=== PATIENT | female | born 1965 | race Caucasian/White ===

== ENCOUNTER 2018-06-12 13:21 | Emergency (ER) | payer OTHER, SELFPAY ==
[2018-06-12 13:25] VITALS: BP 154/108; PULSE 78; RESP 16; TEMP 36.7; O2SAT 98
--- NOTE | 2018-06-12 13:42 | ED.GENADUL ---
Disposition Clinical Impression: Contact dermatitis Disposition: HOME Condition: Stable Instructions: Dermatitis (ED) Additional Instructions: you can try using topical steroid cream if not better this week see your primary care provider if you develop severe pain or fevers return to the emergency department Medical Decision Making - Medical Decision Making Pt here with what to me appears to be a contact local dermatitis. No hand itching and rash doesn't seem typical for scabies. Has no evidence of abscess or cellulitis. Will have her start topical steroids and f/u with pcp if not improving this week - Differential Diagnosis contact dermatitis, cellulitis History of Present Illness - General Chief complaint: RashLesion Stated complaint: rash Time Seen by Provider: 06/12/18 13:34 Source: patient Mode of arrival: ambulatory Limitations: no limitations - History of Present Illness Initial comments: 53 yo female comes in with rash to right arm pit area. She states she had a pimple area there and this morning had a red itchy area so came here. Hasn't taken anything for these symptoms. No fevers or chills. Has mild erythema that blanches and is about 2x1cm with 2-3 smaller areas surrounding it, no fluctuance or tenderness and no warmth. She states she is worried of scabies as she was exposed to this recently, has no itching or rashes to the hands MD Complaint: right arm pit rash Onset/Timin -: days(s) Improves with: none Worsens with: none - Related Data Biotin 10,000 mcg PO DAILY 05/18/17 Cholecalciferol (Vitamin D3) [Vitamin D3] 1,000 unit PO DAILY 05/18/17 Cinnamon Bark 2 gm MC DAILY 05/18/17 Folic Acid 0.8 mg PO DAILY tab-cap 05/18/17 Ibuprofen 600 mg PO TID tab-cap 05/18/17 Lactobacillus Acidophilus [Acidophilus] 1 each PO DAILY 05/18/17 Levothyroxine Sodium [Synthroid] 125 mcg PO DAILY tab-cap 05/18/17 Meclizine HCl 25 mg PO DAILY PRN tab-cap 05/18/17 Naproxen Sodium 220 mg PO BID PRN tab-cap 05/18/17 Tizanidine HCl 2 mg PO DAILY PRN 05/18/17 Tumeric 1 cap PO DAILY 05/18/17 Mariana Root 1 gm MC DAILY 05/19/17 Allergies Allergy/AdvReac Type Severity Reaction Status Date / Time hydromorphone AdvReac Unverified 06/23/17 08:34 oxycodone AdvReac Unverified 06/23/17 08:34 narcotics AdvReac Uncoded 06/23/17 08:34 Review of Systems Constitutional: denies: fever Respiratory: denies: shortness of breath Cardiovascular: denies: chest pain Genitourinary: denies: dysuria Musculoskeletal: denies: back pain Skin: rash Comment: All other systems reviewed and negative Past Medical History - Past Medical History hypothyroidism - Social History Alcohol use: none Drug use: none General Exam - General Limitations: no limitations General appearance: alert, in no apparent distress - Head Head exam: Present: atraumatic - Eye Eye exam: Present: normal apperance - ENT ENT exam: Present: mucous membranes moist - Neck Neck exam: Present: normal inspection - Respiratory Respiratory exam: Absent: respiratory distress - Cardiovascular Cardiovascular Exam: Present: regular rate - Extremities Exam Extremities exam: Present: full ROM, other (see hpi). Absent: joint swelling - Skin Skin exam: Present: warm, other (see hpi) Course Vital Signs - 24 hr 06/12/18 13:25 Temperature 98.1 F Pulse 78 Respiratory 16 Rate Blood Pressure 154/108 Pulse Oximetry 98
[2018-06-12 13:50] VITALS: BP 154/108; PULSE 78; RESP 16; TEMP 36.7; O2SAT 98
== END 2018-06-12 13:53 | disposition home or self-care (01) ==
PROVIDERS: Emergency Provider Emergency Medicine; PCP Family Medicine
DX: L25.9 Unspecified contact dermatitis, unspecified cause (principal)
CPT/HCPCS: 99283

== ENCOUNTER 2023-03-06 01:10 | Outpatient (CLI) | payer OTHER, SELFPAY ==
[2023-03-06 12:53] LABS: Abs Immature Grans 0.05 10^3/uL (0.0-0.06); Absolute Basophil Count 0.05 10^3/uL (0.0-0.2); Absolute Eosinophil Count 0.22 10^3/uL (0.0-0.7); Absolute Lymphocyte Count 1.79 10^3/uL (1.2-3.4); Absolute Monocyte Count 0.61 10^3/uL (0.1-0.8); Absolute Neutrophil Count 3.62 10^3/uL (1.2-6.7); Basophils % 0.8; Eosinophils % 3.5; HCT 45.9 % (36.0-46.0); HGB 14.9 g/dL (11.2-15.7); Immature Grans % 0.8; Lymphocytes % 28.2; MCH 29.7 pg (27.0-33.0); MCHC 32.5 % (32.0-36.0); MCV 92 fL (80-95); MPV 9.9 fL (8.0-11.0); Monocytes % 9.6; Neutrophils % 57.1; Platelet Count 276 10^3/uL (130-400); RBC 5.01 10^6/uL (3.93-5.22); RDW 12.8 % (11.7-14.6); RDW-SD 42.7 fL; WBC 6.34 10^3/uL (4.4-10.8)
[2023-03-06 13:11] LABS: ALT 30 U/L (14-59); AST 22 U/L (15-37); Alkaline Phosphatase 92 U/L (46-116); Anion Gap 12.1 mmol/L (3-11); BUN 18 mg/dL (7-18); Bilirubin, Total 0.4 mg/dL (0.2-1.0); CO2 25.9 mmol/L (21.0-32.0); Calcium 9.3 mg/dL (8.5-10.1); Calculated LDL 154 mg/dL (<100); Chloride 100 mmol/L (98-107); Cholesterol 238 mg/dL (<200); Estimated GFR 64.49 (mL/min/1.73m2); Glucose 235 mg/dL (74-106); HDL Cholesterol 61 mg/dL (40-60); Potassium 4.3 mmol/L (3.5-5.1); Sodium 138 mmol/L (136-145); TSH (W/Ref FT4) 1.37 uIU/mL (0.36-3.74); Total Protein 7.4 g/dL (6.4-8.2); Triglyceride 118 mg/dL (<150)
== END 2023-03-06 01:11 | disposition home or self-care (01) ==
LOC: LOS 01:10
PROVIDERS: PCP Nurse Practitioner; Visit Provider Nurse Practitioner
DX: E03.9 Hypothyroidism, unspecified (principal); E11.9 Type 2 diabetes mellitus without complications; J45.909 Unspecified asthma, uncomplicated; Z13.220 Encounter for screening for lipoid disorders
CPT/HCPCS: 36415; 80053; 80061; 83036; 84443; 85025

== ENCOUNTER 2023-04-01 11:58 | Outpatient (CLI) | payer OTHER, SELFPAY ==
[2023-04-08 16:42] LABS: Anti GAD65 Abs 0.22 nmol/L (<= 0.02); IA-2 Autoantibodies 0.01 nmol/L (<=0.02); ZnT8 Antibodies <15.0 U/mL (<15.0)
== END 2023-04-01 11:59 | disposition home or self-care (01) ==
LOC: LBO 11:58
PROVIDERS: PCP Nurse Practitioner; Visit Provider Student in an Organized Health Care Education/Training Program
DX: Z83.3 Family history of diabetes mellitus (principal); E11.65 Type 2 diabetes mellitus with hyperglycemia
CPT/HCPCS: 36415; 86337; 86341

== ENCOUNTER 2023-10-07 13:30 | Outpatient (REF) | payer OTHER, SELFPAY ==
[2023-10-08 14:19] LABS: HSV 1 DNA Result Positive (Negative); HSV 2 DNA Result Negative (Negative); Varicella Zoster DNA Result Negative ((See Note))
== END 2023-10-07 13:31 | disposition home or self-care (01) ==
LOC: LBN 13:30
PROVIDERS: PCP Nurse Practitioner; Visit Provider Nurse Practitioner Adult Health
DX: K12.1 Other forms of stomatitis (principal); K13.79 Other lesions of oral mucosa
CPT/HCPCS: 87529; 87798

== ENCOUNTER 2023-12-08 03:15 | Outpatient (CLI) | payer BC, SELFPAY ==
[2023-12-08 10:14] LABS: AST 756 U/L (15-37); Albumin 3.5 g/dL (3.4-5.0); Alkaline Phosphatase 622 U/L (46-116); Anion Gap 10.2 mmol/L (3-11); BUN 9 mg/dL (7-18); Bilirubin, Total 1.1 mg/dL (0.2-1.0); CO2 26.8 mmol/L (21.0-32.0); CREATININE 0.9 mg/dL (0.55-1.02); Calcium 9.9 mg/dL (8.5-10.1); Calculated LDL 95 mg/dL (<100); Chloride 103 mmol/L (98-107); Cholesterol 160 mg/dL (<200); Estimated GFR 73.19 (mL/min/1.73m2); Glucose 146 mg/dL (74-106); HDL Cholesterol 54 mg/dL (40-60); Potassium 4.4 mmol/L (3.5-5.1); Sodium 140 mmol/L (136-145); Triglyceride 55 mg/dL (<150)
[2023-12-08 11:10] LABS: ALT 1408 U/L (14-59)
[2023-12-08 15:44] LABS: Lab Add On Test DONE
[2023-12-08 17:32] LABS: Hemoglobin A1C 6.9 % (<5.7)
== END 2023-12-08 03:16 | disposition home or self-care (01) ==
PROVIDERS: PCP Nurse Practitioner; Referring Provider Nurse Practitioner; Visit Provider Nurse Practitioner
DX: E11.9 Type 2 diabetes mellitus without complications (principal); I10 Essential (primary) hypertension
CPT/HCPCS: 36415; 80053; 80061; 83036

== ENCOUNTER 2023-12-08 13:51 | Observation (INO) | payer BC, SELFPAY ==
[2023-12-08] VITALS (7 sets, daily range): BP systolic 130–160; BP diastolic 73–99; PULSE 65–84; RESP 15–18; TEMP 36.2–37.1; O2SAT 95–99
--- NOTE | 2023-12-08 14:09 | ED.GENADUL_ITS ---
HPI General Mode of arrival: ambulatory . Date/Time Provider Initiated Documentation: 12/08/23 14:00 . Limitations to Documentation: no limitations . Information obtained by: patient and old records reviewed . HPI Narrative: 58yo F with DM, hypothyroid, presenting after being instructed to by her PCP for abnormal liver labs that were drawn outpatient. For about a week she has had nausea and vomiting, doing okay with fluids but not able to keep down much solids. Increased dose of ozempic about a week and a half ago. Mild burning epigastric and RUQ abdominal pain, not helped with TUMS. No unusual foods (wildcrafted mushrooms,etc.) or new medications. She is otherwise in her usual state of health with no fevers, chills, rash, lower abdominal pain, flank pain, or other concerns. Related Data Home Medications Medication Instructions Recorded Confirmed Tumeric 1 cap PO DAILY 05/18/17 12/08/23 cinnamon bark (bulk) 2 g miscellaneous DAILY 05/18/17 12/08/23 meclizine 25 mg chewable tablet 25 mg PO DAILY PRN 05/18/17 12/08/23 naproxen sodium 220 mg tablet 220 mg PO BID PRN 05/18/17 12/08/23 tizanidine 2 mg capsule 2 mg PO DAILY PRN 05/18/17 12/08/23 juventino root (bulk) 1 g miscellaneous DAILY 05/19/17 12/08/23 Quercitin 500 mg PO DAILY 02/18/23 12/08/23 cholecalciferol (vitamin D3) 125 125 mcg PO DAILY 02/18/23 12/08/23 mcg (5,000 unit) capsule collagen 7.85 mg PO DAILY 02/18/23 12/08/23 cyclobenzaprine 5 mg tablet 2.5 mg PO DAILY PRN SI joint issues 02/18/23 12/08/23 ibuprofen 600 mg tablet 600 mg PO TID PRN 02/18/23 12/08/23 meclizine 25 mg tablet 25 mg PO DAILY PRN 02/18/23 12/08/23 selenium 200 mcg tablet 200 mcg PO DAILY 02/18/23 12/08/23 zinc 22 mg PO 1XD 02/18/23 12/08/23 blood sugar diagnostic (Blood #200 ea 03/16/23 12/08/23 Glucose Test strips) blood-glucose meter (OneTouch #1 ea 03/16/23 12/08/23 Verio Flex Meter) lancets (Lancets,Ultra Thin) #100 ea 03/16/23 12/08/23 CGM (Continuous Glucose Monitor) #1 ea 04/25/23 12/08/23 insulin glargine-aglr 100 unit/mL 10 unit (0.1 mL) subcut DAILY 05/08/23 12/08/23 (3 mL) subcutaneous pen (Rezvoglar Diabetes #15 mL KwikPen) pen needle, diabetic 31 gauge x #100 ea 05/08/23 12/08/23 3/16 (Easy Comfort Pen [place]) levothyroxine 137 mcg capsule 137 mcg PO DAILY #90 caps 05/15/23 12/08/23 insulin aspart U-100 100 unit/mL 5 unit (0.05 mL) subcut TID #15 mL 10/13/23 12/08/23 (3 mL) subcutaneous pen (Novolog FlexPen U-100 Insulin aspart) semaglutide 2 mg/dose (8 mg/3 mL) 2 mg subcut QWEEK 12/01/23 12/08/23 subcutaneous pen injector (Ozempic) Previous Rx's Medication Instructions Recorded blood sugar diagnostic (Blood #200 ea 03/16/23 Glucose Test strips) blood-glucose meter (OneTouch #1 ea 03/16/23 Verio Flex Meter) lancets (Lancets,Ultra Thin) #100 ea 03/16/23 CGM (Continuous Glucose Monitor) #1 ea 04/25/23 insulin glargine-aglr 100 unit/mL 10 unit (0.1 mL) subcut DAILY 05/08/23 (3 mL) subcutaneous pen (Rezvoglar Diabetes #15 mL KwikPen) pen needle, diabetic 31 gauge x #100 ea 05/08/23 3/16 (Easy Comfort Pen [place]) levothyroxine 137 mcg capsule 137 mcg PO DAILY #90 caps 05/15/23 insulin aspart U-100 100 unit/mL 5 unit (0.05 mL) subcut TID #15 mL 10/13/23 (3 mL) subcutaneous pen (Novolog FlexPen U-100 Insulin aspart) Allergies Allergy/AdvReac Type Severity Reaction Status Date / Time hydromorphone AdvReac Dizziness/L Verified 02/13/24 13:59 ighthead oxycodone AdvReac Nausea Verified 12/08/23 13:59 narcotics AdvReac Nausea Uncoded 12/08/23 13:59 General Stated Complaint: Abd Prob EARL: 3 Review of Systems Narrative: see HPI Exam Narrative Exam Narrative: General: Alert, well appearing, well nourished, in no acute distress. Head: Normocephalic, atraumatic Neck: Trachea midline, ?Neck supple. ENT: ?MMM.? No oropharygeal lesions or exudate. Cardiac: ?RRR, no murmurs appreciated Resp: No respiratory distress. CTAB. Abd: ?Soft, non-distended, slightly tender RUQ, Extremities: ?No deformities.? No peripheral edema. Neurologic: GCS 15. ? Moves all extremities freely against gravity Course Vital Signs Vital signs: Vital Signs Temperature 36.4 C L 12/08/23 13:54 Pulse 84 12/08/23 13:54 Respiratory Rate 18 12/08/23 13:54 Blood Pressure 153/99 H 12/08/23 13:54 Pulse Oximetry 99 12/08/23 13:54 Temperature 36.4 C L 12/08/23 13:54 Temperature Source Skin 12/08/23 13:54 Pulse 84 12/08/23 13:54 Respiratory Rate 18 12/08/23 13:54 Respiratory Effort Normal 12/08/23 13:58 Blood Pressure 153/99 H 12/08/23 13:54 Pulse Oximetry 99 12/08/23 13:54 Oxygen Delivery Method Room Air 12/08/23 13:54 Oxygen Flow Rate 0 12/08/23 13:54 Medical Decision Making 58yo F with DM, hypothyroid, presenting after being instructed to by her PCP for abnormal liver labs that were drawn outpatient. Has had a week and a half of N/V, symptoms started after increasing dose of ozempic. Outpatient labs with Tbili 1.1, AST 756, ALT 1408, ALP 622. Vital signs and physical exam reassuring, minimal RUQ tenderness on exam. No jaundice. Labs here reviewed as below, CBC reassuring, CMP again with transaminitiis (TBili 0.7, AST 569, ALT >10,000, ALP 580). PT & PTT normal. Ammonia normal. BNP normal. Amylase normal. Lipase mildly elevated at 166, not overly suggestive of pancreatitis. Serum acetaminophen negative. US independently reviewed, agree with radiology read below with CBD dilation without wall thickening. Viral hepatitis panel send out. Repeat vital signs and physical exam remain reassuring. Not concerning for cholangitis. Differenital remains broad, ozempic reaction, acute viral hepatitis, choledocolithiasis. Discussed with Dr. Meyer [facility]; agree the patient would benefit from EUS. They anticipate being able to perform the procedure tomorrow, would be able to do a [id number] transfer. Requested that the admitting service here call the transfer center at 0830 tomorrow to confirm timing. Discussed with hospitalist and accepted to medicine service; awaiting transfer to the floor. Imaging Data Radiologic Study: Imaging: Ultrasound Radiologist's impression: IMPRESSION: Dilated common bile duct and pancreatic duct. No visible obstructing stone or mass. The gallbladder is somewhat distended but there is no evidence of acute cholecystitis. Lab Data Lab results reviewed: Yes I reviewed the patient's lab results. Labs: Laboratory Tests Range/Units 12/08/23 12/08/23 12/08/23 14:40 14:42 16:24 WBC (4.4-10.8) 10^3/uL 7.01 RBC (3.93-5.22) 10^6/uL 4.28 Hgb (11.2-15.7) g/dL 13.1 Hct (36.0-46.0) % 39.1 MCV (80-95) fL 91 MCH (27.0-33.0) pg 30.6 MCHC (32.0-36.0) % 33.5 RDW (11.7-14.6) % 13.0 Plt Count (130-400) 10^3/uL 289 MPV (8.0-11.0) fL 9.8 Immature Gran % 0.4 Neutrophils % 60.6 Lymphocytes % 27.5 Monocytes % 7.8 Eosinophils % 3.1 Basophils % 0.6 Nucleated RBC % (0.0-0.3) % 0.0 Absolute Neutrophils (1.2-6.7) 10^3/uL 4.25 Absolute Lymphocytes (1.2-3.4) 10^3/uL 1.93 Absolute Monocytes (0.1-0.8) 10^3/uL 0.55 Absolute Eosinophils (0.0-0.7) 10^3/uL 0.22 Absolute Basophils (0.0-0.2) 10^3/uL 0.04 PT (9.1-11.1) sec 10.7 INR (0.9-1.1) 1.1 APTT (23.6-32.8) sec 30.5 Sodium (136-145) mmol/L 140 Potassium (3.5-5.1) mmol/L 3.9 Chloride (98-107) mmol/L 103 Carbon Dioxide (21.0-32.0) mmol/L 28.5 Anion Gap (3-11) mmol/L 8.5 BUN (7-18) mg/dL 14 Creatinine (0.55-1.02) mg/dL 0.8 Est GFR (CKD-EPI 2020) (mL/min/1.73m2) 84.30 Glucose (74-106) mg/dL 186 H Calcium (8.5-10.1) mg/dL 9.8 Total Bilirubin (0.2-1.0) mg/dL 0.7 AST (15-37) U/L 569 H ALT (14-59) U/L > 83620 H Alkaline Phosphatase (46-116) U/L 580 H Ammonia (11-32) umol/L < 10 L NT-Pro-B Natriuret Pep (<300) pg/mL 38 Total Protein (6.4-8.2) g/dL 7.1 Albumin (3.4-5.0) g/dL 3.5 Amylase (25-115) U/L 38 Lipase (16-77) U/L 166 H Acetaminophen (10-30) ug/mL < 2 HIV 1&2 Ag/Ab, 4th Gen Cancelled HIV 1&2 Antibody Rapid (Negative) Negative Cancelled Quality:SDOH Health Related Social Needs: No Data to Display PFSH All Active Problems (Updated 12/08/23 @ 21:01 by Belkis Obrien MD) Common bile duct dilatation (Acute) Hepatitis (Acute) HSV-1 infection (Acute ~2022) DM type 1, goal A1C below 7.5% (Acute) DM 1.5, but adding TYpe 1 2' MGMT per DM 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 see [facility] notes.. 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, 03/2023 Ganglion cyst Muscle spasm Benign paroxysmal positional vertigo Trochanteric bursitis, left hip Other intervertebral disc degeneration, lumbar region Adjustment disorder with anxious mood Synovial cyst of lumbar facet joint Family History Brother Alcohol use disorder Brother Alcohol use disorder Depression Father Colon cancer Diabetes Mother Asthma Lung cancer ALK positive ( gene mutation) Hypertension Sister Franklin disease Paternal Grandmother Heart disease Paternal Grandfather Colon cancer Social History Smoking/Tobacco Use Status: Current-Occasional Quit status: considering quitting Smoking risk assessment performed?: Yes Alcohol Intake: current Alcohol Intake frequency: holidays/special occasions only Counseling given: No Drug use: Never Substance use type: does not use Household members: spouse Housing: house Number of Children: 3 number of grandchildren: 2 Communication Needs: Corrective Lenses Education Level: college 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 What is your relationship status?: How often do you talk on the phone with friends or family?: three or more times per week How often do you get together with friends or relatives?: three or more times per week Panel score (0-1 are the most socially isolated patients): 2 NHANES result reviewed/action taken: Yes What type of physical activity do you participate in: walking and swimming Duration: 45-60 minutes/day Frequency: 5-6 times per week Debbi/Nondenominational: Protestant Special debbi needs: Yes Seatbelt use: always 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 Working smoke detector in home: Yes Carbon monox detector in home: Yes Do you feel safe in your relationship?: Yes Discharge Plan Disposition Patient Disposition: Admit to [facility] Condition: Serious Discharge Details Chief Complaint: Abd Prob Clinical Impression: Common bile duct dilatation, Hepatitis Primary Care Provider: Thao Rivas ED Provider: Belkis Obrien Home Meds and New Rx's Prescriptions: No Action cyclobenzaprine 5 mg tablet 2.5 mg PO DAILY PRN (Reason: SI joint issues) zinc 22 mg PO 1XD cholecalciferol (vitamin D3) 125 mcg (5,000 unit) capsule 125 mcg PO DAILY selenium 200 mcg tablet 200 mcg PO DAILY Quercitin 500 mg PO DAILY collagen 7.85 mg PO DAILY meclizine 25 mg tablet 25 mg PO DAILY PRN (DME) blood-glucose meter [OneTouch Verio Flex meter] Misc See Rx Instructions .Route Qty: 1 1RF Rx Instructions: For BID testing of diabetes, E11.9, with A1C goal < 8 (DME) lancets [Lancets,Ultra Thin] Misc See Rx Instructions .Route Qty: 100 1RF Rx Instructions: for BID testing with Verio for DM W11.9 with A1C goal < 8 (DME) Blood Glucose Test Strip See Rx Instructions .ROUTE .MEDSUPPLY Qty: 200 3RF Rx Instructions: For Verio OR covered brand, for bID testing for DM E11.9 Ozempic 2 mg/dose (8 mg/3 mL) pen injector 2 mg subcut QWEEK insulin aspart U-100 [Novolog FlexPen U-100 Insulin] 100 unit/mL (3 mL) insulin pen 5 unit subcut TID Qty: 15 12RF Rx Instructions: Inject 1-5 units subcutaneously, 1-3 times daily as directed. (DME) CGM (Continuous Glucose Monitor) and SENSOR See Rx Instructions .Route .MEDSUPPLY Qty: 1 1RF Rx Instructions: Medical necessity for serious health risk due to TYPE 1 MGMT REQUIREMENT cinnamon bark (bulk) 1 GM powder 2 g Miscellaneous DAILY naproxen sodium 220 MG tablet 220 mg PO BID PRN meclizine 25 MG tablet,chewable 25 mg PO DAILY PRN tizanidine 2 MG capsule 2 mg PO DAILY PRN TUMERIC EACH CAP 1 cap PO DAILY juventino root (bulk) 1 GM powder 1 g Miscellaneous DAILY ibuprofen 600 mg tablet 600 mg PO TID PRN (DME) pen needle, diabetic [Easy Comfort Pen [place]] 31 gauge x 3/16 needle See Rx Instructions .Route Qty: 100 3RF Rx Instructions: As directed Zoë Duke 100 unit/mL (3 mL) insulin pen 10 unit subcut DAILY MDD 30 units Qty: 15 3RF Rx Instructions: Take 10 units SubQ daily. May titrate to 30 units as directed by ambulatory pharmacist levothyroxine 137 mcg capsule 137 mcg PO DAILY Qty: 90 3RF
--- NOTE | 2023-12-08 14:15 | DI.US_ITS ---
Exam(s) US ABDOMEN EXAM: US ABDOMEN CLINICAL HISTORY: elevated LFTS, diffuse abd pain, vomiting TECHNIQUE: Ultrasound abdomen performed using standard protocol. COMPARISON: No exams were available for comparison FINDINGS: LIVER: Normal size and echogenicity. No focal liver lesions are seen. GALLBLADDER: Gallbladder appears somewhat distended. No evidence of cholelithiasis. No evidence of w all thickening. No pericholecystic fluid identified. RAY'S SIGN: Negative. BILIARY SYSTEM: Common bile duct dilated to 11 millimeters. No stone visible. KIDNEYS: Kidneys are symmetric in size. No evidence of renal calculi. No evidence of hydronephrosis. No renal mass or cyst identified. PANCREAS: Pancreatic duct is dilated to 4 millimeters. No mass or cyst identified. SPLEEN: Not enlarged. ABDOMINAL AORTA AND IVC: Visualized portions normal caliber. ASCITES: None seen. IMPRESSION: Dilated common bile duct and pancreatic duct. No visible obstructing stone or mass. The gallbladder is somewhat distended but there is no evidence of acute cholecystitis. DATA REPOSITORY:
[2023-12-08 14:57] LABS: Absolute Basophil Count 0.04 10^3/uL (0.0-0.2); Basophils % 0.6
[2023-12-08 15:18] LABS: Abs Immature Grans 0.03 10^3/uL (0.0-0.06); Absolute Eosinophil Count 0.22 10^3/uL (0.0-0.7); Absolute Lymphocyte Count 1.93 10^3/uL (1.2-3.4); Absolute Monocyte Count 0.55 10^3/uL (0.1-0.8); Eosinophils % 3.1; HCT 39.1 % (36.0-46.0); HGB 13.1 g/dL (11.2-15.7); Immature Grans % 0.4; Lymphocytes % 27.5; MCH 30.6 pg (27.0-33.0); MCHC 33.5 % (32.0-36.0); MCV 91 fL (80-95); MPV 9.8 fL (8.0-11.0); Monocytes % 7.8; Neutrophils % 60.6; Platelet Count 289 10^3/uL (130-400); RBC 4.28 10^6/uL (3.93-5.22); RDW-SD 43.4 fL; WBC 7.01 10^3/uL (4.4-10.8)
[2023-12-08 15:20] LABS: Absolute Neutrophil Count 4.25 10^3/uL (1.2-6.7)
[2023-12-08 15:27] LABS: AST 569 U/L (15-37); Albumin 3.5 g/dL (3.4-5.0); Alkaline Phosphatase 580 U/L (46-116); Amylase 38 U/L (25-115); Anion Gap 8.5 mmol/L (3-11); BUN 14 mg/dL (7-18); Bilirubin, Total 0.7 mg/dL (0.2-1.0); CO2 28.5 mmol/L (21.0-32.0); CREATININE 0.8 mg/dL (0.55-1.02); Chloride 103 mmol/L (98-107); Glucose 186 mg/dL (74-106); HIV 1/2 Ab Rapid Negative (Negative); Lipase 166 U/L (16-77); NT-proBNP 38 pg/mL (<300); Potassium 3.9 mmol/L (3.5-5.1); Sodium 140 mmol/L (136-145); Total Protein 7.1 g/dL (6.4-8.2)
[2023-12-08 15:34] LABS: Ammonia < 10 umol/L (11-32)
[2023-12-08 15:51] LABS: Acetaminophen < 2 ug/mL (10-30)
[2023-12-08 16:11] LABS: Calcium 9.8 mg/dL (8.5-10.1)
[2023-12-08 16:47] LABS: INR 1.1 (0.9-1.1); PTT Activated 30.5 sec (23.6-32.8); Prothrombin Time 10.7 sec (9.1-11.1)
[2023-12-08 17:03] LABS: ALT > 10000 U/L (14-59)
--- NOTE | 2023-12-08 20:24 | HPE_ITS ---
Date of service: 12/08/23 Time of Service: 20:25 Assessment and Plan Assessment and plan (1) Hepatitis: Status: Acute Assessment and plan: Acute hepatitis, hepatocellular pattern. With numbers at this level toxic etiology suspected (eg, Ozempic by timing), though episodes of acute pain (along with increased CBD) raise question of passed stone. Will hold all meds (except for insulin coverage), trend LFTs, await viral and autoimmune studies and consult further with GI for ERCP. 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 States she always has had some transient nausea with does increases, but this has been persistent and severe, along with several episodes of bilious vomiting. Notably she also had two episodes of epigastric pain during this period, one 5 days OPEN CLAIMS REPRESENTATIVE, one 2 days OPEN CLAIMS REPRESENTATIVE -- both occurring some 4-5 hours after eating. In ER w/u of note for initial ALT 1408, repeat >10,000, with AST in 500- 700 range; initial bili 1.2, repeat 0.7. U/S shows CBD 11mm, no stones, slightly distended GB w/o wall thickening or fluid. APAP negative, HIV negative, viral studies and RADHA pending. GI consulted, hoping to see her for ERCP in AM (Dr. Meyer asks us to call). I was asked to evaluate for admission. Patient denies other new drugs or supplements, though did have a course of Acyclovir 1 month OPEN CLAIMS REPRESENTATIVE for episode oral HSV. No exposure to HBV, denies blood transfusion or new sexual partner. Review of Systems Narrative: per HPI PFSH All Active Problems (Updated 12/08/23 @ 20:37 by Anthony Ruano MD) Hepatitis (Acute) HSV-1 infection (Acute ~2022) DM type 1, goal A1C below 7.5% (Acute) DM 1.5, but adding TYpe 1 2' MGMT per DM 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 see KG notes.. 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, 03/2023 Ganglion cyst Muscle spasm Benign paroxysmal positional vertigo Trochanteric bursitis, left hip Other intervertebral disc degeneration, lumbar region Adjustment disorder with anxious mood Synovial cyst of lumbar facet joint Family History Brother Alcohol use disorder Brother Alcohol use disorder Depression Father Colon cancer Diabetes Mother Asthma Lung cancer ALK positive ( gene mutation) Hypertension Sister [place] disease Paternal Grandmother Heart disease Paternal Grandfather Colon cancer Social History Smoking/Tobacco Use Status: Current-Occasional Quit status: considering quitting Smoking risk assessment performed?: Yes Alcohol Intake: current Alcohol Intake frequency: holidays/special occasions only Counseling given: No Drug use: Never Substance use type: does not use Household members: spouse Housing: house Number of Children: 3 number of grandchildren: 2 Communication Needs: Corrective Lenses Education Level: college 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 What is your relationship status?: How often do you talk on the phone with friends or family?: three or more times per week How often do you get together with friends or relatives?: three or more times per week Panel score (0-1 are the most socially isolated patients): 2 NHANES result reviewed/action taken: Yes What type of physical activity do you participate in: walking and swimming Duration: 45-60 minutes/day Frequency: 5-6 times per week Debbi/Samaritan: Taoism Special debbi needs: Yes Seatbelt use: always Drive intox or ride w/intox 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 Working smoke detector in home: Yes Carbon monox detector in home: Yes Do you feel safe in your relationship?: Yes Meds Allergies and Home Medications Allergies Allergy/AdvReac Type Severity Reaction Status Date / Time hydromorphone AdvReac Dizziness/L Verified 12/08/23 13:59 ighthead oxycodone AdvReac Nausea Verified 12/08/23 13:59 narcotics AdvReac Nausea Uncoded 12/08/23 13:59 Home Medications Medication Instructions Recorded Confirmed Type Tumeric 1 cap PO DAILY 05/18/17 12/08/23 History cinnamon bark (bulk) 2 g miscellaneous DAILY 05/18/17 12/08/23 History meclizine 25 mg chewable tablet 25 mg PO DAILY PRN 05/18/17 12/08/23 History naproxen sodium 220 mg tablet 220 mg PO BID PRN 05/18/17 12/08/23 History tizanidine 2 mg capsule 2 mg PO DAILY PRN 05/18/17 12/08/23 History juventino root (bulk) 1 g miscellaneous DAILY 05/19/17 12/08/23 History Quercitin 500 mg PO DAILY 02/18/23 12/08/23 History cholecalciferol (vitamin D3) 125 125 mcg PO DAILY 02/18/23 12/08/23 History mcg (5,000 unit) capsule collagen 7.85 mg PO DAILY 02/18/23 12/08/23 History cyclobenzaprine 5 mg tablet 2.5 mg PO DAILY PRN SI joint issues 02/18/23 12/08/23 History ibuprofen 600 mg tablet 600 mg PO TID PRN 02/18/23 12/08/23 History meclizine 25 mg tablet 25 mg PO DAILY PRN 02/18/23 12/08/23 History selenium 200 mcg tablet 200 mcg PO DAILY 02/18/23 12/08/23 History zinc 22 mg PO 1XD 02/18/23 12/08/23 History blood sugar diagnostic (Blood #200 ea 03/16/23 12/08/23 Rx Glucose Test strips) blood-glucose meter (OneTouch #1 ea 03/16/23 12/08/23 Rx Verio Flex Meter) lancets (Lancets,Ultra Thin) #100 ea 03/16/23 12/08/23 Rx CGM (Continuous Glucose Monitor) #1 ea 04/25/23 12/08/23 Rx insulin glargine-aglr 100 unit/mL 10 unit (0.1 mL) subcut DAILY 05/08/23 12/08/23 Rx (3 mL) subcutaneous pen (Zoë Diabetes #15 mL KwikPen) pen needle, diabetic 31 gauge x #100 ea 05/08/23 12/08/23 Rx 3/16 (Easy Comfort Pen [place]) levothyroxine 137 mcg capsule 137 mcg PO DAILY #90 caps 05/15/23 12/08/23 Rx insulin aspart U-100 100 unit/mL 5 unit (0.05 mL) subcut TID #15 mL 10/13/23 12/08/23 Rx (3 mL) subcutaneous pen (Novolog FlexPen U-100 Insulin aspart) semaglutide 2 mg/dose (8 mg/3 mL) 2 mg subcut QWEEK 12/01/23 12/08/23 History subcutaneous pen injector (Ozempic) Exam Narrative Exam Narrative: 139/95, 74, 36.2, 18, 97% RA. HEENT anicteric; neck supple; lungs clear; heart RRR; abdomen soft and NT w/o HSM and negative Chen's; extremities w/o edema; neuro Ox3, lucid, moves all 4s Results Labs 12/08/23 14:40 12/08/23 14:40 Labs: Laboratory Results - last 24 hr 12/08/23 12/08/23 12/08/23 14:40 14:42 16:24 WBC 7.01 RBC 4.28 Hgb 13.1 Hct 39.1 MCV 91 MCH 30.6 MCHC 33.5 RDW 13.0 Plt Count 289 MPV 9.8 Immature Gran % 0.4 Neutrophils % 60.6 Lymphocytes % 27.5 Monocytes % 7.8 Eosinophils % 3.1 Basophils % 0.6 Nucleated RBC % 0.0 Absolute Neutrophils 4.25 Absolute Lymphocytes 1.93 Absolute Monocytes 0.55 Absolute Eosinophils 0.22 Absolute Basophils 0.04 PT 10.7 INR 1.1 APTT 30.5 Sodium 140 Potassium 3.9 Chloride 103 Carbon Dioxide 28.5 Anion Gap 8.5 BUN 14 Creatinine 0.8 Est GFR (CKD-EPI 2020) 84.30 Glucose 186 H Calcium 9.8 Total Bilirubin 0.7 AST 569 H ALT > 98013 H Alkaline Phosphatase 580 H Ammonia < 10 L NT-Pro-B Natriuret Pep 38 Total Protein 7.1 Albumin 3.5 Amylase 38 Lipase 166 H Acetaminophen < 2 HIV 1&2 Ag/Ab, 4th Gen Cancelled HIV 1&2 Antibody Rapid Negative Cancelled Last Vital Signs Temp 36.2 C L 12/08/23 20:06 Pulse 74 12/08/23 20:06 Resp 18 12/08/23 18:00 BP 139/95 H 12/08/23 20:06 Pulse Ox 97 12/08/23 20:06 Time Spent Time spent with Patient: 55-74 minutes Time was spent: preparing to see the patient(eg.review tests), obtaining and/or reviewing separately otained hiistory, ordering medications,tests, procedures, referring, communicating with other health career placement services counselor and indepentently interpreting results
[2023-12-08 23:21] LABS: HIV-1/2 Ag & Ab Screen Negative (Negative)
--- NOTE | 2023-12-09 | DI.MRI_ITS ---
Exam(s) MR ABDOMEN WO EXAM: MR ABDOMEN WO CLINICAL HISTORY: ACUTE HEPATITIS, CBC dilatation TECHNIQUE: Multiplanar multisequence MRI of the Abdomen was performed. MRCP sequences also performed. COMPARISON: US US ABDOMEN from 12/08/2023 FINDINGS: Liver: Unremarkable. Gallbladder: Unremarkable. No stones or wall thickening Bile Ducts: Dilatation of common bile duct to 13 millimeters. Mild dilatation of intrahepatic ducts. No common duct stone visible. Pancreas: Dilatation of the pancreatic duct to 5 millimeters proximally. Tapers distally in the tail . No mass or cyst identified. Adrenals: Unremarkable. Kidneys: Unremarkable. Spleen: Unremarkable. Aorta: Unremarkable. Soft Tissues: Unremarkable. Bone: Unremarkable. Lymph Nodes: Unremarkable. Mesentery: No ascites. No focal fluid collection. Bowel: No abnormal dilatation or wall thickening. Appendix normal. Lung bases: No evidence of fusion gross infiltrates. IMPRESSION: Dilatation of the common bile duct, intrahepatic ducts and pancreatic duct. The ducts taper in the h ead of the pancreas. No obstructing stone or mass identified. DATA REPOSITORY:
[2023-12-09] MEDS: Ondansetron 4 MG/2 ML VIAL IVP ×2 (04:27→09:23)
[2023-12-09] MEDS: Normal Saline Flush 10 ML SYR ×2 (04:28→09:24)
[2023-12-09 07:14] LABS: ALT 931 U/L (14-59); AST 298 U/L (15-37); Alkaline Phosphatase 551 U/L (46-116); Bilirubin, Total 0.5 mg/dL (0.2-1.0)
[2023-12-09 07:17] LABS: Lipase 317 U/L (16-77)
[2023-12-09 07:27] VITALS: BP 113/76; PULSE 64; RESP 20; TEMP 36.7; O2SAT 96
[2023-12-09] MEDS: Insulin Aspart 300 UNITS/3 ML PEN SC ×2 (08:24→12:45)
[2023-12-09 09:46] LABS: Hepatitis A Antibody IgM Negative (Negative); Hepatitis B Core Antibody Negative (Negative); Hepatitis B surface Ag Negative (Negative); Hepatitis C Ab w Rflx HCV PCR Negative (Negative)
--- NOTE | 2023-12-09 10:39 | PDOC.CMIN ---
Date of service: 12/09/23 Time of Service: 10:39 Care Management Initial Assmt Initial Assessment REASON FOR HOSPITALIZATION:: Hepatitis PREVIOUS FUNCTIONAL STATUS/SOCIAL/FAMILY SUPPORTS:: Meena lives in [place], [place] with her Michael Montoya. They have 3 sons; two live in [place] and one lives in [place]. 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 She is independent at baseline and does not receive any community services. CURRENT FUNCTIONAL STATUS:: Meena was sitting on her bed, fully dressed, waiting to be discharged when CM met with her. She stated that she is feeling well and just wants to go home. She and her were provided with blank copies of the [place] AD forms and CM's contact information, at their request. They will complete the forms and contact CM to set up a time to meet and complete the process . ADVANCE DIRECTIVES:: none on file Has patient been provided with info about the portal/API?: Yes Did the patient sign up for the portal?: Yes CODE STATUS:: Full Code INSURANCE COVERAGE / FINANCIAL ISSUES:: BC/BS of Ct CURRENT HOME/COMMUNITY SERVICES/EQUIPMENT:: none PRIMARY CARE PHYSICIAN:: Thao Rivas POTENTIAL DISCHARGE NEEDS:: follow up with PCP and plan of acre PATIENT/FAMILY EDUCATION NEEDS:: Review of discharge instructions, limitations, follow up plan, discuss Ask Me Three TRANSPORTATION:: via private vehicle with family PLAN:: Meena will be discharged home with no new services. She will follow up with her PCP and plan of care and transport with family. PFSH All Active Problems (Updated 12/09/23 @ 16:00 by Alfredo Sarah MD) Pancreatitis (Chronic) Common bile duct dilatation (Acute) Hepatitis (Acute) HSV-1 infection (Acute ~2022) DM type 1, goal A1C below 7.5% (Acute) DM 1.5, but adding TYpe 1 2' MGMT per DM 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 see KG notes.. 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, 03/2023 Ganglion cyst Muscle spasm Benign paroxysmal positional vertigo Trochanteric bursitis, left hip Other intervertebral disc degeneration, lumbar region Adjustment disorder with anxious mood Synovial cyst of lumbar facet joint Family History Brother Alcohol use disorder Brother Alcohol use disorder Depression Father Colon cancer Diabetes Mother Asthma Lung cancer ALK positive ( gene mutation) Hypertension Sister [place] disease Paternal Grandmother Heart disease Paternal Grandfather Colon cancer Social History Smoking/Tobacco Use Status: Current-Occasional Quit status: considering quitting Smoking risk assessment performed?: Yes Alcohol Intake: current Alcohol Intake frequency: holidays/special occasions only Counseling given: No Drug use: Never Substance use type: does not use Household members: spouse Housing: house Number of Children: 3 number of grandchildren: 2 Communication Needs: Corrective Lenses Education Level: college 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 [employer] What is your relationship status?: How often do you talk on the phone with friends or family?: three or more times per week How often do you get together with friends or relatives?: three or more times per week Panel score (0-1 are the most socially isolated patients): 2 NHANES result reviewed/action taken: Yes What type of physical activity do you participate in: walking and swimming Duration: 45-60 minutes/day Frequency: 5-6 times per week Debbi/Christianity: Islam Special debbi needs: Yes Seatbelt use: always Drive intox or ride w/intox cpr ambulance driver: No Working smoke detector in home: Yes Carbon monox detector in home: Yes Do you feel safe in your relationship?: Yes SDOH(Care Management) Screening Will the Patient Participate in the Screening?: Yes Do you worry about having a steady place to live?: no Problems where you live: no known problems In the past 12 months, have you had to go without electric, gas, oil or water in your home?: no Have you or anyone in your house had to go without enough food to eat?: no Has lack of transportation kept you from medical appointments or from doing things needed for daily living?: no Has anyone in your support network made you feel unsafe for any reason?: no
--- NOTE | 2023-12-09 10:55 | W.PM.PROGNOT ---
Date of Service Date of service: 12/09/23 Time of Service: 10:55 Assessment and Plan Assessment and plan (1) Common bile duct dilatation: Status: Acute Assessment and plan: check MRCP to rule out obstructive process (2) Hepatitis: Status: Acute Assessment and plan: check MRCP if negative then could potentially go home today w/ repeat LFT in two days, PCP will need to follow up on her autoimmune studies. (3) Diabetes 1.5, managed as type 1: Status: Acute Assessment and plan: dc Ozempic (known to severe LFT and pancreatitis in rare cases along w/ acute cholecystitis); continue insulin (basal/bolus) Subjective Subjective Interval history since last seen: Meena is 58 yr old female w/ type II DM on Ozempic who had her dose increased 8 days ago to 1.5 mg and the next day she began w/ abdominal pains and nausea which has become progressively worse leading to her current workup and hospitalization in which she was found to have a transaminatis. Labs ordered by her PCP done on 12/08 in the morning demonstrated AST 756, ALT 1408, alkaline phos 622 and total bili of 1.1, she was sent into the ED and her repeat transaminases had gone up to AST 569, ALT >10,000, alkaline phosphatase 580. ammonia was <10. Imaging was performed including US of her liver. This showed slightly distended gall bladder but no evidence of cholecystitis. She has dilated CBD but no stones or mass. Viral hepatitis and autoimmune studies were sent. [facility] was callled last night to discuss ERCP, and they recommended repeat labs today and recommended medical workup but to call back today if her symptoms got worse or her LFT were worsening. Today she says that her abdominal pain is very mild, along w/ mild nausea. She would like to go home today if possible. I told her that her transaminases are improved enough that she could go home this afternoon after she gets MRCP to rule out any obstructive process as her CBD is dilated. I went over her US of her liver w/ Dr. Navarro and there is no hepatic vein or portal vein thrombosis. I told her that she needs to avoid liver toxic medication such as NSAID or Tylenol and use of any alcohol. Exam Narrative Exam Narrative: Middle age white female who is alert, oriented x 3, no acute distress Lungs: clear Heart: RRR w/o m,r,g Abdomen: nondistended, normal bowel sounds x 4 quads, no bruits, no palpable organomegaly, no guarding or rebound tendernss, just mild tenderness in epigastrium and RUQ Extremities: no edema or stigmata of liver disease Objective Last Vital Signs Temp 36.7 C 12/09/23 07:27 Pulse 64 12/09/23 07:27 Resp 20 12/09/23 07:27 BP 113/76 12/09/23 07:27 Pulse Ox 96 12/09/23 07:27 Laboratory Results - last 24 hr 12/08/23 12/08/23 12/08/23 14:40 14:42 16:24 WBC 7.01 RBC 4.28 Hgb 13.1 Hct 39.1 MCV 91 MCH 30.6 MCHC 33.5 RDW 13.0 Plt Count 289 MPV 9.8 Immature Gran % 0.4 Neutrophils % 60.6 Lymphocytes % 27.5 Monocytes % 7.8 Eosinophils % 3.1 Basophils % 0.6 Nucleated RBC % 0.0 Absolute Neutrophils 4.25 Absolute Lymphocytes 1.93 Absolute Monocytes 0.55 Absolute Eosinophils 0.22 Absolute Basophils 0.04 PT 10.7 INR 1.1 APTT 30.5 Sodium 140 Potassium 3.9 Chloride 103 Carbon Dioxide 28.5 Anion Gap 8.5 BUN 14 Creatinine 0.8 Est GFR (CKD-EPI 2020) 84.30 Glucose 186 H Calcium 9.8 Total Bilirubin 0.7 AST 569 H ALT > 56313 H Alkaline Phosphatase 580 H Ammonia < 10 L NT-Pro-B Natriuret Pep 38 Total Protein 7.1 Albumin 3.5 Amylase 38 Lipase 166 H Acetaminophen < 2 HIV 1&2 Ag/Ab, 4th Gen Negative Cancelled HIV 1&2 Antibody Rapid Negative Cancelled 12/09/23 05:45 WBC RBC Hgb Hct MCV MCH MCHC RDW Plt Count MPV Immature Gran % Neutrophils % Lymphocytes % Monocytes % Eosinophils % Basophils % Nucleated RBC % Absolute Neutrophils Absolute Lymphocytes Absolute Monocytes Absolute Eosinophils Absolute Basophils PT INR APTT Sodium Potassium Chloride Carbon Dioxide Anion Gap BUN Creatinine Est GFR (CKD-EPI 2020) Glucose Calcium Total Bilirubin 0.5 AST 298 H ALT 931 H Alkaline Phosphatase 551 H Ammonia NT-Pro-B Natriuret Pep Total Protein Albumin Amylase Lipase 317 H Acetaminophen HIV 1&2 Ag/Ab, 4th Gen HIV 1&2 Antibody Rapid Time Spent with Patient Time Spent with Patient: 35-49 minutes Time was spent: preparing to see the patient(eg.review tests), obtaining and/or reviewing separately otained hiistory, ordering medications,tests, procedures, referring, communicating with other health neonatal intensive care unit nurse (including GI fellow Dr. Meyer), indepentently interpreting results, counseling the patient and care coordination
--- NOTE | 2023-12-09 15:32 | W.PM.DS.N ---
Date of service: 12/09/23 Time of Service: 15:32 DS: Diagnosis Discharge Diagnosis (1) Common bile duct dilatation: Status: Acute Asessment and Plan: No evidence of obstruction either on US nor on MRCP, and no biliary sludge or stones (2) Hepatitis: Status: Acute Asessment and Plan: negative for acute viral hepatitis and HIV, RADHA studies are pending. Patient has been told to stop her Ozempic. She presented w/ abdominal pains and elevated transaminases (3) Diabetes 1.5, managed as type 1: Status: Acute Discharge Plan Disposition Patient Disposition: Home Condition: Improving Discharge Details Reason For Visit: Hepatitis Admit Date/Time: 12/08/23 20:42 Admit Provider: Anthony Ruano Attending Provider: Anthony Ruano Primary Care Provider: Thao Rivas Hospital Course Hospital Course: 58-year-old type II diabetic COVID been on Ozempic along with glargine and aspart insulin who had a recent increase in Ozempic about 8 days ago and within 1 to 2 days after the increase in her Ozempic she started with nausea and abdominal pain. Subsequent workup showed the patient to have significant elevation of her transaminases. AST was elevated at 756, ALT 1480 alkaline phosphatase 622 and total bilirubin 1.1. This was obtained yesterday morning. Patient was sent to the emergency department where repeat LFTs showed worsening of her transaminases with an AST of 569, ALT greater than 10,000, alkaline phosphatase 580 with a normal ammonia level less than 10 and a normal total bilirubin 0.7 and normal ammonia level of less than 10 and a lipase of 166 with an amylase of 38. Patient underwent diagnostic imaging included an ultrasound of the abdomen that showed a slightly distended gallbladder but no gallbladder wall thickening no pericholecystic fluid and no cholelithiasis. Liver had normal size and echogenicity with no focal liver lesions. Pancreatic duct was dilated 4 mm but no mass or cyst was identified. I subsequently spoke with the radiologist who read the study and asked her specifically whether there was any evidence for hepatic vein or portal vein thrombosis and she saw none. Patient underwent subsequent MRCP that showed dilatation of the common bile duct intrahepatic ducts and pancreatic duct but no obstructing stone or mass. Patient did well overnight had no vomiting her abdominal pain improved and patient was requesting to return home. Her follow-up LFTs showed improvement in her transaminases. Repeat AST 298, ALT 931, alkaline phosphatase 551, total bilirubin 0.5. Calcium levels normal at 9 point 8 repeat lipase was still elevated at 317 although her amylase was normal at 38. Pro time was normal at 10.7 INR 1.1. Note [facility] gastroenterology fellow was called to discuss whether the patient needed ERCP or not. This is why improving her abdominal pain was improving was recommended to hold off on a ERCP although an MRCP was performed and showed no evidence of obstruction or stones. Patient is instructed to follow-up with repeat liver profile and lipase in 2 days and to see her primary care provider within a week. She is also instructed if she has any fevers chills, nausea or vomiting, or worsening abdominal pain or edema she should return to emergency department. Home Meds and New Rx's Prescriptions: New ondansetron 4 mg tablet,disintegrating 4 mg PO TID PRNQty: 10 0RF Continued cyclobenzaprine 5 mg tablet 2.5 mg PO DAILY PRN (Reason: SI joint issues) zinc 22 mg PO 1XD cholecalciferol (vitamin D3) 125 mcg (5,000 unit) capsule 125 mcg PO DAILY selenium 200 mcg tablet 200 mcg PO DAILY Quercitin 500 mg PO DAILY collagen 7.85 mg PO DAILY meclizine 25 mg tablet 25 mg PO DAILY PRN (DME) blood-glucose meter [OneTouch Verio Flex meter] Misc See Rx Instructions .Route Qty: 1 1RF Rx Instructions: For BID testing of diabetes, E11.9, with A1C goal < 8 (DME) lancets [Lancets,Ultra Thin] Misc See Rx Instructions .Route Qty: 100 1RF Rx Instructions: for BID testing with Verio for DM W11.9 with A1C goal < 8 (DME) Blood Glucose Test Strip See Rx Instructions .ROUTE .MEDSUPPLY Qty: 200 3RF Rx Instructions: For Verio OR covered brand, for bID testing for DM E11.9 insulin aspart U-100 [Novolog FlexPen U-100 Insulin] 100 unit/mL (3 mL) insulin pen 5 unit subcut TID Qty: 15 12RF Rx Instructions: Inject 1-5 units subcutaneously, 1-3 times daily as directed. (DME) CGM (Continuous Glucose Monitor) and SENSOR See Rx Instructions .Route .MEDSUPPLY Qty: 1 1RF Rx Instructions: Medical necessity for serious health risk due to TYPE 1 MGMT REQUIREMENT cinnamon bark (bulk) 1 GM powder 2 g Miscellaneous DAILY meclizine 25 MG tablet,chewable 25 mg PO DAILY PRN tizanidine 2 MG capsule 2 mg PO DAILY PRN TUMERIC EACH CAP 1 cap PO DAILY juventino root (bulk) 1 GM powder 1 g Miscellaneous DAILY (DME) pen needle, diabetic [Easy Comfort Pen Harlan] 31 gauge x 3/16 needle See Rx Instructions .Route Qty: 100 3RF Rx Instructions: As directed Zoë Duke 100 unit/mL (3 mL) insulin pen 10 unit subcut DAILY MDD 30 units Qty: 15 3RF Rx Instructions: Take 10 units SubQ daily. May titrate to 30 units as directed by ambulatory pharmacist levothyroxine 137 mcg capsule 137 mcg PO DAILY Qty: 90 3RF Discontinued Ozempic 2 mg/dose (8 mg/3 mL) pen injector 2 mg subcut QWEEK naproxen sodium 220 MG tablet 220 mg PO BID PRN ibuprofen 600 mg tablet 600 mg PO TID PRN Discharge Instructions Additional Instructions: avoid use of NSAID'S or tylenol. NSAID's include medications such as ibuprofen, naproxen. Also avoid consumption of alcohol. Avoid any natural supplements that may carry risks of liver toxicity these include but are not limited to aloe vera, black cohosh, cascara, chaparral, comfrey and ephedra or kava. May body building supplements also may contain supplements that can lead to liver toxicity Your liver transaminases are improving but have not normalized yet. You should have follow up liver transaminases done in two days and probably again next week if they are still mild to moderately elevated. Your MRI of your liver showed no obstruction and no stones. US also showed no stones and no signs of acute gall bladder disease and there is no hepatic vein or portal vein thrombosis. Your viral hepatitis studies and HIV studies are negative. Some autoimmune studies are still pending including RADHA Please get follow up labs this Thursday including lipase and hepatic provile (liver profile); If you have increasing abdominal pain, vomiting, swelling of the abdomen or fever, please return to the hospital. Stand Alone Forms: Nursing Discharge Form Referrals: Thao Rivas NP [Primary Care Provider] - 12/21/23 9:30 am Activity:: Activity as Tolerated Equipment/Supplies:: No Equipment Needed Diet:: Carb Counting Discharge Orders Discharge Orders: Discharge Order (Routine); Ordered 12/09/23 Ordered By: Alfredo Sarah Other Ambulatory Orders: Lipase (Routine) Timeframe: 2 Days Facility: [facility] - Location: Laboratory Outpatient - [facility] Ordered By: Alfredo Sarah Liver Panel (Routine) Timeframe: 2 Days Facility: [facility] - Location: Laboratory Outpatient - [facility] Ordered By: Alfredo Sarah DS: Summary Time Spent with Patient providing and/or coordinating discharge services: Greater than 30 minutes Specific discharge activities: Interview/exam of patient; review of discharge instructions, completion of prescriptions/discharge instructions; discussion w/ nursing and CM; documentation of hospital visit Status at Discharge Functional status at discharge: independent ambulation Overall status at discharge: patient is back to baseline Mental Status: mental status grossly normal Speech and Movement: speech and movement normal Mood: congruent mood Affect: normal affect Quality:SDOH Health Related Social Needs: No Data to Display Exam Narrative Exam Narrative: General: Alert, well appearing, well nourished, in no acute distress. Head: Normocephalic, atraumatic Neck: Trachea midline, ?Neck supple. ENT: ?MMM.? No oropharygeal lesions or exudate. Cardiac: ?RRR, no murmurs appreciated Resp: No respiratory distress. CTAB. Abd: ?Soft, non-distended, slightly tender RUQ, Extremities: ?No deformities.? No peripheral edema. Neurologic: GCS 15. ? Moves all extremities freely against gravity Psych Mental Status: mental status grossly normal Speech and Movement: speech and movement normal Mood: congruent mood Affect: normal affect DS: Data Vitals/I&O Vitals and I&O: Vital Signs Temperature 36.7 C 12/09/23 07:27 Temperature Source Tympanic 12/09/23 07:27 Pulse 64 12/09/23 07:27 Pulse Rhythm Regular 12/09/23 10:19 Respiratory Rate 20 12/09/23 07:27 Respiratory Effort Normal, Non-Labored 12/09/23 10:19 Respiratory Depth Normal 12/09/23 10:19 Respiratory Pattern Normal 12/09/23 10:19 Blood Pressure 113/76 12/09/23 07:27 Pulse Oximetry 96 12/09/23 07:27 Oxygen Delivery Method Room Air 12/09/23 07:27 Oxygen Flow Rate 0 12/09/23 07:27 Pain Level 0 12/09/23 07:27 Intake & Output 12/08/23 12/09/23 12/09/23 23:59 11:59 23:59 Intake Total 240 / 240 Balance 240 / 240 Weight 70.6 kg Intake: Oral 240 / 240 Other: Urine Appearance Clear Clear Data Completed and Pending Labs on day of discharge: Labs from last 24 hours 12/09/23 12/08/23 12/08/23 05:45 16:24 14:48 PT 10.7 INR 1.1 APTT 30.5 Sodium Potassium Chloride Carbon Dioxide Anion Gap BUN Creatinine Est GFR (CKD-EPI 2020) Glucose Calcium Total Bilirubin 0.5 AST 298 H ALT 931 H Alkaline Phosphatase 551 H Ammonia NT-Pro-B Natriuret Pep Total Protein Albumin Amylase Lipase 317 H Acetaminophen RADHA Titer Pending RADHA Titer 2 Pending RADHA Titer 3 Pending RADHA Interpretation Pending Hepatitis A IgM Ab Hep Bs Antigen Hep B Core Total Ab Hepatitis C Antibody HIV 1&2 Ag/Ab, 4th Gen HIV 1&2 Antibody Rapid 12/08/23 12/08/23 14:42 14:40 PT INR APTT Sodium 140 Potassium 3.9 Chloride 103 Carbon Dioxide 28.5 Anion Gap 8.5 BUN 14 Creatinine 0.8 Est GFR (CKD-EPI 2020) 84.30 Glucose 186 H Calcium 9.8 Total Bilirubin 0.7 AST 569 H ALT > 48761 H Alkaline Phosphatase 580 H Ammonia < 10 L NT-Pro-B Natriuret Pep 38 Total Protein 7.1 Albumin 3.5 Amylase 38 Lipase 166 H Acetaminophen < 2 RADHA Titer RADHA Titer 2 RADHA Titer 3 RADHA Interpretation Hepatitis A IgM Ab Negative Hep Bs Antigen Negative Hep B Core Total Ab Negative Hepatitis C Antibody Negative HIV 1&2 Ag/Ab, 4th Gen Cancelled Negative HIV 1&2 Antibody Rapid Cancelled PFSH All Active Problems (Updated 12/09/23 @ 16:00 by Alfredo Sarah MD) Pancreatitis (Chronic) Common bile duct dilatation (Acute) Hepatitis (Acute) HSV-1 infection (Acute ~2022) DM type 1, goal A1C below 7.5% (Acute) DM 1.5, but adding TYpe 1 2' MGMT per DM 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 see [facility] notes.. 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, 03/2023 Ganglion cyst Muscle spasm Benign paroxysmal positional vertigo Trochanteric bursitis, left hip Other intervertebral disc degeneration, lumbar region Adjustment disorder with anxious mood Synovial cyst of lumbar facet joint Family History Brother Alcohol use disorder Brother Alcohol use disorder Depression Father Colon cancer Diabetes Mother Asthma Lung cancer ALK positive ( gene mutation) Hypertension Sister [place] disease Paternal Grandmother Heart disease Paternal Grandfather Colon cancer Social History Smoking/Tobacco Use Status: Current-Occasional Quit status: considering quitting Smoking risk assessment performed?: Yes Alcohol Intake: current Alcohol Intake frequency: holidays/special occasions only Counseling given: No Drug use: Never Substance use type: does not use Household members: spouse Housing: house Number of Children: 3 number of grandchildren: 2 Communication Needs: Corrective Lenses Education Level: college current occupation: retired [employer] What is your relationship status?: How often do you talk on the phone with friends or family?: three or more times per week How often do you get together with friends or relatives?: three or more times per week Panel score (0-1 are the most socially isolated patients): 2 NHANES result reviewed/action taken: Yes What type of physical activity do you participate in: walking and swimming Duration: 45-60 minutes/day Frequency: 5-6 times per week Debbi/Yazdanism: Orthodox Special debbi needs: Yes Seatbelt use: always Drive intox or ride w/intox dedicated regional driver: No Working smoke detector in home: Yes Carbon monox detector in home: Yes Do you feel safe in your relationship?: Yes Time Spent with Patient Time Spent with Patient: <45 minutes Time was spent: preparing to see the patient(eg.review tests), ordering medications,tests, procedures, referring, communicating with other health adult care provider, indepentently interpreting results, counseling the patient and care coordination
[2023-12-10 15:28] LABS: ANA Interpretation Negative (Negative)
== END 2023-12-09 16:55 | disposition home or self-care (01) ==
LOC: ER 21:04 → MS 22:04
PROVIDERS: Admitting Provider General Practice; Emergency Provider Student in an Organized Health Care Education/Training Program; PCP Nurse Practitioner; Visit Provider General Practice
DX: K72.00 Acute and subacute hepatic failure without coma (principal); Z79.85 Long-term (current) use of injectable non-insulin antidiabetic drugs; R74.01 Elevation of levels of liver transaminase levels; R11.2 Nausea with vomiting, unspecified; E13.9 Other specified diabetes mellitus without complications; I10 Essential (primary) hypertension; M51.36 Other intervertebral disc degeneration, lumbar region; D64.9 Anemia, unspecified; F17.210 Nicotine dependence, cigarettes, uncomplicated; Z79.4 Long term (current) use of insulin; K82.8 Other specified diseases of gallbladder; E03.9 Hypothyroidism, unspecified
CPT/HCPCS: 00123; 36415; 80053; 83690; 86704; 86709; 86803; 87340; 87389; 74181; 76700; 80329; 82140; 82150; 82247; 83880; 84075; 84450; 84460; 85025; 85610; 85730; 86038; 99223; 99238; G0378; J1815; J2405

== ENCOUNTER 2023-12-11 11:36 | Outpatient (CLI) | payer BC, SELFPAY ==
[2023-12-11 11:15] LABS: Albumin 3.4 g/dL (3.4-5.0); Alkaline Phosphatase 858 U/L (46-116); Bilirubin, Direct 0.3 mg/dL (0.0-0.2); Bilirubin, Total 0.7 mg/dL (0.2-1.0); Total Protein 6.9 g/dL (6.4-8.2)
[2023-12-11 11:51] LABS: ALT 1465 U/L (14-59); AST 1046 U/L (15-37); Lipase > 375 U/L (16-77)
== END 2023-12-11 11:37 | disposition home or self-care (01) ==
LOC: LBO 11:38
PROVIDERS: PCP Nurse Practitioner; Visit Provider Internal Medicine
DX: K75.9 Inflammatory liver disease, unspecified (principal); K85.90 Acute pancreatitis without necrosis or infection, unspecified
CPT/HCPCS: 36415; 80076; 83690

== ENCOUNTER 2023-12-11 15:47 | Inpatient (IN) | payer BC, SELFPAY ==
[2023-12-11] VITALS (34 sets, daily range): BP systolic 128–180; BP diastolic 77–102; PULSE 56–78; RESP 16; TEMP 36.7–37.1; O2SAT 83–100
--- NOTE | 2023-12-11 16:00 | DI.CT_ITS ---
Exam(s) CT ABDOMEN PELVIS W EXAM: CT ABDOMEN PELVIS W CLINICAL HISTORY: Abdominal pain,. TECHNIQUE: Imaging Protocol: Axial computed tomography images with coronal and sagittal reformatted images were created and reviewed CONTRAST MATERIAL: Intravenous: Omnipaque 350 Contrast volume:100 ml Oral: no COMPARISON: US US ABDOMEN from 12/08/2023 MR MR ABDOMEN WO from 12/09/2023 FINDINGS: ABDOMEN and PELVIS: Lung Bases: No acute findings. Liver: Normal density. No measurable mass. Portal veins and hepatic veins appear patent. Gallbladder and biliary tract: Gallbladder is distended. There is mild wall thickening. There is di latation of the common bile duct to 12 millimeters, similar to prior. It tapers into the head of the pancreas. Pancreas: Enlargement and edema in the head of the pancreas. This area measures 3.5 x 2.5 x 2.3 cm. No edema was seen on the recent MRI.. No abnormal calcifications. stable dilatation of the pancre atic duct. Spleen: Normal. Kidneys: Normal size, contour and axis. No radiodense stones. No obstructive uropathy. No suspicious masses seen. Adrenal glands: No masses seen. Vasculature: Abdominal aorta non-dilated. Soft tissues: Unremarkable. Bladder: No gross wall thickening. No calculi.No focal mass. Bowel: No obstruction. Wall thickening of the descending duodenum, adjacent to the head of the panc reas. Appendix normal. Large quantity of stool. Peritoneal cavity: No ascites. No focal collection or mesenteric inflammatory response. Bones: Degenerative changes at L5-S1. Reproductive organs: Within normal limits. Lymph nodes: Unremarkable. IMPRESSION:: Stable appearance of dilatation of the bile ducts and pancreatic duct. Edema versus enlargement of the pancreatic head. Findings are concerning for a mass. Thickening of the adjacent duodenal wall. Findings called to Janessa Kaminski of the emergency RADIATION DOSE DELIVERED: 835.95mGy.cm Total DLP DATA REPOSITORY: All CT scans at this facility are submitted to the National Radiology Data Registry (NRDR) Dose Index Registry (DIR) with the [employer] (ACR). RADIATION OPTIMIZATION: All CT scans at this facility use at least one of these dose optimization te chniques: automated exposure control; mA and/or kV adjustment per patient size (includes targeted exa ms where dose is matched to clinical indication); or iterative reconstruction.
--- NOTE | 2023-12-11 16:35 | ED.GENADUL_ITS ---
HPI General Mode of arrival: ambulatory . Date/Time Provider Initiated Documentation: 12/11/23 15:49 . Limitations to Documentation: no limitations . Information obtained by: patient, RN notes reviewed and old records reviewed . HPI Narrative: 58-year-old female presents to the ER with a chief complaint of elevated liver enzymes which were drawn this morning. Patient was recently admitted and discharged on Thursday for similar. Had an MRCP which showed no retained stone in the common bile duct. Did show some dilated CBD and pancreatic duct. She has not had any recent vomiting. She reports some constipation. No dysuria. She reports intermittent pain which is tolerable at times. No fever or chills. She is a type II diabetic and recently on Ozempic. She has not taken her Ozempic since being discharged from the hospital. She was called by PCP and instructed to return to the ER for further evaluation. Other past medical history includes hypertension, degenerative disc disease, hypothyroidism, arthritis, anemia vertigo. Related Data Home Medications Medication Instructions Recorded Confirmed Tumeric 1 cap PO DAILY 05/18/17 12/11/23 cinnamon bark (bulk) 2 g miscellaneous DAILY 05/18/17 12/11/23 meclizine 25 mg chewable tablet 25 mg PO DAILY PRN 05/18/17 12/11/23 tizanidine 2 mg capsule 2 mg PO DAILY PRN 05/18/17 12/11/23 juventino root (bulk) 1 g miscellaneous DAILY 05/19/17 12/11/23 Quercitin 500 mg PO DAILY 02/18/23 12/11/23 cholecalciferol (vitamin D3) 125 125 mcg PO DAILY 02/18/23 12/11/23 mcg (5,000 unit) capsule collagen 7.85 mg PO DAILY 02/18/23 12/11/23 cyclobenzaprine 5 mg tablet 2.5 mg PO DAILY PRN SI joint issues 02/18/23 12/11/23 meclizine 25 mg tablet 25 mg PO DAILY PRN 02/18/23 12/11/23 selenium 200 mcg tablet 200 mcg PO DAILY 02/18/23 12/11/23 zinc 22 mg PO 1XD 02/18/23 12/11/23 blood sugar diagnostic (Blood #200 ea 03/16/23 12/08/23 Glucose Test strips) blood-glucose meter (OneTouch #1 ea 03/16/23 12/08/23 Verio Flex Meter) lancets (Lancets,Ultra Thin) #100 ea 03/16/23 12/08/23 CGM (Continuous Glucose Monitor) #1 ea 04/25/23 12/08/23 insulin glargine-aglr 100 unit/mL 10 unit (0.1 mL) subcut DAILY 05/08/23 12/11/23 (3 mL) subcutaneous pen (Rezvoglar Diabetes #15 mL KwikPen) pen needle, diabetic 31 gauge x #100 ea 05/08/23 12/08/2301/08 (Easy Comfort Pen [place]) levothyroxine 137 mcg capsule 137 mcg PO DAILY #90 caps 05/15/23 12/11/23 insulin aspart U-100 100 unit/mL 5 unit (0.05 mL) subcut TID #15 mL 10/13/23 12/11/23 (3 mL) subcutaneous pen (Novolog FlexPen U-100 Insulin aspart) ondansetron 4 mg disintegrating 4 mg PO TID PRN #10 tabs 12/09/23 12/11/23 tablet Previous Rx's Medication Instructions Recorded blood sugar diagnostic (Blood #200 ea 03/16/23 Glucose Test strips) blood-glucose meter (OneTouch #1 ea 03/16/23 Verio Flex Meter) lancets (Lancets,Ultra Thin) #100 ea 03/16/23 CGM (Continuous Glucose Monitor) #1 ea 04/25/23 insulin glargine-aglr 100 unit/mL 10 unit (0.1 mL) subcut DAILY 05/08/23 (3 mL) subcutaneous pen (Rezvoglar Diabetes #15 mL KwikPen) pen needle, diabetic 31 gauge x #100 ea 05/08/23 3 (Easy Comfort Pen [place]) levothyroxine 137 mcg capsule 137 mcg PO DAILY #90 caps 05/15/23 insulin aspart U-100 100 unit/mL 5 unit (0.05 mL) subcut TID #15 mL 10/13/23 (3 mL) subcutaneous pen (Novolog FlexPen U-100 Insulin aspart) ondansetron 4 mg disintegrating 4 mg PO TID PRN #10 tabs 12/09/23 tablet Allergies Allergy/AdvReac Type Severity Reaction Status Date / Time hydromorphone AdvReac Dizziness/L Verified 12/11/23 15:58 ighthead oxycodone AdvReac Nausea Verified 12/11/23 15:58 narcotics AdvReac Nausea Uncoded 12/11/23 15:58 General Stated Complaint: Abd Prob EARL: 3 Review of Systems All systems reviewed & are unremarkable except as noted in HPI and below Cardiovascular Cardiovascular: Denies dyspnea Respiratory Respiratory: Denies dyspnea Gastrointestinal Gastrointestinal: Reports abdominal pain, Reports early satiety, Reports dyspepsia and Reports nausea Exam Narrative Exam Narrative: Constitutional: Alert and oriented x3. Appears stated age. Normal body habitus. Head: Normocephalic, no trauma. Eyes: Pupils PERRL, Red reflex noted, EOM's intact. Eyelids symmetrical without lesions, discharge, or swelling. ENT: Bilateral TM's WNL, External ear normal to inspection, no mastoid TTP, swelling, or erythema, Nasal turbinates WNL, no nasal discharge. Normal den tition, Posterior pharynx WNL, no exudate. Chest: RRR, Normal S1, S2, distal pulses intact. Resp: Lungs clear to auscultation bilaterally, no wheezes, rales, or rhonchi. Abdomen: Soft, non-distended, Normoactive bowel sounds all 4 quads. Musculoskeletal: Normal gait, 5/5 strength to all four extremities. Skin: No suspicious rashes or lesions. Capillary refill less than 2 sec. Neurologic: Cranial nerves II-XII intact. Alert and oriented x 3. Motor: No deficits noted. Sensory: Intact bilaterally all 4 extremities. Reflexes: DTR's intact bilaterally.. Hematologic/Lymphatic: No ecchymosis, no lymphadenopathy. Course Vital Signs Vital signs: Vital Signs Temperature 37.1 C 12/11/23 15:54 Pulse 78 12/11/23 15:54 Respiratory Rate 16 12/11/23 15:54 Blood Pressure 156/96 H 12/11/23 15:54 Pulse Oximetry 98 12/11/23 15:54 Temperature 37.1 C 12/11/23 16:08 Temperature Source Temporal Artery Scan 12/11/23 16:08 Pulse 78 12/11/23 16:08 Respiratory Rate 16 12/11/23 16:08 Respiratory Effort Normal, Non-Labored 12/11/23 16:08 Blood Pressure 156/96 H 12/11/23 16:08 Blood Pressure Mean 102 12/11/23 16:07 Blood Pressure Position Sitting 12/11/23 16:08 Pulse Oximetry 98 12/11/23 16:08 Oxygen Delivery Method Room Air 12/11/23 16:08 Oxygen Flow Rate 0 12/11/23 16:08 Pain Level 5 12/11/23 15:54 Medical Decision Making 58-year-old female presents to the ER with a chief complaint of elevated liver enzymes which were drawn this morning. Patient was recently admitted and discharged on Thursday for similar. Had an MRCP which showed no retained stone in the common bile duct. Did show some dilated CBD and pancreatic duct. She has not had any recent vomiting. She reports some constipation. No dysuria. She reports intermittent pain which is tolerable at times. No fever or chills. She is a type II diabetic and recently on Ozempic. She has not taken her Ozempic since being discharged from the hospital. She was called by PCP and instructed to return to the ER for further evaluation. Other past medical history includes hypertension, degenerative disc disease, hypothyroidism, arthritis, anemia vertigo. On exam patient's abdomen is soft, noticed tension no masses no guarding. She is pink warm dry, alert and oriented x 4. Conversive. CBC is within normal limits, CMP shows a creatinine of 1.1 glucose 318, total bilirubin is slightly elevated at 1.6, AST is 1304 ALT 1709 and alk phos 1081, LDL cholesterol is 114 lipase is greater than 375. She does have 15 ketones noted in her urine 500 glucose in her urine. Small bilirubin in her urine. AST is elevated from 1046, ALT is elevated from 1465 and ALT now 1709, Alk Phos is 1081. 1823: Spoke with Dr. Navarro radiologist regarding CT result. She is concerned for slightly larger dilatation of the gallbladder and distention, she also states that it is concerning for possible mass on the head of the pancreas. There is also thickening of the adjacent duodenal wall. 1828: Will consult with [facility], images pushed. 1830: [facility] called to speak with GI. Discussed results and labs with patient and family. 2014: [facility] Dr. Pinon with GI per transfer center they do not do there and backs over the weekend they will leave her chart open for possible down and back on Thursday. Will discuss case with Hospitalist. 2054: Spoke with Dr. Keane 2055: Consulted with Dr. Garcia regarding patient, she will eval her chart and images and call me back, she does not currently recommend admission at this time. 2129: Dr. Garcia agrees to consult on patient but does not accept for admission to manage Diabetes and await ERCP. 2144: Spoke again with Lakhwinder who agrees to accept patient for observation until Early next week, he does recommend consulting once again with GI. [facility] transfer Center contacted. 2200: [facility] GI MD Dr. Pinon consulted regarding case and labs discussed with him concerns for escalating transaminases he recommends endoscopic US and that she would most likely need to wait until Thursday unless septicemia occurs or significant change. Medical Records Medical records reviewed: Yes I reviewed the patient's medical records. Imaging Data Radiologic Study: Imaging: CT Scan Radiologist's impression: CT ABDOMEN PELVIS W EXAM: CT ABDOMEN PELVIS W CLINICAL HISTORY: Abdominal pain,. TECHNIQUE: Imaging Protocol: Axial computed tomography images with coronal and sagittal reformatted images were created and reviewed CONTRAST MATERIAL: Intravenous: Omnipaque 350 Contrast volume:100 ml Oral: no COMPARISON: US US ABDOMEN from 12/08/2023 MR MR ABDOMEN WO from 12/09/2023 FINDINGS: ABDOMEN and PELVIS: Lung Bases: No acute findings. Liver: Normal density. No measurable mass. Portal veins and hepatic veins ap pear patent. Gallbladder and biliary tract: Gallbladder is distended. There is mild wall thickening. There is dilatation of the common bile duct to 12 millimeters, similar to prior. It tapers into the head of the pancreas. Pancreas: Enlargement and edema in the head of the pancreas. This area measures 3.5 x 2.5 x 2.3 cm. No edema was seen on the recent MRI.. No abnormal calcifications. stable dilatation of the pancreatic duct. Spleen: Normal. Kidneys: Normal size, contour and axis. No radiodense stones. No obstructive uropathy. No suspicious masses seen. Adrenal glands: No masses seen. Vasculature: Abdominal aorta non-dilated. Soft tissues: Unremarkable. Bladder: No gross wall thickening. No calculi.No focal mass. Bowel: No obstruction. Wall thickening of the descending duodenum, adjacent to the head of the pancreas. Appendix normal. Large quantity of stool. Peritoneal cavity: No ascites. No focal collection or mesenteric inflammatory response. Bones: Degenerative changes at L5-S1. Reproductive organs: Within normal limits. Lymph nodes: Unremarkable. IMPRESSION:: Stable appearance of dilatation of the bile ducts and pancreatic duct. Edema versus enlargement of the pancreatic head. Findings are concerning for a mass. Thickening of the adjacent duodenal wall. Findings called to Janessa Kaminski of the emergency Lab Data Lab results reviewed: Yes I reviewed the patient's lab results. Labs: Laboratory Tests Range/Units 12/11/23 12/11/23 16:14 17:18 WBC (4.4-10.8) 10^3/uL 7.35 RBC (3.93-5.22) 10^6/uL 4.67 Hgb (11.2-15.7) g/dL 14.2 Hct (36.0-46.0) % 42.9 MCV (80-95) fL 92 MCH (27.0-33.0) pg 30.4 MCHC (32.0-36.0) % 33.1 RDW (11.7-14.6) % 13.0 Plt Count (130-400) 10^3/uL 341 MPV (8.0-11.0) fL 10.0 Immature Gran % 0.5 Neutrophils % 65.5 Lymphocytes % 23.5 Monocytes % 7.1 Eosinophils % 2.7 Basophils % 0.7 Nucleated RBC % (0.0-0.3) % 0.0 Absolute Neutrophils (1.2-6.7) 10^3/uL 4.81 Absolute Lymphocytes (1.2-3.4) 10^3/uL 1.73 Absolute Monocytes (0.1-0.8) 10^3/uL 0.52 Absolute Eosinophils (0.0-0.7) 10^3/uL 0.20 Absolute Basophils (0.0-0.2) 10^3/uL 0.05 Sodium (136-145) mmol/L 139 Potassium (3.5-5.1) mmol/L 4.3 Chloride (98-107) mmol/L 101 Carbon Dioxide (21.0-32.0) mmol/L 29.3 Anion Gap (3-11) mmol/L 8.7 BUN (7-18) mg/dL 13 Creatinine (0.55-1.02) mg/dL 1.1 H Est GFR (CKD-EPI 2020) (mL/min/1.73m2) 57.52 Glucose (74-106) mg/dL 318 H Calcium (8.5-10.1) mg/dL 9.8 Magnesium (1.8-2.4) mg/dL 2.2 Total Bilirubin (0.2-1.0) mg/dL 1.6 H AST (15-37) U/L 1304 H ALT (14-59) U/L 1709 H Alkaline Phosphatase (46-116) U/L 1081 H Total Protein (6.4-8.2) g/dL 7.7 Albumin (3.4-5.0) g/dL 3.9 Triglycerides (<150) mg/dL 49 Total Cholesterol (<200) mg/dL 173 LDL Cholesterol, Calc (<100) mg/dL 114 H HDL Cholesterol (40-60) mg/dL 50 Lipase (16-77) U/L > 375 H Urine Color (Yellow) Yellow Urine Clarity (Clear) Clear Urine pH (5-8) 6.5 Ur Specific [place] (1.005-1.025) 1.020 Urine Protein (Neg-Trace) mg/dL Negative Urine Ketones (Negative) mg/dL 15 H Urine Blood (Negative) Negative Urine Nitrite (Negative) Negative Urine Bilirubin (Negative) Small H Urine Urobilinogen (Up to 0.2) mg/dL 2.0 H Ur Leukocyte Esterase (Negative) Negative Urine Glucose (Negative) mg/dL 500 H Quality:SDOH Health Related Social Needs: No Data to Display PFSH All Active Problems (Updated 12/11/23 @ 22:59 by Anthony Walden) Common bile duct (CBD) obstruction (Acute) Elevated transaminase level (Acute) Pancreatitis (Chronic) Common bile duct dilatation (Acute) Hepatitis (Acute) HSV-1 infection (Acute ~2022) DM type 1, goal A1C below 7.5% (Acute) DM 1.5, but adding TYpe 1 2' MGMT per DM 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 see [facility] notes.. 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, 03/2023 Ganglion cyst Muscle spasm Benign paroxysmal positional vertigo Trochanteric bursitis, left hip Other intervertebral disc degeneration, lumbar region Adjustment disorder with anxious mood Synovial cyst of lumbar facet joint Family History Brother Alcohol use disorder Brother Alcohol use disorder Depression Father Colon cancer Diabetes Mother Asthma Lung cancer ALK positive ( gene mutation) Hypertension Sister Al[place] disease Paternal Grandmother Heart disease Paternal Grandfather Colon cancer Social History Smoking/Tobacco Use Status: Current-Occasional Quit status: considering quitting Smoking risk assessment performed?: Yes Alcohol Intake: current Alcohol Intake frequency: holidays/special occasions only Counseling given: No Drug use: Never Substance use type: does not use Household members: spouse Housing: house Number of Children: 3 number of grandchildren: 2 Communication Needs: Corrective Lenses Education Level: college 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 What is your relationship status?: How often do you talk on the phone with friends or family?: three or more times per week How often do you get together with friends or relatives?: three or more times per week Panel score (0-1 are the most socially isolated patients): 2 NHANES result reviewed/action taken: Yes What type of physical activity do you participate in: walking and swimming Duration: 45-60 minutes/day Frequency: 5-6 times per week Debbi/Yarsanism: Sabianist Special debbi needs: Yes Seatbelt use: always 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 Working smoke detector in home: Yes Carbon monox detector in home: Yes Do you feel safe in your relationship?: Yes Discharge Plan Disposition Patient Disposition: Admit to [facility] Condition: Stable Discharge Details Clinical Impression: Elevated transaminase level, Pancreatitis Primary Care Provider: Thao Rivas ED Provider: Janessa Kaminski Home Meds and New Rx's Prescriptions: No Action cyclobenzaprine 5 mg tablet 2.5 mg PO DAILY PRN (Reason: SI joint issues) zinc 22 mg PO 1XD cholecalciferol (vitamin D3) 125 mcg (5,000 unit) capsule 125 mcg PO DAILY selenium 200 mcg tablet 200 mcg PO DAILY Quercitin 500 mg PO DAILY collagen 7.85 mg PO DAILY meclizine 25 mg tablet 25 mg PO DAILY PRN (DME) blood-glucose meter [OneTouch Verio Flex meter] Misc See Rx Instructions .Route Qty: 1 1RF Rx Instructions: For BID testing of diabetes, E11.9, with A1C goal < 8 (DME) lancets [Lancets,Ultra Thin] Misc See Rx Instructions .Route Qty: 100 1RF Rx Instructions: for BID testing with Verio for DM W11.9 with A1C goal < 8 (DME) Blood Glucose Test Strip See Rx Instructions .ROUTE .MEDSUPPLY Qty: 200 3RF Rx Instructions: For Verio OR covered brand, for bID testing for DM E11.9 insulin aspart U-100 [Novolog FlexPen U-100 Insulin] 100 unit/mL (3 mL) insulin pen 5 unit subcut TID Qty: 15 12RF Rx Instructions: Inject 1-5 units subcutaneously, 1-3 times daily as directed. (DME) CGM (Continuous Glucose Monitor) and SENSOR See Rx Instructions .Route .MEDSUPPLY Qty: 1 1RF Rx Instructions: Medical necessity for serious health risk due to TYPE 1 MGMT REQUIREMENT cinnamon bark (bulk) 1 GM powder 2 g Miscellaneous DAILY meclizine 25 MG tablet,chewable 25 mg PO DAILY PRN tizanidine 2 MG capsule 2 mg PO DAILY PRN TUMERIC EACH CAP 1 cap PO DAILY juventino root (bulk) 1 GM powder 1 g Miscellaneous DAILY (DME) pen needle, diabetic [Easy Comfort Pen [place]] 31 gauge x 3/16 needle See Rx Instructions .Route Qty: 100 3RF Rx Instructions: As directed Rezvoglar KwikPen 100 unit/mL (3 mL) insulin pen 10 unit subcut DAILY MDD 30 units Qty: 15 3RF Rx Instructions: Take 10 units SubQ daily. May titrate to 30 units as directed by ambulatory pharmacist levothyroxine 137 mcg capsule 137 mcg PO DAILY Qty: 90 3RF ondansetron 4 mg tablet,disintegrating 4 mg PO TID PRNQty: 10 0RF
[2023-12-11 16:38] LABS: Abs Immature Grans 0.04 10^3/uL (0.0-0.06); Absolute Basophil Count 0.05 10^3/uL (0.0-0.2); Absolute Lymphocyte Count 1.73 10^3/uL (1.2-3.4); Absolute Monocyte Count 0.52 10^3/uL (0.1-0.8); Absolute Neutrophil Count 4.81 10^3/uL (1.2-6.7); Basophils % 0.7; Eosinophils % 2.7; HCT 42.9 % (36.0-46.0); HGB 14.2 g/dL (11.2-15.7); Immature Grans % 0.5; Lymphocytes % 23.5; MCH 30.4 pg (27.0-33.0); MCHC 33.1 % (32.0-36.0); MCV 92 fL (80-95); Monocytes % 7.1; Neutrophils % 65.5; Platelet Count 341 10^3/uL (130-400); RBC 4.67 10^6/uL (3.93-5.22); RDW-SD 43.8 fL; WBC 7.35 10^3/uL (4.4-10.8)
[2023-12-11 16:54] LABS: Calculated LDL 114 mg/dL (<100); Cholesterol 173 mg/dL (<200); HDL Cholesterol 50 mg/dL (40-60); Triglyceride 49 mg/dL (<150)
[2023-12-11] MEDS: Normal Saline 500 ML IV (16:57)
[2023-12-11 17:03] LABS: Albumin 3.9 g/dL (3.4-5.0); Anion Gap 8.7 mmol/L (3-11); BUN 13 mg/dL (7-18); Bilirubin, Total 1.6 mg/dL (0.2-1.0); CO2 29.3 mmol/L (21.0-32.0); CREATININE 1.1 mg/dL (0.55-1.02); Calcium 9.8 mg/dL (8.5-10.1); Chloride 101 mmol/L (98-107); Estimated GFR 57.52 (mL/min/1.73m2); Glucose 318 mg/dL (74-106); Magnesium 2.2 mg/dL (1.8-2.4); Potassium 4.3 mmol/L (3.5-5.1); Sodium 139 mmol/L (136-145); Total Protein 7.7 g/dL (6.4-8.2)
[2023-12-11 17:04] LABS: AST 1304 U/L (15-37)
[2023-12-11 17:05] LABS: Alkaline Phosphatase 1081 U/L (46-116); Lipase > 375 U/L (16-77)
[2023-12-11] MEDS: Normal Saline - Diluent 50 ML VIAL IJ (17:18)
[2023-12-11 17:23] LABS: ALT 1709 U/L (14-59)
[2023-12-11 17:24] LABS: Bilirubin Small (Negative); Blood Negative (Negative); Clarity Clear (Clear); Glucose 500 mg/dL (Negative); Ketones 15 mg/dL (Negative); Leukocyte Esterase Negative (Negative); Nitrite Negative (Negative); pH 6.5 (5-8)
[2023-12-11] MEDS: Omnipaque 350 MG/ML 100 ML BTL IJ (17:29)
[2023-12-11] MEDS: Ondansetron 4 MG/2 ML VIAL IVP ×2 (18:32→22:24)
[2023-12-11] MEDS: Normal Saline 1,000 ML 250 ML IV (21:34)
[2023-12-11 22:36] LABS: INR 1.1 (0.9-1.1); PTT Activated 29.3 sec (23.6-32.8)
--- NOTE | 2023-12-11 22:55 | W.PM.HP.N ---
Date of service: 12/11/23 Time of Service: 22:56 Assessment and Plan Assessment and plan (1) Pancreatitis: Start date: 12/08/23 Status: Acute Assessment and plan: This is a 58-year-old type II diabetic who recently was advancing therapy with Ozempic dosing increased from 0.25 mg to 1.5 mg with nausea beginning after the first shot but not persisting. She has sudden onset of postprandial symptoms with gallbladder colic type symptoms and nausea and vomiting but her symptoms will wax and wane with complete relief of pain after she vomited. This was recurrent and evaluation does reveal tapering of the ducts at the head of the pancreas with dilated common bile duct and pancreatic duct as well as dilated gallbladder with no evidence of stones. Her liver enzymes are progressively increasing or staying increased except for the ALT which was markedly increased upon presentation with her first hospitalization and now decreased. Differential diagnosis includes gallbladder colic with recent passage of gallstone versus ball valving gallstone not seen on imaging versus edema with recent past stone causing obstruction and lastly possible mass at the head of the pancreas causing inflammation and pancreatitis with obstruction of the pancreatic and common bile ducts. She needs an ERCP and endoscopic ultrasound of the head of the pancreas. Surgery will be consulted for evaluation while at this institution for [facility] has been consulted and does agree with procedure at the first of the week after observation of the weekend. She is a full code. Qualifiers: Acute pancreatitis complication: no infection or necrosis Chronicity: acute Pancreatitis type: biliary Qualified Code(s): K85.10 - Biliary acute pancreatitis without necrosis or infection (2) Common bile duct (CBD) obstruction: Start date: 12/08/23 Status: Acute Assessment and plan: As above with possibilities of tumor at the head of the pancreas versus inflammation with recent passage of gallstone. Observe for infection or worsening of the obstruction which may prompt earlier transfer for ERCP at [facility]. The patient should have the procedure performed prior to going home. (3) Elevated transaminase level: Start date: 12/08/23 Status: Acute Assessment and plan: Secondary to obstruction with etiology uncertain but to be determined by ERCP and endoscopic ultrasound of the head of the pancreas. (4) Type 2 diabetes mellitus: Assessment and plan: Patient recently having increased treatment with increasing Ozempic dosing and being offered low-dose dose of basal insulin and short acting insulin though she has not been addressed with insulin therapy. She has been on Ozempic for years though the dose was very low. This may or may not be associated with her acute problem. 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 She began to have postprandial symptoms of bloating with abdominal discomfort and pain after she ate a meal 8 days prior to this admission. It came on suddenly and had a crescendo of pain and then relief with the patient eventually vomiting which made her feel much better. The next day she did not eat but symptoms fluids and continued decreased intake of food the third day. She was hungry and did have a small normal meal with her on the next day which brought on the same symptoms of crescendoing colicky type pain which resulted in more copious amount of vomiting with congealed bilious material but no blood or coffee-ground's. She did feel somewhat better after vomiting but because of persisting symptoms she spoke to her PCP who had her obtained labs. She did have elevated liver function tests and was admitted with ERCP and ultrasound performed revealing dilated common bile duct and gallbladder but no evidence of cholecystitis as well as dilated pancreatic duct with no evidence of stones in the gallbladder or in the common bile duct but the duct tapering at the head of the pancreas. Liver function test were decreasing and she was sent home after this evaluation but returned on the eighth day with returning symptoms of crescendo discomfort and continued elevation of liver function test. Her ALT was severely elevated over 1999 and this has decreased but the other liver function tests appear to be rising. She is having less of the questionable abdominal pain but does feel bloated and slightly nauseated. She was brought in for IV hydration and trending of labs with planned ERCP and endoscopy with ultrasound because of question of mass in the pancreatic head with swelling of the nearby duodenum suggesting progressive pancreatitis versus mass. Her symptoms were sudden onset and neoplasm appears less likely to possible gallbladder colic and gallstone either ball valving and not being seen on imaging or having been passed causing acute pancreatitis with swelling. She is very well read in the medical field and understands the need for definitive procedure which may not be done for 48 hours. She agreeable to staying with pain control as needed and IV hydration with bowel rest. If she tolerates clear fluids she will continue this. The patient has been started on Ozempic 2 years ago but at low-dose of 0.25 and just recently had is increasing because of an increase in hemoglobin A1c. This may be coincidental apartment. The patient is a full code. Review of Systems Narrative: 13 point review of systems otherwise unrevealing or stable. Patient is very active and remains thin. 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 see [facility] notes.. 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, 03/2023 Ganglion cyst Muscle spasm Benign paroxysmal positional vertigo Trochanteric bursitis, left hip Other intervertebral disc degeneration, lumbar region Adjustment disorder with anxious mood Synovial cyst of lumbar facet joint Family History Brother Alcohol use disorder Brother Alcohol use disorder Depression Father Colon cancer Diabetes Mother Asthma Lung cancer ALK positive ( gene mutation) Hypertension Sister Al[place] disease Paternal Grandmother Heart disease Paternal Grandfather Colon cancer Social History Smoking/Tobacco Use Status: Current-Occasional Quit status: considering quitting Smoking risk assessment performed?: Yes Alcohol Intake: current Alcohol Intake frequency: holidays/special occasions only Counseling given: No Drug use: Never Substance use type: does not use Household members: spouse Housing: house Number of Children: 3 number of grandchildren: 2 Communication Needs: Corrective Lenses Education Level: college 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 What is your relationship status?: How often do you talk on the phone with friends or family?: three or more times per week How often do you get together with friends or relatives?: three or more times per week Panel score (0-1 are the most socially isolated patients): 2 NHANES result reviewed/action taken: Yes What type of physical activity do you participate in: walking and swimming Duration: 45-60 minutes/day Frequency: 5-6 times per week Debbi/Advent: [employer] Special debbi needs: Yes Seatbelt use: always Drive intox or ride w/intox drivers' cash clerk: No Working smoke detector in home: Yes Carbon monox detector in home: Yes Do you feel safe in your relationship?: Yes Meds Allergies and Home Medications Allergies Allergy/AdvReac Type Severity Reaction Status Date / Time hydromorphone AdvReac Dizziness/L Verified 12/11/23 15:58 ighthead oxycodone AdvReac Nausea Verified 12/11/23 15:58 narcotics AdvReac Nausea Uncoded 12/11/23 15:58 Home Medications Medication Instructions Recorded Confirmed Type Tumeric 1 cap PO DAILY 05/18/17 12/11/23 History cinnamon bark (bulk) 2 g miscellaneous DAILY 05/18/17 12/11/23 History meclizine 25 mg chewable tablet 25 mg PO DAILY PRN 05/18/17 12/11/23 History tizanidine 2 mg capsule 2 mg PO DAILY PRN 05/18/17 12/11/23 History juventino root (bulk) 1 g miscellaneous DAILY 05/19/17 12/11/23 History Quercitin 500 mg PO DAILY 02/18/23 12/11/23 History cholecalciferol (vitamin D3) 125 125 mcg PO DAILY 02/18/23 12/11/23 History mcg (5,000 unit) capsule collagen 7.85 mg PO DAILY 02/18/23 12/11/23 History cyclobenzaprine 5 mg tablet 2.5 mg PO DAILY PRN SI joint issues 02/18/23 12/11/23 History meclizine 25 mg tablet 25 mg PO DAILY PRN 02/18/23 12/11/23 History selenium 200 mcg tablet 200 mcg PO DAILY 02/18/23 12/11/23 History zinc 22 mg PO 1XD 02/18/23 12/11/23 History blood sugar diagnostic (Blood #200 ea 03/16/23 12/08/23 Rx Glucose Test strips) blood-glucose meter (OneTouch #1 ea 03/16/23 12/08/23 Rx Verio Flex Meter) lancets (Lancets,Ultra Thin) #100 ea 03/16/23 12/08/23 Rx CGM (Continuous Glucose Monitor) #1 ea 04/25/23 12/08/23 Rx insulin glargine-aglr 100 unit/mL 10 unit (0.1 mL) subcut DAILY 05/08/23 12/11/23 Rx (3 mL) subcutaneous pen (Rezvoglar Diabetes #15 mL KwikPen) pen needle, diabetic 31 gauge x #100 ea 05/08/23 12/08/23 Rx 3/16 (Easy Comfort Pen [place]) levothyroxine 137 mcg capsule 137 mcg PO DAILY #90 caps 05/15/23 12/11/23 Rx insulin aspart U-100 100 unit/mL 5 unit (0.05 mL) subcut TID #15 mL 10/13/23 12/11/23 Rx (3 mL) subcutaneous pen (Novolog FlexPen U-100 Insulin aspart) ondansetron 4 mg disintegrating 4 mg PO TID PRN #10 tabs 12/09/23 12/11/23 Rx tablet Exam Narrative Exam Narrative: General: Patient appears slightly older than stated age, thinly built as stated, alert and oriented x 3 and in no acute distress. She is very conversant and well read as stated with a good handle on her medical conditions. HEENT: Normocephalic, coarsened facial features, eyes with pupils equal and react light symmetrically, extraocular movement intact and sclera anicteric. Oropharynx with moist Koza and fair dentition. Neck: Supple without JVD. Back: Normal posture without CVA tenderness. Lungs: Clear to auscultation percussion with no focalizing rales or rhonchi. Breast: Exam deferred. Heart: Regular rate and rhythm with no murmurs gallops appreciated. Abdomen: Scaphoid contour, soft and nontender to palpation with no palpable hepatosplenomegaly. No epigastric tenderness. No guarding or rebound. Bowel sounds positive in all quadrants. Genitalia/rectal: Exam deferred. Extremities: Without clubbing, cyanosis or pitting edema. Good cap refill with normal peripheral pulses. Skin: Normal color, warm and dry. Neuro: Cranial nerves II through XII gross intact, no focal motor deficits and no tremor. Psych: Normal affect and mood. No abnormal thought processes. Remote and recent memory intact. Results Imaging Imaging Studies: EXAM: CT ABDOMEN PELVIS W CLINICAL HISTORY: Abdominal pain,. TECHNIQUE: Imaging Protocol: Axial computed tomography images with coronal and sagittal reformatted images were created and reviewed CONTRAST MATERIAL: Intravenous: Omnipaque 350 Contrast volume:100 ml Oral: no COMPARISON: US US ABDOMEN from 12/08/2023 MR MR ABDOMEN WO from 12/09/2023 FINDINGS: ABDOMEN and PELVIS: Lung Bases: No acute findings. Liver: Normal density. No measurable mass. Portal veins and hepatic veins appear patent. Gallbladder and biliary tract: Gallbladder is distended. There is mild wall thickening. There is dilatation of the common bile duct to 12 millimeters, similar to prior. It tapers into the head of the pancreas. Pancreas: Enlargement and edema in the head of the pancreas. This area measures 3.5 x 2.5 x 2.3 cm. No edema was seen on the recent MRI.. No abnormal calcifications. stable dilatation of the pancreatic duct. Spleen: Normal. Kidneys: Normal size, contour and axis. No radiodense stones. No obstructive uropathy. No suspicious masses seen. Adrenal glands: No masses seen. Vasculature: Abdominal aorta non-dilated. Soft tissues: Unremarkable. Bladder: No gross wall thickening. No calculi.No focal mass. Bowel: No obstruction. Wall thickening of the descending duodenum, adjacent to the head of the pancreas. Appendix normal. Large quantity of stool. Peritoneal cavity: No ascites. No focal collection or mesenteric inflammatory response. Bones: Degenerative changes at L5-S1. Reproductive organs: Within normal limits. Lymph nodes: Unremarkable. IMPRESSION:: Stable appearance of dilatation of the bile ducts and pancreatic duct. Edema versus enlargement of the pancreatic head. Findings are concerning for a mass. Thickening of the adjacent duodenal wall. Exam(s) 12/09/2023 US ABDOMEN EXAM: US ABDOMEN CLINICAL HISTORY: elevated LFTS, diffuse abd pain, vomiting TECHNIQUE: Ultrasound abdomen performed using standard protocol. COMPARISON: No exams were available for comparison FINDINGS: LIVER: Normal size and echogenicity. No focal liver lesions are seen. GALLBLADDER: Gallbladder appears somewhat distended. No evidence of cholelithiasis. No evidence of wall thickening. No pericholecystic fluid identified. RAY'S SIGN: Negative. BILIARY SYSTEM: Common bile duct dilated to 11 millimeters. No stone visible. KIDNEYS: Kidneys are symmetric in size. No evidence of renal calculi. No evidence of hydronephrosis. No renal mass or cyst identified. PANCREAS: Pancreatic duct is dilated to 4 millimeters. No mass or cyst identified. SPLEEN: Not enlarged. ABDOMINAL AORTA AND IVC: Visualized portions normal caliber. ASCITES: None seen. IMPRESSION: Dilated common bile duct and pancreatic duct. No visible obstructing stone or mass. The gallbladder is somewhat distended but there is no evidence of acute cholecystitis. Lymph nodes: Unremarkable. Addendum: The portal vein and attic veins appear patent. No thrombus is visible. The diameters are normal. The visualized portions of the splenic vein also appear patent and show normal diameter. EXAM: MR ABDOMEN WO 12/09/2023 CLINICAL HISTORY: ACUTE HEPATITIS, CBC dilatation TECHNIQUE: Multiplanar multisequence MRI of the Abdomen was performed. MRCP sequences also performed. COMPARISON: US US ABDOMEN from 12/08/2023 FINDINGS: Liver: Unremarkable. Gallbladder: Unremarkable. No stones or wall thickening Bile Ducts: Dilatation of common bile duct to 13 millimeters. Mild dilatation of intrahepatic ducts. No common duct stone visible. Pancreas: Dilatation of the pancreatic duct to 5 millimeters proximally. Tapers distally in the tail. No mass or cyst identified. Adrenals: Unremarkable. Kidneys: Unremarkable. Spleen: Unremarkable. Aorta: Unremarkable. Soft Tissues: Unremarkable. Bone: Unremarkable. Lymph Nodes: Unremarkable. Mesentery: No ascites. No focal fluid collection. Bowel: No abnormal dilatation or wall thickening. Appendix normal. Lung bases: No evidence of fusion gross infiltrates. IMPRESSION: Dilatation of the common bile duct, intrahepatic ducts and pancreatic duct. The ducts taper in the head of the pancreas. No obstructing stone or mass identified. Labs 12/11/23 16:14 12/11/23 16:14 Labs: Laboratory Results - last 24 hr 12/11/23 12/11/23 12/11/23 16:14 17:18 22:15 WBC 7.35 RBC 4.67 Hgb 14.2 Hct 42.9 MCV 92 MCH 30.4 MCHC 33.1 RDW 13.0 Plt Count 341 MPV 10.0 Immature Gran % 0.5 Neutrophils % 65.5 Lymphocytes % 23.5 Monocytes % 7.1 Eosinophils % 2.7 Basophils % 0.7 Nucleated RBC % 0.0 Absolute Neutrophils 4.81 Absolute Lymphocytes 1.73 Absolute Monocytes 0.52 Absolute Eosinophils 0.20 Absolute Basophils 0.05 PT 11.0 INR 1.1 APTT 29.3 Sodium 139 Potassium 4.3 Chloride 101 Carbon Dioxide 29.3 Anion Gap 8.7 BUN 13 Creatinine 1.1 H Est GFR (CKD-EPI 2020) 57.52 Glucose 318 H Calcium 9.8 Magnesium 2.2 Total Bilirubin 1.6 H AST 1304 H ALT 1709 H Alkaline Phosphatase 1081 H Total Protein 7.7 Albumin 3.9 Triglycerides 49 Total Cholesterol 173 LDL Cholesterol, Calc 114 H HDL Cholesterol 50 Lipase > 375 H Urine Color Yellow Urine Clarity Clear Urine pH 6.5 Ur Specific [place] 1.020 Urine Protein Negative Urine Ketones 15 H Urine Blood Negative Urine Nitrite Negative Urine Bilirubin Small H Urine Urobilinogen 2.0 H Ur Leukocyte Esterase Negative Urine Glucose 500 H Last Vital Signs Temp 37.1 C 12/11/23 16:08 Pulse 66 12/11/23 22:12 Resp 16 12/11/23 16:08 BP 148/77 H 12/11/23 22:12 Pulse Ox 95 12/11/23 22:12 Time Spent Time spent with Patient: >75 minutes Time was spent: preparing to see the patient(eg.review tests), obtaining and/or reviewing separately otained hiistory, ordering medications,tests, procedures, referring, communicating with other health lawn care professional, indepentently interpreting results, counseling the patient and care coordination
[2023-12-12 00:27] LABS: TSH (W/Ref FT4) 2.19 uIU/mL (0.36-3.74)
[2023-12-12] MEDS: Normal Saline Flush 10 ML SYR IVP ×8 (00:36→21:00)
[2023-12-12] MEDS: Famotidine 20 MG/2 ML VIAL IVP (00:36)
[2023-12-12] MEDS: Normal Saline 1,000 ML 125 ML IV ×2 (01:00→09:53)
[2023-12-12] MEDS: fentaNYL 100 MCG/2 ML VIAL 50 MCG IVP ×3 (02:21→14:42)
[2023-12-12] MEDS: Ondansetron 4 MG/2 ML VIAL IVP ×4 (02:21→14:42)
[2023-12-12] MEDS: Heparin 5,000 UNITS/ML VIAL 5000 UNITS SC ×3 (05:43→22:25)
[2023-12-12 06:54] LABS: HCT 34.3 % (36.0-46.0); HGB 11.5 g/dL (11.2-15.7); MCHC 33.5 % (32.0-36.0); MCV 93 fL (80-95); MPV 9.9 fL (8.0-11.0); Platelet Count 264 10^3/uL (130-400); RBC 3.71 10^6/uL (3.93-5.22); RDW-SD 44.7 fL; WBC 6.64 10^3/uL (4.4-10.8)
[2023-12-12 07:18] VITALS: BP 118/66; PULSE 55; RESP 15; TEMP 36.1; O2SAT 96
[2023-12-12 07:20] LABS: Albumin 2.7 g/dL (3.4-5.0); Alkaline Phosphatase 807 U/L (46-116); Anion Gap 9.4 mmol/L (3-11); BUN 9 mg/dL (7-18); Bilirubin, Total 0.9 mg/dL (0.2-1.0); CO2 21.6 mmol/L (21.0-32.0); CREATININE 0.7 mg/dL (0.55-1.02); Calcium 8.4 mg/dL (8.5-10.1); Chloride 108 mmol/L (98-107); Estimated GFR 98.95 (mL/min/1.73m2); Glucose 160 mg/dL (74-106); Magnesium 1.9 mg/dL (1.8-2.4); Potassium 4.1 mmol/L (3.5-5.1); Sodium 139 mmol/L (136-145); Total Protein 5.8 g/dL (6.4-8.2)
[2023-12-12 07:39] LABS: AST 984 U/L (15-37)
[2023-12-12 08:07] LABS: INR 1.1 (0.9-1.1)
[2023-12-12 08:17] LABS: ALT 1347 U/L (14-59); Lipase > 375 U/L (16-77)
--- NOTE | 2023-12-12 09:25 | SCONE_ITS ---
Date of service: 12/12/23 Time of Service: 09:25 Assessment and Plan Assessment and plan (1) Drug-induced pancreatitis: Status: Acute Assessment and plan: After reviewing all the notes on the patient and her history, reviewing labs and reviewing her ultrasound/MRI/CT, I do think this is Ozempic induced pancreatitis. I think the pancreatitis has caused edema of the duodenum which is in turn caused compression on the papillae which is caused the dilated bile ducts to dilate and the gallbladder to develop a pseudoobstruction. Since she is discharged from the hospital on the I think her pancreatitis has been exacerbated. And the pancreatitis is ultimately caused swelling in the duodenum and gallbladder. This would also account for the relatively normal MRI the . We will continue to support her medically. Trend labs Possibly repeat MRCP on Thursday. However this may be too soon for any clinical decrease in edema. There is so much swelling and fluid-filled stomach and duodenum that was very difficult to visualize the pancreas on the CT from Thursday. It is also difficult to say if there is truly a mass in the pancreas or if this is all just edema. At this point I am not convinced that this is a pancreatic mass/cancer. I think this is all Ozempic induced pancreatitis. However she may require ERCP and endoscopic ultrasound to define truly define the level of disease. I will talk to GI on Thursday. Depending on her clinical state and where her labs are, they may wait want to wait even longer to do the procedure, because with that degree of edema will be difficult to still visualize the pancreas. Clinically the patient looks significantly better than her lab values and she has been tolerating about 20% of the clear liquid tray. She has minimal pain and no nausea today. Continue supportive care and medical management This document was created with voice activated software and may contain errors. 75 mins spent with the patient today. Qualifiers: Chronicity: acute Acute pancreatitis complication: no infection or necrosis Qualified Code(s): K85.30 - Drug induced acute pancreatitis without necrosis or infection (2) Hepatitis: Status: Acute (3) Common bile duct dilatation: Status: Acute (4) Pancreatitis: Status: Acute Qualifiers: Chronicity: acute Pancreatitis type: biliary Acute pancreatitis complication: no infection or necrosis Qualified Code(s): K85.10 - Biliary acute pancreatitis without necrosis or infection (5) Common bile duct (CBD) obstruction: Status: Acute (6) Elevated transaminase level: Status: Acute (7) Diabetes 1.5, managed as type 1: Status: Acute (8) DM type 1, goal A1C below 7.5%: Status: Acute (9) Hypothyroidism: (10) HTN (hypertension): (11) Gallbladder dilatation: Status: Acute History of Present Illness Narrative: Pt has a long standing hx of DM and has been on Ozempic for 2 yrs. She was on twp courses of valcyclovir for Shingles and than HSV I. [place] after that, pt started developing unstable blood sugars. Her Ozempic dose has een increased. This past week, her ozempic dose was increased. A few days later she developed cramping abdominal pain that was radiating in a band like fashion across her upper abdomen that radiated into her back, abdominal bloating, loss of appetite adn n/v. She has had DM II for many yrs. She denies a hx of abdominal pain/GB dx. Her s/s ahve only been going on since thursday. prior to that, no abdominal pain or n/v. She has lost 50#'s since July, but this is when the dose of Ozempic was increased. Pt was admitted 12/08- w/ similar s/s. She was kept in the hospital for 36 hours and felt better and labs improved. She was discharged home. She went home and ate and drink. Her signs and symptoms appear to have worsened over the past 2 days. MRI and labs reviewed. Pt has been tolerating minimal clears currently. Currently she has no pain or nausea and appears nontoxic. Review of Systems All systems reviewed & are unremarkable except as noted in HPI and below PFSH All Active Problems (Updated 12/12/23 @ 20:07 by Tiffany Garcia DO) Gallbladder dilatation (Acute) Drug-induced pancreatitis (Acute) ozempic On deep vein thrombosis (DVT) prophylaxis (Acute) Discharge planning issues (Acute) Hypocalcemia (Acute) Common bile duct (CBD) obstruction (Acute) Elevated transaminase level (Acute) Pancreatitis (Acute) Common bile duct dilatation (Acute) Hepatitis (Acute) HSV-1 infection (Acute ~2022) DM type 1, goal A1C below 7.5% (Acute) DM 1.5, but adding TYpe 1 2' MGMT per DM 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 see [facility] notes.. 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, 03/2023 Ganglion cyst Muscle spasm Benign paroxysmal positional vertigo Trochanteric bursitis, left hip Other intervertebral disc degeneration, lumbar region Adjustment disorder with anxious mood Synovial cyst of lumbar facet joint Family History Brother Alcohol use disorder Brother Alcohol use disorder Depression Father Colon cancer Diabetes Mother Asthma Lung cancer ALK positive ( gene mutation) Hypertension Sister [place] disease Paternal Grandmother Heart disease Paternal Grandfather Colon cancer Social History Smoking/Tobacco Use Status: Current-Occasional Quit status: considering quitting Smoking risk assessment performed?: Yes Alcohol Intake: current Alcohol Intake frequency: holidays/special occasions only Counseling given: No Drug use: Never Substance use type: does not use Household members: spouse Housing: house Number of Children: 3 number of grandchildren: 2 Communication Needs: Corrective Lenses Education Level: college 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 What is your relationship status?: How often do you talk on the phone with friends or family?: three or more times per week How often do you get together with friends or relatives?: three or more times per week Panel score (0-1 are the most socially isolated patients): 2 NHANES result reviewed/action taken: Yes What type of physical activity do you participate in: walking and swimming Duration: 45-60 minutes/day Frequency: 5-6 times per week Debbi/Muslim: Taoism Special debbi needs: Yes Seatbelt use: always Drive intox or ride w/intox 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 in no acute distress HYDRATION: Well hydrated HEAD, EYES, EARS, NECK, THROAT: Head is normocephalic, pupils equal, round, reactive to light and accommodation, ocular movement intact, sclera clear and no jaundice. ?Dentition intact. LUNGS: normal respiration/normal chest excursion. ?Clear to auscultation bilaterally. ?No wheeze. ?HEART: Regular rate and rhythm. no murmurs EXTREMITY: No edema or cyanosis.? no leg pain, redness, swelling.? ABDOMEN: soft? minimal pain. +BS Results Last Vital Signs Temp 36.1 C L 12/12/23 07:18 Pulse 55 L 12/12/23 07:18 Resp 15 12/12/23 07:18 BP 118/66 12/12/23 07:18 Pulse Ox 96 12/12/23 07:18 Labs 12/12/23 06:29 12/12/23 06:29 Labs: Laboratory Results - last 24 hr 12/11/23 12/11/23 12/11/23 16:14 17:18 22:15 WBC 7.35 RBC 4.67 Hgb 14.2 Hct 42.9 MCV 92 MCH 30.4 MCHC 33.1 RDW 13.0 Plt Count 341 MPV 10.0 Immature Gran % 0.5 Neutrophils % 65.5 Lymphocytes % 23.5 Monocytes % 7.1 Eosinophils % 2.7 Basophils % 0.7 Nucleated RBC % 0.0 Absolute Neutrophils 4.81 Absolute Lymphocytes 1.73 Absolute Monocytes 0.52 Absolute Eosinophils 0.20 Absolute Basophils 0.05 PT 11.0 INR 1.1 APTT 29.3 Sodium 139 Potassium 4.3 Chloride 101 Carbon Dioxide 29.3 Anion Gap 8.7 BUN 13 Creatinine 1.1 H Est GFR (CKD-EPI 2020) 57.52 Glucose 318 H Calcium 9.8 Magnesium 2.2 Total Bilirubin 1.6 H AST 1304 H ALT 1709 H Alkaline Phosphatase 1081 H Total Protein 7.7 Albumin 3.9 Triglycerides 49 Total Cholesterol 173 LDL Cholesterol, Calc 114 H HDL Cholesterol 50 Lipase > 375 H TSH 2.19 Urine Color Yellow Urine Clarity Clear Urine pH 6.5 Ur Specific [place] 1.020 Urine Protein Negative Urine Ketones 15 H Urine Blood Negative Urine Nitrite Negative Urine Bilirubin Small H Urine Urobilinogen 2.0 H Ur Leukocyte Esterase Negative Urine Glucose 500 H 12/12/23 06:29 WBC 6.64 RBC 3.71 L Hgb 11.5 D Hct 34.3 L MCV 93 MCH 31.0 MCHC 33.5 RDW 13.0 Plt Count 264 MPV 9.9 Immature Gran % Neutrophils % Lymphocytes % Monocytes % Eosinophils % Basophils % Nucleated RBC % Absolute Neutrophils Absolute Lymphocytes Absolute Monocytes Absolute Eosinophils Absolute Basophils PT 11.0 INR 1.1 APTT Sodium 139 Potassium 4.1 Chloride 108 H Carbon Dioxide 21.6 Anion Gap 9.4 BUN 9 Creatinine 0.7 Est GFR (CKD-EPI 2020) 98.95 Glucose 160 H Calcium 8.4 L Magnesium 1.9 Total Bilirubin 0.9 AST 984 H ALT 1347 H Alkaline Phosphatase 807 H Total Protein 5.8 L Albumin 2.7 L Triglycerides Total Cholesterol LDL Cholesterol, Calc HDL Cholesterol Lipase > 375 H TSH Urine Color Urine Clarity Urine pH Ur Specific [place] Urine Protein Urine Ketones Urine Blood Urine Nitrite Urine Bilirubin Urine Urobilinogen Ur Leukocyte Esterase Urine Glucose
--- NOTE | 2023-12-12 09:28 | INITIAL_ITS ---
Date of service: 12/12/23 Time of Service: 09:28 Care Management Initial Assmt Initial Assessment REASON FOR HOSPITALIZATION:: Acute pancreatitis, obstructive elevated LFT's PREVIOUS FUNCTIONAL STATUS/SOCIAL/FAMILY SUPPORTS:: Meena lives in [facility]. with her Michael Montoya. They have 3 sons; two live in [place] and one lives in [place]. CURRENT FUNCTIONAL STATUS:: Meena was lying down in bed when meeting with CM. Pt reports having been in pain earlier and, being drowsy now and wanting to rest. Pt said her and her son that lives in . [place] visited her earlier. The son that lives in [place] is no longer in contact with the family. Pt says [place] and snow stays until March. Meena reported that she is waiting [place] [facility] [place] and hopes will be sooner than later. CM kept interaction brief as Meena was drowsy. ADVANCE DIRECTIVES:: Have been provided the blank documents and said to be working on them. Has patient been provided with info about the portal/API?: Yes Did the patient sign up for the portal?: Yes CODE STATUS:: Full Code INSURANCE COVERAGE / FINANCIAL ISSUES:: /[facility] CURRENT HOME/COMMUNITY SERVICES/EQUIPMENT:: None PRIMARY CARE PHYSICIAN:: Thao Rivas POTENTIAL DISCHARGE NEEDS:: None identified PATIENT/FAMILY EDUCATION NEEDS:: Review discharge instructions and limitations, discussion of care needs including Ask Me Three ANTICIPATED BARRIERS TO DISCHARGE:: Follow up with PCP and plan of care TRANSPORTATION:: via private vehicle with family PLAN:: Meena with discharge home. She will follow up with her PCP and plan of care. She will transport via private vehicle with family. PFSH All Active Problems (Updated 12/13/23 @ 13:04 by Tiffany Garcia DO) Common bile duct (CBD) obstruction (Acute) Gallbladder dilatation (Acute) Drug-induced pancreatitis (Acute) ozempic On deep vein thrombosis (DVT) prophylaxis (Acute) Discharge planning issues (Acute) Hypocalcemia (Acute) Elevated transaminase level (Acute) Pancreatitis (Acute) Common bile duct dilatation (Acute) Hepatitis (Acute) HSV-1 infection (Acute ~2022) DM type 1, goal A1C below 7.5% (Acute) DM 1.5, but adding TYpe 1 2' MGMT per DM 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 see [facility] notes.. 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, 03/2023 Ganglion cyst Muscle spasm Benign paroxysmal positional vertigo Trochanteric bursitis, left hip Other intervertebral disc degeneration, lumbar region Adjustment disorder with anxious mood Synovial cyst of lumbar facet joint Family History Brother Alcohol use disorder Brother Alcohol use disorder Depression Father Colon cancer Diabetes Mother Asthma Lung cancer ALK positive ( gene mutation) Hypertension Sister [place] disease Paternal Grandmother Heart disease Paternal Grandfather Colon cancer Social History Smoking/Tobacco Use Status: Current-Occasional Quit status: considering quitting Smoking risk assessment performed?: Yes Alcohol Intake: current Alcohol Intake frequency: holidays/special occasions only Counseling given: No Drug use: Never Substance use type: does not use Household members: spouse Housing: house Number of Children: 3 number of grandchildren: 2 Communication Needs: Corrective Lenses Education Level: college 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 What is your relationship status?: How often do you talk on the phone with friends or family?: three or more times per week How often do you get together with friends or relatives?: three or more times per week Panel score (0-1 are the most socially isolated patients): 2 NHANES result reviewed/action taken: Yes What type of physical activity do you participate in: walking and swimming Duration: 45-60 minutes/day Frequency: 5-6 times per week Debbi/Synagogue: Gnosticist Special debbi needs: Yes Seatbelt use: always Drive intox or ride w/intox skip load driver: No Working smoke detector in home: Yes Carbon monox detector in home: Yes Do you feel safe in your relationship?: Yes Readmission Within the Past 30 Days Yes or No: Yes Date of First Admission Date of 1st Admission: 12/08/23 Date of this Admission Date of Admission: 12/11/23 This admission was: Through ED Office Visit Since 1st Admission Have you seen your PCP in the office since discharge?: Yes Date of PCP Appointment: 12/10/23 Had an appointment Been Scheduled?: No I. Interview patient and/or Family Difficulty reaching your doctor or getting an office appt?: No Describe barriers fpr purchasing or taking medication: None Have you had trouble with getting meals at home?: No Did you feel ready for discharge when you left the last time: Yes Were services received that you thought were set up on disch: No What services were received?: Yes - re checking labs Thursday Did you call your physician beore you came to the ED?: Yes Did your physician tell you to come in?: Yes How do you think you became sick enough to come back?: LFTs elevated again ED visits How many ED visits in the past 12 months: 2 SDOH(Care Management) Screening Will the Patient Participate in the Screening?: Yes Do you worry about having a steady place to live?: no Problems where you live: no known problems In the past 12 months, have you had to go without electric, gas, oil or water in your home?: no Have you or anyone in your house had to go without enough food to eat?: no Has lack of transportation kept you from medical appointments or from doing things needed for daily living?: no Has anyone in your support network made you feel unsafe for any reason?: no
--- NOTE | 2023-12-12 09:52 | W.PM.PROGNOT ---
Date of Service Date of service: 12/12/23 Time of Service: 09:52 Assessment and Plan Assessment and plan (1) Pancreatitis: Start date: 12/08/23 Status: Acute Assessment and plan: Lipase >375 on admit, tolerates clear liquids well, minimal pain on fentanyl PRN Continue oral hydration Continue IVF and changing to LR at 125 cc/hr Continue pain management No leukocytosis CBC in AM Surgical consult in progress Tapering of the ducts at the head of the pancreas/ dilated common bile duct and pancreatic duct / dilated gallbladder with no evidence of stones Planing for ERCP and endoscopic US of the head of the pancreas at [facility] GI: Call on Thursday morning to get the time for a round trip LFT's in AM, improving today Qualifiers: Acute pancreatitis complication: no infection or necrosis Chronicity: acute Pancreatitis type: biliary Qualified Code(s): K85.10 - Biliary acute pancreatitis without necrosis or infection (2) Common bile duct (CBD) obstruction: Start date: 12/08/23 Status: Acute Assessment and plan: As above and Monitor for S&S of infection or obstruction d/t inflammation with recent passage of gallstone VS head of the pancreas mass. Observe for infection or worsening of the With worsening S&S consider early transfer for ERCP at [facility]. 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 Patient has to get the procedure before going home Subjective Subjective Patient reports: no new complaints, feels better, still having pain, tolerating liquids well, voiding w/o difficulty, flatus and bowel movement; denies diarrhea, blood in stool, nausea, vomiting, shortness of breath or fever Exam Narrative Exam Narrative: General: Patient alert and oriented x 4; w/o acute distress, Pleasant and well aware of the plan and medical conditions. NEURO: No focal deficit HEENT: Normocephalic w/o appearant trauma . Neck: Supple without JVD, no meningeal sign Back: No CVA tenderness. Lungs: Clear lung russell bilaterally Heart: Regular S1, S2 no murmurs, positive pulses to all 4 ext. Abdomen: Flat, soft to palpation, no palpable hepatosplenomegaly. left upper quadrant/ epigastric discomfort on palpation w/o guarding or rebound. Bowel sounds are present, no discoloration noted to flank or periumbilical region Extremities:No pitting edema. 5/5 strength to upper and lower ext Skin: Normal color, warm and dry, on lesion or rask on exposed skin Psych: Normal affect and mood, normal thought process. Objective Last Vital Signs Temp 36.1 C L 12/12/23 07:18 Pulse 55 L 12/12/23 07:18 Resp 15 12/12/23 07:18 BP 118/66 12/12/23 07:18 Pulse Ox 96 12/12/23 07:18 Laboratory Results - last 24 hr 12/11/23 12/11/23 12/11/23 16:14 17:18 22:15 WBC 7.35 RBC 4.67 Hgb 14.2 Hct 42.9 MCV 92 MCH 30.4 MCHC 33.1 RDW 13.0 Plt Count 341 MPV 10.0 Immature Gran % 0.5 Neutrophils % 65.5 Lymphocytes % 23.5 Monocytes % 7.1 Eosinophils % 2.7 Basophils % 0.7 Nucleated RBC % 0.0 Absolute Neutrophils 4.81 Absolute Lymphocytes 1.73 Absolute Monocytes 0.52 Absolute Eosinophils 0.20 Absolute Basophils 0.05 PT 11.0 INR 1.1 APTT 29.3 Sodium 139 Potassium 4.3 Chloride 101 Carbon Dioxide 29.3 Anion Gap 8.7 BUN 13 Creatinine 1.1 H Est GFR (CKD-EPI 2020) 57.52 Glucose 318 H Calcium 9.8 Magnesium 2.2 Total Bilirubin 1.6 H AST 1304 H ALT 1709 H Alkaline Phosphatase 1081 H Total Protein 7.7 Albumin 3.9 Triglycerides 49 Total Cholesterol 173 LDL Cholesterol, Calc 114 H HDL Cholesterol 50 Lipase > 375 H TSH 2.19 Urine Color Yellow Urine Clarity Clear Urine pH 6.5 Ur Specific [place] 1.020 Urine Protein Negative Urine Ketones 15 H Urine Blood Negative Urine Nitrite Negative Urine Bilirubin Small H Urine Urobilinogen 2.0 H Ur Leukocyte Esterase Negative Urine Glucose 500 H 12/12/23 06:29 WBC 6.64 RBC 3.71 L Hgb 11.5 D Hct 34.3 L MCV 93 MCH 31.0 MCHC 33.5 RDW 13.0 Plt Count 264 MPV 9.9 Immature Gran % Neutrophils % Lymphocytes % Monocytes % Eosinophils % Basophils % Nucleated RBC % Absolute Neutrophils Absolute Lymphocytes Absolute Monocytes Absolute Eosinophils Absolute Basophils PT 11.0 INR 1.1 APTT Sodium 139 Potassium 4.1 Chloride 108 H Carbon Dioxide 21.6 Anion Gap 9.4 BUN 9 Creatinine 0.7 Est GFR (CKD-EPI 2020) 98.95 Glucose 160 H Calcium 8.4 L Magnesium 1.9 Total Bilirubin 0.9 AST 984 H ALT 1347 H Alkaline Phosphatase 807 H Total Protein 5.8 L Albumin 2.7 L Triglycerides Total Cholesterol LDL Cholesterol, Calc HDL Cholesterol Lipase > 375 H TSH Urine Color Urine Clarity Urine pH Ur Specific [place] Urine Protein Urine Ketones Urine Blood Urine Nitrite Urine Bilirubin Urine Urobilinogen Ur Leukocyte Esterase Urine Glucose PAWSS Have you Been Recently Intoxicated or Drunk Within the Last 30 days?: No Have you Ever Experienced Previous Episodes of Alcohol Withdrawal?: No Have you ever Experienced Withdrawal Seizures?: No Have you ever Experienced Delirium Tremens(DT)s?: No Have you ever undergone Alcohol Rehabilitation Treatment (i.e, inpt ot outpatient treatment programs)?: No Have you ever Experienced Blackouts?: No Have you ever Combined Alcohol with other Downers within the last 90 days?: No Have you ever Combined Alcohol with any other Substance of Abuse during the last 90 days?: No Positive Blood Alcohol level on Presentation? [PCS.BAL]: No Evidence of Increased Autonomic Activity (i.e. HR>120, tremor, sweating, agitation, nausea)?: No Result: 0 Time Spent with Patient Time Spent with Patient: >50 minutes Time was spent: preparing to see the patient(eg.review tests), obtaining and/or reviewing separately [facility], ordering medications,tests, procedures, referring, communicating with other health post acute care registered nurse, indepentently interpreting results, counseling the patient and care coordination
[2023-12-12] MEDS: Normal Saline 10 ML VIAL IJ (09:54)
[2023-12-12] MEDS: Pantoprazole 40 MG VIAL IVP (09:55)
[2023-12-12] MEDS: Lactated Ringers 1,000 ML 125 ML IV ×2 (10:36→18:59)
[2023-12-12 11:13] VITALS: BP 138/76; PULSE 57; RESP 16; TEMP 36.5; O2SAT 98
[2023-12-12] MEDS: Insulin Aspart 300 UNITS/3 ML PEN SC (11:55)
--- NOTE | 2023-12-12 12:15 | DI.RAD_ITS ---
Exam(s) XR ABDOMEN FLAT UPRIGHT EXAM: 2D digital imaging was performed. CLINICAL HISTORY: Duodenal obstruction. COMPARISON: CT CT ABDOMEN PELVIS W from 12/11/2023 TECHNIQUE: Supine and upright views of the abdomen was performed. Three images were obtained. FINDINGS: LUNG BASES: Clear. BOWEL GAS PATTERN: Nondistended. The stomach is of normal caliber. There is a small amount of stool in the colon. FREE AIR: None. CALCIFICATIONS: No radiopaque calcifications. OSSEOUS STRUCTURES: Within normal limits for the patient's age. OTHER FINDINGS: None. IMPRESSION: No evidence of bowel obstruction secondary to the pancreatic head mass seen on the CT scan of the abd omen and pelvis from 12/11/2023.. DATA REPOSITORY: RADIATION DOSE DELIVERED:
--- NOTE | 2023-12-12 12:36 | DI.VRAD_ITS ---
PROCEDURE INFORMATION: Exam: XR Abdomen Exam date and time: 12/12/2023 12:11 PM Age: 58 years old Clinical indication: Other: Duodenal obstruction TECHNIQUE: Imaging protocol: Radiologic exam of the abdomen. Views: 2 Views. Upright and supine views. COMPARISON: CT ABDOMEN PELVIS W 12/11/2023 5:28 PM FINDINGS: Gastrointestinal tract: Normal. No bowel dilation. Intraperitoneal space: Normal. No free air. Vasculature: Pelvic phleboliths. Bones/joints: Unremarkable for age. IMPRESSION: No significant bowel dilatation. Dictated and Authenticated by: Heladio Chapman MD. Ordering:JENNIFER Allen MD
[2023-12-12 15:31] VITALS: BP 161/86; PULSE 57; RESP 14; TEMP 36.5; O2SAT 98
[2023-12-12 19:43] VITALS: BP 155/89; PULSE 55; RESP 14; TEMP 37.7; O2SAT 97
[2023-12-12 20:40] VITALS: TEMP 37.7
[2023-12-12] MEDS: Ibuprofen 400 MG TAB PO (20:40)
[2023-12-12 22:35] VITALS: BP 132/79; PULSE 59; RESP 18; TEMP 36.7; O2SAT 96
[2023-12-13] MEDS: Lactated Ringers 1,000 ML 125 ML IV (02:49)
[2023-12-13 03:49] VITALS: BP 129/84; PULSE 58; RESP 18; TEMP 36.1; O2SAT 96
[2023-12-13] MEDS: Heparin 5,000 UNITS/ML VIAL 5000 UNITS SC ×3 (05:19→22:55)
[2023-12-13 06:46] LABS: Abs Immature Grans 0.02 10^3/uL (0.0-0.06); Absolute Basophil Count 0.04 10^3/uL (0.0-0.2); Absolute Eosinophil Count 0.25 10^3/uL (0.0-0.7); Absolute Lymphocyte Count 1.56 10^3/uL (1.2-3.4); Absolute Neutrophil Count 3.95 10^3/uL (1.2-6.7); Basophils % 0.6; Eosinophils % 3.9; HGB 11.8 g/dL (11.2-15.7); Immature Grans % 0.3; Lymphocytes % 24.3; MCH 31.3 pg (27.0-33.0); MCHC 33.7 % (32.0-36.0); MCV 93 fL (80-95); MPV 10.2 fL (8.0-11.0); Monocytes % 9.3; Neutrophils % 61.6; Platelet Count 274 10^3/uL (130-400); RBC 3.77 10^6/uL (3.93-5.22); RDW 13.1 % (11.7-14.6); RDW-SD 44.6 fL; WBC 6.42 10^3/uL (4.4-10.8)
[2023-12-13 06:57] LABS: Anion Gap 11.4 mmol/L (3-11); BUN 4 mg/dL (7-18); CO2 24.6 mmol/L (21.0-32.0); CREATININE 0.7 mg/dL (0.55-1.02); Calcium 9.1 mg/dL (8.5-10.1); Chloride 105 mmol/L (98-107); Estimated GFR 98.95 (mL/min/1.73m2); Glucose 113 mg/dL (74-106); Magnesium 1.6 mg/dL (1.8-2.4); Sodium 141 mmol/L (136-145)
[2023-12-13 07:01] LABS: AST 568 U/L (15-37); Albumin 2.9 g/dL (3.4-5.0); Alkaline Phosphatase 870 U/L (46-116); Bilirubin, Direct 0.5 mg/dL (0.0-0.2); Bilirubin, Total 1.2 mg/dL (0.2-1.0); Total Protein 5.8 g/dL (6.4-8.2)
[2023-12-13 07:20] LABS: ALT 1112 U/L (14-59)
[2023-12-13] MEDS: Normal Saline 10 ML VIAL IJ (08:47)
[2023-12-13] MEDS: Pantoprazole 40 MG VIAL IVP (08:47)
[2023-12-13] MEDS: Normal Saline Flush 10 ML SYR IVP ×3 (08:48→22:07)
[2023-12-13 08:49] VITALS: BP 157/89; PULSE 62; RESP 14; TEMP 36.4; O2SAT 98
[2023-12-13 10:38] LABS: Lab Add On Test DONE
[2023-12-13 11:02] LABS: Lipase 308 U/L (16-77)
[2023-12-13 11:25] VITALS: BP 144/84; PULSE 62; RESP 16; TEMP 37.2; O2SAT 96
[2023-12-13] MEDS: Insulin Aspart 300 UNITS/3 ML PEN SC ×2 (11:26→17:27)
--- NOTE | 2023-12-13 13:01 | W.PM.PROGNOT ---
Date of Service Date of service: 12/13/23 Time of Service: 13:01 Assessment and Plan Assessment and plan (1) Drug-induced pancreatitis: Status: Acute Assessment and plan: I still feel all her symptoms are from the Ozempic. Her last dose was December 01. She skipped this last Thursday's dose. Her labs are mostly equivocal today. Her symptoms are equivocal. She does not feel any better but she is definitely not any worse. There is some slight improvement in her transaminases and lipase. We will see how she feels tomorrow. Given her symptomatology and lab work, I do not think there is any point in doing any repeat imaging tomorrow I think things are still going to be too edematous for any good visualization. I will talk to GI tomorrow and see what their feelings are about ERCP and EUS. I feel that she may still be too edematous to give us a clear picture on the EUS and it may be worthwhile to hold the procedure for a few more days. Will continue with supportive care. Encourage walking and pulmonary toilet I discussed the care plan with the patient and she understands the rationale This document was created with voice activated software and may contain errors. 20 mins spent with the patient today. Qualifiers: Chronicity: acute Acute pancreatitis complication: no infection or necrosis Qualified Code(s): K85.30 - Drug induced acute pancreatitis without necrosis or infection (2) Diabetes 1.5, managed as type 1: Status: Acute (3) DM type 1, goal A1C below 7.5%: Status: Acute (4) Hepatitis: Status: Acute (5) Common bile duct dilatation: Status: Acute (6) Pancreatitis: Status: Acute Qualifiers: Chronicity: acute Pancreatitis type: biliary Acute pancreatitis complication: no infection or necrosis Qualified Code(s): K85.10 - Biliary acute pancreatitis without necrosis or infection (7) Common bile duct (CBD) obstruction: Status: Acute (8) Gallbladder dilatation: Status: Acute (9) Elevated transaminase level: Status: Acute (10) HTN (hypertension): (11) Hypothyroidism: Subjective Subjective Interval history since last seen: Patient still is not feeling good today she did not sleep well last night because of pain. Pain is improved with ibuprofen. She feels still feels distended/bloated/nauseous with poor appetite. No worsening of her pain but no improvement either. no headaches. No CP or SOB. no productive cough. no dysuria. no leg pain or swelling. Exam Narrative Exam Narrative: Lungs are clear Abdomen is mildly distention and mild tenderness. Bowel sounds are present but hypoactive. No diffuse peritonitis. Objective Last Vital Signs Temp 37.2 C 12/13/23 11:25 Pulse 62 12/13/23 11:25 Resp 16 12/13/23 11:25 BP 144/84 H 12/13/23 11:25 Pulse Ox 96 12/13/23 11:25 Laboratory Results - last 24 hr 12/13/23 12/13/23 12/13/23 06:24 10:29 10:39 WBC 6.42 RBC 3.77 L Hgb 11.8 Hct 35.0 L MCV 93 MCH 31.3 MCHC 33.7 RDW 13.1 Plt Count 274 MPV 10.2 Immature Gran % 0.3 Neutrophils % 61.6 Lymphocytes % 24.3 Monocytes % 9.3 Eosinophils % 3.9 Basophils % 0.6 Nucleated RBC % 0.0 Absolute Neutrophils 3.95 Absolute Lymphocytes 1.56 Absolute Monocytes 0.60 Absolute Eosinophils 0.25 Absolute Basophils 0.04 Sodium 141 Potassium 4.0 Chloride 105 Carbon Dioxide 24.6 Anion Gap 11.4 H BUN 4 L Creatinine 0.7 Est GFR (CKD-EPI 2020) 98.95 Glucose 113 H Calcium 9.1 Magnesium 1.6 L Total Bilirubin 1.2 H Conjugated Bilirubin 0.5 H AST 568 H ALT 1112 H Alkaline Phosphatase 870 H Total Protein 5.8 L Albumin 2.9 L Lipase 308 H [facility] Have you Been Recently Intoxicated or Drunk Within the Last 30 days?: No Have you Ever Experienced Previous Episodes of Alcohol Withdrawal?: No Have you ever Experienced Withdrawal Seizures?: No Have you ever Experienced Delirium Tremens(DT)s?: No Have you ever undergone Alcohol Rehabilitation Treatment (i.e, inpt ot outpatient treatment programs)?: No Have you ever Experienced Blackouts?: No Have you ever Combined Alcohol with other Downers within the last 90 days?: No Have you ever Combined Alcohol with any other Substance of Abuse during the last 90 days?: No Positive Blood Alcohol level on Presentation? [PCS.BAL]: No Evidence of Increased Autonomic Activity (i.e. HR>120, tremor, sweating, agitation, nausea)?: No Result: 0 Time Spent with Patient Time Spent with Patient: <25 minutes Time was spent: preparing to see the patient(eg.review tests), obtaining and/or reviewing separately otained hiistory, ordering medications,tests, procedures, referring, communicating with other health acute care nursing assistant, indepentently interpreting results, counseling the patient and care coordination
--- NOTE | 2023-12-13 13:04 | CMPROGNOTE_ITS ---
Date of service: 12/13/23 Time of Service: 12:20 Care Management Progress Note Progress Note Text Progress Note Text: S/O: When CM me with her,Meena was propped up in bed with her own pillows and maldivian from home. Dr Garcia came in to see Meena while CM was present and informed her that she may need to wait a few days before going to [facility] for an ERAP and EUS. She explained that her bloodwork indicates that she likely still has swelling in the area that might make visualization of structures difficult. Pt discussed with CM she prefers to go home as she is normally active. She working at [employer] for over 30 years until 2020. 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 She now enjoys walking with her dogs,projects,and reading. A: Meena is a 58 year woamn re admitted to [facility] 12/11/23 for pancreatitis P: Meena will discharge when medically cleared and transport home via private vehicle. She will F/U with her PCP and plan of care. SDOH(Care Management) Screening Will the Patient Participate in the Screening?: Yes Do you worry about having a steady place to live?: no Problems where you live: no known problems In the past 12 months, have you had to go without electric, gas, oil or water in your home?: no Have you or anyone in your house had to go without enough food to eat?: no Has lack of transportation kept you from medical appointments or from doing things needed for daily living?: no Has anyone in your support network made you feel unsafe for any reason?: no
--- NOTE | 2023-12-13 13:28 | W.PM.PROGNOT ---
Date of Service Date of service: 12/13/23 Time of Service: 13:28 Assessment and Plan Assessment and plan (1) Pancreatitis: Status: Acute Assessment and plan: Lipase >375 on admit, tolerates clear liquids well, minimal pain on fentanyl PRN Continue oral hydration Continue IVF and changing to LR at 75 cc/hr Continue pain management No leukocytosis See Surgical consult Tapering of the ducts at the head of the pancreas/ dilated common bile duct and pancreatic duct / dilated gallbladder with no evidence of stones Planing for ERCP and endoscopic US of the head of the pancreas at [facility]: Call on Thursday morning to get the time for a down and back closely follow LFT's Qualifiers: Acute pancreatitis complication: no infection or necrosis Chronicity: acute Pancreatitis type: biliary Qualified Code(s): K85.10 - Biliary acute pancreatitis without necrosis or infection (2) Common bile duct (CBD) obstruction: Status: Acute Assessment and plan: As above and Monitor for S&S of infection or obstruction d/t inflammation with recent passage of gallstone VS head of the pancreas mass. Observe for infection or worsening of the With worsening S&S consider early transfer for ERCP at [facility]. (3) Elevated transaminase level: Status: Acute Assessment and plan: As above (4) Type 2 diabetes mellitus: Assessment and plan: Continue Gluc AC and HS with SS coverage of insulin may not resume Ozempic upon discharge Qualifiers: Diabetes mellitus complication status: without complication Diabetes mellitus director long term care insulin use: with fci use Qualified Code(s): E11.9 - Type 2 diabetes mellitus without complications; Z79.4 - snf (current) use of insulin (5) Hypocalcemia: Status: Acute Assessment and plan: Ca 8.7 , corrected value withing normal range (6) On deep vein thrombosis (DVT) prophylaxis: Status: Acute Assessment and plan: Continue heparin SC hold morning dose on Thursday (7) Discharge planning issues: Status: Acute Assessment and plan: [facility] on Thursday for ERCP and endoscopic US of the pancreas; Nursing to call in AM for procedure time; most likely round trip. Patient has to get the procedure before going home discussed with DR Rae Subjective Subjective Patient reports: no new complaints, tolerating liquids well and tolerating a regular diet Objective Last Vital Signs Temp 37.2 C 12/13/23 11:25 Pulse 62 02/18/24 11:25 Resp 16 12/13/23 11:25 BP 144/84 H 12/13/23 11:25 Pulse Ox 96 12/13/23 11:25 Laboratory Results - last 24 hr 12/13/23 12/13/23 12/13/23 06:24 10:29 10:39 WBC 6.42 RBC 3.77 L Hgb 11.8 Hct 35.0 L MCV 93 MCH 31.3 MCHC 33.7 RDW 13.1 Plt Count 274 MPV 10.2 Immature Gran % 0.3 Neutrophils % 61.6 Lymphocytes % 24.3 Monocytes % 9.3 Eosinophils % 3.9 Basophils % 0.6 Nucleated RBC % 0.0 Absolute Neutrophils 3.95 Absolute Lymphocytes 1.56 Absolute Monocytes 0.60 Absolute Eosinophils 0.25 Absolute Basophils 0.04 Sodium 141 Potassium 4.0 Chloride 105 Carbon Dioxide 24.6 Anion Gap 11.4 H BUN 4 L Creatinine 0.7 Est GFR (CKD-EPI 2020) 98.95 Glucose 113 H Calcium 9.1 Magnesium 1.6 L Total Bilirubin 1.2 H Conjugated Bilirubin 0.5 H AST 568 H ALT 1112 H Alkaline Phosphatase 870 H Total Protein 5.8 L Albumin 2.9 L Lipase 308 H Add-On Test Request DONE [place] PAWSS Have you Been Recently Intoxicated or Drunk Within the Last 30 days?: No Have you Ever Experienced Previous Episodes of Alcohol Withdrawal?: No Have you ever Experienced Withdrawal Seizures?: No Have you ever Experienced Delirium Tremens(DT)s?: No Have you ever undergone Alcohol Rehabilitation Treatment (i.e, inpt ot outpatient treatment programs)?: No Have you ever Experienced Blackouts?: No Have you ever Combined Alcohol with other Downers within the last 90 days?: No Have you ever Combined Alcohol with any other Substance of Abuse during the last 90 days?: No Positive Blood Alcohol level on Presentation? [PCS.BAL]: No Evidence of Increased Autonomic Activity (i.e. HR>120, tremor, sweating, agitation, nausea)?: No Result: 0 Time Spent with Patient Time Spent with Patient: 35-49 minutes Time was spent: preparing to see the patient(eg.review tests), obtaining and/or reviewing separately otained hiistory, ordering medications,tests, procedures, indepentently interpreting results and counseling the patient
[2023-12-13 15:25] VITALS: BP 145/82; PULSE 51; RESP 17; TEMP 36.6; O2SAT 97
[2023-12-13 20:49] VITALS: BP 159/78; PULSE 64; RESP 18; TEMP 36.6; O2SAT 96
[2023-12-13] MEDS: Ondansetron 4 MG/2 ML VIAL IVP (22:55)
[2023-12-13 23:30] VITALS: BP 125/69; PULSE 68; RESP 18; TEMP 36.7; O2SAT 94
[2023-12-14] MEDS: Ibuprofen 400 MG TAB PO ×2 (02:15→08:52)
[2023-12-14] MEDS: Lactated Ringers 1,000 ML 75 ML IV ×2 (02:15→13:14)
[2023-12-14 03:26] VITALS: BP 142/71; PULSE 67; RESP 18; TEMP 36; O2SAT 97
[2023-12-14] MEDS: Ondansetron 4 MG/2 ML VIAL IVP (06:02)
[2023-12-14 08:18] VITALS: BP 138/75; PULSE 83; RESP 18; TEMP 36.6; O2SAT 93
[2023-12-14] MEDS: Pantoprazole 40 MG VIAL IVP (08:46)
[2023-12-14] MEDS: Normal Saline Flush 10 ML SYR IVP ×2 (08:46→19:48)
[2023-12-14] MEDS: Insulin Aspart 300 UNITS/3 ML PEN SC ×3 (08:47→16:53)
--- NOTE | 2023-12-14 08:57 | PGE_ITS ---
Date of Service Date of service: 12/14/23 Time of Service: 08:57 Assessment and Plan Assessment and plan (1) Diabetes 1.5, managed as type 1: Status: Acute (2) Common bile duct dilatation: Status: Acute (3) Pancreatitis: Status: Acute Assessment and plan: Ozempic induced pancreatitis Possible mass in the head of the pancreas. However the pancreas was obscured by fluid-filled dilated stomach and duodenum. Will review and discuss with GI at [facility] and see fertility and timing of ERCP Continue supportive care This document was created with voice activated software and may contain errors. 20 mins spent with the patient today. Qualifiers: Chronicity: acute Pancreatitis type: biliary Acute pancreatitis complication: no infection or necrosis Qualified Code(s): K85.10 - Biliary acute pancreatitis without necrosis or infection (4) Common bile duct (CBD) obstruction: Status: Acute (5) Drug-induced pancreatitis: Status: Acute Qualifiers: Chronicity: acute Acute pancreatitis complication: no infection or necrosis Qualified Code(s): K85.30 - Drug induced acute pancreatitis without necrosis or infection (6) Gallbladder dilatation: Status: Acute (7) Elevated transaminase level: Status: Acute Subjective Subjective Interval history since last seen: Pt is doing well. no headaches. No CP or SOB. no productive cough. no dysuria. no leg pain or swelling. Patient states she feels may be 10% better today. She is tolerating small amount of clears. But for the most part she feels the same. +headaches. No CP or SOB. no productive cough. no dysuria. no leg pain or swelling. Exam Narrative Exam Narrative: L:Clear to auscultation bilaterally Abdomen soft with bowel sounds. No nausea and vomiting for the past 24 hours Extremities show no clubbing cyanosis or edema Objective Last Vital Signs Temp 36.6 C 12/14/23 08:18 Pulse 83 12/14/23 08:18 Resp 18 12/14/23 08:18 BP 138/75 12/14/23 08:18 Pulse Ox 93 12/14/23 08:18 Laboratory Results - last 24 hr 12/13/23 12/13/23 12/13/23 06:24 10:29 10:39 Lipase 308 H Add-On Test Request DONE [place] [facility] Have you Been Recently Intoxicated or Drunk Within the Last 30 days?: No Have you Ever Experienced Previous Episodes of Alcohol Withdrawal?: No Have you ever Experienced Withdrawal Seizures?: No Have you ever Experienced Delirium Tremens(DT)s?: No Have you ever undergone Alcohol Rehabilitation Treatment (i.e, inpt ot outpatient treatment programs)?: No Have you ever Experienced Blackouts?: No Have you ever Combined Alcohol with other Downers within the last 90 days?: No Have you ever Combined Alcohol with any other Substance of Abuse during the last 90 days?: No Positive Blood Alcohol level on Presentation? [PCS.BAL]: No Evidence of Increased Autonomic Activity (i.e. HR>120, tremor, sweating, agitation, nausea)?: No Result: 0 Time Spent with Patient Time Spent with Patient: <25 minutes Time was spent: preparing to see the patient(eg.review tests), obtaining and/or reviewing separately otained hiistory, ordering medications,tests, procedures, referring, communicating with other health intensive care medicine specialist, indepentently interpreting results, counseling the patient and care coordination
[2023-12-14 09:16] LABS: AST 474 U/L (15-37); Albumin 2.9 g/dL (3.4-5.0); Alkaline Phosphatase 964 U/L (46-116); Anion Gap 7.6 mmol/L (3-11); BUN 5 mg/dL (7-18); Bilirubin, Total 1.4 mg/dL (0.2-1.0); CO2 27.4 mmol/L (21.0-32.0); CREATININE 0.8 mg/dL (0.55-1.02); Calcium 9.1 mg/dL (8.5-10.1); Chloride 104 mmol/L (98-107); Glucose 233 mg/dL (74-106); Lipase 226 U/L (16-77); Magnesium 1.7 mg/dL (1.8-2.4); Potassium 4.1 mmol/L (3.5-5.1); Sodium 139 mmol/L (136-145)
[2023-12-14 09:28] LABS: ALT 1069 U/L (14-59)
[2023-12-14 13:29] VITALS: BP 153/83; PULSE 52; RESP 18; TEMP 36.2; O2SAT 98
--- NOTE | 2023-12-14 14:24 | PDOC.CMPRO ---
Date of service: 12/14/23 Care Management Progress Note Progress Note Text Progress Note Text: S/O: Meena was sitting up in bed and engaged in conversation. Michael in room as well. CM Pt and discussed various worldly topics in the encounter. Meena stated she is hoping to have the [facility] down and back procedure tomorrow. A: Meena is a 58 year woman re admitted to [facility] 12/11/23 for pancreatitis P: Meena will discharge when medically cleared and transport home via private vehicle. She will F/U with her PCP and plan of care. SDOH(Care Management) Screening Will the Patient Participate in the Screening?: Yes Do you worry about having a steady place to live?: no Problems where you live: no known problems In the past 12 months, have you had to go without electric, gas, oil or water in your home?: no Have you or anyone in your house had to go without enough food to eat?: no Has lack of transportation kept you from medical appointments or from doing things needed for daily living?: no Has anyone in your support network made you feel unsafe for any reason?: no
--- NOTE | 2023-12-14 15:29 | W.PM.PROGNOT ---
Date of Service Date of service: 12/14/23 Time of Service: 15:29 Assessment and Plan Assessment and plan (1) Pancreatitis: Status: Acute Assessment and plan: Lipase continues to trend downward tolerates clear liquids well, minimal pain on fentanyl PRN Continue oral hydration Continue IVF and changing to LR at 75 cc/hr Continue pain management No leukocytosis See Surgical consult Tapering of the ducts at the head of the pancreas/ dilated common bile duct and pancreatic duct / dilated gallbladder with no evidence of stones Planing for ERCP and endoscopic US of the head of the pancreas [place] [facility]: Call on Thursday morning to get the time for a down and back closely follow LFT's Qualifiers: Acute pancreatitis complication: no infection or necrosis Chronicity: acute Pancreatitis type: biliary Qualified Code(s): K85.10 - Biliary acute pancreatitis without necrosis or infection (2) Common bile duct (CBD) obstruction: Status: Acute Assessment and plan: As above and Monitor for S&S of infection or obstruction d/t inflammation with recent passage of gallstone VS head of the pancreas mass. Observe for infection or worsening of the With worsening S&S consider early transfer for ERCP at [facility] (3) Elevated transaminase level: Status: Acute Assessment and plan: improving, viral hepatitis and other labs added by surgery and pending. (4) Type 2 diabetes mellitus: Assessment and plan: Continue Gluc AC and HS with SS coverage of insulin may not resume Ozempic upon discharge will resume basal insulin at HS Qualifiers: Diabetes mellitus complication status: without complication Diabetes mellitus roasterman insulin use: with halfway use Qualified Code(s): E11.9 - Type 2 diabetes mellitus without complications; Z79.4 - ad terminal makeup operator (current) use of insulin (5) Hypocalcemia: Status: Ruled-out Assessment and plan: Ca 8.7 , corrected value withing normal range (6) On deep vein thrombosis (DVT) prophylaxis: Status: Acute Assessment and plan: Continue heparin SC hold when procedure scheduled (7) Discharge planning issues: Status: Acute Assessment and plan: [facility] pending for ERCP and endoscopic US of the pancreas; surgery arranging. discussed with DR Rae Subjective Subjective Patient reports: no new complaints, feels better, tolerating liquids well and afebrile Objective Last Vital Signs Temp 36.2 C L 12/14/23 13:29 Pulse 52 L 12/14/23 13:29 Resp 18 12/14/23 13:29 BP 153/83 H 12/14/23 13:29 Pulse Ox 98 12/14/23 13:29 Laboratory Results - last 24 hr 12/14/23 08:50 Sodium 139 Potassium 4.1 Chloride 104 Carbon Dioxide 27.4 Anion Gap 7.6 BUN 5 L Creatinine 0.8 Est GFR (CKD-EPI 2020) 84.30 Glucose 233 H Calcium 9.1 Magnesium 1.7 L Total Bilirubin 1.4 H AST 474 H ALT 1069 H Alkaline Phosphatase 964 H Total Protein 6.0 L Albumin 2.9 L Lipase 226 H PAWSS Have you Been Recently Intoxicated or Drunk Within the Last 30 days?: No Have you Ever Experienced Previous Episodes of Alcohol Withdrawal?: No Have you ever Experienced Withdrawal Seizures?: No Have you ever Experienced Delirium Tremens(DT)s?: No Have you ever undergone Alcohol Rehabilitation Treatment (i.e, inpt ot outpatient treatment programs)?: No Have you ever Experienced Blackouts?: No Have you ever Combined Alcohol with other Downers within the last 90 days?: No Have you ever Combined Alcohol with any other Substance of Abuse during the last 90 days?: No Positive Blood Alcohol level on Presentation? [PCS.BAL]: No Evidence of Increased Autonomic Activity (i.e. HR>120, tremor, sweating, agitation, nausea)?: No Result: 0 Time Spent with Patient Time Spent with Patient: 25-34 minutes Time was spent: preparing to see the patient(eg.review tests), ordering medications,tests, procedures, indepentently interpreting results and counseling the patient
[2023-12-14 15:33] LABS: ESR 25 mm/hr (0-30)
[2023-12-14] MEDS: MAGNESIUM SULFATE 1 GM/100 ML BAG IVPB (15:33)
[2023-12-14 16:57] LABS: GGT 509 U/L (5-55); LDH 251 U/L (81-234)
[2023-12-14 17:02] LABS: C-Reactive Protein < 0.50 mg/dL (<or=0.5); Ferritin 1467 ng/mL (8-252)
[2023-12-14 19:56] VITALS: BP 151/83; PULSE 61; RESP 18; TEMP 35.9; O2SAT 96
[2023-12-14] MEDS: Insulin Glargine 300 UNITS/3 ML PEN 10 UNITS SC (22:29)
[2023-12-14 23:54] VITALS: BP 147/77; PULSE 67; RESP 19; TEMP 36; O2SAT 92
[2023-12-15 03:34] VITALS: BP 119/73; PULSE 65; RESP 18; TEMP 36.7; O2SAT 97
[2023-12-15 06:54] LABS: Abs Immature Grans 0.02 10^3/uL (0.0-0.06); Absolute Basophil Count 0.03 10^3/uL (0.0-0.2); Absolute Eosinophil Count 0.18 10^3/uL (0.0-0.7); Absolute Lymphocyte Count 1.11 10^3/uL (1.2-3.4); Absolute Monocyte Count 0.49 10^3/uL (0.1-0.8); Absolute Neutrophil Count 2.99 10^3/uL (1.2-6.7); Basophils % 0.6; Eosinophils % 3.7; HCT 36.7 % (36.0-46.0); HGB 12.5 g/dL (11.2-15.7); Immature Grans % 0.4; MCHC 34.1 % (32.0-36.0); MCV 91 fL (80-95); MPV 10.3 fL (8.0-11.0); Monocytes % 10.2; Neutrophils % 62.1; Platelet Count 290 10^3/uL (130-400); RBC 4.03 10^6/uL (3.93-5.22); RDW 13.2 % (11.7-14.6); RDW-SD 43.9 fL; WBC 4.82 10^3/uL (4.4-10.8)
[2023-12-15 07:24] LABS: ALT 970 U/L (14-59); AST 434 U/L (15-37); BUN 7 mg/dL (7-18); CREATININE 0.9 mg/dL (0.55-1.02); Calcium 9.2 mg/dL (8.5-10.1); Chloride 104 mmol/L (98-107); Estimated GFR 73.19 (mL/min/1.73m2); Glucose 241 mg/dL (74-106); Potassium 4.2 mmol/L (3.5-5.1); Sodium 141 mmol/L (136-145); Total Protein 6.2 g/dL (6.4-8.2)
[2023-12-15 07:26] LABS: Alkaline Phosphatase 1043 U/L (46-116)
[2023-12-15 08:06] VITALS: BP 150/84; PULSE 58; RESP 18; TEMP 36; O2SAT 98
--- NOTE | 2023-12-15 08:24 | PGE_ITS ---
Date of Service Date of service: 12/15/23 Time of Service: Assessment and Plan Assessment and plan (1) Hepatitis: Status: Acute (2) Common bile duct dilatation: Status: Acute (3) Pancreatitis: Status: Acute Assessment and plan: Patient seen and examined. She has no pain or nausea today. She is tolerating a bland low-fat diet. Labs are pretty much equivocal. However she is feeling better and is able to eat which is something she was not able to do before. At this point we are waiting for the edema to resolve prior to doing the procedure. I did discuss the procedure and put in a consult for GI at [facility] so they are aware of her. They did want to wait 2 to 4 weeks for the edema to resolve. She should continue her regular insulin regimen and continue with sensor. She should stay on a low-fat diet. Patient was given information on this. She will follow-up in our clinic for repeat labs. She has an appointment scheduled at [facility] on Thursday and she should keep this appointment and follow-up with labs. As long as she is doing well we will continue watchful waiting and await for ERCP and EUS at [facility]. She has additional lab work that is still pending. She needs to be follow-up very closely by [facility]. If she develops severe abdominal pain, bloating, vomiting and cannot cannot tolerate fluids, return to the ER. This document was created with voice activated software and may contain errors. 40 mins spent with the patient today. Qualifiers: Acute pancreatitis complication: no infection or necrosis Chronicity: acute Pancreatitis type: biliary Qualified Code(s): K85.10 - Biliary acute pancreatitis without necrosis or infection (4) Drug-induced pancreatitis: Status: Acute Qualifiers: Acute pancreatitis complication: no infection or necrosis Chronicity: acute Qualified Code(s): K85.30 - Drug induced acute pancreatitis without necrosis or infection (5) Gallbladder dilatation: Status: Acute (6) Elevated transaminase level: Status: Acute Subjective Subjective Interval history since last seen: Arrived with the patient resting comfortably in bed. She expresses confusion regarding the plan moving forward. Objective Last Vital Signs Temp 36.0 C L 12/15/23 08:06 Pulse 58 L 12/15/23 08:06 Resp 18 12/15/23 08:06 BP 150/84 H 12/15/23 08:06 Pulse Ox 98 02/20/24 08:06 Laboratory Results - last 24 hr 12/14/23 12/14/23 12/15/23 08:50 15:30 06:35 WBC 4.82 RBC 4.03 Hgb 12.5 Hct 36.7 MCV 91 MCH 31.0 MCHC 34.1 RDW 13.2 Plt Count 290 MPV 10.3 Immature Gran % 0.4 Neutrophils % 62.1 Lymphocytes % 23.0 Monocytes % 10.2 Eosinophils % 3.7 Basophils % 0.6 Nucleated RBC % 0.0 Absolute Neutrophils 2.99 Absolute Lymphocytes 1.11 L Absolute Monocytes 0.49 Absolute Eosinophils 0.18 Absolute Basophils 0.03 ESR 25 Sodium 139 141 Potassium 4.1 4.2 Chloride 104 104 Carbon Dioxide 27.4 28.0 Anion Gap 7.6 9.0 BUN 5 L 7 Creatinine 0.8 0.9 Est GFR (CKD-EPI 2020) 84.30 73.19 Glucose 233 H 241 H Calcium 9.1 9.2 Magnesium 1.7 L Ferritin 1467 H Total Bilirubin 1.4 H 1.0 GGT 509 H AST 474 H 434 H ALT 1069 H 970 H Alkaline Phosphatase 964 H 1043 H Lactate Dehydrogenase 251 H C-Reactive Protein < 0.50 Total Protein 6.0 L 6.2 L Albumin 2.9 L 3.0 L Lipase 226 H PAWSS Have you Been Recently Intoxicated or Drunk Within the Last 30 days?: No Have you Ever Experienced Previous Episodes of Alcohol Withdrawal?: No Have you ever Experienced Withdrawal Seizures?: No Have you ever Experienced Delirium Tremens(DT)s?: No Have you ever undergone Alcohol Rehabilitation Treatment (i.e, inpt ot outpatient treatment programs)?: No Have you ever Experienced Blackouts?: No Have you ever Combined Alcohol with other Downers within the last 90 days?: No Have you ever Combined Alcohol with any other Substance of Abuse during the last 90 days?: No Positive Blood Alcohol level on Presentation? [PCS.BAL]: No Evidence of Increased Autonomic Activity (i.e. HR>120, tremor, sweating, ag itation, nausea)?: No Result: 0
[2023-12-15] MEDS: Pantoprazole 40 MG VIAL IVP (08:46)
[2023-12-15] MEDS: Insulin Aspart 300 UNITS/3 ML PEN SC ×2 (08:47→12:45)
[2023-12-15] MEDS: Normal Saline Flush 10 ML SYR IVP (08:47)
[2023-12-15 09:12] LABS: IgG 495 mg/dL (610-1616)
[2023-12-15 09:15] LABS: Alpha 1 Antitrypsin,Serum 195 mg/dL (90-200)
[2023-12-15 09:21] LABS: HIV-1/2 Ag & Ab Screen Negative (Negative)
[2023-12-15 09:22] LABS: Hep A Total Ab w Rflx IgM Negative (Negative)
[2023-12-15 09:27] LABS: Hepatitis A Antibody IgM Negative (Negative); Hepatitis B Core Antibody Negative (Negative); Hepatitis B surface Ag Negative (Negative); Hepatitis C Ab w Rflx HCV PCR Negative (Negative)
[2023-12-15 11:22] VITALS: BP 135/75; PULSE 65; RESP 18; TEMP 36.6; O2SAT 97
--- NOTE | 2023-12-15 14:15 | W.PM.DS.N ---
Date of service: 12/15/23 Time of Service: 14:15 DS: Diagnosis Discharge Diagnosis (1) Pancreatitis: Status: Acute (2) Elevated transaminase level: Status: Acute (3) Type 2 diabetes mellitus: (4) Hypocalcemia: Status: Ruled-out (5) Diabetes 1.5, managed as type 1: Status: Acute (6) Hepatitis: Status: Acute (7) Gallbladder dilatation: Status: Acute (8) Drug-induced pancreatitis: Status: Acute (9) Hypothyroidism: Discharge Plan Disposition Patient Disposition: Home Condition: Improving Discharge Details Reason For Visit: Acute pancreatitis, Obstructive elevated LFT's, NI Admit Date/Time: 12/11/23 23:09 Admit Provider: Anthony Walden Attending Provider: Anthony Walden Primary Care Provider: Thao Rivas [facility] Course Hospital Course: SEE ADDENDUM Home Meds and New Rx's Prescriptions: Continued cyclobenzaprine 5 mg tablet 2.5 mg PO DAILY PRN (Reason: SI joint issues) meclizine 25 mg tablet 25 mg PO DAILY PRN (DME) blood-glucose meter [OneTouch Verio Flex meter] Misc See Rx Instructions .Route Qty: 1 1RF Rx Instructions: For BID testing of diabetes, E11.9, with A1C goal < 8 (DME) lancets [Lancets,Ultra Thin] Misc See Rx Instructions .Route Qty: 100 1RF Rx Instructions: for BID testing with Verio for DM W11.9 with A1C goal < 8 (DME) Blood Glucose Test Strip See Rx Instructions .ROUTE .MEDSUPPLY Qty: 200 3RF Rx Instructions: For Verio OR covered brand, for bID testing for DM E11.9 insulin aspart U-100 [Novolog FlexPen U-100 Insulin] 100 unit/mL (3 mL) insulin pen 5 unit subcut TID Qty: 15 12RF Rx Instructions: Inject 1-5 units subcutaneously, 1-3 times daily as directed. (DME) CGM (Continuous Glucose Monitor) and SENSOR See Rx Instructions .Route .MEDSUPPLY Qty: 1 1RF Rx Instructions: Medical necessity for serious health risk due to TYPE 1 MGMT REQUIREMENT meclizine 25 MG tablet,chewable 25 mg PO DAILY PRN tizanidine 2 MG capsule 2 mg PO DAILY PRN (DME) pen needle, diabetic [Easy Comfort Pen [place]] 31 gauge x 3/16 needle See Rx Instructions .Route Qty: 100 3RF Rx Instructions: As directed Zoë Duke 100 unit/mL (3 mL) insulin pen 10 unit subcut DAILY MDD 30 units Qty: 15 3RF Rx Instructions: Take 10 units SubQ daily. May titrate to 30 units as directed by ambulatory pharmacist levothyroxine 137 mcg capsule 137 mcg PO DAILY Qty: 90 3RF ondansetron 4 mg tablet,disintegrating 4 mg PO TID PRNQty: 10 0RF Discontinued zinc 22 mg PO 1XD cholecalciferol (vitamin D3) 125 mcg (5,000 unit) capsule 125 mcg PO DAILY selenium 200 mcg tablet 200 mcg PO DAILY Quercitin 500 mg PO DAILY collagen 7.85 mg PO DAILY cinnamon bark (bulk) 1 GM powder 2 g Miscellaneous DAILY TUMERIC EACH CAP 1 cap PO DAILY juventino root (bulk) 1 GM powder 1 g Miscellaneous DAILY Discharge Instructions Additional Instructions: [facility] Surgery Clinic: [phone] -Follow-up with Dr. Garcia 1pm 12/17. F/u [facility] Internal Thursday- as previously scheduled Have labs drawn 90 mins prior to the appt -Diet low fat. No pork/dairy/nuts or nut butters or avacaodes. if you do not move your bowels daily take a dose of OTC Miralax -It is ok to shower. -Protein supplements daily. You may find that your appetite is smaller. Eat 3-6 small meals throughout the day. It is important to drink lots of water after surgery, 6-10 glasses a day. -If you were given an incentive spirometry (breathing certified orthotic fitter?), continue to do this 10x/hour while awake. -We do want you up walking, at least 5-6 times per day. This is very important to prevent pneumonia and blood clots. You can climb stairs, take them slowly. -You may find that you are very tired after hospitalization- this is normal. -Avoid all supplements/vitamins. -No alcohol or tylenol Diet: Foods to avoid: High-fat foods include: ? Foods that are fried, like [employer] fries and potato chips ? High-fat meats, such as miller, bologna, sausage, ground beef, and ribs, ALL ```````````pork products ? All dairy products, such as cheese, ice cream, cream, whole milk, and sour cream ? Pizza ? Foods made with lard or butter ? Creamy soups or sauces ? Meat gravies ? Chocolate ? Oils, such as palm and coconut oil ? Skin of chicken or turkey Activity:: Activity as Tolerated Equipment/Supplies:: Blood Glucose Monitor Diet:: Carb Counting DS: Summary Time Spent with Patient providing and/or coordinating discharge services: Greater than 30 minutes Status at Discharge Functional status at discharge: independent ambulation Overall status at discharge: patient is progressing back to baseline Mental Status: mental status grossly normal Speech and Movement: speech and movement normal Mood: congruent mood Affect: normal affect Quality:SDOH Health Related Social Needs: No Data to Display Exam Psych Mental Status: mental status grossly normal Speech and Movement: speech and movement normal Mood: congruent mood Affect: normal affect DS: Data Vitals/I&O Vitals and I&O: Vital Signs Temperature 36.6 C 12/15/23 11:22 Temperature Source Tympanic 12/15/23 11:22 Pulse 65 12/15/23 11:22 Pulse Rhythm Regular 12/15/23 08:48 Respiratory Rate 18 12/15/23 11:22 Respiratory Effort Normal 12/15/23 08:48 Respiratory Depth Normal 12/15/23 08:48 Respiratory Pattern Normal 12/15/23 08:48 Blood Pressure 135/75 12/15/23 11:22 Blood Pressure Mean 101 12/11/23 22:12 Blood Pressure Position Sitting 12/11/23 16:08 Pulse Oximetry 97 12/15/23 11:22 Oxygen Delivery Method Room Air 12/15/23 11:22 Oxygen Flow Rate 0 12/15/23 11:22 Pain Level 0 12/15/23 11:22 Comment RN Notified 12/12/23 19:43 Intake & Output 12/14/23 12/15/23 12/15/23 23:59 11:59 23:59 Intake Total 1606.25 / 2846.25 240 / 240 Output Total 1700 / 3100 700 / 700 Balance -93.75 / -253.75 -460 / -460 Weight 69.4 kg Intake: IV 1206.25 / 2206.25 Oral 400 / 640 240 / 240 Output: Urine 1700 / 3100 700 / 700 Other: Urine Color Pale Yellow Yellow Urine Appearance Clear Clear Urine Odor None Normal Comment multiple voids Voiding Methods Toilet Toilet Data Completed and Pending Labs on day of discharge: Labs from last 24 hours 12/15/23 12/14/23 06:35 15:30 WBC 4.82 RBC 4.03 Hgb 12.5 Hct 36.7 MCV 91 MCH 31.0 MCHC 34.1 RDW 13.2 Plt Count 290 MPV 10.3 Immature Gran % 0.4 Neutrophils % 62.1 Lymphocytes % 23.0 Monocytes % 10.2 Eosinophils % 3.7 Basophils % 0.6 Nucleated RBC % 0.0 Absolute Neutrophils 2.99 Absolute Lymphocytes 1.11 L Absolute Monocytes 0.49 Absolute Eosinophils 0.18 Absolute Basophils 0.03 ESR 25 Sodium 141 Potassium 4.2 Chloride 104 Carbon Dioxide 28.0 Anion Gap 9.0 BUN 7 Creatinine 0.9 Est GFR (CKD-EPI 2020) 73.19 Glucose 241 H Calcium 9.2 Ferritin 1467 H Total Bilirubin 1.0 GGT 509 H AST 434 H ALT 970 H Alkaline Phosphatase 1043 H Lactate Dehydrogenase 251 H C-Reactive Protein < 0.50 Total Protein 6.2 L Albumin 3.0 L [id number] 195 5'-Nucleotidase Pending IgG 495 L RADHA Titer Pending RADHA Titer 2 Pending RADHA Cytoplasm Pattern Pending RADHA Pattern Pending RADHA Pattern 2 Pending RADHA (Hep-2) Pending RADHA Comment Pending Mitochondria M2 Ab Pending Anti-Smooth Muscle Ab Pending Hepatitis A IgM Ab Negative Hepatitis A Ab Total Negative Hep Bs Antigen Negative Hep B Core Total Ab Negative Hepatitis C Antibody Negative HIV 1&2 Ag/Ab, 4th Gen Negative PFSH All Active Problems Common bile duct (CBD) obstruction (Acute) Gallbladder dilatation (Acute) Drug-induced pancreatitis (Acute) ozempic On deep vein thrombosis (DVT) prophylaxis (Acute) Discharge planning issues (Acute) Elevated transaminase level (Acute) Pancreatitis (Acute) Common bile duct dilatation (Acute) Hepatitis (Acute) HSV-1 infection (Acute ~2022) DM type 1, goal A1C below 7.5% (Acute) DM 1.5, but adding TYpe 1 2' MGMT per DM 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 see KG notes.. 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, 03/2023 Ganglion cyst Muscle spasm Benign paroxysmal positional vertigo Trochanteric bursitis, left hip Other intervertebral disc degeneration, lumbar region Adjustment disorder with anxious mood Synovial cyst of lumbar facet joint Family History Brother Alcohol use disorder Brother Alcohol use disorder Depression Father Colon cancer Diabetes Mother Asthma Lung cancer ALK positive ( gene mutation) Hypertension Sister Alton disease Paternal Grandmother Heart disease Paternal Grandfather Colon cancer Social History Smoking/Tobacco Use Status: Current-Occasional Quit status: considering quitting Smoking risk assessment performed?: Yes Alcohol Intake: current Alcohol Intake frequency: holidays/special occasions only Counseling given: No Drug use: Never Substance use type: does not use Household members: spouse Housing: house Number of Children: 3 number of grandchildren: 2 Communication Needs: Corrective Lenses Education Level: college current occupation: retired [employer] What is your relationship status?: How often do you talk on the phone with friends or family?: three or more times per week How often do you get together with friends or relatives?: three or more times per week Panel score (0-1 are the most socially isolated patients): 2 NHANES result reviewed/action taken: Yes What type of physical activity do you participate in: walking and swimming Duration: 45-60 minutes/day Frequency: 5-6 times per week Debbi/Yazidi: Alevism Special debbi needs: Yes Seatbelt use: always Drive intox or ride w/intox after school driver: No Working smoke detector in home: Yes Carbon monox detector in home: Yes Do you feel safe in your relationship?: Yes Time Spent with Patient Time Spent with Patient: 45-69 minutes Time was spent: preparing to see the patient(eg.review tests), obtaining and/or reviewing separately otained hiistory, ordering medications,tests, procedures, referring, communicating with other health personal carer, indepentently interpreting results, counseling the patient and care coordination
--- NOTE | 2023-12-15 14:30 | W.PM.DS.N ---
Date of service: 12/15/23 Time of Service: 14:31 DS: Diagnosis Discharge Diagnosis (1) Pancreatitis: Status: Acute (2) Elevated transaminase level: Status: Acute (3) Type 2 diabetes mellitus: (4) Hypocalcemia: Status: Ruled-out (5) Diabetes 1.5, managed as type 1: Status: Acute (6) Hepatitis: Status: Acute (7) Gallbladder dilatation: Status: Acute (8) Drug-induced pancreatitis: Status: Acute (9) Hypothyroidism: Discharge Plan Disposition Patient Disposition: Home Condition: Improving Discharge Details Reason For Visit: Acute pancreatitis, Obstructive elevated LFT's, NI Admit Date/Time: 12/11/23 23:09 Admit Provider: Anthony Walden Attending Provider: Anthony Walden Primary Care Provider: Thao Rivas [facility] Course Hospital Course: SEE ADDENDUM Home Meds and New Rx's Prescriptions: Continued cyclobenzaprine 5 mg tablet 2.5 mg PO DAILY PRN (Reason: SI joint issues) meclizine 25 mg tablet 25 mg PO DAILY PRN (DME) blood-glucose meter [OneTouch Verio Flex meter] Misc See Rx Instructions .Route Qty: 1 1RF Rx Instructions: For BID testing of diabetes, E11.9, with A1C goal < 8 (DME) lancets [Lancets,Ultra Thin] Misc See Rx Instructions .Route Qty: 100 1RF Rx Instructions: for BID testing with Verio for DM W11.9 with A1C goal < 8 (DME) Blood Glucose Test Strip See Rx Instructions .ROUTE .MEDSUPPLY Qty: 200 3RF Rx Instructions: For Verio OR covered brand, for bID testing for DM E11.9 insulin aspart U-100 [Novolog FlexPen U-100 Insulin] 100 unit/mL (3 mL) insulin pen 5 unit subcut TID Qty: 15 12RF Rx Instructions: Inject 1-5 units subcutaneously, 1-3 times daily as directed. (DME) CGM (Continuous Glucose Monitor) and SENSOR See Rx Instructions .Route .MEDSUPPLY Qty: 1 1RF Rx Instructions: Medical necessity for serious health risk due to TYPE 1 MGMT REQUIREMENT meclizine 25 MG tablet,chewable 25 mg PO DAILY PRN tizanidine 2 MG capsule 2 mg PO DAILY PRN (DME) pen needle, diabetic [Easy Comfort Pen [place]] 31 gauge x 3/16 needle See Rx Instructions .Route Qty: 100 3RF Rx Instructions: As directed Zoë Duke 100 unit/mL (3 mL) insulin pen 10 unit subcut DAILY MDD 30 units Qty: 15 3RF Rx Instructions: Take 10 units SubQ daily. May titrate to 30 units as directed by ambulatory pharmacist levothyroxine 137 mcg capsule 137 mcg PO DAILY Qty: 90 3RF ondansetron 4 mg tablet,disintegrating 4 mg PO TID PRNQty: 10 0RF Discontinued zinc 22 mg PO 1XD cholecalciferol (vitamin D3) 125 mcg (5,000 unit) capsule 125 mcg PO DAILY selenium 200 mcg tablet 200 mcg PO DAILY Quercitin 500 mg PO DAILY collagen 7.85 mg PO DAILY cinnamon bark (bulk) 1 GM powder 2 g Miscellaneous DAILY TUMERIC EACH CAP 1 cap PO DAILY juventino root (bulk) 1 GM powder 1 g Miscellaneous DAILY Discharge Instructions Additional Instructions: [facility] Surgery Clinic: [phone] -Follow-up with Dr. Garcia 1pm 12/17. F/u [facility] Internal Thursday- as previously scheduled Have labs drawn 90 mins prior to the appt -Diet low fat. No pork/dairy/nuts or nut butters or avacaodes. if you do not move your bowels daily take a dose of OTC Miralax -It is ok to shower. -Protein supplements daily. You may find that your appetite is smaller. Eat 3-6 small meals throughout the day. It is important to drink lots of water after surgery, 6-10 glasses a day. -If you were given an incentive spirometry (breathing supervisor plate forming?), continue to do this 10x/hour while awake. -We do want you up walking, at least 5-6 times per day. This is very important to prevent pneumonia and blood clots. You can climb stairs, take them slowly. -You may find that you are very tired after hospitalization- this is normal. -Avoid all supplements/vitamins. -No alcohol or tylenol -continue to monitor blood glucose and insuling control as previously prescribed. Diet: Foods to avoid: High-fat foods include: ? Foods that are fried, like Turkish fries and potato chips ? High-fat meats, such as miller, bologna, sausage, ground beef, and ribs, ALL ```````````pork products ? All dairy products, such as cheese, ice cream, cream, whole milk, and sour cream ? Pizza ? Foods made with lard or butter ? Creamy soups or sauces ? Meat gravies ? Chocolate ? Oils, such as palm and coconut oil ? Skin of chicken or turkey Activity:: Activity as Tolerated Equipment/Supplies:: Blood Glucose Monitor Diet:: Carb Counting Discharge Orders Discharge Orders: Discharge Order (Routine); Ordered 12/15/23 Ordered By: Tiffany Garcia DS: Summary Time Spent with Patient providing and/or coordinating discharge services: Greater than 30 minutes Status at Discharge Functional status at discharge: independent ambulation Overall status at discharge: patient is progressing back to baseline Mental Status: mental status grossly normal Speech and Movement: speech and movement normal Mood: congruent mood Affect: normal affect Quality:SDOH Health Related Social Needs: No Data to Display Exam Psych Mental Status: mental status grossly normal Speech and Movement: speech and movement normal Mood: congruent mood Affect: normal affect DS: Data Vitals/I&O Vitals and I&O: Vital Signs Temperature 36.6 C 12/15/23 11:22 Temperature Source Tympanic 12/15/23 11:22 Pulse 65 12/15/23 11:22 Pulse Rhythm Regular 12/15/23 08:48 Respiratory Rate 18 12/15/23 11:22 Respiratory Effort Normal 12/15/23 08:48 Respiratory Depth Normal 12/15/23 08:48 Respiratory Pattern Normal 12/15/23 08:48 Blood Pressure 135/75 12/15/23 11:22 Blood Pressure Mean 101 12/11/23 22:12 Blood Pressure Position Sitting 12/11/23 16:08 Pulse Oximetry 97 12/15/23 11:22 Oxygen Delivery Method Room Air 12/15/23 11:22 Oxygen Flow Rate 0 12/15/23 11:22 Pain Level 0 12/15/23 11:22 Comment RN Notified 12/12/23 19:43 Intake & Output 12/14/23 12/15/23 12/15/23 23:59 11:59 23:59 Intake Total 1606.25 / 2846.25 240 / 240 Output Total 1700 / 3100 700 / 700 Balance -93.75 / -253.75 -460 / -460 Weight 69.4 kg Intake: IV 1206.25 / 2206.25 Oral 400 / 640 240 / 240 Output: Urine 1700 / 3100 700 / 700 Other: Urine Color Pale Yellow Yellow Urine Appearance Clear Clear Urine Odor None Normal Comment multiple voids Voiding Methods Toilet Toilet Data Completed and Pending Labs on day of discharge: Labs from last 24 hours 12/15/23 12/14/23 06:35 15:30 WBC 4.82 RBC 4.03 Hgb 12.5 Hct 36.7 MCV 91 MCH 31.0 MCHC 34.1 RDW 13.2 Plt Count 290 MPV 10.3 Immature Gran % 0.4 Neutrophils % 62.1 Lymphocytes % 23.0 Monocytes % 10.2 Eosinophils % 3.7 Basophils % 0.6 Nucleated RBC % 0.0 Absolute Neutrophils 2.99 Absolute Lymphocytes 1.11 L Absolute Monocytes 0.49 Absolute Eosinophils 0.18 Absolute Basophils 0.03 ESR 25 Sodium 141 Potassium 4.2 Chloride 104 Carbon Dioxide 28.0 Anion Gap 9.0 BUN 7 Creatinine 0.9 Est GFR (CKD-EPI 2020) 73.19 Glucose 241 H Calcium 9.2 Ferritin 1467 H Total Bilirubin 1.0 GGT 509 H AST 434 H ALT 970 H Alkaline Phosphatase 1043 H Lactate Dehydrogenase 251 H C-Reactive Protein < 0.50 Total Protein 6.2 L Albumin 3.0 L [id number] 195 5'-Nucleotidase Pending IgG 495 L RADHA Titer Pending RADHA Titer 2 Pending RADHA Cytoplasm Pattern Pending RADHA Pattern Pending RADHA Pattern 2 Pending RADHA (Hep-2) Pending RADHA Comment Pending Mitochondria M2 Ab Pending Anti-Smooth Muscle Ab Pending Hepatitis A IgM Ab Negative Hepatitis A Ab Total Negative Hep Bs Antigen Negative Hep B Core Total Ab Negative Hepatitis C Antibody Negative HIV 1&2 Ag/Ab, 4th Gen Negative PFSH All Active Problems Common bile duct (CBD) obstruction (Acute) Gallbladder dilatation (Acute) Drug-induced pancreatitis (Acute) ozempic On deep vein thrombosis (DVT) prophylaxis (Acute) Discharge planning issues (Acute) Elevated transaminase level (Acute) Pancreatitis (Acute) Common bile duct dilatation (Acute) Hepatitis (Acute) HSV-1 infection (Acute ~2022) DM type 1, goal A1C below 7.5% (Acute) DM 1.5, but adding TYpe 1 2' MGMT per DM 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 see KG notes.. 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, 03/2023 Ganglion cyst Muscle spasm Benign paroxysmal positional vertigo Trochanteric bursitis, left hip Other intervertebral disc degeneration, lumbar region Adjustment disorder with anxious mood Synovial cyst of lumbar facet joint Family History Brother Alcohol use disorder Brother Alcohol use disorder Depression Father Colon cancer Diabetes Mother Asthma Lung cancer ALK positive ( gene mutation) Hypertension Sister Alton disease Paternal Grandmother Heart disease Paternal Grandfather Colon cancer Social History Smoking/Tobacco Use Status: Current-Occasional Quit status: considering quitting Smoking risk assessment performed?: Yes Alcohol Intake: current Alcohol Intake frequency: holidays/special occasions only Counseling given: No Drug use: Never Substance use type: does not use Household members: spouse Housing: house Number of Children: 3 number of grandchildren: 2 Communication Needs: Corrective Lenses Education Level: college 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 [employer] What is your relationship status?: How often do you talk on the phone with friends or family?: three or more times per week How often do you get together with friends or relatives?: three or more times per week Panel score (0-1 are the most socially isolated patients): 2 NHANES result reviewed/action taken: Yes What type of physical activity do you participate in: walking and swimming Duration: 45-60 minutes/day Frequency: 5-6 times per week Debbi/Evangelical: Jainism Special debbi needs: Yes Seatbelt use: always Drive intox or ride w/intox coach driver: No Working smoke detector in home: Yes Carbon monox detector in home: Yes Do you feel safe in your relationship?: Yes Time Spent with Patient Time Spent with Patient: 45-69 minutes Time was spent: preparing to see the patient(eg.review tests), obtaining and/or reviewing separately otained hiistory, ordering medications,tests, procedures, referring, communicating with other health animal daycare provider, indepentently interpreting results, counseling the patient and care coordination
--- NOTE | 2023-12-15 15:48 | PDOC.CMDIS ---
Date of service: 12/15/23 Time of Service: 15:49 LACE Index Scoring Tool Questions: Length of Stay (in days): 4 - 6 Was the patient admitted via the E.D.?: Yes Comorbidities: Diabetes w/o Complication and Mild Liver/Renal Disease E.D. Visits: 1 Answers: Total Score: 11 Risk of Readmission: High Risk Care Management Discharge Plan Reason for Hospitalization: Acute pancreatitis, obstructive elevated LFT's Discharge Plan: Meena will return home with close outpatient follow up: Surgery 12/17/23, PCP at [facility] 12/21/23, and plan of care as prescribed. She will transport via private vehicle with her . Patient/Family Education Needs: Review discharge instructions, discuss Ask Me Three. SDOH Health Related Social Needs: No Data to Display
[2023-12-16 11:15] LABS: CA 19-9 1254 U/mL (<35)
[2023-12-16 12:30] LABS: Smooth Muscle Ab Screen Negative (Negative)
[2023-12-16 12:33] LABS: Mitochondrial Ab, M2 <0.1 U
== END 2023-12-15 15:48 | disposition home or self-care (01) | DRG 438 ==
LOC: ER 23:46 → MS 23:49
PROVIDERS: Nurse Practitioner Acute Care; Surgery; Admitting Provider Family Medicine; Emergency Provider Registered Nurse Emergency; PCP Nurse Practitioner; Visit Provider Family Medicine
DX: K83.1 Obstruction of bile duct; B17.9 Acute viral hepatitis, unspecified; R74.01 Elevation of levels of liver transaminase levels; E83.51 Hypocalcemia; E03.9 Hypothyroidism, unspecified; K85.30 Drug induced acute pancreatitis without necrosis or infection; T50.995A Adverse effect of other drugs, medicaments and biological substances, initial encounter; E13.9 Other specified diabetes mellitus without complications; Z79.85 Long-term (current) use of injectable non-insulin antidiabetic drugs; Z79.4 Long term (current) use of insulin; I10 Essential (primary) hypertension; M51.36 Other intervertebral disc degeneration, lumbar region; M54.9 Dorsalgia, unspecified; D64.9 Anemia, unspecified; H81.10 Benign paroxysmal vertigo, unspecified ear; M70.62 Trochanteric bursitis, left hip; K83.8 Other specified diseases of biliary tract; K82.8 Other specified diseases of gallbladder; G47.09 Other insomnia
CPT/HCPCS: 00123; 36415; 80048; 80053; 80061; 80076; 82784; 83516; 83690; 85027; 85652; 86039; 86704; 86709; 86803; 87340; 87389; 96361; 96374; 96376; 99285; 74019; 74177; 81003; 82103; 82728; 82977; 83615; 83735; 83915; 84443; 85025; 85610; 85730; 86140; 86255; 86301; 99223; 99232; 99233; J1644; J1815; J2405; J2470; J3010; J3475; J3490

== ENCOUNTER 2023-12-17 13:53 | Outpatient (CLI) | payer BC, SELFPAY ==
[2023-12-17 14:15] LABS: Abs Immature Grans 0.06 10^3/uL (0.0-0.06); Absolute Basophil Count 0.05 10^3/uL (0.0-0.2); Absolute Eosinophil Count 0.19 10^3/uL (0.0-0.7); Absolute Lymphocyte Count 1.87 10^3/uL (1.2-3.4); Absolute Monocyte Count 0.59 10^3/uL (0.1-0.8); Absolute Neutrophil Count 5.82 10^3/uL (1.2-6.7); Basophils % 0.6; Eosinophils % 2.2; HCT 41.3 % (36.0-46.0); HGB 13.7 g/dL (11.2-15.7); Immature Grans % 0.7; Lymphocytes % 21.8; MCH 30.2 pg (27.0-33.0); MCHC 33.2 % (32.0-36.0); MCV 91 fL (80-95); Monocytes % 6.9; Neutrophils % 67.8; Platelet Count 349 10^3/uL (130-400); RBC 4.53 10^6/uL (3.93-5.22); RDW 13.8 % (11.7-14.6); RDW-SD 46.5 fL; WBC 8.58 10^3/uL (4.4-10.8)
[2023-12-17 14:24] LABS: INR 1.1 (0.9-1.1); Prothrombin Time 10.6 sec (9.1-11.1)
[2023-12-17 14:26] LABS: Ammonia < 10 umol/L (11-32)
[2023-12-17 14:38] LABS: ALT 995 U/L (14-59); AST 468 U/L (15-37); Albumin 3.7 g/dL (3.4-5.0); Anion Gap 8.2 mmol/L (3-11); BUN 14 mg/dL (7-18); Bilirubin, Total 2.6 mg/dL (0.2-1.0); CO2 26.8 mmol/L (21.0-32.0); CREATININE 1.2 mg/dL (0.55-1.02); Calcium 9.8 mg/dL (8.5-10.1); Chloride 98 mmol/L (98-107); Estimated GFR 51.82 (mL/min/1.73m2); Glucose 368 mg/dL (74-106); Lipase 249 U/L (16-77); Magnesium 1.9 mg/dL (1.8-2.4); Potassium 3.8 mmol/L (3.5-5.1); Sodium 133 mmol/L (136-145); Total Protein 7.5 g/dL (6.4-8.2)
[2023-12-17 14:39] LABS: Alkaline Phosphatase 1189 U/L (46-116); C-Reactive Protein < 0.50 mg/dL (<or=0.5); GGT 658 U/L (5-55)
[2023-12-18 11:34] LABS: IgA 231 mg/dL (85-499); Interpretation (See Note); Tissue Transglutaminase IgA <4.0 CU (<20.0)
[2023-12-18 15:24] LABS: Myeloperoxidase Ab IgG <0.2 U; Proteinase 3 Ab (PR3) <0.2 U
== END 2023-12-17 13:54 | disposition home or self-care (01) ==
LOC: LBO 13:54
PROVIDERS: PCP Nurse Practitioner; Visit Provider Surgery
DX: E13.9 Other specified diabetes mellitus without complications (principal); K85.10 Biliary acute pancreatitis without necrosis or infection; E83.51 Hypocalcemia
CPT/HCPCS: 36415; 80053; 82784; 83516; 83690; 82140; 82977; 83735; 85025; 85610; 86140

== ENCOUNTER 2023-12-21 12:20 | Outpatient (CLI) | payer BC, SELFPAY ==
[2023-12-21 09:24] LABS: AST 629 U/L (15-37); Albumin 3.4 g/dL (3.4-5.0); Amylase 52 U/L (25-115); Bilirubin, Direct 6.8 mg/dL (0.0-0.2); Bilirubin, Total 8.2 mg/dL (0.2-1.0); Total Protein 7.1 g/dL (6.4-8.2)
[2023-12-21 09:28] LABS: Alkaline Phosphatase 1256 U/L (46-116)
[2023-12-21 09:35] LABS: ALT 1015 U/L (14-59)
== END 2023-12-21 12:21 | disposition home or self-care (01) ==
LOC: LBO 12:20
PROVIDERS: PCP Nurse Practitioner; Visit Provider Nurse Practitioner
DX: K85.10 Biliary acute pancreatitis without necrosis or infection (principal); R79.89 Other specified abnormal findings of blood chemistry
CPT/HCPCS: 36415; 80076; 82150

== ENCOUNTER 2024-01-22 02:05 | Outpatient (CLI) | payer BC, SELFPAY ==
[2024-01-22 07:59] LABS: Abs Immature Grans 0.05 10^3/uL (0.0-0.06); Absolute Basophil Count 0.07 10^3/uL (0.0-0.2); Absolute Eosinophil Count 0.35 10^3/uL (0.0-0.7); Absolute Lymphocyte Count 1.71 10^3/uL (1.2-3.4); Absolute Monocyte Count 0.88 10^3/uL (0.1-0.8); Absolute Neutrophil Count 8.02 10^3/uL (1.2-6.7); Basophils % 0.6; Eosinophils % 3.2; HCT 39.7 % (36.0-46.0); Immature Grans % 0.5; Lymphocytes % 15.4; MCH 30.8 pg (27.0-33.0); MCHC 32.7 % (32.0-36.0); MCV 94 fL (80-95); MPV 9.1 fL (8.0-11.0); Monocytes % 7.9; Neutrophils % 72.4; Platelet Count 291 10^3/uL (130-400); RBC 4.22 10^6/uL (3.93-5.22); RDW 12.9 % (11.7-14.6); RDW-SD 44.7 fL; WBC 11.08 10^3/uL (4.4-10.8)
[2024-01-22 08:24] LABS: ALT 78 U/L (14-59); AST 45 U/L (15-37); Albumin 3.3 g/dL (3.4-5.0); Alkaline Phosphatase 143 U/L (46-116); Anion Gap 6.3 mmol/L (3-11); BUN 13 mg/dL (7-18); Bilirubin, Total 0.7 mg/dL (0.2-1.0); CO2 28.7 mmol/L (21.0-32.0); CREATININE 0.7 mg/dL (0.55-1.02); Calcium 9.2 mg/dL (8.5-10.1); Chloride 104 mmol/L (98-107); Estimated GFR 98.95 (mL/min/1.73m2); Glucose 224 mg/dL (74-106); Potassium 4.8 mmol/L (3.5-5.1); Sodium 139 mmol/L (136-145); Total Protein 6.4 g/dL (6.4-8.2)
[2024-01-22 21:32] LABS: CA 19-9 5024 U/mL (<35)
== END 2024-01-22 02:06 | disposition home or self-care (01) ==
LOC: LBO 02:06
PROVIDERS: PCP Nurse Practitioner; Visit Provider Internal Medicine Hematology & Oncology
DX: C25.0 Malignant neoplasm of head of pancreas (principal)
CPT/HCPCS: 36415; 80053; 85025; 86301

== ENCOUNTER 2024-02-21 00:10 | Outpatient (RCR) | payer BC, SELFPAY ==
[2024-02-03] MEDS: Normal Saline Flush 10 ML SYR IVP (12:55)
[2024-02-03 13:16] LABS: Abs Immature Grans 0.07 10^3/uL (0.0-0.06); Absolute Basophil Count 0.05 10^3/uL (0.0-0.2); Absolute Lymphocyte Count 1.86 10^3/uL (1.2-3.4); Absolute Monocyte Count 0.72 10^3/uL (0.1-0.8); Absolute Neutrophil Count 6.29 10^3/uL (1.2-6.7); Basophils % 0.5; Eosinophils % 3.2; HCT 37.7 % (36.0-46.0); HGB 12.3 g/dL (11.2-15.7); Immature Grans % 0.8; MCH 30.2 pg (27.0-33.0); MCHC 32.6 % (32.0-36.0); MCV 93 fL (80-95); MPV 9.6 fL (8.0-11.0); Monocytes % 7.8; Neutrophils % 67.7; Platelet Count 336 10^3/uL (130-400); RBC 4.07 10^6/uL (3.93-5.22); RDW 12.9 % (11.7-14.6); RDW-SD 43.9 fL; WBC 9.29 10^3/uL (4.4-10.8)
[2024-02-03 13:48] LABS: ALT 40 U/L (14-59); AST 27 U/L (15-37); Albumin 3.2 g/dL (3.4-5.0); Alkaline Phosphatase 120 U/L (46-116); Anion Gap 10.6 mmol/L (3-11); BUN 11 mg/dL (7-18); Bilirubin, Total 0.5 mg/dL (0.2-1.0); CO2 24.4 mmol/L (21.0-32.0); CREATININE 0.7 mg/dL (0.55-1.02); Calcium 8.9 mg/dL (8.5-10.1); Chloride 107 mmol/L (98-107); Estimated GFR 98.34 (mL/min/1.73m2); Glucose 214 mg/dL (74-106); Potassium 4.2 mmol/L (3.5-5.1); Sodium 142 mmol/L (136-145); Total Protein 6.4 g/dL (6.4-8.2)
[2024-02-05 10:18] LABS: CA 19-9 6172 U/mL (<35)
[2024-02-07] MEDS: Normal Saline Flush 10 ML SYR IVP (11:59)
[2024-02-19] MEDS: Normal Saline Flush 10 ML SYR IVP (08:16)
[2024-02-19 08:29] LABS: Abs Immature Grans 0.02 10^3/uL (0.0-0.06); Absolute Basophil Count 0.02 10^3/uL (0.0-0.2); Absolute Eosinophil Count 0.21 10^3/uL (0.0-0.7); Absolute Lymphocyte Count 1.27 10^3/uL (1.2-3.4); Absolute Monocyte Count 0.58 10^3/uL (0.1-0.8); Absolute Neutrophil Count 2.98 10^3/uL (1.2-6.7); Basophils % 0.4; Eosinophils % 4.1; HCT 35.4 % (36.0-46.0); HGB 11.6 g/dL (11.2-15.7); Immature Grans % 0.4; MCH 30.5 pg (27.0-33.0); MCHC 32.8 % (32.0-36.0); MCV 93 fL (80-95); MPV 9.2 fL (8.0-11.0); Monocytes % 11.4; Neutrophils % 58.7; Platelet Count 239 10^3/uL (130-400); RDW 13.1 % (11.7-14.6); RDW-SD 44.4 fL; WBC 5.08 10^3/uL (4.4-10.8)
[2024-02-19 08:58] LABS: ALT 32 U/L (14-59); AST 17 U/L (15-37); Alkaline Phosphatase 99 U/L (46-116); Anion Gap 8.1 mmol/L (3-11); BUN 19 mg/dL (7-18); Bilirubin, Total 0.3 mg/dL (0.2-1.0); CO2 25.9 mmol/L (21.0-32.0); CREATININE 0.7 mg/dL (0.55-1.02); Calcium 8.7 mg/dL (8.5-10.1); Chloride 106 mmol/L (98-107); Estimated GFR 98.34 (mL/min/1.73m2); Glucose 218 mg/dL (74-106); Potassium 4.4 mmol/L (3.5-5.1); Sodium 140 mmol/L (136-145); Total Protein 6.1 g/dL (6.4-8.2)
[2024-02-19 22:03] LABS: CA 19-9 3349 U/mL (<35)
[2024-02-21] MEDS: Normal Saline Flush 10 ML SYR IVP (13:43)
== END 2024-02-23 23:59 | disposition home or self-care (01) ==
LOC: INF 00:10
PROVIDERS: PCP Nurse Practitioner; Visit Provider Internal Medicine Hematology & Oncology
DX: C25.0 Malignant neoplasm of head of pancreas (principal); Z45.2 Encounter for adjustment and management of vascular access device
CPT/HCPCS: 36591; 80053; 96523; 85025; 86301

== ENCOUNTER 2024-03-06 00:13 | Outpatient (RCR) | payer BC, SELFPAY | END 2024-03-15 11:22 | disposition home or self-care (01) | LOC: INF 00:13 | PROVIDERS: PCP Nurse Practitioner; Visit Provider Internal Medicine Hematology & Oncology | DX: C25.0 Malignant neoplasm of head of pancreas (principal); C78.00 Secondary malignant neoplasm of unspecified lung; C25.9 Malignant neoplasm of pancreas, unspecified; Z45.2 Encounter for adjustment and management of vascular access device | CPT/HCPCS: 96523 ==

== ENCOUNTER 2024-03-20 00:10 | Outpatient (RCR) | payer BC, SELFPAY ==
[2024-03-04] MEDS: Normal Saline Flush 10 ML SYR IVP (08:41)
[2024-03-04 09:05] LABS: Abs Immature Grans 0.02 10^3/uL (0.0-0.06); Absolute Basophil Count 0.02 10^3/uL (0.0-0.2); Absolute Eosinophil Count 0.52 10^3/uL (0.0-0.7); Absolute Lymphocyte Count 1.26 10^3/uL (1.2-3.4); Absolute Monocyte Count 0.56 10^3/uL (0.1-0.8); Absolute Neutrophil Count 2.02 10^3/uL (1.2-6.7); Basophils % 0.5 %; Eosinophils % 11.8 %; HCT 35.9 % (36.0-46.0); HGB 11.7 g/dL (11.2-15.7); Immature Grans % 0.5 %; Lymphocytes % 28.6 %; MCH 31.1 pg (27.0-33.0); MCHC 32.6 % (32.0-36.0); MCV 96 fL (80-95); Monocytes % 12.7 %; Neutrophils % 45.9 %; Platelet Count 208 10^3/uL (130-400); RBC 3.76 10^6/uL (3.93-5.22); RDW 14.1 % (11.7-14.6); RDW-SD 48.7 fL
[2024-03-04 09:21] LABS: ALT 34 U/L (14-59); AST 23 U/L (15-37); Alkaline Phosphatase 102 U/L (46-116); Anion Gap 9.1 mmol/L (3-11); BUN 16 mg/dL (7-18); Bilirubin, Total 0.3 mg/dL (0.2-1.0); CO2 26.9 mmol/L (21.0-32.0); CREATININE 0.9 mg/dL (0.55-1.02); Calcium 8.4 mg/dL (8.5-10.1); Chloride 107 mmol/L (98-107); Estimated GFR 72.73 (mL/min/1.73m2); Glucose 187 mg/dL (74-106); Potassium 4.3 mmol/L (3.5-5.1); Sodium 143 mmol/L (136-145); Total Protein 5.9 g/dL (6.4-8.2)
[2024-03-05 00:13] LABS: CA 19-9 3910 U/mL (<35)
[2024-03-06] MEDS: Normal Saline Flush 10 ML SYR IVP (13:45)
[2024-03-18] MEDS: Normal Saline Flush 10 ML SYR IVP (08:26)
[2024-03-18 09:09] LABS: Abs Immature Grans 0.02 10^3/uL (0.0-0.06); Absolute Basophil Count 0.02 10^3/uL (0.0-0.2); Absolute Eosinophil Count 0.16 10^3/uL (0.0-0.7); Absolute Lymphocyte Count 1.35 10^3/uL (1.2-3.4); Absolute Monocyte Count 0.62 10^3/uL (0.1-0.8); Absolute Neutrophil Count 2.39 10^3/uL (1.2-6.7); Basophils % 0.4 %; Eosinophils % 3.5 %; HCT 36.6 % (36.0-46.0); Immature Grans % 0.4 %; Lymphocytes % 29.6 %; MCH 30.9 pg (27.0-33.0); MCHC 32.8 % (32.0-36.0); MCV 94 fL (80-95); MPV 9.1 fL (8.0-11.0); Monocytes % 13.6 %; Neutrophils % 52.5 %; Platelet Count 202 10^3/uL (130-400); RBC 3.88 10^6/uL (3.93-5.22); RDW 15.5 % (11.7-14.6); RDW-SD 53.5 fL; WBC 4.56 10^3/uL (4.4-10.8)
[2024-03-18 09:29] LABS: ALT 33 U/L (14-59); AST 22 U/L (15-37); Albumin 3.1 g/dL (3.4-5.0); Alkaline Phosphatase 104 U/L (46-116); Anion Gap 9.7 mmol/L (3-11); BUN 16 mg/dL (7-18); Bilirubin, Total 0.3 mg/dL (0.2-1.0); CO2 26.3 mmol/L (21.0-32.0); CREATININE 0.8 mg/dL (0.55-1.02); Calcium 8.4 mg/dL (8.5-10.1); Chloride 105 mmol/L (98-107); Estimated GFR 83.78 (mL/min/1.73m2); Glucose 155 mg/dL (74-106); Potassium 4.1 mmol/L (3.5-5.1); Sodium 141 mmol/L (136-145); Total Protein 5.9 g/dL (6.4-8.2)
[2024-03-18 21:50] LABS: CA 19-9 2546 U/mL (<35)
[2024-03-19 13:21] VITALS: BP 125/74; PULSE 63; RESP 16; TEMP 36.4; O2SAT 97
[2024-03-19] MEDS: Normal Saline Flush 10 ML SYR IVP (13:36)
== END 2024-03-25 23:59 | disposition home or self-care (01) ==
LOC: INF 00:10
PROVIDERS: PCP Nurse Practitioner; Visit Provider Internal Medicine Hematology & Oncology
DX: Z45.2 Encounter for adjustment and management of vascular access device (principal); C25.0 Malignant neoplasm of head of pancreas
CPT/HCPCS: 36591; 80053; 96523; 85025; 86301

== ENCOUNTER 2024-04-01 09:40 | Outpatient (CLI) | payer BC, SELFPAY ==
[2024-04-01 09:53] LABS: Abs Immature Grans 0.02 10^3/uL (0.0-0.06); Absolute Basophil Count 0.04 10^3/uL (0.0-0.2); Absolute Eosinophil Count 0.05 10^3/uL (0.0-0.7); Absolute Lymphocyte Count 1.04 10^3/uL (1.2-3.4); Absolute Neutrophil Count 3.64 10^3/uL (1.2-6.7); Basophils % 0.8 %; Eosinophils % 0.9 %; HCT 42.5 % (36.0-46.0); HGB 13.9 g/dL (11.2-15.7); Immature Grans % 0.4 %; Lymphocytes % 19.7 %; MCH 30.9 pg (27.0-33.0); MCHC 32.7 % (32.0-36.0); MCV 94 fL (80-95); MPV 9.1 fL (8.0-11.0); Monocytes % 9.5 %; Neutrophils % 68.7 %; Platelet Count 233 10^3/uL (130-400); RDW 15.7 % (11.7-14.6); RDW-SD 54.4 fL; WBC 5.29 10^3/uL (4.4-10.8)
[2024-04-01 10:06] LABS: ALT 46 U/L (14-59); AST 30 U/L (15-37); Albumin 3.5 g/dL (3.4-5.0); Alkaline Phosphatase 115 U/L (46-116); Anion Gap 9.4 mmol/L (3-11); BUN 12 mg/dL (7-18); Bilirubin, Total 0.4 mg/dL (0.2-1.0); CO2 28.6 mmol/L (21.0-32.0); CREATININE 0.9 mg/dL (0.55-1.02); Calcium 9.3 mg/dL (8.5-10.1); Chloride 105 mmol/L (98-107); Estimated GFR 72.73 (mL/min/1.73m2); Glucose 250 mg/dL (74-106); Potassium 4.3 mmol/L (3.5-5.1); Sodium 143 mmol/L (136-145); Total Protein 6.5 g/dL (6.4-8.2)
[2024-04-01 23:30] LABS: CA 19-9 1925 U/mL (<35)
== END 2024-04-01 09:41 | disposition home or self-care (01) ==
LOC: LBO 09:41
PROVIDERS: PCP Nurse Practitioner; Visit Provider Internal Medicine Hematology & Oncology
DX: C25.0 Malignant neoplasm of head of pancreas (principal)
CPT/HCPCS: 36415; 80053; 85025; 86301

== ENCOUNTER 2024-04-24 01:12 | Outpatient (RCR) | payer BC, SELFPAY ==
[2024-04-22] MEDS: Normal Saline Flush 10 ML SYR IVP (10:20)
[2024-04-22 10:24] LABS: Abs Immature Grans 0.02 10^3/uL (0.0-0.06); Absolute Basophil Count 0.04 10^3/uL (0.0-0.2); Absolute Eosinophil Count 0.13 10^3/uL (0.0-0.7); Absolute Lymphocyte Count 1.63 10^3/uL (1.2-3.4); Absolute Monocyte Count 0.66 10^3/uL (0.1-0.8); Absolute Neutrophil Count 3.56 10^3/uL (1.2-6.7); Basophils % 0.7 %; Eosinophils % 2.2 %; HGB 13.5 g/dL (11.2-15.7); Immature Grans % 0.3 %; MCH 31.2 pg (27.0-33.0); MCHC 32.9 % (32.0-36.0); MCV 95 fL (80-95); MPV 9.6 fL (8.0-11.0); Monocytes % 10.9 %; Neutrophils % 58.9 %; Platelet Count 260 10^3/uL (130-400); RBC 4.33 10^6/uL (3.93-5.22); RDW 14.6 % (11.7-14.6); RDW-SD 51.3 fL; WBC 6.04 10^3/uL (4.4-10.8)
[2024-04-22 10:48] LABS: ALT 44 U/L (14-59); AST 30 U/L (15-37); Albumin 3.6 g/dL (3.4-5.0); Alkaline Phosphatase 100 U/L (46-116); Anion Gap 8.9 mmol/L (3-11); BUN 13 mg/dL (7-18); Bilirubin, Total 0.71 mg/dL (0.2-1.0); CO2 26.1 mmol/L (21.0-32.0); CREATININE 0.8 mg/dL (0.55-1.02); Chloride 104 mmol/L (98-107); Estimated GFR 83.78 (mL/min/1.73m2); Glucose 238 mg/dL (74-106); Potassium 4.2 mmol/L (3.5-5.1); Sodium 139 mmol/L (136-145); Total Protein 6.7 g/dL (6.4-8.2)
[2024-04-23 00:12] LABS: CA 19-9 1389 U/mL (<35)
[2024-04-24] MEDS: Normal Saline 1,000 ML 1000 ML IV (14:22)
[2024-04-24] MEDS: Normal Saline Flush 10 ML SYR IVP (14:22)
== END 2024-04-24 23:59 | disposition home or self-care (01) ==
LOC: INF 01:12
PROVIDERS: PCP Nurse Practitioner; Visit Provider Internal Medicine Hematology & Oncology
DX: C25.0 Malignant neoplasm of head of pancreas (principal); C78.00 Secondary malignant neoplasm of unspecified lung
CPT/HCPCS: 36591; 80053; 96365; 96523; 85025; 86301

== ENCOUNTER 2024-05-19 02:07 | Outpatient (RCR) | payer BC, SELFPAY ==
[2024-04-27] MEDS: Normal Saline 1,000 ML 1000 ML IV (08:45)
[2024-04-27] MEDS: Normal Saline Flush 10 ML SYR IVP (08:49)
[2024-05-06 08:36] LABS: Abs Immature Grans 0.02 10^3/uL (0.0-0.06); Absolute Basophil Count 0.03 10^3/uL (0.0-0.2); Absolute Eosinophil Count 0.11 10^3/uL (0.0-0.7); Absolute Lymphocyte Count 1.02 10^3/uL (1.2-3.4); Absolute Neutrophil Count 3.23 10^3/uL (1.2-6.7); Basophils % 0.6 %; Eosinophils % 2.2 %; HCT 35.6 % (36.0-46.0); HGB 11.8 g/dL (11.2-15.7); Immature Grans % 0.4 %; Lymphocytes % 20.4 %; MCH 31.7 pg (27.0-33.0); MCHC 33.1 % (32.0-36.0); MCV 96 fL (80-95); MPV 9.2 fL (8.0-11.0); Neutrophils % 64.4 %; Platelet Count 226 10^3/uL (130-400); RBC 3.72 10^6/uL (3.93-5.22); RDW 14.6 % (11.7-14.6); RDW-SD 51.8 fL; WBC 5.01 10^3/uL (4.4-10.8)
[2024-05-06] MEDS: Normal Saline Flush 10 ML SYR IVP (08:47)
[2024-05-06 08:52] LABS: ALT 33 U/L (14-59); AST 20 U/L (15-37); Albumin 3.2 g/dL (3.4-5.0); Alkaline Phosphatase 115 U/L (46-116); Anion Gap 6.6 mmol/L (3-11); BUN 7 mg/dL (7-18); Bilirubin, Total 0.29 mg/dL (0.2-1.0); CO2 28.4 mmol/L (21.0-32.0); CREATININE 0.8 mg/dL (0.55-1.02); Chloride 107 mmol/L (98-107); Estimated GFR 83.78 (mL/min/1.73m2); Glucose 211 mg/dL (74-106); Potassium 4.4 mmol/L (3.5-5.1); Sodium 142 mmol/L (136-145); Total Protein 6.3 g/dL (6.4-8.2)
[2024-05-09 12:25] LABS: CA 19-9 2320 U/mL (<35)
[2024-05-19 08:54] LABS: Abs Immature Grans 0.02 10^3/uL (0.0-0.06); Absolute Basophil Count 0.01 10^3/uL (0.0-0.2); Absolute Eosinophil Count 0.13 10^3/uL (0.0-0.7); Absolute Lymphocyte Count 1.18 10^3/uL (1.2-3.4); Absolute Monocyte Count 0.67 10^3/uL (0.1-0.8); Absolute Neutrophil Count 3.03 10^3/uL (1.2-6.7); Basophils % 0.2 %; Eosinophils % 2.6 %; HCT 33.6 % (36.0-46.0); HGB 11.3 g/dL (11.2-15.7); Immature Grans % 0.4 %; Lymphocytes % 23.4 %; MCH 31.9 pg (27.0-33.0); MCHC 33.6 % (32.0-36.0); MCV 95 fL (80-95); MPV 9.5 fL (8.0-11.0); Monocytes % 13.3 %; Neutrophils % 60.1 %; Platelet Count 199 10^3/uL (130-400); RBC 3.54 10^6/uL (3.93-5.22); RDW 14.6 % (11.7-14.6); RDW-SD 50.4 fL; WBC 5.04 10^3/uL (4.4-10.8)
[2024-05-19 09:10] LABS: ALT 32 U/L (14-59); AST 18 U/L (15-37); Albumin 3.1 g/dL (3.4-5.0); Alkaline Phosphatase 109 U/L (46-116); Anion Gap 9.9 mmol/L (3-11); BUN 17 mg/dL (7-18); Bilirubin, Total 0.21 mg/dL (0.2-1.0); CO2 26.1 mmol/L (21.0-32.0); CREATININE 0.8 mg/dL (0.55-1.02); Calcium 8.4 mg/dL (8.5-10.1); Chloride 107 mmol/L (98-107); Estimated GFR 83.78 (mL/min/1.73m2); Glucose 137 mg/dL (74-106); Potassium 3.5 mmol/L (3.5-5.1); Sodium 143 mmol/L (136-145)
[2024-05-19] MEDS: Normal Saline Flush 10 ML SYR IVP (13:38)
[2024-05-20 11:35] LABS: CA 19-9 2047 U/mL (<35)
== END 2024-05-25 23:59 | disposition home or self-care (01) ==
LOC: INF 02:07
PROVIDERS: PCP Nurse Practitioner; Visit Provider Internal Medicine Hematology & Oncology
DX: C25.0 Malignant neoplasm of head of pancreas (principal); C78.00 Secondary malignant neoplasm of unspecified lung; Z45.2 Encounter for adjustment and management of vascular access device
CPT/HCPCS: 36591; 80053; 96523; 85025; 86301

== ENCOUNTER → 2024-06-06 11:57 | Emergency (ER) | payer BC, SELFPAY ==
[2024-06-06] VITALS (37 sets, daily range): BP systolic 130–160; BP diastolic 86–99; PULSE 71–90; RESP 12–20; TEMP 36.4; O2SAT 92–98
[2024-06-06 12:39] LABS: Abs Immature Grans 0.04 10^3/uL (0.0-0.06); Absolute Basophil Count 0.05 10^3/uL (0.0-0.2); Absolute Monocyte Count 0.89 10^3/uL (0.1-0.8); Absolute Neutrophil Count 1.92 10^3/uL (1.2-6.7); Eosinophils % 4.2 %; HCT 40.7 % (36.0-46.0); HGB 13.5 g/dL (11.2-15.7); Immature Grans % 0.8 %; Lymphocytes % 35.4 %; MCH 32.5 pg (27.0-33.0); MCHC 33.2 % (32.0-36.0); MCV 98 fL (80-95); Monocytes % 18.5 %; Neutrophils % 40.1 %; Platelet Count 226 10^3/uL (130-400); RBC 4.15 10^6/uL (3.93-5.22); RDW 14.1 % (11.7-14.6); RDW-SD 50.9 fL
--- NOTE | 2024-06-06 12:45 | DI.CT_ITS ---
Exam(s) CT ABDOMEN PELVIS W EXAM: CT ABDOMEN PELVIS W CLINICAL HISTORY: vomiting, pancreatic cancer. TECHNIQUE: Imaging Protocol: Axial computed tomography images with coronal and sagittal reformatted images were created and reviewed CONTRAST MATERIAL: Intravenous: Omnipaque-350 100cc Oral: Yes. Oral contrast was also administered for bowel opacification. COMPARISON: CT CT ABDOMEN PELVIS W from 12/11/[address] CHEST/ABD/PEL W from 02/03/[address] Chest w/ Contrast from 03/28/2024 FINDINGS: VISUALIZED LUNG BASES: No nodules nor pleural effusions evident. ABDOMEN: There is a small amount of ascites in the dependent aspect of the pelvis. No ascites evident in the upper abdomen.. LIVER: There are no discrete focal hepatic lesions evident on the present study. Pneumobilia noted i n the left hepatic lobe related to the recently placed biliary stent in the CBD which remains patent and in good position GALLBLADDER/BILIARY: Some air is noted in the gallbladder fundus as expected in this patient who has a CBD stent placed. No obvious gallstones. The gallbladder is not distended nor edematous. There i s no pericholecystic fluid. The self expanding-type endo biliary CBD stent remains in good position. PANCREAS: Pancreatic head mass remains stable size. Again appears to involve the duodenal wall. Dil ated pancreatic duct is again noted. There are no peripancreatic fluid collections. SPLEEN: Spleen is not enlarged. No obvious intrasplenic lesions. Splenic and portal veins are paten t. ADRENALS: The previously described 1.9 x 1.0 cm hypodense nodule in the right adrenal gland remains u nchanged. Mild thickening of the genu of the left adrenal gland is also unchanged. KIDNEYS:No cysts evident. No solid renal masses. No calculi nor hydronephrosis.. ABDOMINAL AORTA: Abdominal aorta is not enlarged. LYMPH NODES:No new vokxcexzgxulcmb-awon-cpshbc adenopathy evident. ABDOMINAL WALL: No evidence of significant anterior abdominal wall nor inguinal hernia. GI: There is no evidence of bowel obstruction, free air, nor abscess. PELVIS: GI: No evidence of appendicitis.No evidence of sigmoid diverticulitis. LYMPH NODES: There is no intrapelvic nor inguinal adenopathy. REPRODUCTIVE: Uterus and adnexal regions appear unremarkable though there does appear to be a small a mount of fluid in the right side of the tendon pelvis which is unchanged from 03/28/2024 and 02/03/20 24. URINARY BLADDER: No calculi nor obvious masses evident OSSEOUS: No fractures and no significant osseous lesions. Advanced disc space narrowing at L5-S1 again noted. There is also again noted mild degenerative ante rolisthesis of L4 upon L5 related to facet arthropathy. IMPRESSION: 1. This CBD stent remains in good position and is patent. Pancreatic head findings appear unchanged. There again appears to be invasion of the medial wall of the duodenum. Dilated pancreatic duct is again noted. No obvious increasing retroperitoneal lymphadenopathy nor new additional masses nor abn ormal fluid collections. 2. There are no obvious metastatic lesions evident in the liver on today's study. Pneumobilia again noted but without increasing dilatation of intrahepatic ducts.. The gallbladder is not distended nor edematous. 3. There is a small amount of free fluid in the lower right dependent aspect of the pelvis which is u nchanged from CT scans of 02/03/2024 and 03/28/2024. No obvious abnormal adnexal masses. There is n o ascites in the upper abdomen. 4. Stable hypodense nodule in the right adrenal gland measuring 19 x 10 mm, unchanged. Possibly an i ncidental adenoma, as opposed to metastatic disease. This is also unchanged from CT scan of 12/11/19 RADIATION DOSE DELIVERED: Total DLP DATA REPOSITORY: All CT scans at this facility are submitted to the National Radiology Data Registry (NRDR) Dose Index Registry (DIR) with the [employer] (ACR). RADIATION OPTIMIZATION: All CT scans at this facility use at least one of these dose optimization te chniques: automated exposure control; mA and/or kV adjustment per patient size (includes targeted exa ms where dose is matched to clinical indication); or iterative reconstruction.
[2024-06-06 12:55] LABS: ALT 31 U/L (14-59); AST 32 U/L (15-37); Albumin 3.5 g/dL (3.4-5.0); Alkaline Phosphatase 138 U/L (46-116); Anion Gap 9.5 mmol/L (3-11); BUN 16 mg/dL (7-18); Bilirubin, Total 0.75 mg/dL (0.2-1.0); CO2 25.5 mmol/L (21.0-32.0); CREATININE 0.9 mg/dL (0.55-1.02); Calcium 8.9 mg/dL (8.5-10.1); Chloride 103 mmol/L (98-107); Estimated GFR 72.73 (mL/min/1.73m2); Glucose 133 mg/dL (74-106); Lipase 15 U/L (16-77); Potassium 4.3 mmol/L (3.5-5.1); Sodium 138 mmol/L (136-145); Total Protein 6.2 g/dL (6.4-8.2)
[2024-06-06] MEDS: Breeza Beverage 473 ML BTL PO ×2 (13:04→13:05)
[2024-06-06] MEDS: Omnipaque 350 MG/ML 50 ML BTL PO (13:06)
[2024-06-06] MEDS: Lactated Ringers 500 ML IV (13:07)
[2024-06-06] MEDS: Ondansetron 4 MG/2 ML VIAL IVP (13:08)
--- NOTE | 2024-06-06 14:42 | ED.GENADUL_ITS ---
Discharge Plan Disposition Patient Disposition: Home Condition: Stable Discharge Details Clinical Impression: Nausea & vomiting, Pancreatic mass Primary Care Provider: Thao Rivas ED Provider: Martínez Bae Home Meds and New Rx's Prescriptions: New metoclopramide HCl [Reglan] 10 mg tablet 10 mg PO Q6H PRN (Reason: nausea and vomiting) Qty: 30 0RF Continued (DME) blood-glucose meter [OneTouch Verio Flex meter] Misc See Rx Instructions .Route Qty: 1 1RF Rx Instructions: For BID testing of diabetes, E11.9, with A1C goal < 8 (DME) lancets [Lancets,Ultra Thin] Misc See Rx Instructions .Route Qty: 100 1RF Rx Instructions: for BID testing with Verio for DM W11.9 with A1C goal < 8 (DME) Blood Glucose Test Strip See Rx Instructions .ROUTE .MEDSUPPLY Qty: 200 3RF Rx Instructions: For Verio OR covered brand, for bID testing for DM E11.9 Humulin N NPH Insulin KwikPen 100 unit/mL (3 mL) insulin pen 7 unit subcut QAM Qty: 15 3RF Rx Instructions: Inject 7 units 15 min prior to prednisone administration. Can increase as directed. (DME) Dexcom G6 Sensor Device See Rx Instructions .Route Rx Instructions: As directed (DME) CGM (Continuous Glucose Monitor) and SENSOR See Rx Instructions .Route .MEDSUPPLY Qty: 1 1RF Rx Instructions: Dexcom 6 Medical necessity for serious health risk due to TYPE 1 MGMT REQUIREMENT levothyroxine 137 mcg capsule 137 mcg PO DAILY Qty: 90 3RF tizanidine 2 mg capsule 2 mg PO DAILY PRN (Reason: muscle spasm) Qty: 30 3RF Fiasp FlexTouch U-100 Insulin 100 unit/mL (3 mL) insulin pen 15 unit subcut TID MDD 45 units 30 Days Qty: 15 12RF Rx Instructions: Inject 15 units subcutaneously with meals as directed. omeprazole 20 mg capsule,delayed release(DR/EC) 20 mg PO BID Patient Comments: Reports 40 mg/d with some benefit. meclizine 25 MG tablet,chewable 25 mg PO DAILY PRN cyclobenzaprine 5 mg tablet 2.5 mg PO DAILY PRN (Reason: SI joint issues) Qty: 10 0RF (DME) pen needle, diabetic [Comfort EZ Pen [place]] 31 gauge x 3/16 needle See Rx Instructions .Route Qty: 400 4RF Rx Instructions: For injected insulin 4x daily, use as directed insulin glargine [Lantus Solostar U-100 Insulin] 100 unit/mL (3 mL) insulin pen 14 unit subcut QPM Qty: 15 5RF (DME) Dexcom G6 Transmitter Device See Rx Instructions .Route Rx Instructions: As directed (DME) Dexcom G6 Transmitter Device See Rx Instructions .Route Qty: 1 0RF Rx Instructions: As directed, keep A1c less than 7.5 insulin aspart U-100 [Novolog FlexPen U-100 Insulin] 100 unit/mL (3 mL) insulin pen 5 unit subcut TID Qty: 15 12RF Rx Instructions: Inject 1-5 units subcutaneously, 1-3 times daily as directed. Creon 36,000-114,000- 180,000 unit capsule,delayed release(DR/EC) 3 - 4 cap PO TID Rx Instructions: administer with meals and/or snacks (18 per day) Discontinued ondansetron 4 mg tablet,disintegrating 4 mg PO Q8H PRN (Reason: nausea and vomiting) Qty: 90 1RF Discharge Instructions Instructions: Nausea and Vomiting, Adult ED Additional Instructions: Please maintain a clear liquid diet today and tomorrow. Advance diet slowly thereafter as tolerated to bland foods. Please contact your primary care physician to arrange follow-up. Please follow- up with your oncologist. Return to the ER immediately for any worsening or new concerning symptoms. Referrals: Thao Rivas NP [Primary Care Provider] - [facility] General Mode of arrival: ambulatory . Date/Time Provider Initiated Documentation: 06/06/24 12:07 . Limitations to Documentation: no limitations . Information obtained by: patient . HPI Narrative: 59-year-old female with history of stage IV pancreatic cancer with mets to the lung, on chemotherapy, here with chief complaint of vomiting. Patient notes intermittent vomiting over the past 1 week. Patient states that she has postprandial fullness and gas discomfort and then vomiting. Discomfort is described as spasmodic. Patient notes chemotherapy was held on Thursday due to symptoms. Related Data Home Medications ?Medication ?Instructions ?Recorded ?Confirmed meclizine 25 mg chewable tablet 25 mg PO DAILY PRN 05/18/17 06/06/24 blood sugar diagnostic (Blood #200 ea 03/16/23 06/06/24 Glucose Test strips) blood-glucose meter (OneTouch #1 ea 03/16/23 06/06/24 Verio Flex Meter) lancets (Lancets,Ultra Thin) #100 ea 03/16/23 06/06/24 cyclobenzaprine 5 mg tablet 2.5 mg (1/2 x 5 mg) PO DAILY PRN 01/14/24 06/06/24 SI joint issues #10 tabs pen needle, diabetic 31 gauge x #400 ea 01/26/24 06/06/24 3/16 (Comfort EZ Pen [place]) insulin NPH isoph U-100 human 100 7 unit (0.07 mL) subcut QAM #15 mL 02/08/24 06/06/24 unit/mL (3 mL) subcutaneous pen (Humulin N NPH U-100 Insulin KwikPen) insulin glargine 100 unit/mL (3 14 unit (0.14 mL) subcut QPM #15 mL 02/09/24 06/06/24 mL) subcutaneous pen (Lantus Solostar U-100 Insulin) insulin aspart 15 unit subcut TID 30 days #15 mL 02/26/24 06/06/24 (niacinamide)(U-100) 100 unit/mL(3 mL) subcutaneous pen (Fiasp FlexTouch U-100 Insulin) CGM (Continuous Glucose Monitor) #1 ea 03/08/24 06/06/24 blood-glucose sensor (Dexcom G6 03/08/24 06/06/24 Sensor device) levothyroxine 137 mcg capsule 137 mcg PO DAILY #90 caps 03/08/24 06/06/24 tizanidine 2 mg capsule 2 mg PO DAILY PRN muscle spasm #30 03/08/24 06/06/24 caps blood-glucose transmitter (Dexcom 03/15/24 06/06/24 G6 Transmitter device) blood-glucose transmitter (Dexcom #1 ea 03/15/24 06/06/24 G6 Transmitter device) insulin aspart U-100 100 unit/mL 5 unit (0.05 mL) subcut TID #15 mL 04/12/24 06/06/24 (3 mL) subcutaneous pen (Novolog FlexPen U-100 Insulin aspart) [id number]-qmvsvbpq-zhcvyke 3 - 4 cap PO TID 05/19/24 06/06/24 36,000-114,000-180,000 unit capsule,delay rel (Creon) omeprazole 20 mg capsule,delayed 20 mg PO BID GI issues with 05/23/24 06/06/24 release chemotherapy metoclopramide HCl 10 mg tablet 10 mg PO Q6H PRN nausea and 06/06/24 (Reglan) vomiting #30 tabs Previous Rx's ?Medication ?Instructions ?Recorded blood sugar diagnostic (Blood #200 ea 03/16/23 Glucose Test strips) blood-glucose meter (OneTouch #1 ea 03/16/23 Verio Flex Meter) lancets (Lancets,Ultra Thin) #100 ea 03/16/23 cyclobenzaprine 5 mg tablet 2.5 mg (1/2 x 5 mg) PO DAILY PRN 01/14/24 SI joint issues #10 tabs pen needle, diabetic 31 gauge x #400 ea 01/26/24/ (Comfort EZ Pen [place]) insulin NPH isoph U-100 human 100 7 unit (0.07 mL) subcut QAM #15 mL 02/08/24 unit/mL (3 mL) subcutaneous pen (Humulin N NPH U-100 Insulin KwikPen) insulin glargine 100 unit/mL (3 14 unit (0.14 mL) subcut QPM #15 mL 02/09/24 mL) subcutaneous pen (Lantus Solostar U-100 Insulin) insulin aspart 15 unit subcut TID 30 days #15 mL 02/26/24 (niacinamide)(U-100) 100 unit/mL(3 mL) subcutaneous pen (Fiasp FlexTouch U-100 Insulin) CGM (Continuous Glucose Monitor) #1 ea 03/08/24 levothyroxine 137 mcg capsule 137 mcg PO DAILY #90 caps 03/08/24 tizanidine 2 mg capsule 2 mg PO DAILY PRN muscle spasm #30 03/08/24 caps blood-glucose transmitter (Dexcom #1 ea 03/15/24 G6 Transmitter device) insulin aspart U-100 100 unit/mL 5 unit (0.05 mL) subcut TID #15 mL 04/12/24 (3 mL) subcutaneous pen (Novolog FlexPen U-100 Insulin aspart) metoclopramide HCl 10 mg tablet 10 mg PO Q6H PRN nausea and 06/06/24 (Reglan) vomiting #30 tabs Allergies Allergy/AdvReac Type Severity Reaction Status Date / Time hydromorphone AdvReac Dizziness/L Verified 06/06/24 12:13 ighthead oxycodone AdvReac Nausea Verified 06/06/24 12:13 narcotics AdvReac Nausea Uncoded 06/06/24 12:13 General Stated Complaint: GenMedical EARL: 3 Review of Systems All systems reviewed & are unremarkable except as noted in HPI and below Constitutional Constitutional: Denies fever(s) Gastrointestinal Gastrointestinal: Reports nausea and Reports vomiting Comments: Patient is having bowel movements but has had decreased p.o. intake, no bowel movement today. Exam Const General: cooperative and no acute distress HENMT Head: normocephalic and atraumatic Mouth: moist mucous membranes Eyes Conjunctivae: normal conjunctivae Sclera: normal sclerae Resp Auscultation: clear to auscultation bilaterally, no rales, no rhonchi and no wheezes Cardio Jugular venous pressure: no JVD Rate: regular rate and not tachycardic Rhythm: regular rhythm GI Palpation: soft, not firm, no guarding, no masses, not rigid and tender in the RUQ Skin General skin exam: no rashes or lesions noted Neuro General: patient alert, patient awake and patient oriented x3 Extrem General: no edema Psych Appearance: grossly normal Mental Status: mental status grossly normal Course Vital Signs Vital signs: Vital Signs Temperature 36.4 C 06/06/24 12:00 Pulse 89 06/06/24 12:00 Respiratory Rate 18 06/06/24 12:00 Blood Pressure 148/95 H 06/06/24 12:00 Pulse Oximetry 97 06/06/24 12:00 Temperature 36.4 C 06/06/24 12:00 Temperature Source Oral 06/06/24 12:00 Pulse 90 06/06/24 12:09 Respiratory Rate 16 06/06/24 12:09 Respiratory Effort Normal, Non-Labored 06/06/24 12:09 Respiratory Depth Normal 06/06/24 12:09 Respiratory Pattern Normal 06/06/24 12:09 Blood Pressure 148/95 H 06/06/24 12:09 Blood Pressure Position Supine 06/06/24 12:09 Pulse Oximetry 96 06/06/24 12:09 Oxygen Delivery Method Room Air 06/06/24 12:09 Oxygen Flow Rate 0 06/06/24 12:00 Pain Level 4 06/06/24 12:09 Lab/Test Results Lab/Test Results: Laboratory Tests Range/Units 06/06/24 12:32 WBC (4.4-10.8) 10^3/uL 4.80 RBC (3.93-5.22) 10^6/uL 4.15 Hgb (11.2-15.7) g/dL 13.5 Hct (36.0-46.0) % 40.7 MCV (80-95) fL 98 H MCH (27.0-33.0) pg 32.5 MCHC (32.0-36.0) % 33.2 RDW (11.7-14.6) % 14.1 Plt Count (130-400) 10^3/uL 226 MPV (8.0-11.0) fL 9.0 Immature Gran % % 0.8 Neutrophils % % 40.1 Lymphocytes % % 35.4 Monocytes % % 18.5 Eosinophils % % 4.2 Basophils % % 1.0 Nucleated RBC % (0.0-0.3) % 0.0 Absolute Neutrophils (1.2-6.7) 10^3/uL 1.92 Absolute Lymphocytes (1.2-3.4) 10^3/uL 1.70 Absolute Monocytes (0.1-0.8) 10^3/uL 0.89 H Absolute Eosinophils (0.0-0.7) 10^3/uL 0.20 Absolute Basophils (0.0-0.2) 10^3/uL 0.05 Sodium (136-145) mmol/L 138 Potassium (3.5-5.1) mmol/L 4.3 Chloride (98-107) mmol/L 103 Carbon Dioxide (21.0-32.0) mmol/L 25.5 Anion Gap (3-11) mmol/L 9.5 BUN (7-18) mg/dL 16 Creatinine (0.55-1.02) mg/dL 0.9 Est GFR (CKD-EPI 2020) (mL/min/1.73m2) 72.73 Glucose (74-106) mg/dL 133 H Calcium (8.5-10.1) mg/dL 8.9 Magnesium (1.8-2.4) mg/dL 2.0 Total Bilirubin (0.2-1.0) mg/dL 0.75 AST (15-37) U/L 32 ALT (14-59) U/L 31 Alkaline Phosphatase (46-116) U/L 138 H Total Protein (6.4-8.2) g/dL 6.2 L Albumin (3.4-5.0) g/dL 3.5 Lipase (16-77) U/L 15 L Medical Decision Making 1453 -- 59-year-old female with history of stage IV pancreatic cancer, status post biliary stent, on chemotherapy, here with intermittent nausea and vomiting over the past 1 week as well as postprandial fullness and gas discomfort. Patient is hemodynamically stable. She does have some tenderness right upper abdomen but otherwise abdominal exam is benign. Consider obstructive process. Plan to obtain CT of the abdomen pelvis to assess for acute surgical process. -- Labs reviewed and nondiagnostic. 163 --CT of the abdomen pelvis interpreted by radiology:1. This CBD stent remains in good position and is patent. Pancreatic head findings appear unchanged. There again appears to be invasion of the medial wall of the duodenum. Dilated pancreatic duct is again noted. No obvious increasing retroperitoneal lymphadenopathy nor new additional masses nor abnormal fluid collections. 2. There are no obvious metastatic lesions evident in the liver on today's study. Pneumobilia again noted but without increasing dilatation of intrahepatic ducts.. The gallbladder is not distended nor edematous. 3. There is a small amount of free fluid in the lower right dependent aspect of the pelvis which is unchanged from CT scans of 02/03/2024 and 03/28/2024. No obvious abnormal adnexal masses. There is no ascites in the upper abdomen. 4. Stable hypodense nodule in the right adrenal gland measuring 19 x 10 mm, unchanged. Possibly an incidental adenoma, as opposed to metastatic disease. This is also unchanged from CT scan of 12/11/2023 1653 --all results were discussed with the patient. Discussed treatment options including admission for antiemetics and IV fluid with bowel rest versus clear liquid diet antiemetics at home. Patient prefers to be discharged at this time. Usual customary discharge instructions were reviewed. Lab Data Lab results reviewed: Yes I reviewed the patient's lab results. Labs: Laboratory Tests Range/Units 06/06/24 12:32 WBC (4.4-10.8) 10^3/uL 4.80 RBC (3.93-5.22) 10^6/uL 4.15 Hgb (11.2-15.7) g/dL 13.5 Hct (36.0-46.0) % 40.7 MCV (80-95) fL 98 H MCH (27.0-33.0) pg 32.5 MCHC (32.0-36.0) % 33.2 RDW (11.7-14.6) % 14.1 Plt Count (130-400) 10^3/uL 226 MPV (8.0-11.0) fL 9.0 Immature Gran % % 0.8 Neutrophils % % 40.1 Lymphocytes % % 35.4 Monocytes % % 18.5 Eosinophils % % 4.2 Basophils % % 1.0 Nucleated RBC % (0.0-0.3) % 0.0 Absolute Neutrophils (1.2-6.7) 10^3/uL 1.92 Absolute Lymphocytes (1.2-3.4) 10^3/uL 1.70 Absolute Monocytes (0.1-0.8) 10^3/uL 0.89 H Absolute Eosinophils (0.0-0.7) 10^3/uL 0.20 Absolute Basophils (0.0-0.2) 10^3/uL 0.05 Sodium (136-145) mmol/L 138 Potassium (3.5-5.1) mmol/L 4.3 Chloride (98-107) mmol/L 103 Carbon Dioxide (21.0-32.0) mmol/L 25.5 Anion Gap (3-11) mmol/L 9.5 BUN (7-18) mg/dL 16 Creatinine (0.55-1.02) mg/dL 0.9 Est GFR (CKD-EPI 2020) (mL/min/1.73m2) 72.73 Glucose (74-106) mg/dL 133 H Calcium (8.5-10.1) mg/dL 8.9 Magnesium (1.8-2.4) mg/dL 2.0 Total Bilirubin (0.2-1.0) mg/dL 0.75 AST (15-37) U/L 32 ALT (14-59) U/L 31 Alkaline Phosphatase (46-116) U/L 138 H Total Protein (6.4-8.2) g/dL 6.2 L Albumin (3.4-5.0) g/dL 3.5 Lipase (16-77) U/L 15 L Quality:SDOH Health Related Social Needs: No Data to Display PFSH All Active Problems (Updated 06/06/24 @ 16:54 by Martínez Bae MD) Nausea & vomiting (Acute) Cancer, metastatic to lung (Acute) [facility] [place] nodules on [address] (Acute ~12/2023) 01/12/24 Dr Palacios Thoracic Surg 03/28/24-CT chest w/ contrast-stage IV pancreatic cancer, on chemo, restaging (ordering physician Dr. Stevenson) Left upper lobe pulmonary nodule (Acute) Pancreatic adenocarcinoma (Acute ~11/2023) fine needle aspiration 12/24/23 [facility] [place] Thoracic Sur[place] 03/28/24-CT chest w contrast: interval decrease in size of an ill-defined mass ar the head of the pancreas. Pancreatic mass (Acute ~12/22/23) 12/22/23 found on endoscopy Elevated LFTs (Acute) Common bile duct (CBD) obstruction (Acute) Stent placed 12/22/23 Gallbladder dilatation (Acute) Elevated transaminase level (Acute) Pancreatitis (Acute) Common bile duct dilatation (Acute) HSV-1 infection (Acute ~2022) DM type 1, goal A1C below 7.5% (Acute) DM 1.5, but adding TYpe 1 2' MGMT per DM 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 see [facility] notes.. 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, 03/2023 Ganglion cyst Muscle spasm Benign paroxysmal positional vertigo Trochanteric bursitis, left hip Other intervertebral disc degeneration, lumbar region Adjustment disorder with anxious mood Synovial cyst of lumbar facet joint Surgical History H/O endoscopy (~12/22/23) Pancreatic mass found Family History Brother Alcohol use disorder Brother Alcohol use disorder Depression Father Colon cancer Diabetes Mother Asthma Lung cancer ALK positive ( gene mutation) Hypertension Sister Almo disease Paternal Grandmother Heart disease Paternal Grandfather Colon cancer Social History Smoking/Tobacco Use Status: Former Tobacco Use Quit status: considering quitting Smoking risk assessment performed?: Yes Alcohol Intake: former Counseling given: No Drug use: Daily Substance use type: marijuana Household members: spouse Housing: house Number of Children: 3 number of grandchildren: 2 Communication Needs: Corrective Lenses Education Level: college current occupation: retired [employer] What is your relationship status?: How often do you talk on the phone with friends or family?: three or more times per week How often do you get together with friends or relatives?: three or more times per week Panel score (0-1 are the most socially isolated patients): 2 NHANES result reviewed/action taken: Yes What type of physical activity do you participate in: walking and swimming Duration: 45-60 minutes/day Frequency: 5-6 times per week Debbi/Restorationism: Jehovah'S Witness Special debbi needs: Yes Seatbelt use: always Drive intox or ride w/intox front end driver: No Working smoke detector in home: Yes Carbon monox detector in home: Yes Do you feel safe in your relationship?: Yes
[2024-06-06] MEDS: Omnipaque 350 MG/ML 100 ML BTL IJ (14:56)
[2024-06-06] MEDS: Normal Saline - Diluent 50 ML VIAL IJ (14:57)
[2024-06-06] MEDS: Ondansetron 4 MG/2 ML VIAL (15:30)
== END | disposition home or self-care (01) ==
LOC: ER 16:54 → RED 17:07
PROVIDERS: Emergency Provider Student in an Organized Health Care Education/Training Program; PCP Nurse Practitioner
DX: R11.2 Nausea with vomiting, unspecified (principal); R53.1 Weakness; C78.00 Secondary malignant neoplasm of unspecified lung; C25.9 Malignant neoplasm of pancreas, unspecified; Z92.21 Personal history of antineoplastic chemotherapy
CPT/HCPCS: 80053; 83690; 96361; 96374; 96376; 99285; 74177; 83735; 85025; 99283; J2405; J3490; Q9967

== ENCOUNTER 2024-06-23 03:06 | Outpatient (RCR) | payer BC, SELFPAY ==
[2024-06-03] MEDS: Normal Saline Flush 10 ML SYR IVP (09:24)
[2024-06-03 09:31] LABS: Abs Immature Grans 0.02 10^3/uL (0.0-0.06); Absolute Basophil Count 0.03 10^3/uL (0.0-0.2); Absolute Eosinophil Count 0.15 10^3/uL (0.0-0.7); Absolute Lymphocyte Count 1.36 10^3/uL (1.2-3.4); Absolute Monocyte Count 0.63 10^3/uL (0.1-0.8); Absolute Neutrophil Count 1.99 10^3/uL (1.2-6.7); Basophils % 0.7 %; Eosinophils % 3.6 %; HCT 36.3 % (36.0-46.0); HGB 11.8 g/dL (11.2-15.7); Immature Grans % 0.5 %; Lymphocytes % 32.5 %; MCHC 32.5 % (32.0-36.0); MCV 98 fL (80-95); MPV 9.5 fL (8.0-11.0); Monocytes % 15.1 %; Neutrophils % 47.6 %; Platelet Count 184 10^3/uL (130-400); RBC 3.69 10^6/uL (3.93-5.22); RDW 14.4 % (11.7-14.6); RDW-SD 52.1 fL; WBC 4.18 10^3/uL (4.4-10.8)
[2024-06-03 09:55] LABS: ALT 28 U/L (14-59); AST 22 U/L (15-37); Albumin 3.2 g/dL (3.4-5.0); Alkaline Phosphatase 120 U/L (46-116); Anion Gap 6.7 mmol/L (3-11); BUN 5 mg/dL (7-18); Bilirubin, Total 0.39 mg/dL (0.2-1.0); CO2 29.3 mmol/L (21.0-32.0); CREATININE 0.7 mg/dL (0.55-1.02); Calcium 8.6 mg/dL (8.5-10.1); Chloride 107 mmol/L (98-107); Estimated GFR 98.34 (mL/min/1.73m2); Glucose 128 mg/dL (74-106); Potassium 3.9 mmol/L (3.5-5.1); Sodium 143 mmol/L (136-145); Total Protein 5.9 g/dL (6.4-8.2)
[2024-06-06 12:06] LABS: CA 19-9 1769 U/mL (<35)
[2024-06-17] MEDS: Normal Saline Flush 10 ML SYR IVP (08:26)
[2024-06-17 08:41] LABS: Abs Immature Grans 0.06 10^3/uL (0.0-0.06); Absolute Basophil Count 0.04 10^3/uL (0.0-0.2); Absolute Eosinophil Count 0.48 10^3/uL (0.0-0.7); Absolute Lymphocyte Count 1.56 10^3/uL (1.2-3.4); Absolute Monocyte Count 0.71 10^3/uL (0.1-0.8); Absolute Neutrophil Count 4.32 10^3/uL (1.2-6.7); Basophils % 0.6 %; Eosinophils % 6.7 %; HCT 36.9 % (36.0-46.0); HGB 12.3 g/dL (11.2-15.7); Immature Grans % 0.8 %; Lymphocytes % 21.8 %; MCHC 33.3 % (32.0-36.0); MCV 96 fL (80-95); MPV 9.5 fL (8.0-11.0); Monocytes % 9.9 %; Neutrophils % 60.2 %; Platelet Count 256 10^3/uL (130-400); RBC 3.84 10^6/uL (3.93-5.22); RDW 13.1 % (11.7-14.6); RDW-SD 46.1 fL; WBC 7.17 10^3/uL (4.4-10.8)
[2024-06-17 08:57] LABS: ALT 33 U/L (14-59); AST 16 U/L (15-37); Albumin 2.9 g/dL (3.4-5.0); Alkaline Phosphatase 126 U/L (46-116); Anion Gap 8.2 mmol/L (3-11); BUN 8 mg/dL (7-18); Bilirubin, Total 0.27 mg/dL (0.2-1.0); CO2 25.8 mmol/L (21.0-32.0); CREATININE 0.7 mg/dL (0.55-1.02); Calcium 8.8 mg/dL (8.5-10.1); Chloride 104 mmol/L (98-107); Estimated GFR 98.34 (mL/min/1.73m2); Glucose 325 mg/dL (74-106); Potassium 4.1 mmol/L (3.5-5.1); Sodium 138 mmol/L (136-145); Total Protein 6.2 g/dL (6.4-8.2)
[2024-06-17 23:08] LABS: CA 19-9 1729 U/mL (<35)
[2024-06-23] MEDS: Normal Saline Flush 10 ML SYR IVP (08:58)
== END 2024-06-25 23:59 | disposition home or self-care (01) ==
LOC: INF 03:06
PROVIDERS: PCP Nurse Practitioner; Visit Provider Internal Medicine Hematology & Oncology
DX: C25.0 Malignant neoplasm of head of pancreas (principal); Z45.2 Encounter for adjustment and management of vascular access device
CPT/HCPCS: 36591; 80053; 96523; 85025; 86301

== ENCOUNTER 2024-07-15 00:59 | Outpatient (RCR) | payer BC, SELFPAY ==
[2024-07-01] MEDS: Normal Saline Flush 10 ML SYR IVP (08:09)
[2024-07-01 08:26] LABS: Abs Immature Grans 0.03 10^3/uL (0.0-0.06); Absolute Basophil Count 0.02 10^3/uL (0.0-0.2); Absolute Eosinophil Count 0.16 10^3/uL (0.0-0.7); Absolute Lymphocyte Count 1.48 10^3/uL (1.2-3.4); Absolute Monocyte Count 0.62 10^3/uL (0.1-0.8); Absolute Neutrophil Count 3.09 10^3/uL (1.2-6.7); Basophils % 0.4 %; HCT 37.9 % (36.0-46.0); HGB 12.4 g/dL (11.2-15.7); Immature Grans % 0.6 %; Lymphocytes % 27.4 %; MCH 31.5 pg (27.0-33.0); MCHC 32.7 % (32.0-36.0); MCV 96 fL (80-95); MPV 9.2 fL (8.0-11.0); Monocytes % 11.5 %; Neutrophils % 57.1 %; Platelet Count 287 10^3/uL (130-400); RBC 3.94 10^6/uL (3.93-5.22); RDW 13.2 % (11.7-14.6); RDW-SD 46.9 fL
[2024-07-01 08:48] LABS: ALT 51 U/L (14-59); AST 47 U/L (15-37); Albumin 3.2 g/dL (3.4-5.0); Alkaline Phosphatase 103 U/L (46-116); Anion Gap 6.1 mmol/L (3-11); BUN 8 mg/dL (7-18); Bilirubin, Total 0.32 mg/dL (0.2-1.0); CO2 26.9 mmol/L (21.0-32.0); CREATININE 0.7 mg/dL (0.55-1.02); Calcium 8.9 mg/dL (8.5-10.1); Chloride 103 mmol/L (98-107); Estimated GFR 98.34 (mL/min/1.73m2); Glucose 187 mg/dL (74-106); Potassium 4.1 mmol/L (3.5-5.1); Sodium 136 mmol/L (136-145); Total Protein 6.2 g/dL (6.4-8.2)
[2024-07-02 00:16] LABS: CA 19-9 1640 U/mL (<35)
[2024-07-15 09:57] LABS: Absolute Basophil Count 0.04 10^3/uL (0.0-0.2); Absolute Lymphocyte Count 2.12 10^3/uL (1.2-3.4); Absolute Monocyte Count 1.13 10^3/uL (0.1-0.8); Absolute Neutrophil Count 5.81 10^3/uL (1.2-6.7); Basophils % 0.4 %; Eosinophils % 1.1 %; Immature Grans % 1.1 %; Lymphocytes % 22.8 %; MCH 31.6 pg (27.0-33.0); MCHC 32.5 % (32.0-36.0); MCV 97 fL (80-95); MPV 9.2 fL (8.0-11.0); Monocytes % 12.2 %; Neutrophils % 62.4 %; Platelet Count 267 10^3/uL (130-400); RBC 4.12 10^6/uL (3.93-5.22); RDW 13.4 % (11.7-14.6); RDW-SD 48.3 fL
[2024-07-15 10:32] LABS: ALT 42 U/L (14-59); AST 31 U/L (15-37); Albumin 3.5 g/dL (3.4-5.0); Alkaline Phosphatase 104 U/L (46-116); Anion Gap 11.4 mmol/L (3-11); BUN 20 mg/dL (7-18); Bilirubin, Total 0.52 mg/dL (0.2-1.0); CO2 25.6 mmol/L (21.0-32.0); CREATININE 0.8 mg/dL (0.55-1.02); Calcium 9.3 mg/dL (8.5-10.1); Chloride 103 mmol/L (98-107); Estimated GFR 83.78 (mL/min/1.73m2); Glucose 174 mg/dL (74-106); Potassium 3.9 mmol/L (3.5-5.1); Sodium 140 mmol/L (136-145); Total Protein 6.8 g/dL (6.4-8.2)
[2024-07-15] MEDS: Normal Saline Flush 10 ML SYR IVP (10:43)
[2024-07-15 21:43] LABS: CA 19-9 2003 U/mL (<35)
== END 2024-07-25 23:59 | disposition home or self-care (01) ==
LOC: INF 00:59
PROVIDERS: PCP Nurse Practitioner; Visit Provider Internal Medicine Hematology & Oncology
DX: C25.0 Malignant neoplasm of head of pancreas (principal)
CPT/HCPCS: 36591; 80053; 85025; 86301

== ENCOUNTER 2024-08-12 00:57 | Outpatient (RCR) | payer BC, SELFPAY ==
[2024-07-29] MEDS: Normal Saline Flush 10 ML SYR IVP (09:02)
[2024-07-29 09:07] LABS: Abs Immature Grans 0.04 10^3/uL (0.0-0.06); Absolute Basophil Count 0.03 10^3/uL (0.0-0.2); Absolute Eosinophil Count 0.24 10^3/uL (0.0-0.7); Absolute Lymphocyte Count 1.67 10^3/uL (1.2-3.4); Absolute Monocyte Count 0.72 10^3/uL (0.1-0.8); Absolute Neutrophil Count 4.34 10^3/uL (1.2-6.7); Basophils % 0.4 %; Eosinophils % 3.4 %; HCT 36.7 % (36.0-46.0); HGB 12.2 g/dL (11.2-15.7); Immature Grans % 0.6 %; Lymphocytes % 23.7 %; MCH 31.6 pg (27.0-33.0); MCHC 33.2 % (32.0-36.0); MCV 95 fL (80-95); MPV 9.1 fL (8.0-11.0); Monocytes % 10.2 %; Neutrophils % 61.7 %; Platelet Count 263 10^3/uL (130-400); RBC 3.86 10^6/uL (3.93-5.22); RDW 13.6 % (11.7-14.6); RDW-SD 47.8 fL; WBC 7.04 10^3/uL (4.4-10.8)
[2024-07-29 09:24] LABS: ALT 38 U/L (14-59); AST 36 U/L (15-37); Albumin 3.3 g/dL (3.4-5.0); Alkaline Phosphatase 111 U/L (46-116); Anion Gap 6.1 mmol/L (3-11); BUN 16 mg/dL (7-18); Bilirubin, Total 0.62 mg/dL (0.2-1.0); CO2 28.9 mmol/L (21.0-32.0); CREATININE 0.8 mg/dL (0.55-1.02); Calcium 9.1 mg/dL (8.5-10.1); Chloride 104 mmol/L (98-107); Estimated GFR 83.78 (mL/min/1.73m2); Glucose 121 mg/dL (74-106); Potassium 4.5 mmol/L (3.5-5.1); Sodium 139 mmol/L (136-145); Total Protein 6.4 g/dL (6.4-8.2)
[2024-07-30 11:40] LABS: CA 19-9 4797 U/mL (<35)
[2024-08-12] MEDS: Normal Saline Flush 10 ML SYR IVP (08:45)
[2024-08-12 09:17] LABS: Abs Immature Grans 0.03 10^3/uL (0.0-0.06); Absolute Basophil Count 0.04 10^3/uL (0.0-0.2); Absolute Eosinophil Count 0.17 10^3/uL (0.0-0.7); Absolute Lymphocyte Count 1.19 10^3/uL (1.2-3.4); Absolute Monocyte Count 0.58 10^3/uL (0.1-0.8); Absolute Neutrophil Count 4.65 10^3/uL (1.2-6.7); Basophils % 0.6 %; Eosinophils % 2.6 %; HCT 37.2 % (36.0-46.0); HGB 12.1 g/dL (11.2-15.7); Immature Grans % 0.5 %; Lymphocytes % 17.9 %; MCH 31.1 pg (27.0-33.0); MCHC 32.5 % (32.0-36.0); MCV 96 fL (80-95); MPV 9.2 fL (8.0-11.0); Monocytes % 8.7 %; Neutrophils % 69.7 %; Platelet Count 258 10^3/uL (130-400); RBC 3.89 10^6/uL (3.93-5.22); RDW 13.4 % (11.7-14.6); RDW-SD 47.8 fL; WBC 6.66 10^3/uL (4.4-10.8)
[2024-08-12 09:43] LABS: ALT 28 U/L (14-59); AST 25 U/L (15-37); Albumin 3.2 g/dL (3.4-5.0); Alkaline Phosphatase 124 U/L (46-116); Anion Gap 8.8 mmol/L (3-11); BUN 10 mg/dL (7-18); Bilirubin, Total 0.44 mg/dL (0.2-1.0); CO2 27.2 mmol/L (21.0-32.0); CREATININE 0.8 mg/dL (0.55-1.02); Calcium 9.1 mg/dL (8.5-10.1); Chloride 106 mmol/L (98-107); Estimated GFR 83.78 (mL/min/1.73m2); Glucose 166 mg/dL (74-106); Potassium 4.1 mmol/L (3.5-5.1); Sodium 142 mmol/L (136-145); Total Protein 6.4 g/dL (6.4-8.2)
[2024-08-12 22:57] LABS: CA 19-9 13059 U/mL (<35)
== END 2024-08-25 23:59 | disposition home or self-care (01) ==
LOC: INF 00:57
PROVIDERS: PCP Nurse Practitioner; Visit Provider Internal Medicine Hematology & Oncology
DX: C25.0 Malignant neoplasm of head of pancreas (principal); Z45.2 Encounter for adjustment and management of vascular access device
CPT/HCPCS: 36591; 80053; 85025; 86301

== ENCOUNTER 2024-09-13 13:29 | Day surgery (SDC) | payer BC, SELFPAY ==
[2024-09-13 13:44] VITALS: BP 131/91; PULSE 91; RESP 16; TEMP 36.5; O2SAT 98
[2024-09-13 15:18] VITALS: BP 136/92; PULSE 82; RESP 16; TEMP 36.4; O2SAT 97
--- NOTE | 2024-09-13 15:21 | W.PM.OP ---
Operative Note Operative Note Refer to Anesthesia Record Procedure Description: PROCEDURES PERFORMED: 1. U/S guided paracentesis PREOPERATIVE DIAGNOSIS: Malignant ascites POSTOPERATIVE DIAGNOSIS: Malignant ascites SURGEON: Tito Fernandez MD INDICATION FOR PROCEDURE: palliative symptom relief from malignant ascites FINDINGS: 4.3L of straw-colored ascitic fluid removed. Not sent for diagnostic testing. SURVEILLANCE-INTERVAL/FOLLOW-UP: Follow-up with oncologist Specimens: no EBL: Minimal COMPLICATIONS: None Procedure in detail: The patient gave written consent and was in agreement with the indications, the potential risks as well as the benefits of the procedure. We performed a timeout and when we were in agreement I started the procedure. I used an ultrasound to identify a deep fluid?filled pocket in the abdominal cavity. I then prepped and draped the abdominal wall. I injected local anesthetic. This was tolerated well. In typical/usual fashion, I made a very small skin incision and then I advanced the paracentesis catheter complex while aspirating. Once I had straw-colored fluid, only the catheter was advanced and then we removed the ascitic fluid using vacuum canisters as well as the push/pull technique with 50 cc syringe. The patient tolerated the procedure well. Date of Procedure: 09/13/24
--- NOTE | 2024-09-13 15:21 | W.PM.DSUDISC ---
Date of service: 09/13/24 Time of Service: 15:21 Discharge Plan Disposition Patient Disposition: Home Condition: Good Discharge Details Attending Provider: Tomas Fernandez Primary Care Provider: Thao Rivas Home Meds and New Rx's Prescriptions: No Action (DME) blood-glucose meter [OneTouch Verio Flex meter] Misc See Rx Instructions .Route Qty: 1 1RF Rx Instructions: For BID testing of diabetes, E11.9, with A1C goal < 8 (DME) lancets [Lancets,Ultra Thin] Misc See Rx Instructions .Route Qty: 100 1RF Rx Instructions: for BID testing with Verio for DM W11.9 with A1C goal < 8 (DME) Blood Glucose Test Strip See Rx Instructions .ROUTE .MEDSUPPLY Qty: 200 3RF Rx Instructions: For Verio OR covered brand, for bID testing for DM E11.9 Humulin N NPH Insulin KwikPen 100 unit/mL (3 mL) insulin pen 7 unit subcut QAM Qty: 15 3RF Rx Instructions: Inject 7 units 15 min prior to prednisone administration. Can increase as directed. (DME) Dexcom G6 Sensor Device See Rx Instructions .Route Rx Instructions: As directed (DME) CGM (Continuous Glucose Monitor) and SENSOR See Rx Instructions .Route .MEDSUPPLY Qty: 1 1RF Rx Instructions: Dexcom 6 Medical necessity for serious health risk due to TYPE 1 MGMT REQUIREMENT tizanidine 2 mg capsule 2 mg PO DAILY PRN (Reason: muscle spasm) Qty: 30 3RF Fiasp FlexTouch U-100 Insulin 100 unit/mL (3 mL) insulin pen 15 unit subcut TID MDD 45 units 30 Days Qty: 15 12RF Rx Instructions: Inject 15 units subcutaneously with meals as directed. ondansetron HCl 8 mg tablet 8 mg PO Q8H omeprazole 20 mg capsule,delayed release(DR/EC) 20 mg PO BID Patient Comments: Reports 40 mg/d with some benefit. levothyroxine 150 mcg capsule 150 mcg PO DAILY Patient Comments: Patient reports [place] [facility] [place] 5 mg tablet 5 mg PO .complex PRN Patient Comments: 1-2 tabs q4 hrs for pain with hydromorphone gemcitabine 2 gram/52.6 mL (38 mg/mL) solution 1 mg IV Q2W Patient Comments: Dose amount unknown. [address] marker until we find out. Rx Instructions: New Chemotherapy meclizine 25 MG tablet,chewable 25 mg PO DAILY PRN cyclobenzaprine 5 mg tablet 2.5 mg PO DAILY PRN (Reason: SI joint issues) Qty: 10 0RF (DME) pen needle, diabetic [Comfort EZ Pen [place]] 31 gauge x 3/16 needle See Rx Instructions .Route Qty: 400 4RF Rx Instructions: For injected insulin 4x daily, use as directed insulin glargine [Lantus Solostar U-100 Insulin] 100 unit/mL (3 mL) insulin pen 14 unit subcut QPM Qty: 15 5RF (DME) Dexcom G6 Transmitter Device See Rx Instructions .Route Rx Instructions: As directed (DME) Dexcom G6 Transmitter Device See Rx Instructions .Route Qty: 1 0RF Rx Instructions: As directed, keep A1c less than 7.5 insulin aspart U-100 [Novolog FlexPen U-100 Insulin] 100 unit/mL (3 mL) insulin pen 5 unit subcut TID Qty: 15 12RF Rx Instructions: Inject 1-5 units subcutaneously, 1-3 times daily as directed. Creon 36,000-114,000- 180,000 unit capsule,delayed release(DR/EC) 3 - 4 cap PO TID Rx Instructions: administer with meals and/or snacks (18 per day) (DME) lancets [Unistik Comfort Lancets] 28 gauge misc See Rx Instructions .Route Qty: 100 0RF Rx Instructions: check blood sugars manually q3 days when starting insulin pump hydromorphone 2 mg tablet 2 mg PO BID PRN lorazepam 0.5 mg tablet 0.5 mg PO Q6H PRN scopolamine base 1 mg over 3 days patch 3 day 1 patch transdermal Q3D PRN Baqsimi 3 mg/actuation spray,non-aerosol 3 mg intranasal DIRECTED Rx Instructions: as a single dose dexamethasone 4 mg tablet 4 mg PO DAILY cyclobenzaprine 10 mg tablet 10 mg PO TID Discharge Instructions Activity:: Activity as Tolerated Diet:: As Tolerated
== END 2024-09-13 15:30 | disposition home or self-care (01) ==
PROVIDERS: PCP Nurse Practitioner; Visit Provider Student in an Organized Health Care Education/Training Program
PROC: 0W9G3ZZ Drainage of Peritoneal Cavity, Percutaneous Approach (ICD-10-PCS; CPT 49082; principal; 2024-09-13 15:00)
DX: R18.8 Other ascites (principal)
CPT/HCPCS: 49082; 00123

== ENCOUNTER 2024-09-23 01:06 | Outpatient (RCR) | payer BC, SELFPAY ==
[2024-08-26] MEDS: Normal Saline Flush 10 ML SYR IVP (08:32)
[2024-08-26 08:44] LABS: Abs Immature Grans 0.06 10^3/uL (0.0-0.06); Absolute Basophil Count 0.05 10^3/uL (0.0-0.2); Absolute Eosinophil Count 0.18 10^3/uL (0.0-0.7); Absolute Lymphocyte Count 1.16 10^3/uL (1.2-3.4); Absolute Monocyte Count 0.76 10^3/uL (0.1-0.8); Absolute Neutrophil Count 6.09 10^3/uL (1.2-6.7); Basophils % 0.6 %; Eosinophils % 2.2 %; HCT 36.4 % (36.0-46.0); HGB 12.1 g/dL (11.2-15.7); Immature Grans % 0.7 %; MCH 31.9 pg (27.0-33.0); MCHC 33.2 % (32.0-36.0); MCV 96 fL (80-95); MPV 9.2 fL (8.0-11.0); Monocytes % 9.2 %; Neutrophils % 73.3 %; Platelet Count 249 10^3/uL (130-400); RBC 3.79 10^6/uL (3.93-5.22); RDW 13.5 % (11.7-14.6)
[2024-08-26 09:07] LABS: ALT 22 U/L (14-59); AST 21 U/L (15-37); Albumin 3.1 g/dL (3.4-5.0); Alkaline Phosphatase 106 U/L (46-116); Anion Gap 8.3 mmol/L (3-11); BUN 13 mg/dL (7-18); Bilirubin, Total 0.34 mg/dL (0.2-1.0); CO2 27.7 mmol/L (21.0-32.0); CREATININE 0.8 mg/dL (0.55-1.02); Calcium 8.9 mg/dL (8.5-10.1); Chloride 107 mmol/L (98-107); Estimated GFR 83.78 (mL/min/1.73m2); Glucose 120 mg/dL (74-106); Potassium 4.2 mmol/L (3.5-5.1); Sodium 143 mmol/L (136-145); Total Protein 6.2 g/dL (6.4-8.2)
[2024-08-29 10:37] LABS: CA 19-9 10525 U/mL (<35)
[2024-09-01] MEDS: Normal Saline Flush 10 ML SYR IVP (08:30)
[2024-09-01 08:50] LABS: Absolute Basophil Count 0.02 10^3/uL (0.0-0.2); HCT 34.3 % (36.0-46.0); HGB 11.5 g/dL (11.2-15.7); MCH 31.7 pg (27.0-33.0); MCHC 33.5 % (32.0-36.0); MCV 95 fL (80-95); MPV 9.8 fL (8.0-11.0); Platelet Count 208 10^3/uL (130-400); RBC 3.63 10^6/uL (3.93-5.22); RDW 12.8 % (11.7-14.6); RDW-SD 44.2 fL
[2024-09-01 09:08] LABS: ALT 20 U/L (14-59); AST 22 U/L (15-37); Albumin 2.7 g/dL (3.4-5.0); Alkaline Phosphatase 98 U/L (46-116); Anion Gap 8.5 mmol/L (3-11); BUN 7 mg/dL (7-18); Bilirubin, Total 0.36 mg/dL (0.2-1.0); CO2 26.5 mmol/L (21.0-32.0); CREATININE 0.7 mg/dL (0.55-1.02); Chloride 108 mmol/L (98-107); Estimated GFR 98.34 (mL/min/1.73m2); Glucose 116 mg/dL (74-106); Potassium 3.9 mmol/L (3.5-5.1); Sodium 143 mmol/L (136-145); Total Protein 6.1 g/dL (6.4-8.2)
[2024-09-01 09:15] LABS: Absolute Eosinophil Count 0.04 10^3/uL (0.0-0.7); Absolute Lymphocyte Count 0.67 10^3/uL (1.2-3.4); Absolute Monocyte Count 0.16 10^3/uL (0.1-0.8); Absolute Neutrophil Count 0.89 10^3/uL (1.2-6.7); Atypical Lymphocytes % 1 %
[2024-09-01 09:16] LABS: Diff Comment Manual Differential; RBC Morphology Normal
[2024-09-01 09:33] LABS: WBC 1.77 10^3/uL (4.4-10.8)
[2024-09-08] MEDS: Normal Saline Flush 10 ML SYR IVP (09:05)
[2024-09-08 10:42] LABS: ALT 24 U/L (14-59); AST 24 U/L (15-37); Albumin 2.8 g/dL (3.4-5.0); Alkaline Phosphatase 103 U/L (46-116); Anion Gap 9.5 mmol/L (3-11); BUN 7 mg/dL (7-18); Bilirubin, Total 0.36 mg/dL (0.2-1.0); CO2 26.5 mmol/L (21.0-32.0); CREATININE 0.8 mg/dL (0.55-1.02); Calcium 8.8 mg/dL (8.5-10.1); Chloride 108 mmol/L (98-107); Estimated GFR 83.78 (mL/min/1.73m2); Glucose 113 mg/dL (74-106); Potassium 4.2 mmol/L (3.5-5.1); Sodium 144 mmol/L (136-145); Total Protein 5.9 g/dL (6.4-8.2)
[2024-09-08 11:04] LABS: Abs Immature Grans 0.05 10^3/uL (0.0-0.06); Absolute Basophil Count 0.03 10^3/uL (0.0-0.2); Absolute Eosinophil Count 0.12 10^3/uL (0.0-0.7); Absolute Lymphocyte Count 0.96 10^3/uL (1.2-3.4); Absolute Monocyte Count 0.77 10^3/uL (0.1-0.8); Basophils % 0.5 %; Eosinophils % 1.9 %; HCT 36.2 % (36.0-46.0); HGB 11.9 g/dL (11.2-15.7); Immature Grans % 0.8 %; Lymphocytes % 15.2 %; MCH 31.9 pg (27.0-33.0); MCHC 32.9 % (32.0-36.0); MCV 97 fL (80-95); MPV 9.1 fL (8.0-11.0); Monocytes % 12.2 %; Neutrophils % 69.4 %; Platelet Count 266 10^3/uL (130-400); RBC 3.73 10^6/uL (3.93-5.22); RDW 13.5 % (11.7-14.6); RDW-SD 47.8 fL; WBC 6.33 10^3/uL (4.4-10.8)
[2024-09-23 08:34] LABS: Abs Immature Grans 0.03 10^3/uL (0.0-0.06); Absolute Basophil Count 0.03 10^3/uL (0.0-0.2); Absolute Eosinophil Count 0.16 10^3/uL (0.0-0.7); Absolute Lymphocyte Count 0.71 10^3/uL (1.2-3.4); Absolute Monocyte Count 0.69 10^3/uL (0.1-0.8); Absolute Neutrophil Count 4.07 10^3/uL (1.2-6.7); Basophils % 0.5 %; Eosinophils % 2.8 %; HCT 34.9 % (36.0-46.0); HGB 11.2 g/dL (11.2-15.7); Immature Grans % 0.5 %; Lymphocytes % 12.5 %; MCH 31.1 pg (27.0-33.0); MCHC 32.1 % (32.0-36.0); MCV 97 fL (80-95); MPV 9.4 fL (8.0-11.0); Monocytes % 12.1 %; Neutrophils % 71.6 %; Platelet Count 248 10^3/uL (130-400); RDW 13.7 % (11.7-14.6); RDW-SD 48.6 fL; WBC 5.69 10^3/uL (4.4-10.8)
[2024-09-23] MEDS: Normal Saline Flush 10 ML SYR IVP (08:38)
[2024-09-23 08:56] LABS: ALT 20 U/L (14-59); AST 20 U/L (15-37); Albumin 2.4 g/dL (3.4-5.0); Alkaline Phosphatase 104 U/L (46-116); Anion Gap 8.3 mmol/L (3-11); BUN 10 mg/dL (7-18); Bilirubin, Total 0.22 mg/dL (0.2-1.0); CO2 25.7 mmol/L (21.0-32.0); CREATININE 0.9 mg/dL (0.55-1.02); Calcium 8.6 mg/dL (8.5-10.1); Chloride 108 mmol/L (98-107); Estimated GFR 72.73 (mL/min/1.73m2); Glucose 114 mg/dL (74-106); Potassium 4.1 mmol/L (3.5-5.1); Sodium 142 mmol/L (136-145); Total Protein 5.6 g/dL (6.4-8.2)
[2024-09-26 12:39] LABS: CA 19-9 5922 U/mL (<35)
== END 2024-09-24 23:59 | disposition home or self-care (01) ==
LOC: INF 01:06
PROVIDERS: PCP Nurse Practitioner; Visit Provider Internal Medicine Hematology & Oncology
DX: C25.0 Malignant neoplasm of head of pancreas (principal); Z45.2 Encounter for adjustment and management of vascular access device
CPT/HCPCS: 36591; 80053; 96523; 85025; 86301

== ENCOUNTER 2024-09-25 12:28 | Emergency (ER) | payer BC, SELFPAY ==
[2024-09-25] VITALS (15 sets, daily range): BP systolic 111–128; BP diastolic 70–83; PULSE 79–110; RESP 11–16; TEMP 37.1; O2SAT 87–98
--- NOTE | 2024-09-25 13:00 | DI.CT_ITS ---
Exam(s) CT ABDOMEN PELVIS W EXAM: CT ABDOMEN PELVIS W CLINICAL HISTORY: abdominal pain TECHNIQUE: Imaging Protocol: Axial computed tomography images with coronal and sagittal reformatted images were created and reviewed. CONTRAST MATERIAL: Intravenous: Omnipaque 350 Contrast volume:75 mL Oral: No COMPARISON: CT CT CHEST/ABD/PEL W from 06/23/2024 FINDINGS: ABDOMEN: Lung Bases: There is scarring or atelectasis in the lung bases. Liver: Normal density. No measurable mass. Portal, Superior Mesenteric, and Splenic Veins: Unremarkable. Gallbladder and Biliary Tract: There is pneumobilia. There is a biliary stent in place. Pancreas: No evidence of a pancreatitis. There is dilatation again seen of the pancreatic duct. Choudhury creatic head is unchanged. Spleen: Normal. Adrenals: There is stable nodularity of the adrenal glands. Kidneys: Normal size, contour and axis. No radiodense stones or obstructive uropathy. No masses seen. Abdominal Aorta: Abdominal portion non-dilated. Atherosclerotic calcification is present. Bowel: There is again seen a stent seen in the distal stomach extending into the duodenum. There is thickening of the wall of the transverse colon and ascending colon. There is no evidence of bowel ob struction. There is a normal appendix present. Peritoneal Cavity: There is now large amount of abdominal pelvic ascites. There is prominence of the omentum and metastatic disease should be considered. No free air. Lymph Nodes: Within normal limits. Bones: Within normal limits for the patient's age. No aggressive osseous lesions are present. Soft Tissues: Unremarkable. PELVIS: Bladder: Symmetric distention, no gross wall thickening. Reproductive Organs: Unremarkable as visualized. Lymph Nodes: Within normal limits. Bones: Within normal limits for the patient's age. IMPRESSION: 1. Interval development of a large amount of abdominal pelvic ascites since 06/23/2024. There is also prominence of the omentum suspicious for metastatic disease. 2. Stable appearance of the pancreas and enteric and biliary stents. 3. Mild thickening of the wall of the transverse colon and the ascending colon. This may be due to u nderdistention. Infectious or inflammatory process cannot be excluded. RADIATION DOSE DELIVERED: 554.51mGy.cm Total DLP DATA REPOSITORY: All CT scans at this facility are submitted to the National Radiology Data Registry (NRDR) Dose Index Registry (DIR) with the [employer] (ACR). RADIATION OPTIMIZATION: All CT scans at this facility use at least one of these dose optimization te chniques: automated exposure control; mA and/or kV adjustment per patient size (includes targeted exa ms where dose is matched to clinical indication); or iterative reconstruction.
[2024-09-25 13:22] LABS: Abs Immature Grans 0.02 10^3/uL (0.0-0.06); Absolute Basophil Count 0.02 10^3/uL (0.0-0.2); Absolute Eosinophil Count 0.14 10^3/uL (0.0-0.7); Absolute Lymphocyte Count 0.65 10^3/uL (1.2-3.4); Absolute Monocyte Count 0.14 10^3/uL (0.1-0.8); Absolute Neutrophil Count 4.96 10^3/uL (1.2-6.7); Basophils % 0.3 %; Eosinophils % 2.4 %; HCT 35.6 % (36.0-46.0); HGB 11.7 g/dL (11.2-15.7); Immature Grans % 0.3 %; MCHC 32.9 % (32.0-36.0); MCV 94 fL (80-95); MPV 9.6 fL (8.0-11.0); Monocytes % 2.4 %; Neutrophils % 83.6 %; Platelet Count 292 10^3/uL (130-400); RBC 3.78 10^6/uL (3.93-5.22); RDW 13.4 % (11.7-14.6); RDW-SD 46.1 fL; WBC 5.93 10^3/uL (4.4-10.8)
[2024-09-25] MEDS: Ondansetron 4 MG/2 ML VIAL IVP ×2 (13:31→14:36)
[2024-09-25] MEDS: HYDROmorphone 2 MG/ML SYR 1 MG IVP (13:31)
[2024-09-25] MEDS: Normal Saline - Diluent 50 ML VIAL IJ (13:32)
[2024-09-25] MEDS: Omnipaque 350 MG/ML 100 ML BTL 75 ML IJ (13:33)
--- NOTE | 2024-09-25 13:34 | W.ED.GENAD ---
Discharge Plan Disposition Patient Disposition: Home Discharge Details Clinical Impression: Cancer related pain, Nausea, Abdominal ascites Primary Care Provider: Thao Rivas ED Provider: Jamie Ruiz Home Meds and New Rx's Prescriptions: No Action (DME) blood-glucose meter [OneTouch Verio Flex meter] Misc See Rx Instructions .Route Qty: 1 1RF Rx Instructions: For BID testing of diabetes, E11.9, with A1C goal < 8 (DME) lancets [Lancets,Ultra Thin] Misc See Rx Instructions .Route Qty: 100 1RF Rx Instructions: for BID testing with Verio for DM W11.9 with A1C goal < 8 (DME) Blood Glucose Test Strip See Rx Instructions .ROUTE .MEDSUPPLY Qty: 200 3RF Rx Instructions: For Verio OR covered brand, for bID testing for DM E11.9 Humulin N NPH Insulin KwikPen 100 unit/mL (3 mL) insulin pen 7 unit subcut QAM Qty: 15 3RF Rx Instructions: Inject 7 units 15 min prior to prednisone administration. Can increase as directed. (DME) Dexcom G6 Sensor Device See Rx Instructions .Route Rx Instructions: As directed (DME) CGM (Continuous Glucose Monitor) and SENSOR See Rx Instructions .Route .MEDSUPPLY Qty: 1 1RF Rx Instructions: Dexcom 6 Medical necessity for serious health risk due to TYPE 1 MGMT REQUIREMENT tizanidine 2 mg capsule 2 mg PO DAILY PRN (Reason: muscle spasm) Qty: 30 3RF Fiasp FlexTouch U-100 Insulin 100 unit/mL (3 mL) insulin pen 15 unit subcut TID MDD 45 units 30 Days Qty: 15 12RF Rx Instructions: Inject 15 units subcutaneously with meals as directed. ondansetron HCl 8 mg tablet 8 mg PO Q8H omeprazole 20 mg capsule,delayed release(DR/EC) 20 mg PO BID Patient Comments: Reports 40 mg/d with some benefit. levothyroxine 150 mcg capsule 150 mcg PO DAILY Patient Comments: Patient reports high TSH and [place] [facility] [place] oxy[place]one 5 mg tablet 5 mg PO .complex PRN Patient Comments: 1-2 tabs q4 hrs for pain with hydromorphone gemcitabine 2 gram/52.6 mL (38 mg/mL) solution 1 mg IV Q2W Patient Comments: Dose amount unknown. [address] marker until we find out. Rx Instructions: New Chemotherapy meclizine 25 MG tablet,chewable 25 mg PO DAILY PRN cyclobenzaprine 5 mg tablet 2.5 mg PO DAILY PRN (Reason: SI joint issues) Qty: 10 0RF (DME) pen needle, diabetic [Comfort EZ Pen [place]] 31 gauge x 3/16 needle See Rx Instructions .Route Qty: 400 4RF Rx Instructions: For injected insulin 4x daily, use as directed insulin glargine [Lantus Solostar U-100 Insulin] 100 unit/mL (3 mL) insulin pen 14 unit subcut QPM Qty: 15 5RF (DME) Dexcom G6 Transmitter Device See Rx Instructions .Route Rx Instructions: As directed (DME) Dexcom G6 Transmitter Device See Rx Instructions .Route Qty: 1 0RF Rx Instructions: As directed, keep A1c less than 7.5 insulin aspart U-100 [Novolog FlexPen U-100 Insulin] 100 unit/mL (3 mL) insulin pen 5 unit subcut TID Qty: 15 12RF Rx Instructions: Inject 1-5 units subcutaneously, 1-3 times daily as directed. Creon 36,000-114,000- 180,000 unit capsule,delayed release(DR/EC) 3 - 4 cap PO TID Rx Instructions: administer with meals and/or snacks (18 per day) (DME) lancets [Unistik Comfort Lancets] 28 gauge misc See Rx Instructions .Route Qty: 100 0RF Rx Instructions: check blood sugars manually q3 days when starting insulin pump hydromorphone 2 mg tablet 2 mg PO BID PRN lorazepam 0.5 mg tablet 0.5 mg PO Q6H PRN scopolamine base 1 mg over 3 days patch 3 day 1 patch transdermal Q3D PRN Baqsimi 3 mg/actuation spray,non-aerosol 3 mg intranasal DIRECTED Rx Instructions: as a single dose dexamethasone 4 mg tablet 4 mg PO DAILY cyclobenzaprine 10 mg tablet 10 mg PO TID Discharge Instructions Additional Instructions: Take pain and nausea medication as needed to keep yourself comfortable In the morning call the surgery office and they will be able to arrange your outpatient paracentesis procedure. This will likely need to be scheduled on a recurrent basis to maintain your Comfort Referrals: Tomas Fernandez MD [ [facility] STAFF PHYSICIAN] - [facility] General Date/Time Provider Initiated Documentation: 09/25/24 13:03. Limitations to Documentation: no limitations. Information obtained by: patient. HPI Narrative: 59-year-old female with past medical history of metastatic pancreatic carcinoma, on chemotherapy, last dose on Thursday, presents for evaluation of abdominal pain. Patient reports that she had a paracentesis performed on September 13. She reports that over the last few days she has been having worsening abdominal pain. She reports on Thursday at her chemotherapy session, they placed another referral to surgery to get her belly tapped again. She does not report much swelling of her abdomen. She denies any fever or chills. No nausea or vomiting. She has narcotic pain medication at home but she does not like taking this, so she has not had any in the last few days. Related Data Home Medications ?Medication ?Instructions ?Recorded ?Confirmed meclizine 25 mg chewable tablet 25 mg PO DAILY PRN 05/18/17 09/25/24 blood sugar diagnostic (Blood #200 ea 03/16/23 09/09/24 Glucose Test strips) blood-glucose meter (OneTouch #1 ea 03/16/23 09/09/24 Verio Flex Meter) lancets (Lancets,Ultra Thin) #100 ea 03/16/23 09/09/24 cyclobenzaprine 5 mg tablet 2.5 mg (1/2 x 5 mg) PO DAILY PRN 01/14/24 09/25/24 SI joint issues #10 tabs pen needle, diabetic 31 gauge x #400 ea 01/26/24 09/09/2401/08 (Comfort EZ Pen [place]) insulin NPH isoph U-100 human 100 7 unit (0.07 mL) subcut QAM #15 mL 02/08/24 09/13/24 unit/mL (3 mL) subcutaneous pen (Humulin N NPH U-100 Insulin KwikPen) insulin glargine 100 unit/mL (3 14 unit (0.14 mL) subcut QPM #15 mL 02/09/24 09/13/24 mL) subcutaneous pen (Lantus Solostar U-100 Insulin) insulin aspart 15 unit subcut TID 30 days #15 mL 02/26/24 09/13/24 (niacinamide)(U-100) 100 unit/mL(3 mL) subcutaneous pen (Fiasp FlexTouch U-100 Insulin) CGM (Continuous Glucose Monitor) #1 ea 03/08/24 09/09/24 blood-glucose sensor (Dexcom G6 03/08/24 09/09/24 Sensor device) tizanidine 2 mg capsule 2 mg PO DAILY PRN muscle spasm #30 03/08/24 09/25/24 caps blood-glucose transmitter (Dexcom 03/15/24 09/09/24 G6 Transmitter device) blood-glucose transmitter (Dexcom #1 ea 03/15/24 09/09/24 G6 Transmitter device) insulin aspart U-100 100 unit/mL 5 unit (0.05 mL) subcut TID #15 mL 04/12/24 09/13/24 (3 mL) subcutaneous pen (Novolog FlexPen U-100 Insulin aspart) myfivh-pwayvqiz-cklwrpy 3 - 4 cap PO TID 05/19/24 09/13/24 36,000-114,000-180,000 unit capsule,delay rel (Creon) omeprazole 20 mg capsule,delayed 20 mg PO BID GI issues with 05/23/24 09/25/24 release chemotherapy ondansetron HCl 8 mg tablet 8 mg PO Q8H 06/07/24 09/25/24 lancets 28 gauge (Unistik Comfort #100 ea 07/13/24 09/09/24 Lancets) cyclobenzaprine 10 mg tablet 10 mg PO TID 08/02/24 09/25/24 dexamethasone 4 mg tablet 4 mg PO DAILY 08/02/24 09/25/24 glucagon 3 mg/actuation nasal 3 mg intranasal DIRECTED 08/02/24 09/25/24 spray (Baqsimi) hydromorphone 2 mg tablet 2 mg PO BID PRN 08/02/24 09/25/24 lorazepam 0.5 mg tablet 0.5 mg PO Q6H PRN 08/02/24 09/25/24 scopolamine base 1 mg over 3 days 1 patch transdermal Q3D PRN 08/02/24 09/25/24 transdermal patch levothyroxine 150 mcg capsule 150 mcg PO DAILY 08/22/24 09/25/24 oxycodone 5 mg tablet 5 mg PO .complex PRN 08/22/24 09/25/24 gemcitabine 2 gram/52.6 mL (38 1 mg IV Q2W 09/05/24 09/13/24 mg/mL) intravenous solution Previous Rx's ?Medication ?Instructions ?Recorded blood sugar diagnostic (Blood #200 ea 03/16/23 Glucose Test strips) blood-glucose meter (OneTouch #1 ea 03/16/23 Verio Flex Meter) lancets (Lancets,Ultra Thin) #100 ea 03/16/23 cyclobenzaprine 5 mg tablet 2.5 mg (1/2 x 5 mg) PO DAILY PRN 01/14/24 SI joint issues #10 tabs pen needle, diabetic 31 gauge x #400 ea 01/26/24/ (Comfort EZ Pen [place]) insulin NPH isoph U-100 human 100 7 unit (0.07 mL) subcut QAM #15 mL 02/08/24 unit/mL (3 mL) subcutaneous pen (Humulin N NPH U-100 Insulin KwikPen) insulin glargine 100 unit/mL (3 14 unit (0.14 mL) subcut QPM #15 mL 02/09/24 mL) subcutaneous pen (Lantus Solostar U-100 Insulin) insulin aspart 15 unit subcut TID 30 days #15 mL 02/26/24 (niacinamide)(U-100) 100 unit/mL(3 mL) subcutaneous pen (Fiasp FlexTouch U-100 Insulin) CGM (Continuous Glucose Monitor) #1 ea 03/08/24 tizanidine 2 mg capsule 2 mg PO DAILY PRN muscle spasm #30 03/08/24 caps blood-glucose transmitter (Dexcom #1 ea 03/15/24 G6 Transmitter device) insulin aspart U-100 100 unit/mL 5 unit (0.05 mL) subcut TID #15 mL 04/12/24 (3 mL) subcutaneous pen (Novolog FlexPen U-100 Insulin aspart) lancets 28 gauge (Unistik Comfort #100 ea 07/13/24 Lancets) Allergies Allergy/AdvReac Type Severity Reaction Status Date / Time hydromorphone AdvReac Dizziness/L Verified 09/25/24 12:29 ighthead oxycodone AdvReac Nausea Verified 09/25/24 12:29 narcotics AdvReac Nausea Uncoded 09/25/24 12:29 General Stated Complaint: Abd Prob EARL: 3 Exam Narrative Exam Narrative: Review of Systems: All systems reviewed & are unremarkable except as noted in HPI and below Well-developed, chronically ill-appearing NCAT PERRL, normal conjunctiva no jaundice RRR port in right upper chest Unlabored respiratory effort clear bilaterally Nondistended abdomen soft not significant amount of appreciable ascites, mild tenderness Extremities w/o edema Course Vital Signs Vital signs: Vital Signs Temperature 37.1 C 09/25/24 12:32 Pulse 110 H 09/25/24 12:32 Respiratory Rate 16 09/25/24 12:32 Blood Pressure 128/83 09/25/24 12:32 Pulse Oximetry 98 09/25/24 12:32 Temperature 37.1 C 09/25/24 12:32 Temperature Source Oral 09/25/24 12:32 Pulse 110 H 09/25/24 12:32 Respiratory Rate 16 09/25/24 12:32 Respiratory Effort Normal 09/25/24 12:36 Blood Pressure 128/83 09/25/24 12:32 Blood Pressure Position Sitting 09/25/24 12:32 Pulse Oximetry 98 09/25/24 12:32 Oxygen Delivery Method Room Air 09/25/24 12:32 Oxygen Flow Rate 0 09/25/24 12:32 Pain Level 8 09/25/24 13:31 Lab/Test Results Lab/Test Results: Laboratory Tests Range/Units 09/25/24 13:16 WBC (4.4-10.8) 10^3/uL 5.93 RBC (3.93-5.22) 10^6/uL 3.78 L Hgb (11.2-15.7) g/dL 11.7 Hct (36.0-46.0) % 35.6 L MCV (80-95) fL 94 MCH (27.0-33.0) pg 31.0 MCHC (32.0-36.0) % 32.9 RDW (11.7-14.6) % 13.4 Plt Count (130-400) 10^3/uL 292 MPV (8.0-11.0) fL 9.6 Immature Gran % % 0.3 Neutrophils % % 83.6 Lymphocytes % % 11.0 Monocytes % % 2.4 Eosinophils % % 2.4 Basophils % % 0.3 Nucleated RBC % (0.0-0.3) % 0.0 Absolute Neutrophils (1.2-6.7) 10^3/uL 4.96 Absolute Lymphocytes (1.2-3.4) 10^3/uL 0.65 L Absolute Monocytes (0.1-0.8) 10^3/uL 0.14 Absolute Eosinophils (0.0-0.7) 10^3/uL 0.14 Absolute Basophils (0.0-0.2) 10^3/uL 0.02 Medical Decision Making Emergent evaluation of abdominal pain. Patient has metastatic pancreatic cancer known abdominal and peritoneal metastasis. She states that she was told by her oncologist that her pain is secondary to these lesions, and that the ascites just presses against the lesions and makes things worse. She did have a 4 L tap on September 13 but I do not appreciate a significant amount of ascites on her examination. Low suspicion for SBP. Would also consider stent failure, worsened disease. Will check lab work, give pain control and get CT imaging today. Lab work reviewed. No leukocytosis or anemia. She does not have electrolyte derangement or renal failure. Mild hyperglycemia. LFTs and bilirubin are within normal limits. Her procalcitonin is also negative. I have a low suspicion for SBP. Her CT scan report was reviewed and there does appear to be a fair amount of ascites so I do not feel that a large-volume paracentesis would benefit her in the emergency department today. I did discuss with general surgery and they can likely arrange for it to be done tomorrow or Thursday. The patient has a complex history and will need recurrent taps. Patient feels comfortable going home continuing her pain control and following up tomorrow Quality:SDOH Health Related Social Needs: No Data to Display PFSH All Active Problems (Updated 09/25/24 @ 14:47 by Jamie Ruiz MD) Abdominal ascites (Acute) Cancer related pain (Acute) Nausea (Acute) Hypothyroidism (Chronic) Cancer, metastatic to lung (Acute) [facility] [place]c 02/04/[address] nodules on CT (Acute ~12/2023) 01/12/24 Dr Palacios Thoracic Surg 03/28/24-CT chest w/ contrast-stage IV pancreatic cancer, on chemo, restaging (ordering physician Dr. Stevenson) Left upper lobe pulmonary nodule (Acute) Pancreatic adenocarcinoma (Acute ~11/2023) fine needle aspiration 12/24/23 [facility] [place]/12/24 Thoracic Surgeon 03/28/24-CT chest w contrast: interval decrease in size of an ill-defined mass ar the head of the pancreas. Pancreatic mass (Acute ~12/22/23) 12/22/23 found on endoscopy Elevated LFTs (Acute) Common bile duct (CBD) obstruction (Acute) Stent placed 12/22/23 Gallbladder dilatation (Acute) Elevated transaminase level (Acute) Pancreatitis (Acute) Common bile duct dilatation (Acute) HSV-1 infection (Acute ~2022) DM type 1, goal A1C below 7.5% (Acute) DM 1.5, but adding TYpe 1 2' MGMT per DM 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 see [facility] notes.. 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 PRN, 03/2023 Ganglion cyst Muscle spasm Benign paroxysmal positional vertigo Trochanteric bursitis, left hip Other intervertebral disc degeneration, lumbar region Adjustment disorder with anxious mood Synovial cyst of lumbar facet joint Surgical History H/O endoscopy (~12/22/23) Pancreatic mass found 06/10/2435-OYWO-[id number] of duodenum stented Family History Brother Alcohol use disorder Brother Alcohol use disorder Depression Father Colon cancer Diabetes Mother Asthma Lung cancer ALK positive ( gene mutation) Hypertension Sister Glover disease Paternal Grandmother Heart disease Paternal Grandfather Colon cancer Social History Smoking/Tobacco Use Status: Former Tobacco Use Quit status: considering quitting Smoking risk assessment performed?: Yes Alcohol Intake: former Counseling given: No Drug use: Daily Substance use type: marijuana Household members: spouse Housing: house Number of Children: 3 number of grandchildren: 2 Communication Needs: Corrective Lenses Education Level: college 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 What is your relationship status?: How often do you talk on the phone with friends or family?: three or more times per week How often do you get together with friends or relatives?: three or more times per week Panel score (0-1 are the most socially isolated patients): 2 NHANES result reviewed/action taken: Yes What type of physical activity do you participate in: walking Duration: 45-60 minutes/day Frequency: other Details: exercises as pt feels up to it with current condition Debbi/Episcopal: Nondenominational Special debbi needs: Yes Seatbelt use: always Drive intox or ride w/intox 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
[2024-09-25 13:39] LABS: ALT 22 U/L (14-59); AST 26 U/L (15-37); Albumin 2.3 g/dL (3.4-5.0); Alkaline Phosphatase 99 U/L (46-116); Anion Gap 9.3 mmol/L (3-11); BUN 9 mg/dL (7-18); Bilirubin, Total 0.62 mg/dL (0.2-1.0); CO2 24.7 mmol/L (21.0-32.0); CREATININE 0.7 mg/dL (0.55-1.02); Chloride 106 mmol/L (98-107); Estimated GFR 98.34 (mL/min/1.73m2); Glucose 222 mg/dL (74-106); Lipase 8 U/L (<78); Potassium 4.1 mmol/L (3.5-5.1); Sodium 140 mmol/L (136-145); Total Protein 5.4 g/dL (6.4-8.2)
[2024-09-25 13:45] LABS: Calcium 8.3 mg/dL (8.5-10.1)
[2024-09-25 14:02] LABS: Procalcitonin < 0.10 ng/mL
== END 2024-09-25 14:48 | disposition home or self-care (01) ==
PROVIDERS: Emergency Provider Emergency Medicine; PCP Nurse Practitioner
DX: R18.8 Other ascites (principal); R11.0 Nausea; G89.3 Neoplasm related pain (acute) (chronic); R10.9 Unspecified abdominal pain; C25.9 Malignant neoplasm of pancreas, unspecified; C78.02 Secondary malignant neoplasm of left lung
CPT/HCPCS: 80053; 83690; 84145; 96374; 96375; 99285; 74177; 85025; 99284; J1171; J2405; J3490

== ENCOUNTER 2024-09-28 06:22 | Day surgery (SDC) | payer BC, SELFPAY ==
[2024-09-28 06:20] VITALS: BP 121/81; PULSE 88; RESP 20; TEMP 36.3; O2SAT 95
--- NOTE | 2024-09-28 08:10 | PAPNONF_PTH ---
PATIENT: Meena Costello LOC: [facility] U#:[id number] AGE/SX: 59/F ROOM: RE09/28/[address]: Tomas Fernandez : 1965 BED: DIS: 09/28/2024 SPEC #: [id number] RECD: 09/28/24 12:52 STATUS: LEELA REGreg #: [id number] STACY: 09/28/24 08:[address]: Tomas Fernandez DEPT: [facility] Cytology RECD BY: Aleta Johnson ENTERED: 09/28/24 12:58 SP TYPE: JAVIER RO DR: Thao Rivas APRN Tissues: 1 - BODY FLUID CYTO(NOT S/U/N/EM)[facility] Procedures: BODY FLUID CYTO(NOT SPU/UR/NIP/ENDOM)[facility] CYTOLOGY CELL BLOCK Comments: [id number] (TV = 950 ml, SENT FRESH) (REFRIGERATED)
[2024-09-28 08:33] VITALS: BP 129/86; PULSE 78; RESP 20; TEMP 36.7; O2SAT 96
--- NOTE | 2024-09-28 08:50 | ROE_ITS ---
Operative Note Operative Note Refer to Anesthesia Record Procedure Description: PROCEDURES PERFORMED: 1. U/S guided paracentesis PREOPERATIVE DIAGNOSIS: metastatic panc cancer POSTOPERATIVE DIAGNOSIS: same SURGEON: Tito Fernandez MD INDICATION FOR PROCEDURE: palliative symptom relief from recurrent ascites FINDINGS: 5.5 L of straw-colored ascitic fluid removed. Oncology requested testing, so it was sent this time. SURVEILLANCE-INTERVAL/FOLLOW-UP: Will set up serial paracentesis q2 weeks at this point. Specimens: yes EBL: Minimal COMPLICATIONS: None Procedure in detail: The patient gave written consent and was in agreement with the indications, the potential risks as well as the benefits of the procedure. We performed a timeout and when we were in agreement I started the procedure. I used an ultrasound and verified copious amounts of free fluid in the abdominal cavity. I then prepped and draped the abdominal wall. I injected local anesthetic. This was tolerated well though somewhat painful this time. In typical/usual fashion, I made a very small skin incision and then I advanced the paracentesis catheter complex while aspirating. Her peritoneum lining is thickened(visible on US) and noticeably tough to penetrate. Once I had straw- colored fluid, only the catheter was advanced and then we removed the ascitic fluid using vacuum canisters. 5.5-6 liters was removed. The catheter was then removed and a sterile dressing placed on top. The patient tolerated the procedure well. Date of Procedure: 09/28/24
--- NOTE | 2024-09-28 08:50 | PDOC.DSDIS_ITS ---
Date of service: 09/28/24 Discharge Plan Disposition Patient Disposition: Home Condition: Good Discharge Details Attending Provider: Tomas Fernandez Primary Care Provider: Thao Rivas Home Meds and New Rx's Prescriptions: No Action (DME) blood-glucose meter [OneTouch Verio Flex meter] Misc See Rx Instructions .Route Qty: 1 1RF Rx Instructions: For BID testing of diabetes, E11.9, with A1C goal < 8 (DME) lancets [Lancets,Ultra Thin] Misc See Rx Instructions .Route Qty: 100 1RF Rx Instructions: for BID testing with Verio for DM W11.9 with A1C goal < 8 (DME) Blood Glucose Test Strip See Rx Instructions .ROUTE .MEDSUPPLY Qty: 200 3RF Rx Instructions: For Verio OR covered brand, for bID testing for DM E11.9 Humulin N NPH Insulin KwikPen 100 unit/mL (3 mL) insulin pen 7 unit subcut QAM Qty: 15 3RF Rx Instructions: Inject 7 units 15 min prior to prednisone administration. Can increase as directed. (DME) Dexcom G6 Sensor Device See Rx Instructions .Route Rx Instructions: As directed (DME) CGM (Continuous Glucose Monitor) and SENSOR See Rx Instructions .Route .MEDSUPPLY Qty: 1 1RF Rx Instructions: Dexcom 6 Medical necessity for serious health risk due to TYPE 1 MGMT REQUIREMENT tizanidine 2 mg capsule 2 mg PO DAILY PRN (Reason: muscle spasm) Qty: 30 3RF Fiasp FlexTouch U-100 Insulin 100 unit/mL (3 mL) insulin pen 15 unit subcut TID MDD 45 units 30 Days Qty: 15 12RF Rx Instructions: Inject 15 units subcutaneously with meals as directed. ondansetron HCl 8 mg tablet 8 mg PO Q8H omeprazole 20 mg capsule,delayed release(DR/EC) 20 mg PO BID Patient Comments: Reports 40 mg/d with some benefit. levothyroxine 150 mcg capsule 150 mcg PO DAILY Patient Comments: Patient reports high TSH and dose change from [facility]. oxycodone 5 mg tablet 5 mg PO .complex PRN Patient Comments: 1-2 tabs q4 hrs for pain with hydromorphone gemcitabine 2 gram/52.6 mL (38 mg/mL) solution 1 mg IV Q2W Patient Comments: Dose amount unknown. [address] marker until we find out. Rx Instructions: New Chemotherapy meclizine 25 MG tablet,chewable 25 mg PO DAILY PRN cyclobenzaprine 5 mg tablet 2.5 mg PO DAILY PRN (Reason: SI joint issues) Qty: 10 0RF (DME) pen needle, diabetic [Comfort EZ Pen [place]] 31 gauge x 3/16 needle See Rx Instructions .Route Qty: 400 4RF Rx Instructions: For injected insulin 4x daily, use as directed insulin glargine [Lantus Solostar U-100 Insulin] 100 unit/mL (3 mL) insulin pen 14 unit subcut QPM Qty: 15 5RF (DME) Dexcom G6 Transmitter Device See Rx Instructions .Route Rx Instructions: As directed (DME) Dexcom G6 Transmitter Device See Rx Instructions .Route Qty: 1 0RF Rx Instructions: As directed, keep A1c less than 7.5 insulin aspart U-100 [Novolog FlexPen U-100 Insulin] 100 unit/mL (3 mL) insulin pen 5 unit subcut TID Qty: 15 12RF Rx Instructions: Inject 1-5 units subcutaneously, 1-3 times daily as directed. Creon 36,000-114,000- 180,000 unit capsule,delayed release(DR/EC) 3 - 4 cap PO TID Rx Instructions: administer with meals and/or snacks (18 per day) (DME) lancets [Unistik Comfort Lancets] 28 gauge misc See Rx Instructions .Route Qty: 100 0RF Rx Instructions: check blood sugars manually q3 days when starting insulin pump hydromorphone 2 mg tablet 2 mg PO BID PRN lorazepam 0.5 mg tablet 0.5 mg PO Q6H PRN scopolamine base 1 mg over 3 days patch 3 day 1 patch transdermal Q3D PRN Baqsimi 3 mg/actuation spray,non-aerosol 3 mg intranasal DIRECTED Rx Instructions: as a single dose cyclobenzaprine 10 mg tablet 10 mg PO TID Discharge Instructions Additional Instructions: Return to regular activities, regular diet all your medications as tolerated. Remove the dressing on Thursday. It is okay to shower. Activity:: Activity as Tolerated Diet:: As Tolerated
[2024-09-28 09:17] LABS: Nucleated Cells 2102 uL (0)
[2024-09-28 10:17] LABS: Mononuclear Cells 48 %; Polynuclear Cells 52 %
[2024-09-28 18:09] LABS: Albumin, Body FLuid 1.2 g/dL (See Note)
[2024-09-30 11:04] LABS: Fluid Type PARACENTESIS; Lactate Dehydrogenase (LD), BF 276 U/L
[2024-10-03 09:55] LABS: Immunophenotyping FC (DHMC) See Comments
== END 2024-09-28 09:00 | disposition home or self-care (01) ==
PROVIDERS: Nurse Practitioner Family; PCP Nurse Practitioner; Visit Provider Student in an Organized Health Care Education/Training Program
PROC: 0W9G3ZZ Drainage of Peritoneal Cavity, Percutaneous Approach (ICD-10-PCS; CPT 49082; principal; 2024-09-28 07:30)
DX: R18.8 Other ascites (principal); C25.9 Malignant neoplasm of pancreas, unspecified
CPT/HCPCS: 49082; 00123; 82042; 88184; 88185; 89050; 89051; 83615; 87070; 87205; 88104; 88305

== ENCOUNTER 2024-10-04 10:10 | Day surgery (SDC) | payer BC, SELFPAY ==
--- NOTE | 2024-10-03 16:47 | W.PM.OP ---
Operative Note Operative Note PRE-OP DIAGNOSIS: Metastatic pancreatic cancer POST-OP DIAGNOSIS: same PROCEDURE: Ultrasound-guided paracentesis SURGEON: Tiffany Garcia ANESTHESIA TYPE: Local By Surgeon Refer to Anesthesia Record COMPLICATIONS: None Patient was transported to: same day Procedure Description: Informed consent is obtained, explaining benefits and risks of the procedure including but not limited to: bleeding/infections/damage to bowels or blood vessels/chronic drainage or leakage/need for repeat procedure/reactions to anesthetics.?? The patient is brought to the procedure room and placed in the supine position.?? A time-out is done.? Ultrasound is used to localize the pocket of fluid.? The area is prepped and draped in the usual sterile fashion using a ChloraPrep scrub solution.? 10 cc's of 1% Lidocaine with epinephrine is used for local anesthetization.? The abdomen is punctured and the catheter is inserted.?4500 liters of light yellow fluid is evacuated today.? The catheter is removed.? Pressure dressing is applied.? The patient tolerated the procedure well without complication and transferred to recovery in stable condition.? Date of Procedure: 10/04/24
[2024-10-04 10:22] VITALS: BP 116/86; PULSE 82; RESP 14; TEMP 35.9; O2SAT 97
[2024-10-04] MEDS: Lidocaine 1% Multi-Dose W/EPI 1/100,000 50 ML VIAL (13:53)
[2024-10-04] MEDS: Sodium Bicarbonate 50 MEQ/50 ML VIAL (13:53)
[2024-10-04 14:30] VITALS: BP 107/75; PULSE 77; RESP 18; TEMP 36.2; O2SAT 97
--- NOTE | 2024-10-04 14:32 | DSE_ITS ---
Date of service: 10/04/24 Time of Service: 14:32 Discharge Plan Disposition Patient Disposition: Home Condition: Fair Discharge Details Reason For Visit: Paracentesis Attending Provider: Tiffany Garcia Primary Care Provider: Thao Rivas Home Meds and New Rx's Prescriptions: No Action (DME) blood-glucose meter [OneTouch Verio Flex meter] Misc See Rx Instructions .Route Qty: 1 1RF Rx Instructions: For BID testing of diabetes, E11.9, with A1C goal < 8 (DME) lancets [Lancets,Ultra Thin] Misc See Rx Instructions .Route Qty: 100 1RF Rx Instructions: for BID testing with Verio for DM W11.9 with A1C goal < 8 (DME) Blood Glucose Test Strip See Rx Instructions .ROUTE .MEDSUPPLY Qty: 200 3RF Rx Instructions: For Verio OR covered brand, for bID testing for DM E11.9 Humulin N NPH Insulin KwikPen 100 unit/mL (3 mL) insulin pen 7 unit subcut QAM Qty: 15 3RF Rx Instructions: Inject 7 units 15 min prior to prednisone administration. Can increase as directed. (DME) Dexcom G6 Sensor Device See Rx Instructions .Route Rx Instructions: As directed (DME) CGM (Continuous Glucose Monitor) and SENSOR See Rx Instructions .Route .MEDSUPPLY Qty: 1 1RF Rx Instructions: Dexcom 6 Medical necessity for serious health risk due to TYPE 1 MGMT REQUIREMENT tizanidine 2 mg capsule 2 mg PO DAILY PRN (Reason: muscle spasm) Qty: 30 3RF Fiasp FlexTouch U-100 Insulin 100 unit/mL (3 mL) insulin pen 15 unit subcut TID MDD 45 units 30 Days Qty: 15 12RF Rx Instructions: Inject 15 units subcutaneously with meals as directed. ondansetron HCl 8 mg tablet 8 mg PO Q8H omeprazole 20 mg capsule,delayed release(DR/EC) 20 mg PO BID Patient Comments: Reports 40 mg/d with some benefit. levothyroxine 150 mcg capsule 150 mcg PO DAILY Patient Comments: Patient reports high TSH and dose [place] from [facility]. oxycodone 5 mg tablet 5 mg PO .complex PRN Patient Comments: 1-2 tabs q4 hrs for pain with hydromorphone gemcitabine 2 gram/52.6 mL (38 mg/mL) solution 1 mg IV Q2W Patient Comments: Dose amount unknown. [address] marker until we find out. Rx Instructions: New Chemotherapy meclizine 25 MG tablet,chewable 25 mg PO DAILY PRN cyclobenzaprine 5 mg tablet 2.5 mg PO DAILY PRN (Reason: SI joint issues) Qty: 10 0RF (DME) pen needle, diabetic [Comfort EZ Pen [place]] 31 gauge x 3/16 needle See Rx Instructions .Route Qty: 400 4RF Rx Instructions: For injected insulin 4x daily, use as directed insulin glargine [Lantus Solostar U-100 Insulin] 100 unit/mL (3 mL) insulin pen 14 unit subcut QPM Qty: 15 5RF (DME) Dexcom G6 Transmitter Device See Rx Instructions .Route Rx Instructions: As directed (DME) Dexcom G6 Transmitter Device See Rx Instructions .Route Qty: 1 0RF Rx Instructions: As directed, keep A1c less than 7.5 insulin aspart U-100 [Novolog FlexPen U-100 Insulin] 100 unit/mL (3 mL) insulin pen 5 unit subcut TID Qty: 15 12RF Rx Instructions: Inject 1-5 units subcutaneously, 1-3 times daily as directed. Creon 36,000-114,000- 180,000 unit capsule,delayed release(DR/EC) 3 - 4 cap PO TID Rx Instructions: administer with meals and/or snacks (18 per day) (DME) lancets [Unistik Comfort Lancets] 28 gauge misc See Rx Instructions .Route Qty: 100 0RF Rx Instructions: check blood sugars manually q3 days when starting insulin pump hydromorphone 2 mg tablet 2 mg PO BID PRN lorazepam 0.5 mg tablet 0.5 mg PO Q6H PRN scopolamine base 1 mg over 3 days patch 3 day 1 patch transdermal Q3D PRN Baqsimi 3 mg/actuation spray,non-aerosol 3 mg intranasal DIRECTED Rx Instructions: as a single dose cyclobenzaprine 10 mg tablet 10 mg PO TID Discharge Orders Discharge Orders: Discharge Order (Routine); Ordered 10/04/24 Ordered By: Tiffany Garcia Discharge Data Discharge Date/Time-TO BE ENTERED AT DEPARTURE: 10/04/24 15:15 DS: Summary Time Spent with Patient providing and/or coordinating discharge services: Less than 30 minutes Status at Discharge Functional status at discharge: independent ambulation Overall status at discharge: patient is progressing back to baseline Mental Status: mental status grossly normal Speech and Movement: speech and movement normal Mood: congruent mood Affect: normal affect Quality:SDOH Health Related Social Needs: No Data to Display Exam Psych Mental Status: mental status grossly normal Speech and Movement: speech and movement normal Mood: congruent mood Affect: normal affect DS: Data Vitals/I&O Vitals and I&O: Vital Signs Temperature 35.9 C L 10/04/24 10:22 Pulse 82 10/04/24 10:22 Pulse Rhythm Regular 10/04/24 10:22 Respiratory Rate 14 10/04/24 10:22 Respiratory Depth Normal 10/04/24 10:22 Blood Pressure 116/86 10/04/24 10:22 Pulse Oximetry 97 10/04/24 10:22 Oxygen Delivery Method Room Air 10/04/24 10:22 Oxygen Flow Rate 0 10/04/24 10:22 Pain Level 0 10/04/24 10:22 PFSH All Active Problems Abdominal ascites (Acute) Cancer related pain (Acute) Nausea (Acute) Hypothyroidism (Chronic) Cancer, metastatic to lung (Acute) [facility] [place]Onc 02/04/[address] nodules on CT (Acute ~12/2023) 01/12/24 Dr Palacios Thoracic Surg 03/28/24-CT chest w/ contrast-stage IV pancreatic cancer, on chemo, restaging (ordering physician Dr. Stevenson) Left upper lobe pulmonary nodule (Acute) Pancreatic adenocarcinoma (Acute ~11/2023) fine needle aspiration 12/24/23 [facility] [place]/12/24 Thoracic Surgeon 03/28/24-CT chest w contrast: interval decrease in size of an ill-defined mass ar the head of the pancreas. Pancreatic mass (Acute ~12/22/23) 12/22/23 found on endoscopy Elevated LFTs (Acute) Common bile duct (CBD) obstruction (Acute) Stent placed 12/22/23 Gallbladder dilatation (Acute) Elevated transaminase level (Acute) Pancreatitis (Acute) Common bile duct dilatation (Acute) HSV-1 infection (Acute ~2022) DM type 1, goal A1C below 7.5% (Acute) DM 1.5, but adding TYpe 1 2' MGMT per DM 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 see [facility] notes.. (Hx POS DM 1?!) Medical History Duodenal obstruction (05/2024) complete obstruction of 1st part of duodenum-st[place] 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 PRN, 03/2023 Ganglion cyst Muscle spasm Benign paroxysmal positional vertigo Trochanteric bursitis, left hip Other intervertebral disc degeneration, lumbar region Adjustment disorder with anxious mood Synovial cyst of lumbar facet joint Surgical History History of abdominal paracentesis (~09/2024) H/O endoscopy (~12/22/23) Pancreatic mass found 06/10/[id number] of duodenum stented Family History Brother Alcohol use disorder Brother Alcohol use disorder Depression Father Colon cancer Diabetes Mother Asthma Lung cancer ALK positive ( gene mutation) Hypertension Sister [place] disease Paternal Grandmother Heart disease Paternal Grandfather Colon cancer Social History Smoking/Tobacco Use Status: Former Tobacco Use Quit status: considering quitting Smoking risk assessment performed?: Yes Alcohol Intake: former Counseling given: No Drug use: Daily Substance use type: marijuana Household members: spouse Housing: house Number of Children: 3 number of grandchildren: 2 Communication Needs: Corrective Lenses Education Level: college 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 What is your relationship status?: How often do you talk on the phone with friends or family?: three or more times per week How often do you get together with friends or relatives?: three or more times per week Panel score (0-1 are the most socially isolated patients): 2 NHANES result reviewed/action taken: Yes What type of physical activity do you participate in: walking Duration: 45-60 minutes/day Frequency: other Details: exercises as pt feels up to it with current condition Debbi/Worship: Jain Special debbi needs: Yes Seatbelt use: always Drive intox or ride w/intox sprinkling truck driver: No Working smoke detector in home: Yes Carbon monox detector in home: Yes Do you feel safe at home: Yes Do you feel safe in your relationship?: Yes Time Spent with Patient Time Spent with Patient: <45 minutes Time was spent: preparing to see the patient(eg.review tests), obtaining and/or reviewing separately otained hiistory, ordering medications,tests, procedures, referring, communicating with other health medicare insurance specialist, indepentently interpreting results, counseling the patient, care coordination and other
== END 2024-10-04 15:15 | disposition home or self-care (01) ==
PROVIDERS: PCP Nurse Practitioner; Visit Provider Surgery
PROC: 0W9G3ZZ Drainage of Peritoneal Cavity, Percutaneous Approach (ICD-10-PCS; CPT 49082; principal; 2024-10-04 11:45)
DX: C25.9 Malignant neoplasm of pancreas, unspecified (principal); R18.8 Other ascites
CPT/HCPCS: 49083; J2004

== ENCOUNTER 2024-10-20 00:19 | Outpatient (RCR) | payer BC, SELFPAY ==
[2024-09-29] MEDS: Normal Saline Flush 10 ML SYR IVP (08:06)
[2024-09-29 08:21] LABS: Abs Immature Grans 0.02 10^3/uL (0.0-0.06); Absolute Basophil Count 0.02 10^3/uL (0.0-0.2); Absolute Eosinophil Count 0.02 10^3/uL (0.0-0.7); Absolute Monocyte Count 0.13 10^3/uL (0.1-0.8); Absolute Neutrophil Count 1.07 10^3/uL (1.2-6.7); Basophils % 1.1 %; Eosinophils % 1.1 %; HCT 32.7 % (36.0-46.0); HGB 10.9 g/dL (11.2-15.7); Immature Grans % 1.1 %; Lymphocytes % 28.4 %; MCH 31.4 pg (27.0-33.0); MCHC 33.3 % (32.0-36.0); MCV 94 fL (80-95); MPV 9.6 fL (8.0-11.0); Monocytes % 7.4 %; Neutrophils % 60.9 %; Platelet Count 292 10^3/uL (130-400); RBC 3.47 10^6/uL (3.93-5.22); RDW 13.3 % (11.7-14.6); RDW-SD 45.3 fL
[2024-09-29 08:33] LABS: WBC 1.76 10^3/uL (4.4-10.8)
[2024-09-29 08:39] LABS: Diff Comment Agrees w/ Instrument; RBC Morphology Normal
[2024-09-29 08:41] LABS: ALT 20 U/L (14-59); AST 25 U/L (15-37); Albumin 2.2 g/dL (3.4-5.0); Alkaline Phosphatase 89 U/L (46-116); Anion Gap 8.5 mmol/L (3-11); BUN 6 mg/dL (7-18); Bilirubin, Total 0.22 mg/dL (0.2-1.0); CO2 25.5 mmol/L (21.0-32.0); CREATININE 0.8 mg/dL (0.55-1.02); Calcium 8.2 mg/dL (8.5-10.1); Chloride 108 mmol/L (98-107); Estimated GFR 83.78 (mL/min/1.73m2); Glucose 122 mg/dL (74-106); Sodium 142 mmol/L (136-145); Total Protein 5.2 g/dL (6.4-8.2)
[2024-09-30 10:47] LABS: CA 19-9 5213 U/mL (<35)
[2024-10-06] MEDS: Normal Saline Flush 10 ML SYR IVP (08:14)
[2024-10-06 09:18] LABS: Abs Immature Grans 0.09 10^3/uL (0.0-0.06); Absolute Basophil Count 0.05 10^3/uL (0.0-0.2); Absolute Eosinophil Count 0.25 10^3/uL (0.0-0.7); Absolute Monocyte Count 1.02 10^3/uL (0.1-0.8); Absolute Neutrophil Count 8.01 10^3/uL (1.2-6.7); Basophils % 0.5 %; Eosinophils % 2.4 %; HCT 38.1 % (36.0-46.0); HGB 12.5 g/dL (11.2-15.7); Immature Grans % 0.9 %; Lymphocytes % 8.7 %; MCH 31.2 pg (27.0-33.0); MCHC 32.8 % (32.0-36.0); MCV 95 fL (80-95); Monocytes % 9.9 %; Neutrophils % 77.6 %; Platelet Count 250 10^3/uL (130-400); RBC 4.01 10^6/uL (3.93-5.22); RDW 13.8 % (11.7-14.6); RDW-SD 48.1 fL; WBC 10.32 10^3/uL (4.4-10.8)
[2024-10-06 09:31] LABS: ALT 18 U/L (14-59); AST 23 U/L (15-37); Albumin 2.2 g/dL (3.4-5.0); Alkaline Phosphatase 114 U/L (46-116); Anion Gap 8.3 mmol/L (3-11); BUN 5 mg/dL (7-18); Bilirubin, Total 0.31 mg/dL (0.2-1.0); CO2 25.7 mmol/L (21.0-32.0); CREATININE 0.8 mg/dL (0.55-1.02); Calcium 8.8 mg/dL (8.5-10.1); Chloride 107 mmol/L (98-107); Estimated GFR 83.78 (mL/min/1.73m2); Glucose 128 mg/dL (74-106); Potassium 3.9 mmol/L (3.5-5.1); Sodium 141 mmol/L (136-145); Total Protein 5.5 g/dL (6.4-8.2)
[2024-10-20 10:04] LABS: Abs Immature Grans 0.13 10^3/uL (0.0-0.06); Absolute Basophil Count 0.05 10^3/uL (0.0-0.2); Absolute Eosinophil Count 0.23 10^3/uL (0.0-0.7); Absolute Lymphocyte Count 0.69 10^3/uL (1.2-3.4); Absolute Neutrophil Count 7.29 10^3/uL (1.2-6.7); Basophils % 0.5 %; Eosinophils % 2.4 %; HCT 35.3 % (36.0-46.0); HGB 11.5 g/dL (11.2-15.7); Immature Grans % 1.4 %; Lymphocytes % 7.2 %; MCH 30.8 pg (27.0-33.0); MCHC 32.6 % (32.0-36.0); MCV 95 fL (80-95); MPV 9.5 fL (8.0-11.0); Monocytes % 12.5 %; Platelet Count 344 10^3/uL (130-400); RBC 3.73 10^6/uL (3.93-5.22); RDW 14.4 % (11.7-14.6); RDW-SD 48.6 fL; WBC 9.59 10^3/uL (4.4-10.8)
[2024-10-20 10:19] LABS: ALT 15 U/L (14-59); AST 25 U/L (15-37); Albumin 1.9 g/dL (3.4-5.0); Alkaline Phosphatase 108 U/L (46-116); Anion Gap 8.8 mmol/L (3-11); BUN 9 mg/dL (7-18); Bilirubin, Total 0.41 mg/dL (0.2-1.0); CO2 26.2 mmol/L (21.0-32.0); CREATININE 0.8 mg/dL (0.55-1.02); Calcium 8.4 mg/dL (8.5-10.1); Chloride 104 mmol/L (98-107); Estimated GFR 83.78 (mL/min/1.73m2); Glucose 171 mg/dL (74-106); Potassium 3.7 mmol/L (3.5-5.1); Sodium 139 mmol/L (136-145); Total Protein 5.3 g/dL (6.4-8.2)
[2024-10-21 10:49] LABS: CA 19-9 6140 U/mL (<35)
== END 2024-10-25 23:59 | disposition home or self-care (01) ==
LOC: INF 00:19
PROVIDERS: PCP Nurse Practitioner; Visit Provider Internal Medicine Hematology & Oncology
DX: C25.0 Malignant neoplasm of head of pancreas (principal); Z45.2 Encounter for adjustment and management of vascular access device
CPT/HCPCS: 36591; 80053; 85025; 86301

== ENCOUNTER 2024-10-30 17:55 | Observation (INO) | payer BC, SELFPAY ==
[2024-10-30] VITALS (14 sets, daily range): BP systolic 122–143; BP diastolic 70–95; PULSE 84–97; RESP 0–27; TEMP 36.4–36.7; O2SAT 92–97
--- NOTE | 2024-10-30 18:29 | W.ED.GENAD ---
Discharge Plan Disposition Patient Disposition: Admit to [facility] Discharge Details Clinical Impression: Hypoglycemia Primary Care Provider: Thao Rivas ED Provider: Christian Singh [place] Meds and New Rx's Prescriptions: No Action (DME) blood-glucose meter [OneTouch Verio Flex meter] Misc See Rx Instructions .Route Qty: 1 1RF Rx Instructions: For BID testing of diabetes, E11.9, with A1C goal < 8 (DME) lancets [Lancets,Ultra Thin] Misc See Rx Instructions .Route Qty: 100 1RF Rx Instructions: for BID testing with Verio for DM W11.9 with A1C goal < 8 (DME) Blood Glucose Test Strip See Rx Instructions .ROUTE .MEDSUPPLY Qty: 200 3RF Rx Instructions: For Verio OR covered brand, for bID testing for DM E11.9 Humulin N NPH Insulin KwikPen 100 unit/mL (3 mL) insulin pen 7 unit subcut QAM Qty: 15 3RF Rx Instructions: Inject 7 units 15 min prior to prednisone administration. Can increase as directed. (DME) Dexcom G6 Sensor Device See Rx Instructions .Route Rx Instructions: As directed (DME) CGM (Continuous Glucose Monitor) and SENSOR See Rx Instructions .Route .MEDSUPPLY Qty: 1 1RF Rx Instructions: Dexcom 6 Medical necessity for serious health risk due to TYPE 1 MGMT REQUIREMENT tizanidine 2 mg capsule 2 mg PO DAILY PRN (Reason: muscle spasm) Qty: 30 3RF Fiasp FlexTouch U-100 Insulin 100 unit/mL (3 mL) insulin pen 15 unit subcut TID MDD 45 units 30 Days Qty: 15 12RF Rx Instructions: Inject 15 units subcutaneously with meals as directed. ondansetron HCl 8 mg tablet 8 mg PO Q8H omeprazole 20 mg capsule,delayed release(DR/EC) 20 mg PO BID Patient Comments: Reports 40 mg/d with some benefit. levothyroxine 150 mcg capsule 150 mcg PO DAILY Patient Comments: Patient reports high TSH and dose change from [facility]. oxycodone 5 mg tablet 5 mg PO .complex PRN Patient Comments: 1-2 tabs q4 hrs for pain with hydromorphone gemcitabine 2 gram/52.6 mL (38 mg/mL) solution 1 mg IV Q2W Patient Comments: Dose amount unknown. [address] marker until we find out. Rx Instructions: New Chemotherapy dexamethasone 1 mg tablet 1 - 4 mg PO DAILY Qty: 90 4RF gabapentin 100 mg capsule 100 - 200 mg PO TID Qty: 90 0RF clonazepam 0.5 mg tablet 0.5 mg PO QHS Qty: 30 4RF Rx Instructions: Take in the evening for dysgeusia meclizine 25 MG tablet,chewable 25 mg PO DAILY PRN cyclobenzaprine 5 mg tablet 2.5 mg PO DAILY PRN (Reason: SI joint issues) Qty: 10 0RF (DME) pen needle, diabetic [Comfort EZ Pen [place]] 31 gauge x 3/16 needle See Rx Instructions .Route Qty: 400 4RF Rx Instructions: For injected insulin 4x daily, use as directed insulin glargine [Lantus Solostar U-100 Insulin] 100 unit/mL (3 mL) insulin pen 14 unit subcut QPM Qty: 15 5RF (DME) Dexcom G6 Transmitter Device See Rx Instructions .Route Rx Instructions: As directed (DME) Dexcom G6 Transmitter Device See Rx Instructions .Route Qty: 1 0RF Rx Instructions: As directed, keep A1c less than 7.5 insulin aspart U-100 [Novolog FlexPen U-100 Insulin] 100 unit/mL (3 mL) insulin pen 5 unit subcut TID Qty: 15 12RF Rx Instructions: Inject 1-5 units subcutaneously, 1-3 times daily as directed. Creon 36,000-114,000- 180,000 unit capsule,delayed release(DR/EC) 3 - 4 cap PO TID Rx Instructions: administer with meals and/or snacks (18 per day) (DME) lancets [Unistik Comfort Lancets] 28 gauge misc See Rx Instructions .Route Qty: 100 0RF Rx Instructions: check blood sugars manually q3 days when starting insulin pump hydromorphone 2 mg tablet 2 mg PO BID PRN lorazepam 0.5 mg tablet 0.5 mg PO Q6H PRN scopolamine base 1 mg over 3 days patch 3 day 1 patch transdermal Q3D PRN Baqsimi 3 mg/actuation spray,non-aerosol 3 mg intranasal DIRECTED Rx Instructions: as a single dose cyclobenzaprine 10 mg tablet 10 mg PO TID fentanyl 25 mcg/hr patch 72 hour 1 patch transdermal Q72H MDD 1 patch Qty: 10 0RF naloxone [Narcan] 4 mg/actuation spray,non-aerosol 4 mg intranasal Q2M PRN (Reason: opioid overdose) Qty: 2 0RF Rx Instructions: spray 1 dose into ONE nostril; alternate nostrils w each dose until help arrives HPI General Date/Time Provider Initiated Documentation: 10/30/24 18:20. HPI Narrative: MDM This is an overall well-appearing normothermic and not tachycardic 59-year-old female with generalized abdominal tenderness and history of metastatic pancreatic adenocarcinoma concerning for the possibility of disease progression for which patient will undergo CT scan of her abdomen. Her hypoglycemia is also concerning and so we will initiate a D10 drip. Will also plan on assessing electrolytes. Patient is alert oriented so no indication for glucagon. Given her nausea will obtain ECG and troponin testing to assess for ACS. Patient did have a normal bowel movement earlier today so my suspicion is lower for small bowel obstruction. No specific right lower quadrant tenderness to suggest appendicitis. Not obstipated nor constipated to suggest increased risk for small bowel obstruction. No specific right upper quadrant tenderness to suggest acute cholecystitis. Given no fevers and not suspicious for diverticulitis. No rash to abdomen to suggest zoster. I considered sepsis however the patient has not had fevers and is not tachycardic nor hypotensive so I did not treat empirically with broad-spectrum antibiotics check a lactate and obtain blood cultures. Will reassess following labs and fluids. 11 PM Patient was still nauseous despite scopolamine patch I gave her ondansetron. Given her hypoglycemia on her glucometer at home and spoke with Dr. Walden who agreed to hospitalize patient. She had stable appearance of her CT abdomen pelvis. Given no fevers I was not suspicious for bacterial peritonitis I did not feel the patient required diagnostic paracentesis. Reassuring repeat fingerstick blood glucose. Was in touch with Dr. Walden as patient was persistently nauseous and he agreed graciously to accept the patient for hospitalization. I added on a lipase which was reassuring. CT scan was read showing chronic but no acute changes. Chronic conditions affecting the care of the patient: Metastatic pancreatic adenocarcinoma History obtained from an outside historian: N/A External record review: [facility] Diagnostic interpretations performed by me: Per my independent interpretation EKG shows: Prolonged QT on ECG. ]Medications: Scopolamine ondansetron Social determinants of health affecting disposition: N/A Management discussed with: Dr. Walden Treatment/interventions considered: N/A Response to therapies provided: Persistent symptoms in the ED HPI Patient presents for evaluation of vomiting, hypoglycemia, constipation, pancreatic cancer, and peritoneal fluid accumulation. She is accompanied by her . She experienced an episode of vomiting last night following a dinner outing, which persisted throughout the night. 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 She reports no recent fevers. She had two bowel movements this afternoon, which she describes as significant, and felt some relief afterward. However, she continues to experience vomiting. She also reported hypoglycemia, with a blood sugar level of 70 upon waking up in the middle of the night. Despite attempts to consume carbohydrates, she was only able to sleep for an additional hour before experiencing another hypoglycemic episode, with a blood sugar level of 69. She attempted to manage her hypoglycemia with prune juice, but this resulted in further vomiting. She used a powder to normalize her blood sugar levels, which allowed her to sleep. A home health nurse visited her around 3:00 PM today and found her blood sugar to be in the 60s. The nurse advised her to eat something, but she vomited within 5 minutes of consuming soup.Her A1c is reportedly 7.5%. She says that she has not lost any significant recent weight. She has a history of exploratory surgery and has undergone stent placement in the duodenum and bile duct dilation. She is currently undergoing chemotherapy. She also reports constipation, which she believes is related to her fentanyl patch. She has a PleurX drain due to peritoneal fluid accumulation, with a total of 13.3 liters drained over the past month. She experiences intermittent shortness of breath, which she believes is related to the pressure from the fluid accumulation. She manages the drain herself, removing approximately 1 liter of fluid daily Exam General: Well-appearing in no acute distress speaking in complete sentences. Head: Normocephalic, atraumatic. Eye: Extraocular eye movements intact. No conjunctival injection. No scleral icterus. Ear, nose, mouth, throat: Grossly normal inspection. Normal voice, handling secretions normally. Neck: Trachea midline. Cardiovascular: Well-perfused distal extremities. Regular rate and rhythm. Chest wall: Right chest wall port in place Respiratory: Nonlabored respiration. Clear lungs bilaterally. Gastrointestinal: Mild abdominal distention. Right lower quadrant with Pleurx drain in place. Musculoskeletal: No edema. Moving all 4 extremities spontaneously. Skin: Normal for age and race, grossly normal temperature and turgor. No acute rash. Neurologic: Alert and appropriate, no apparent acute deficits. Psychiatric: Mood and manner are appropriate. Grooming and personal hygiene are appropriate. Related Data Home Medications ?Medication ?Instructions ?Recorded ?Confirmed meclizine 25 mg chewable tablet 25 mg PO DAILY PRN 05/18/17 10/30/24 blood sugar diagnostic (Blood #200 ea 03/16/23 10/30/24 Glucose Test strips) blood-glucose meter (OneTouch #1 ea 03/16/23 10/30/24 Verio Flex Meter) lancets (Lancets,Ultra Thin) #100 ea 03/16/23 10/30/24 cyclobenzaprine 5 mg tablet 2.5 mg (1/2 x 5 mg) PO DAILY PRN 01/14/24 10/30/24 SI joint issues #10 tabs pen needle, diabetic 31 gauge x #400 ea 01/26/24 10/30/24 3/16 (Comfort EZ Pen [place]) insulin NPH isoph U-100 human 100 7 unit (0.07 mL) subcut QAM #15 mL 02/08/24 10/30/24 unit/mL (3 mL) subcutaneous pen (Humulin N NPH U-100 Insulin KwikPen) insulin glargine 100 unit/mL (3 14 unit (0.14 mL) subcut QPM #15 mL 02/09/24 10/30/24 mL) subcutaneous pen (Lantus Solostar U-100 Insulin) insulin aspart 15 unit subcut TID 30 days #15 mL 02/26/24 10/30/24 (niacinamide)(U-100) 100 unit/mL(3 mL) subcutaneous pen (Fiasp FlexTouch U-100 Insulin) CGM (Continuous Glucose Monitor) #1 ea 03/08/24 10/30/24 blood-glucose sensor (DesignCrowdcom G6 03/08/24 10/30/24 Sensor device) tizanidine 2 mg capsule 2 mg PO DAILY PRN muscle spasm #30 03/08/24 10/30/24 caps blood-glucose transmitter (Dexcom 03/15/24 10/30/24 G6 Transmitter device) blood-glucose transmitter (Dexcom #1 ea 03/15/24 10/30/24 G6 Transmitter device) insulin aspart U-100 100 unit/mL 5 unit (0.05 mL) subcut TID #15 mL 04/12/24 10/30/24 (3 mL) subcutaneous pen (Novolog FlexPen U-100 Insulin aspart) [id number] 3 - 4 cap PO TID 05/19/24 10/30/24 36,000-114,000-180,000 unit capsule,delay rel (Creon) omeprazole 20 mg capsule,delayed 20 mg PO BID GI issues with 05/23/24 10/30/24 release chemotherapy ondansetron HCl 8 mg tablet 8 mg PO Q8H 06/07/24 10/30/24 lancets 28 gauge (Unistik Comfort #100 ea 07/13/24 10/30/24 Lancets) cyclobenzaprine 10 mg tablet 10 mg PO TID 08/02/24 10/30/24 glucagon 3 mg/actuation nasal 3 mg intranasal DIRECTED 08/02/24 10/30/24 spray (Baqsimi) hydromorphone 2 mg tablet 2 mg PO BID PRN 08/02/24 10/30/24 lorazepam 0.5 mg tablet 0.5 mg PO Q6H PRN 08/02/24 10/30/24 scopolamine base 1 mg over 3 days 1 patch transdermal Q3D PRN 08/02/24 10/30/24 transdermal patch levothyroxine 150 mcg capsule 150 mcg PO DAILY 08/22/24 10/30/24 oxycodone 5 mg tablet 5 mg PO .complex PRN 08/22/24 10/30/24 gemcitabine 2 gram/52.6 mL (38 1 mg IV Q2W 09/05/24 10/30/24 mg/mL) intravenous solution clonazepam 0.5 mg tablet 0.5 mg PO QHS #30 tabs 10/14/24 10/30/24 dexamethasone 1 mg tablet 1 - 4 mg (1 - 4 x 1 mg) PO DAILY 10/14/24 10/30/24 #90 tabs gabapentin 100 mg capsule 100 - 200 mg (1 - 2 x 100 mg) PO 10/14/24 10/30/24 TID #90 caps fentanyl 25 mcg/hr transdermal 1 patch transdermal Q72H #10 ea 10/18/24 10/30/24 patch naloxone 4 mg/actuation nasal 4 mg intranasal Q2M PRN opioid 10/18/24 10/30/24 spray (Narcan) overdose #2 ea Previous Rx's ?Medication ?Instructions ?Recorded blood sugar diagnostic (Blood #200 ea 03/16/23 Glucose Test strips) blood-glucose meter (OneTouch #1 ea 03/16/23 Verio Flex Meter) lancets (Lancets,Ultra Thin) #100 ea 03/16/23 cyclobenzaprine 5 mg tablet 2.5 mg (1/2 x 5 mg) PO DAILY PRN 01/14/24 SI joint issues #10 tabs pen needle, diabetic 31 gauge x #400 ea 01/26/2401/08 (Comfort EZ Pen [place]) insulin NPH isoph U-100 human 100 7 unit (0.07 mL) subcut QAM #15 mL 02/08/24 unit/mL (3 mL) subcutaneous pen (Humulin N NPH U-100 Insulin KwikPen) insulin glargine 100 unit/mL (3 14 unit (0.14 mL) subcut QPM #15 mL 02/09/24 mL) subcutaneous pen (Lantus Solostar U-100 Insulin) insulin aspart 15 unit subcut TID 30 days #15 mL 02/26/24 (niacinamide)(U-100) 100 unit/mL(3 mL) subcutaneous pen (Fiasp FlexTouch U-100 Insulin) CGM (Continuous Glucose Monitor) #1 ea 03/08/24 tizanidine 2 mg capsule 2 mg PO DAILY PRN muscle spasm #30 03/08/24 caps blood-glucose transmitter (Dexcom #1 ea 03/15/24 G6 Transmitter device) insulin aspart U-100 100 unit/mL 5 unit (0.05 mL) subcut TID #15 mL 04/12/24 (3 mL) subcutaneous pen (Novolog FlexPen U-100 Insulin aspart) lancets 28 gauge (Unistik Comfort #100 ea 07/13/24 Lancets) clonazepam 0.5 mg tablet 0.5 mg PO QHS #30 tabs 10/14/24 dexamethasone 1 mg tablet 1 - 4 mg (1 - 4 x 1 mg) PO DAILY 10/14/24 #90 tabs gabapentin 100 mg capsule 100 - 200 mg (1 - 2 x 100 mg) PO 10/14/24 TID #90 caps fentanyl 25 mcg/hr transdermal 1 patch transdermal Q72H #10 ea 10/18/24 patch naloxone 4 mg/actuation nasal 4 mg intranasal Q2M PRN opioid 10/18/24 spray (Narcan) overdose #2 ea Allergies Allergy/AdvReac Type Severity Reaction Status Date / Time hydromorphone AdvReac Dizziness/L Verified 10/30/24 18:05 ighthead oxycodone AdvReac Nausea Verified 10/30/24 18:05 narcotics AdvReac Nausea Uncoded 10/30/24 18:05 General Stated Complaint: Abd Prob EARL: 3 Course Vital Signs Vital signs: Vital Signs Temperature 36.4 C 10/30/24 17:59 Pulse 97 H 10/30/24 17:59 Respiratory Rate 15 10/30/24 17:59 Blood Pressure 139/95 H 10/30/24 17:59 Pulse Oximetry 94 10/30/24 17:59 Temperature 36.4 C 10/30/24 18:03 Pulse 97 H 10/30/24 18:03 Respiratory Rate 15 10/30/24 18:03 Blood Pressure 139/95 H 10/30/24 18:03 Blood Pressure Position Sitting 10/30/24 18:03 Pulse Oximetry 94 10/30/24 18:03 Oxygen Delivery Method Room Air 10/30/24 18:03 Oxygen Flow Rate 0 10/30/24 18:03 Medical Decision Making Quality:SDOH Health Related Social Needs: No Data to Display PFSH All Active Problems (Updated 10/30/24 @ 22:34 by Christian Singh MD) Hypoglycemia (Acute) Cancer related pain (Acute) Nausea (Acute) Hypothyroidism (Chronic) Cancer, metastatic to lung (Acute) [facility] Hem/Onc 02/04/[address] nodules on CT (Acute ~12/2023) 01/12/24 Dr Palacios Thoracic Surg 03/28/24-CT chest w/ contrast-stage IV pancreatic cancer, on chemo, restaging (ordering physician Dr. Stevenson) Left upper lobe pulmonary nodule (Acute) Pancreatic adenocarcinoma (Acute ~11/2023) fine needle aspiration 12/24/23 [facility] 01/12/24 Thoracic Surgeon 03/28/24-CT chest w contrast: interval decrease in size of an ill-defined mass ar the head of the pancreas. Pancreatic mass (Acute ~12/22/23) 12/22/23 found on endoscopy Elevated LFTs (Acute) Common bile duct (CBD) obstruction (Acute) Stent placed 12/22/23 Gallbladder dilatation (Acute) Elevated transaminase level (Acute) Pancreatitis (Acute) Common bile duct dilatation (Acute) HSV-1 infection (Acute ~2022) DM type 1, goal A1C below 7.5% (Acute) DM 1.5, but adding TYpe 1 2' MGMT per DM 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 see [facility] notes.. 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 PRN, 03/2023 Ganglion cyst Muscle spasm Benign paroxysmal positional vertigo Trochanteric bursitis, left hip Other intervertebral disc degeneration, lumbar region Adjustment disorder with anxious mood Synovial cyst of lumbar facet joint Surgical History History of abdominal paracentesis (~09/2024) H/O endoscopy (~12/22/23) Pancreatic mass found 06/10/2487-[id number]-[id number] of duodenum stented Family History Brother Alcohol use disorder Brother Alcohol use disorder Depression Father Colon cancer Diabetes Mother Asthma Lung cancer ALK positive ( gene mutation) Hypertension Sister [place] disease Paternal Grandmother Heart disease Paternal Grandfather Colon cancer Social History Smoking/Tobacco Use Status: Former Tobacco Use Quit status: considering quitting Smoking risk assessment performed?: Yes Alcohol Intake: former Counseling given: No Drug use: Daily Substance use type: marijuana Household members: spouse Housing: house Number of Children: 3 number of grandchildren: 2 Communication Needs: Corrective Lenses Education Level: college current occupation: retired [employer] What is your relationship status?: How often do you talk on the phone with friends or family?: three or more times per week How often do you get together with friends or relatives?: three or more times per week Panel score (0-1 are the most socially isolated patients): 2 NHANES result reviewed/action taken: Yes What type of physical activity do you participate in: walking Duration: 45-60 minutes/day Frequency: other Details: exercises as pt feels up to it with current condition Debbi/Sabianist: Cheondoism Special debbi needs: Yes Seatbelt use: always Drive intox or ride w/intox front end driver: No Working smoke detector in home: Yes Carbon monox detector in home: Yes Do you feel safe at home: Yes Do you feel safe in your relationship?: Yes
--- NOTE | 2024-10-30 18:30 | RT.EKG_ITS ---
APPROVED REPORT Exam: Resting ECG Reason for Exam: Nausea Patient Location: E HR:84 bpm ECG Measurements Heart Rate 84 AXIS MS 130 P 26 QRSd 304 QRS 210 QT 545 T [id number] QTc 646 Conclusion Sinus rhythm...normal P axis, V-rate 60- 99 Atrial premature complexes...SV complexes w/ short R-R intvls Nonspecific intraventricular conduction delay...QRSd >115mS, not LBBB/RBBB Inferior infarct, old...Q >35mS, II III aVF Anterolateral infarct, age indeterminate...Q >35mS, flat/neg T, V3-V6,I,aVL Prolonged QT interval...QTc >500mS Narrow complex sinus rhythm at a rate of 84 with prolonged QTc. QT appears less than half the RR int erval. Normal axis. No ST segment abnormalities. No prior for comparison.
--- NOTE | 2024-10-30 18:30 | DI.CT_ITS ---
Exam(s) CT ABDOMEN PELVIS W EXAM: CT ABDOMEN PELVIS W CLINICAL HISTORY: Abdominal pain TECHNIQUE: Imaging Protocol: Axial computed tomography images with coronal and sagittal reformatted images were created and reviewed. CONTRAST MATERIAL: Intravenous: Omnipaque 350 Contrast volume:75 mL Oral: No COMPARISON: CT CT ABDOMEN PELVIS W from 09/25/2024 FINDINGS: ABDOMEN: Lung Bases: There is scarring or atelectasis in the left lower lobe. Liver: Normal density. No measurable mass. Portal, Superior Mesenteric, and Splenic Veins: Unremarkable. Gallbladder and Biliary Tract: There is again seen a biliary stent in place. There is pneumobilia. No biliary ductal dilatation is seen. No cholelithiasis. Pancreas: Pancreatic atrophy is present. There is unchanged dilatation of the pancreatic duct. The pancreatic head is unchanged. Spleen: Normal. Adrenals: There is stable bilateral adrenal nodularity likely reflecting adrenal adenomas. Kidneys: Normal size, contour and axis. No radiodense stones or obstructive uropathy. 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 No suspicious renal masses. Abdominal Aorta: Abdominal portion non-dilated. Atherosclerotic calcification is present. Bowel: No evidence of bowel obstruction is present. No new or significant bowel wall thickening is se en to suggest an acute infectious or inflammatory process. The stomach is poorly distended limiting e valuation. There is a stent seen extending from the distal stomach into the proximal duodenum. This i s unchanged. There is no evidence of appendicitis. Peritoneal Cavity: There is a large amount of abdominal pelvic ascites again seen. There has been int erval placement of a peritoneal drain entering the abdominal cavity in the right lower quadrant. The tip of the catheter is seen lateral to the liver. No free air.There is again seen prominence of the o mentum which is unchanged. Lymph Nodes: Within normal limits. Bones: Within normal limits for the patient's age. Stable grade 1 anterolisthesis of L4 on L5. Soft Tissues: Unremarkable. PELVIS: Bladder: Symmetric distention, no gross wall thickening. Reproductive Organs: Unremarkable as visualized. Lymph Nodes: Within normal limits. Bones: Within normal limits for the patient's age. IMPRESSION: 1. No acute abdominal or pelvic process. 2. Persistent large amount of abdominal ascites and prominence of the omentum suggesting metastatic d isease. 3. Interval placement of a peritoneal catheter entering the abdominal cavity in the right lower quadr ant. The tip is seen lateral to the liver. 4. Otherwise stable appearance of the abdominal and pelvis. RADIATION DOSE DELIVERED: 401.61mGy.cm Total DLP DATA REPOSITORY: All CT scans at this facility are submitted to the National Radiology Data Registry (NRDR) Dose Index Registry (DIR) with the [employer] (A[employer]). RADIATION OPTIMIZATION: All CT scans at this facility use at least one of these dose optimization te chniques: automated exposure control; mA and/or kV adjustment per patient size (includes targeted exa ms where dose is matched to clinical indication); or iterative reconstruction.
[2024-10-30 18:42] LABS: Abs Immature Grans 0.35 10^3/uL (0.0-0.06); Absolute Basophil Count 0.06 10^3/uL (0.0-0.2); Absolute Eosinophil Count 0.07 10^3/uL (0.0-0.7); Absolute Lymphocyte Count 0.81 10^3/uL (1.2-3.4); Absolute Monocyte Count 1.35 10^3/uL (0.1-0.8); Absolute Neutrophil Count 7.57 10^3/uL (1.2-6.7); Basophils % 0.6 %; Eosinophils % 0.7 %; HCT 37.2 % (36.0-46.0); HGB 12.6 g/dL (11.2-15.7); Immature Grans % 3.4 %; Lymphocytes % 7.9 %; MCH 31.1 pg (27.0-33.0); MCHC 33.9 % (32.0-36.0); MCV 92 fL (80-95); MPV 9.1 fL (8.0-11.0); Monocytes % 13.2 %; Neutrophils % 74.2 %; Nucleated RBC 0.7 % (0.0-0.3); Platelet Count 304 10^3/uL (130-400); RBC 4.05 10^6/uL (3.93-5.22); RDW-SD 49.3 fL; WBC 10.21 10^3/uL (4.4-10.8)
[2024-10-30] MEDS: Ondansetron 4 MG/2 ML VIAL IVP (18:49)
[2024-10-30] MEDS: DEXTROSE 10%-WATER 500 ML 50 ML IV (18:52)
[2024-10-30 19:02] LABS: ALT 25 U/L (14-59); AST 39 U/L (15-37); Albumin 1.8 g/dL (3.4-5.0); Alkaline Phosphatase 139 U/L (46-116); Anion Gap 6.3 mmol/L (3-11); BUN 9 mg/dL (7-18); Bilirubin, Total 0.38 mg/dL (0.2-1.0); CO2 26.7 mmol/L (21.0-32.0); CREATININE 0.8 mg/dL (0.55-1.02); Calcium 8.6 mg/dL (8.5-10.1); Chloride 105 mmol/L (98-107); Estimated GFR 83.78 (mL/min/1.73m2); Glucose 92 mg/dL (74-106); Sodium 138 mmol/L (136-145); Total Protein 5.5 g/dL (6.4-8.2); Troponin I 4 ng/L (<or=51)
[2024-10-30 19:46] LABS: Troponin I 4 ng/L (<or=51)
[2024-10-30] MEDS: Omnipaque 350 MG/ML 100 ML BTL IJ (20:18)
[2024-10-30] MEDS: Normal Saline - Diluent 50 ML VIAL IJ (20:20)
[2024-10-30] MEDS: Normal Saline Flush 10 ML SYR IVP (20:21)
--- NOTE | 2024-10-30 21:32 | DI.VRAD_ITS ---
PROCEDURE INFORMATION: Exam: CT Abdomen And Pelvis With Contrast Exam date and time: 10/30/2024 7:48 PM Age: 59 years old Clinical indication: Other: Abdominal pain; Prior surgery; Surgery date: <1 month; Surgery type: Biliary stent, drain, abd paracentisis; Patient HX: HX of pancreatic cancer. Abd pain TECHNIQUE: Imaging protocol: Computed tomography of the abdomen and pelvis with contrast. Contrast material: 350; Contrast volume: 75 ml; Contrast route: INTRAVENOUS (IV); COMPARISON: CT ABDOMEN PELVIS W 09/25/2024 1:37 PM FINDINGS: Tubes, catheters and devices: Percutaneous surgical drain extending through the right lower quadrant abdominal wall than tracking along the right paracolic gutter into the perihepatic space. Lungs: Lung bases clear. Liver: Normal appearing liver. Gallbladder and biliary ducts: Moderate gallbladder distension. Indwelling biliary stent extending from the common bile duct into the proximal duodenal. Extensive pneumobilia with gas present in the gallbladder, intrahepatic biliary ducts, and common bile duct. No biliary dilatation. Pancreas: Pancreatic head region partially obscured by close apposition of adjacent structures and indwelling stents. Known history of pancreatic cancer by report. Mild tortuous dilatation of the main pancreatic duct in the pancreatic body and tail measuring 6 mm maximum transverse dimension of the pancreatic body. Spleen: Normal appearing spleen. Adrenal glands: Normal appearing adrenal glands. 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 Otherwise normal-appearing kidneys. No hydronephrosis. Ureters obscured. Stomach and bowel: No oral contrast. Stomach partially decompressed. Proximal duodenal stent in-situ, grossly patent, as seen. No small bowel dilatation to suggest obstruction. Normal-appearing fecal material throughout the colon. No evidence of diverticulitis or colitis. Appendix: Normal appendix. Intraperitoneal space: Large amount of ascites. Prominent soft tissue density infiltration of the omentum. Regions of peritoneal enhancement. 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 Vasculature: No abdominal aortic aneurysm. Lymph nodes: Within the limits of visualization, no bulky adenopathy demonstrated. Urinary bladder: Urinary bladder partially collapsed but grossly unremarkable, as seen. Reproductive: Uterus and ovaries partially obscured but normal in size. Bones/joints: No acute fracture seen among the bones of the abdomen or pelvis. Spinal degenerative change with anterior osteophytes and endplate irregularities throughout the visualized lower thoracic spine. Prominent bilateral facet arthrosis at L4-L5 with grade 1 anterolisthesis of L4 on L5. Severe discogenic degeneration at L5-S1 with bulky bridging anterior osteophytes and prominent bilateral facet arthrosis. Soft tissues: Mild but extensive subcutaneous edema. IMPRESSION: 1. No acute bowel pathology demonstrated. Indwelling duodenal stent in-situ, grossly patent, as seen. 2. Indwelling biliary stent also present. Extensive pneumobilia but no gross biliary dilatation. 3. Pancreatic head region partially obscured. Known history of pancreatic cancer by report. Extensive ascites with an appearance suggesting mesenteric carcinomatosis with omental caking. Dictated and Authenticated by: Trevor Grewal MD. Ordering:KORINA Gonzales MD
[2024-10-30] MEDS: Scopolamine 1 MG/3 DAYS PATCH TD (22:19)
[2024-10-30 22:45] LABS: Lipase 7 U/L (<78)
--- NOTE | 2024-10-30 23:49 | W.PM.HP.N ---
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 Admitted for IV hydration with continued pain management with fentanyl patch, treat nausea with monitoring of heart QT prolongation and watch for hypoglycemia which has been recurrent at home prior to admission. Her usual diabetes treatment will be modified. She will receive D5 as needed. She is a DNR/DNI with recent palliative care note and COLST form to be filled out at next palliative care visit. (2) Hypoglycemia: Start date: 10/30/24 Status: Acute Assessment and plan: Patient has been having problems with hypoglycemia over the last 24 hours with poor intake and nausea and vomiting as been intractable. Admitted for gentle IV hydration and treatment of her nausea with cardiac monitoring that she has a QT prolongation. Continue Zofran and and/or Reglan with scopolamine patch to be continued. (3) DM type 1, goal A1C below 7.5%: Status: Chronic Assessment and plan: Glucometer management with coverage only if needed with hypoglycemia an active problem, will only give sensitive sliding scale glucometer coverage with short acting insulin with no basal insulin. With patient being type 1 - 1.5, she will need some insulin even though she is not eating and drinking well. (4) Pancreatic adenocarcinoma: Status: Chronic Assessment and plan: Patient has seen palliative care and is a DNR/DNI but is still receiving chemotherapy. She does have stenting because of blockage from her pancreatic head cancer and she does have peritoneal metastases now which may be causing some of her present abdominal pain with nausea and vomiting. Long-term she needs to discuss goals with chemotherapy and possible hospice. History of Present Illness History of Present Illness Chief Complaint: Low glucometer measurements with hypoglycemic symptoms, persistent N/V. Narrative: This is a 59-year-old female patient who was diagnosed with adenocarcinoma of the pancreas in November 2023 and is failing chemotherapy with progression of her cancer now metastatic to the peritoneal cavity with carcinomatosis and increased pain. She has 2 types of pain which is a feeling of being shocked from the inside out and a more focal epigastric stabbing pain. She is now on fentanyl patches which is causing some constipation but she did have a normal bowel movement the day of admission. She had onset of increased pain with nausea and vomiting, not being able to keep anything down. She stopped her insulin pump because she began to have low glucometer measurements and symptoms of hypoglycemia. She reported to ED and was given D10 infusion for hypoglycemia and there was resolution of her low glucometer measurements in the 60s and she felt improved. She is still not able to keep anything down. She is responding to antiemetics with Zofran and now Reglan. She does have QT prolongation with an abnormal EKG but normal troponins. Her magnesium level was normal. She will be on cardiac monitoring because of the QT prolongation though she has recently changed her CODE STATUS to DNR/DNI. Patient will be admitted for bowel rest with IV hydration and pain management. She also will have her glucometer measurements every 6 hours with coverage if needed. She is not on basal insulin unless her insulin pump fails with the insulin pump being her main source of managing her type 1 diabetes. She has had minimal weight loss with the progression of disease. She denies any peripheral edema or symptoms. Long-term she will be discharged home with her . She has continued to have chemotherapy with a port over her right chest. She may be approaching conversion to hospice if her disease progresses despite treatment. She seems to be well-informed with fair insight. Review of Systems Narrative: 13 point review of systems otherwise unrevealing or stable. PFSH All Active Problems (Updated 10/30/24 @ 23:53 by Anthony Walden) Intractable nausea and vomiting (Acute) Hypoglycemia (Acute) Cancer related pain (Acute) Nausea (Acute) Hypothyroidism (Chronic) Cancer, metastatic to lung (Acute) [facility] [place] Hem/Onc 02/04/[address] nodules on CT (Acute ~12/2023) 01/12/24 Dr Palacios Thoracic Surg 03/28/24-CT chest w/ contrast-stage IV pancreatic cancer, on chemo, restaging (ordering physician Dr. Stevenson) Left upper lobe pulmonary nodule (Acute) Pancreatic adenocarcinoma (Chronic ~11/2023) fine needle aspiration 12/24/23 [facility] [place] 01/12/24 Thoracic Surgeon 03/28/24-CT chest w contrast: interval decrease in size of an ill-defined mass ar the head of the pancreas. Pancreatic mass (Acute ~12/22/23) 12/22/23 found on endoscopy Elevated LFTs (Acute) Common bile duct (CBD) obstruction (Acute) Stent placed 12/22/23 Gallbladder dilatation (Acute) Elevated transaminase level (Acute) Pancreatitis (Acute) Common bile duct dilatation (Acute) HSV-1 infection (Acute ~2022) DM type 1, goal A1C below 7.5% (Chronic) DM 1.5, but adding TYpe 1 2' MGMT per DM 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 see [facility] notes.. (Hx POS DM 1?!) Medical History Duodenal obstruction (05/2024) complete obstruction of 1st part of duodenum-stented [facility] [place] Family history of diabetes mellitus in father Otitis externa of left ear HTN (hypertension) Abdominal pain Sacroiliac joint pain Vertigo DDD (degenerative disc disease), lumbar Other insomnia Headache Exostoses, multiple Chronic dysfunction of left eustachian tube Back pain Arthritis Estrogen deficiency Anemia Posterior vitreous detachment Type 2 diabetes mellitus Type 1.5, to be managed as Type 1 PRN, 03/2023 Ganglion cyst Muscle spasm Benign paroxysmal positional vertigo Trochanteric bursitis, left hip Other intervertebral disc degeneration, lumbar region Adjustment disorder with anxious mood Synovial cyst of lumbar facet joint Surgical History History of abdominal paracentesis (~09/2024) H/O endoscopy (~12/22/23) Pancreatic mass found 06/10/2411-[id number] of duodenum stented Family History Brother Alcohol use disorder Brother Alcohol use disorder Depression Father Colon cancer Diabetes Mother Asthma Lung cancer ALK positive ( gene mutation) Hypertension Sister [place] disease Paternal Grandmother Heart disease Paternal Grandfather Colon cancer Social History Smoking/Tobacco Use Status: Former Tobacco Use Quit status: considering quitting Smoking risk assessment performed?: Yes Alcohol Intake: former Counseling given: No Drug use: Daily Substance use type: marijuana Household members: spouse Housing: house Number of Children: 3 number of grandchildren: 2 Communication Needs: Corrective Lenses Education Level: college 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 What is your relationship status?: How often do you talk on the phone with friends or family?: three or more times per week How often do you get together with friends or relatives?: three or more times per week Panel score (0-1 are the most socially isolated patients): 2 NHANES result reviewed/action taken: Yes What type of physical activity do you participate in: walking Duration: 45-60 minutes/day Frequency: other Details: exercises as pt feels up to it with current condition Debbi/Presybeterian: Bahai Special debbi needs: Yes Seatbelt use: always Drive intox or ride w/intox 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 Working smoke detector in home: Yes Carbon monox detector in home: Yes Do you feel safe at home: Yes Do you feel safe in your relationship?: Yes Meds Allergies and Home Medications Allergies Allergy/AdvReac Type Severity Reaction Status Date / Time hydromorphone AdvReac Dizziness/L Verified 10/30/24 18:05 ighthead oxycodone AdvReac Nausea Verified 10/30/24 18:05 narcotics AdvReac Nausea Uncoded 10/30/24 18:05 Home Medications ?Medication ?Instructions ?Recorded ?Confirmed ?Type meclizine 25 mg chewable tablet 25 mg PO DAILY PRN 05/18/17 10/30/24 History blood sugar diagnostic (Blood #200 ea 03/16/23 10/30/24 Rx Glucose Test strips) blood-glucose meter (OneTouch #1 ea 03/16/23 10/30/24 Rx Verio Flex Meter) lancets (Lancets,Ultra Thin) #100 ea 03/16/23 10/30/24 Rx cyclobenzaprine 5 mg tablet 2.5 mg (1/2 x 5 mg) PO DAILY PRN 01/14/24 10/30/24 Rx SI joint issues #10 tabs pen needle, diabetic 31 gauge x #400 ea 01/26/24 10/30/24 Rx 3/16 (Comfort EZ Pen Salineno) insulin NPH isoph U-100 human 100 7 unit (0.07 mL) subcut QAM #15 mL 02/08/24 10/30/24 Rx unit/mL (3 mL) subcutaneous pen (Humulin N NPH U-100 Insulin KwikPen) insulin glargine 100 unit/mL (3 14 unit (0.14 mL) subcut QPM #15 mL 02/09/24 10/30/24 Rx mL) subcutaneous pen (Lantus Solostar U-100 Insulin) insulin aspart 15 unit subcut TID 30 days #15 mL 02/26/24 10/30/24 Rx (niacinamide)(U-100) 100 unit/mL(3 mL) subcutaneous pen (Fiasp FlexTouch U-100 Insulin) CGM (Continuous Glucose Monitor) #1 ea 03/08/24 10/30/24 Rx blood-glucose sensor (Dexcom G6 03/08/24 10/30/24 History Sensor device) tizanidine 2 mg capsule 2 mg PO DAILY PRN muscle spasm #30 03/08/24 10/30/24 Rx caps blood-glucose transmitter (Dexcom 03/15/24 10/30/24 History G6 Transmitter device) blood-glucose transmitter (Dexcom #1 ea 03/15/24 10/30/24 Rx G6 Transmitter device) insulin aspart U-100 100 unit/mL 5 unit (0.05 mL) subcut TID #15 mL 04/12/24 10/30/24 Rx (3 mL) subcutaneous pen (Novolog FlexPen U-100 Insulin aspart) [id number] 3 - 4 cap PO TID 05/19/24 10/30/24 History 36,000-114,000-180,000 unit capsule,delay rel (Creon) omeprazole 20 mg capsule,delayed 20 mg PO BID GI issues with 05/23/24 10/30/24 History release chemotherapy ondansetron HCl 8 mg tablet 8 mg PO Q8H 06/07/24 10/30/24 History lancets 28 gauge (Unistik Comfort #100 ea 07/13/24 10/30/24 Rx Lancets) cyclobenzaprine 10 mg tablet 10 mg PO TID 08/02/24 10/30/24 History glucagon 3 mg/actuation nasal 3 mg intranasal DIRECTED 08/02/24 10/30/24 History spray (Baqsimi) hydromorphone 2 mg tablet 2 mg PO BID PRN 08/02/24 10/30/24 History lorazepam 0.5 mg tablet 0.5 mg PO Q6H PRN 08/02/24 10/30/24 History scopolamine base 1 mg over 3 days 1 patch transdermal Q3D PRN 08/02/24 10/30/24 History transdermal patch levothyroxine 150 mcg capsule 150 mcg PO DAILY 08/22/24 10/30/24 History oxycodone 5 mg tablet 5 mg PO .complex PRN 08/22/24 10/30/24 History gemcitabine 2 gram/52.6 mL (38 1 mg IV Q2W 09/05/24 10/30/24 History mg/mL) intravenous solution clonazepam 0.5 mg tablet 0.5 mg PO QHS #30 tabs 10/14/24 10/30/24 Rx dexamethasone 1 mg tablet 1 - 4 mg (1 - 4 x 1 mg) PO DAILY 10/14/24 10/30/24 Rx #90 tabs gabapentin 100 mg capsule 100 - 200 mg (1 - 2 x 100 mg) PO 10/14/24 10/30/24 Rx TID #90 caps fentanyl 25 mcg/hr transdermal 1 patch transdermal Q72H #10 ea 10/18/24 10/30/24 Rx patch naloxone 4 mg/actuation nasal 4 mg intranasal Q2M PRN opioid 10/18/24 10/30/24 Rx spray (Narcan) overdose #2 ea Exam Narrative Exam Narrative: General: Patient appears appropriate for age wearing a scarf over her head, she is alert and oriented x 3 and in moderate distress from abdominal discomfort. HEENT: Normocephalic, eyes with pupils equal and reactive to light symmetrically, extraocular movement intact and sclera anicteric. Oropharynx with dry mucosa and fair dentition. Neck: Supple without JVD. Back: Normal posture without CVA tenderness. Lungs: Clear to auscultation percussion with no focalizing rales or rhonchi. Normal vesicular breath sounds. Breast: Exam deferred. Heart: Regular rate and rhythm with no murmurs or gallops appreciated. Abdomen: Protuberant contour and tenderness with guarding over the epigastrium but diffusely. No rebound. No palpable hepatosplenomegaly but this is limited by patient's guarding. Bowel sounds are hypoactive but present in all quadrants. There is no tympany to percussion. Genitalia/rectal: Exam deferred. Extremities: Without clubbing, cyanosis or grossly pitting edema. Fair capillary refill. Skin: Normal color, warm and dry. Neuro: Cranial nerves II through XII gross intact, no focalized motor deficits. No tremor. Psych: Slightly flattened affect but normal mood. No abnormal thought processes. Remote and recent memory intact. Results Imaging Imaging Studies: Exam: CT Abdomen And Pelvis With Contrast Exam date and time: 10/30/2024 7:48 PM Age: 59 years old Clinical indication: Other: Abdominal pain; Prior surgery; Surgery date: <1 month; Surgery type: Biliary stent, drain, abd paracentisis; Patient HX: HX of pancreatic cancer. Abd pain TECHNIQUE: Imaging protocol: Computed tomography of the abdomen and pelvis with contrast. Contrast material: 350; Contrast volume: 75 ml; Contrast route: INTRAVENOUS (IV); COMPARISON: CT ABDOMEN PELVIS W 09/25/2024 1:37 PM FINDINGS: Tubes, catheters and devices: Percutaneous surgical drain extending through the right lower quadrant abdominal wall than tracking along the right paracolic gutter into the perihepatic space. Lungs: Lung bases clear. Liver: Normal appearing liver. Gallbladder and biliary ducts: Moderate gallbladder distension. Indwelling biliary stent extending from the common bile duct into the proximal duodenal. Extensive pneumobilia with gas present in the gallbladder, intrahepatic biliary ducts, and common bile duct. No biliary dilatation. Pancreas: Pancreatic head region partially obscured by close apposition of adjacent structures and indwelling stents. Known history of pancreatic cancer by report. Mild tortuous dilatation of the main pancreatic duct in the pancreatic body and tail measuring 6 mm maximum transverse dimension of the pancreatic body. Spleen: Normal appearing spleen. Adrenal glands: Normal appearing adrenal glands. 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 Otherwise normal-appearing kidneys. No hydronephrosis. Ureters obscured. Stomach and bowel: No oral contrast. Stomach partially decompressed. Proximal duodenal stent in-situ, grossly patent, as seen. No small bowel dilatation to suggest obstruction. Normal-appearing fecal material throughout the colon. No evidence of diverticulitis or colitis. Appendix: Normal appendix. Intraperitoneal space: Large amount of ascites. Prominent soft tissue density infiltration of the omentum. Regions of peritoneal enhancement. 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 Vasculature: No abdominal aortic aneurysm. Lymph nodes: Within the limits of visualization, no bulky adenopathy demonstrated. Urinary bladder: Urinary bladder partially collapsed but grossly unremarkable, as seen. Reproductive: Uterus and ovaries partially obscured but normal in size. Bones/joints: No acute fracture seen among the bones of the abdomen or pelvis. Spinal degenerative change with anterior osteophytes and endplate irregularities throughout the visualized lower thoracic spine. Prominent bilateral facet arthrosis at L4-L5 with grade 1 anterolisthesis of L4 on L5. Severe discogenic degeneration at L5-S1 with bulky bridging anterior osteophytes and prominent bilateral facet arthrosis. Soft tissues: Mild but extensive subcutaneous edema. IMPRESSION: 1. No acute bowel pathology demonstrated. Indwelling duodenal stent in-situ, grossly patent, as seen. 2. Indwelling biliary stent also present. Extensive pneumobilia but no gross biliary dilatation. 3. Pancreatic head region partially obscured. Known history of pancreatic cancer by report. Extensive ascites with an appearance suggesting mesenteric carcinomatosis with omental caking. Labs 10/30/24 18:25 10/30/24 18:25 Labs: Laboratory Results - last 24 hr 10/30/24 10/30/24 10/30/24 18:25 19:15 19:19 WBC 10.21 RBC 4.05 Hgb 12.6 Hct 37.2 MCV 92 MCH 31.1 MCHC 33.9 RDW 15.0 H Plt Count 304 MPV 9.1 Immature Gran % 3.4 Neutrophils % 74.2 Lymphocytes % 7.9 Monocytes % 13.2 Eosinophils % 0.7 Basophils % 0.6 Nucleated RBC % 0.7 H Absolute Neutrophils 7.57 H Absolute Lymphocytes 0.81 L Absolute Monocytes 1.35 H Absolute Eosinophils 0.07 Absolute Basophils 0.06 Sodium 138 Potassium 4.0 Chloride 105 Carbon Dioxide 26.7 Anion Gap 6.3 BUN 9 Creatinine 0.8 Est GFR (CKD-EPI 2020) 83.78 Glucose 92 Calcium 8.6 Total Bilirubin 0.38 AST 39 H ALT 25 Alkaline Phosphatase 139 H Troponin I 4 4 Total Protein 5.5 L Albumin 1.8 L Lipase 7 10/30/24 21:33 WBC RBC Hgb Hct MCV MCH MCHC RDW Plt Count MPV Immature Gran % Neutrophils % Lymphocytes % Monocytes % Eosinophils % Basophils % Nucleated RBC % Absolute Neutrophils Absolute Lymphocytes Absolute Monocytes Absolute Eosinophils Absolute Basophils Sodium Potassium Chloride Carbon Dioxide Anion Gap BUN Creatinine Est GFR (CKD-EPI 2020) Glucose Calcium Total Bilirubin AST ALT Alkaline Phosphatase Troponin I Cancelled Total Protein Albumin Lipase Last Vital Signs Temp 36.4 C 10/30/24 18:03 Pulse 84 10/30/24 20:35 Resp 18 10/30/24 20:35 BP 122/70 10/30/24 20:35 Pulse Ox 96 10/30/24 20:35 Time Spent Time spent with Patient: >75 minutes Time was spent: preparing to see the patient(eg.review tests), obtaining and/or reviewing separately otained hiistory, ordering medications,tests, procedures, indepentently interpreting results, counseling the patient and care coordination
[2024-10-31] VITALS (10 sets, daily range): BP systolic 109–135; BP diastolic 69–94; PULSE 77–96; RESP 7–26; TEMP 36.4–37.2; O2SAT 93–99
--- NOTE | 2024-10-31 00:20 | NUR.NOTE ---
Pt refused Covid Test, FPJ
[2024-10-31] MEDS: Lactated Ringers 1,000 ML 125 ML IV ×3 (00:45→19:44)
[2024-10-31] MEDS: HYDROmorphone 2 MG TAB PO ×2 (00:51→21:48)
[2024-10-31] MEDS: Ondansetron 4 MG/2 ML VIAL IVP ×2 (00:54→09:03)
[2024-10-31] MEDS: Enoxaparin 40 MG/0.4 ML SYR SC ×2 (02:07→21:47)
--- NOTE | 2024-10-31 03:19 | W.PC.ACHO ---
Registration Status: Primary Language: Preferred Language: ED Information & Data Chief Complaint Abd Prob 10/30/24 18:29 Triage Note Nausea and vomiting since 10/30/24 17:59 last night after eating out. Cramping and pressure in abd over the past 24 hours. Little to no oral intake. Concerned about constipation w/ fent patch. Last BM today described as substantial. Medical / Surgical History (Last Reviewed 10/30/24 @ 23:50 by Anthony Walden) Duodenal obstruction (05/2024) Family history of diabetes mellitus in father Otitis externa of left ear HTN (hypertension) Abdominal pain Sacroiliac joint pain Vertigo DDD (degenerative disc disease), lumbar Other insomnia Headache Exostoses, multiple Chronic dysfunction of left eustachian tube Back pain Arthritis Estrogen deficiency Anemia Posterior vitreous detachment Type 2 diabetes mellitus Ganglion cyst Muscle spasm Benign paroxysmal positional vertigo Trochanteric bursitis, left hip Other intervertebral disc degeneration, lumbar region Adjustment disorder with anxious mood Synovial cyst of lumbar facet joint (Last Reviewed 10/30/24 @ 23:50 by Anthony Walden) History of abdominal paracentesis (~09/2024) H/O endoscopy (~12/22/23) Most Recent Vital Signs Temperature 36.7 C 10/30/24 20:33 Temperature Source Temporal Artery Scan 10/30/24 20:33 Pulse 84 10/30/24 20:35 Pulse Rhythm Regular 10/30/24 20:35 Pulse Strength Normal 10/30/24 20:35 Respiratory Rate 26 H 10/31/24 01:00 Respiratory Effort Normal 10/30/24 20:35 Respiratory Depth Normal 10/30/24 20:35 Respiratory Pattern Normal 10/30/24 20:35 Blood Pressure 122/70 10/30/24 20:35 Blood Pressure Mean 87 10/30/24 20:35 Blood Pressure Position Supine 10/30/24 20:35 Pulse Oximetry 99 10/31/24 01:00 Oxygen Delivery Method Room Air 10/30/24 20:35 Oxygen Flow Rate 0 10/30/24 20:35 Pain Level 10 10/31/24 01:09 Allergies hydromorphone Adverse Reaction (Verified 10/30/24 18:05) Dizziness/Lighthead oxycodone Adverse Reaction (Verified 10/30/24 18:05) Nausea narcotics Adverse Reaction (Uncoded 10/30/24 18:05) Nausea Active Medications Generic Name Dose Route Start Last Admin Trade Name Prosper PRN Reason Stop Dose Admin Insulin Aspart 0 units 10/31/24 01:00 10/31/24 03:01 Insulin Aspart 300 Units/3 Ml Pen SC Not Given Q6H [facility] Protocol IV IV Catheter Type [Right] Port-a-cath (single) IV Catheter Gauge [Right] 19 Diet Orders Category Date Time Status Nothing Per Oral [DIET] Nutrition 10/31/24 Breakfast Active Diagnostics 10/31/24 10/31/24 10/31/24 Range/Units 05:35 00:29 00:11 WBC Pending (4.4-10.8) 10^3/uL RBC Pending (3.93-5.22) 10^6/uL Hgb Pending (11.2-15.7) g/dL Hct Pending (36.0-46.0) % MCV Pending (80-95) fL MCH Pending (27.0-33.0) pg MCHC Pending (32.0-36.0) % RDW Pending (11.7-14.6) % Plt Count Pending (130-400) 10^3/uL MPV Pending (8.0-11.0) fL Immature Gran % % Neutrophils % % Lymphocytes % % Monocytes % % Eosinophils % % Basophils % % Nucleated RBC % (0.0-0.3) % Absolute Neutrophils (1.2-6.7) 10^3/uL Absolute Lymphocytes (1.2-3.4) 10^3/uL Absolute Monocytes (0.1-0.8) 10^3/uL Absolute Eosinophils (0.0-0.7) 10^3/uL Absolute Basophils (0.0-0.2) 10^3/uL PT Pending INR Pending Sodium Pending (136-145) mmol/L Potassium Pending (3.5-5.1) mmol/L Chloride Pending (98-107) mmol/L Carbon Dioxide Pending (21.0-32.0) mmol/L Anion Gap Pending (3-11) mmol/L BUN Pending (7-18) mg/dL Creatinine Pending (0.55-1.02) mg/dL Est GFR (CKD-EPI 2020) Pending (mL/min/1.73m2) Glucose Pending (74-106) mg/dL Calcium Pending (8.5-10.1) mg/dL Magnesium Pending (1.8-2.4) mg/dL Total Bilirubin Pending (0.2-1.0) mg/dL AST Pending (15-37) U/L ALT Pending (14-59) U/L Alkaline Phosphatase Pending (46-116) U/L Troponin I (<or=51) ng/L Total Protein Pending (6.4-8.2) g/dL Albumin Pending (3.4-5.0) g/dL Lipase (<78) U/L COVID-19 Source Cancelled SARS-CoV-2 (PCR) Cancelled 10/30/24 10/30/24 10/30/24 Range/Units 21:33 19:19 19:15 WBC (4.4-10.8) 10^3/uL RBC (3.93-5.22) 10^6/uL Hgb (11.2-15.7) g/dL Hct (36.0-46.0) % MCV (80-95) fL MCH (27.0-33.0) pg MCHC (32.0-36.0) % RDW (11.7-14.6) % Plt Count (130-400) 10^3/uL MPV (8.0-11.0) fL Immature Gran % % Neutrophils % % Lymphocytes % % Monocytes % % Eosinophils % % Basophils % % Nucleated RBC % (0.0-0.3) % Absolute Neutrophils (1.2-6.7) 10^3/uL Absolute Lymphocytes (1.2-3.4) 10^3/uL Absolute Monocytes (0.1-0.8) 10^3/uL Absolute Eosinophils (0.0-0.7) 10^3/uL Absolute Basophils (0.0-0.2) 10^3/uL PT INR Sodium (136-145) mmol/L Potassium (3.5-5.1) mmol/L Chloride (98-107) mmol/L Carbon Dioxide (21.0-32.0) mmol/L Anion Gap (3-11) mmol/L BUN (7-18) mg/dL Creatinine (0.55-1.02) mg/dL Est GFR (CKD-EPI 2020) (mL/min/1.73m2) Glucose (74-106) mg/dL Calcium (8.5-10.1) mg/dL Magnesium (1.8-2.4) mg/dL Total Bilirubin (0.2-1.0) mg/dL AST (15-37) U/L ALT (14-59) U/L Alkaline Phosphatase (46-116) U/L Troponin I Cancelled 4 (<or=51) ng/L Total Protein (6.4-8.2) g/dL Albumin (3.4-5.0) g/dL Lipase 7 (<78) U/L COVID-19 Source SARS-CoV-2 (PCR) 10/30/24 Range/Units 18:25 WBC 10.21 (4.4-10.8) 10^3/uL RBC 4.05 (3.93-5.22) 10^6/uL Hgb 12.6 (11.2-15.7) g/dL Hct 37.2 (36.0-46.0) % MCV 92 (80-95) fL MCH 31.1 (27.0-33.0) pg MCHC 33.9 (32.0-36.0) % RDW 15.0 H (11.7-14.6) % Plt Count 304 (130-400) 10^3/uL MPV 9.1 (8.0-11.0) fL Immature Gran % 3.4 % Neutrophils % 74.2 % Lymphocytes % 7.9 % Monocytes % 13.2 % Eosinophils % 0.7 % Basophils % 0.6 % Nucleated RBC % 0.7 H (0.0-0.3) % Absolute Neutrophils 7.57 H (1.2-6.7) 10^3/uL Absolute Lymphocytes 0.81 L (1.2-3.4) 10^3/uL Absolute Monocytes 1.35 H (0.1-0.8) 10^3/uL Absolute Eosinophils 0.07 (0.0-0.7) 10^3/uL Absolute Basophils 0.06 (0.0-0.2) 10^3/uL PT INR Sodium 138 (136-145) mmol/L Potassium 4.0 (3.5-5.1) mmol/L Chloride 105 (98-107) mmol/L Carbon Dioxide 26.7 (21.0-32.0) mmol/L Anion Gap 6.3 (3-11) mmol/L BUN 9 (7-18) mg/dL Creatinine 0.8 (0.55-1.02) mg/dL Est GFR (CKD-EPI 2020) 83.78 (mL/min/1.73m2) Glucose 92 (74-106) mg/dL Calcium 8.6 (8.5-10.1) mg/dL Magnesium 2.0 (1.8-2.4) mg/dL Total Bilirubin 0.38 (0.2-1.0) mg/dL AST 39 H (15-37) U/L ALT 25 (14-59) U/L Alkaline Phosphatase 139 H (46-116) U/L Troponin I 4 (<or=51) ng/L Total Protein 5.5 L (6.4-8.2) g/dL Albumin 1.8 L (3.4-5.0) g/dL Lipase (<78) U/L COVID-19 Source SARS-CoV-2 (PCR) Fzynw-il-Riio Documentation Fingerstick Glucose Start: 10/30/24 18:37 Freq: Status: Complete Protocol: Activity Type Activity Date Activity User E-sign Co-sign Detail Recorded Client Recorded Date Recorded By Document 10/30/24 18:35 BKG DAEMON(7) NVT-BG05 10/30/24 18:37 BKG DAEMON(8) Fingerstick Glucose Start: 10/30/24 18:40 Freq: .Stat Status: Active Protocol: Activity Type Activity Date Activity User E-sign Co-sign Detail Recorded Client Recorded Date Recorded By Document 10/30/24 21:21 BKG DAEMON(9) NVT-BG05 10/30/24 21:22 BKG DAEMON(10) Fingerstick Glucose Start: 10/31/24 00:29 Freq: .Q6H Status: Active Protocol: Activity Type Activity Date Activity User E-sign Co-sign Detail Recorded Client Recorded Date Recorded By Document 10/31/24 01:36 BKG DAEMON(10) NVT-BG05 10/31/24 01:37 BKG DAEMON(10) Intake and Output - 24 Hour Total 10/30/24 17:55 thru 10/30/24 18:27 Intake Total 30 Balance 30 Weight 63.503 kg Intake: IV 30 Falls Risk Assessment History of Falls No History 10/30/24 18:03 Contributing Factors No Factors 10/30/24 18:03 Ambulatory Aids Independent 10/30/24 18:03 Tubes/Lines None 10/30/24 18:03 Gait Evaluation No gait disturbance 10/30/24 18:03 Cognition No cognitive impairment 10/30/24 18:03 Fall Total Score 0 10/30/24 18:03 Level of Risk Standard/Low Risk 10/30/24 18:03 Problems (Last Reviewed 10/30/24 @ 23:50 by Anthony Walden) Intractable nausea and vomiting (Acute) Hypoglycemia (Acute) Pancreatic adenocarcinoma (Chronic ~11/2023) DM type 1, goal A1C below 7.5% (Chronic) Notes 10/31/24 00:20 Nursing Notes by Dexter Kaminski Pt refused Covid Test, FPJ Initialized on 10/31/24 00:20 - END OF NOTE v v v v v v v v v Sending and/or Receiving Nurses: Please use comment section below to note any information pertinent to the patient hand-off not included above. Information / Comments: PT to be admitted foir intractractable nausea & vomiting, hypoglycemia,pain & ascites. L chest wall mediport accessed with dextrose 10% A 50 ML/HR. Pt medicated for pain with 2 mg hydromorphone prior to transfer to floor. Report received from: YAZMIN Johnson RN
[2024-10-31 06:34] LABS: HCT 32.9 % (36.0-46.0); HGB 10.9 g/dL (11.2-15.7); MCH 30.6 pg (27.0-33.0); MCHC 33.1 % (32.0-36.0); MCV 92 fL (80-95); Platelet Count 224 10^3/uL (130-400); RBC 3.56 10^6/uL (3.93-5.22); RDW 15.2 % (11.7-14.6); RDW-SD 49.7 fL; WBC 7.34 10^3/uL (4.4-10.8)
[2024-10-31 06:51] LABS: ALT 21 U/L (14-59); AST 34 U/L (15-37); Albumin 1.5 g/dL (3.4-5.0); Alkaline Phosphatase 116 U/L (46-116); Anion Gap 3.7 mmol/L (3-11); BUN 7 mg/dL (7-18); Bilirubin, Total 0.26 mg/dL (0.2-1.0); CO2 28.3 mmol/L (21.0-32.0); CREATININE 0.8 mg/dL (0.55-1.02); Calcium 8.2 mg/dL (8.5-10.1); Chloride 104 mmol/L (98-107); Estimated GFR 83.78 (mL/min/1.73m2); Glucose 145 mg/dL (74-106); INR 1.1 (0.9-1.1); Magnesium 1.9 mg/dL (1.8-2.4); Potassium 4.4 mmol/L (3.5-5.1); Prothrombin Time 10.7 sec (9.1-11.1); Sodium 136 mmol/L (136-145); Total Protein 4.5 g/dL (6.4-8.2)
--- NOTE | 2024-10-31 07:57 | W.PALLCONSUL ---
Date of service: 10/31/24 Time of Service: 07:57 History of Present Illness History of Present Illness Chief Complaint: Nausea, sadness, pain Narrative: From H and P History of Present Illness Chief Complaint: Low glucometer measurements with hypoglycemic symptoms, persistent N/V. Narrative: This is a 59-year-old female patient who was diagnosed with adenocarcinoma of the pancreas in November 2023 and is failing chemotherapy with progression of her cancer now metastatic to the peritoneal cavity with carcinomatosis and increased pain. She has 2 types of pain which is a feeling of being shocked from the inside out and a more focal epigastric stabbing pain. She is now on fentanyl patches which is causing some constipation but she did have a normal bowel movement the day of admission. She had onset of increased pain with nausea and vomiting, not being able to keep anything down. She stopped her insulin pump because she began to have low glucometer measurements and symptoms of hypoglycemia. She reported to ED and was given D10 infusion for hypoglycemia and there was resolution of her low glucometer measurements in the 60s and she felt improved. She is still not able to keep anything down. She is responding to antiemetics with Zofran and now Reglan. She does have QT prolongation with an abnormal EKG but normal troponins. Her magnesium level was normal. She will be on cardiac monitoring because of the QT prolongation though she has recently changed her CODE STATUS to DNR/DNI. Patient will be admitted for bowel rest with IV hydration and pain management. She also will have her glucometer measurements every 6 hours with coverage if needed. She is not on basal insulin unless her insulin pump fails with the insulin pump being her main source of managing her type 1 diabetes. She has had minimal weight loss with the progression of disease. She denies any peripheral edema or symptoms. Long-term she will be discharged home with her . She has continued to have chemotherapy with a port over her right chest. She may be approaching conversion to hospice if her disease progresses despite treatment. She seems to be well-informed with fair insight. INTERIM Hx: Kalee states that she is feeling somewhat better but still has the nausea. This is ever present. She gets it constantly although sometimes it is a bit better. It does not matter if she is hungry, just eaten, etc. She has this ever present nausea. She has tried ondansetron, juventino, lorazepam, pancreatic enzymes?it still remains. She has not tried additional doses of B6. She does get acupuncture regularly and although she feels better from this she does not know how much it helps her nausea. Additionally she gets reflexology which again helps her to feel better generally but not specifically with her nausea She also feels sadder than she had in the recent past. She is not interested in antidepressants or antianxiety medication (although she uses lorazepam for her nausea ) as she had been on Zoloft in the past and she felt that not only with a low-dose blunted but so with the highs. She would much rather be off medication and feel all that there is to feel at this time She continues to struggle with ascites. The overall plan is that her drain which has been placed would be better if it was drained on a more regular basis then as infrequently as it had been she has had many many liters taken off. She gets very uncomfortable when it starts to accumulate. While I was in the room nursing came in and asked Kalee to have get some of her supplies from home to help to drain her ascites. Kalee describes herself as a Uatsdin. She has great relief of where she is going to after . She does feel like it is getting closer. She states that she tried to join a research trial but was not excepted because she was told that she was too advanced at this point. That was quite a shock. She is not interested in doing any trials to live 1 or 2 weeks longer but would if they gave her an extra 6 months of life. She has a friend who is involved in these trials and is watching out for possibilities for her. She continues to get chemotherapy. She is not certain if this is adding to her nausea but she certainly has considered it. The most important thing to her is her family and spending time with them. She has considered that the chemotherapy may add to her nausea and therefore stopping it might give her more quality time with her family. She is pondering this decision at this time. She has another CT coming up and she is hoping to see improvement with the chemotherapy. She presently is on a fentanyl patch 25 mcg. She feels like this is helping considerably. Consults Consult date: 10/31/24 Requesting physician: Mahamed Rae Assessment and Plan Assessment and plan (1) Intractable nausea and vomiting: Status: Acute (2) Cancer, metastatic to lung: Status: Acute (3) Pancreatic adenocarcinoma: Status: Chronic Assessment and plan: Kalee is presently on pancreatic enzymes which do help. She has tried multiple of medications and supplements. She has not tried B6 50 mg daily. I recommended that she consider this She wants to continue acupuncture and reflux allergy both of which help her overall to feel better. I encouraged this We did talk about her sadness. That would be totally understandable given her current state. She is not interested in medication due to past experiences. We then did talk about mirtazapine and how that can help with sleep, anxiety and improve anorexia. She may be interested in trying this. If she does I would recommend a very low dose of mirtazapine 7.5 mg at bedtime. Rosalia Corado NP is her regular palliative provider. I saw Kalee today because Rosalia would not be available for 3 or 4 days and I wanted to be certain that she was stable and had the chance to connect with palliative. Rosalia will be seeing her in the future. I am always happy to see Kalee I did see Kalee twice today when I came in the morning she had had a very tiring evening. I came back in the afternoon to connect with her in complete our visit PFSH All Active Problems (Updated 11/01/24 @ 00:08 by ELEAZAR ALARCON) Intractable nausea and vomiting (Acute) Hypoglycemia (Acute) Cancer related pain (Acute) Nausea (Acute) Cancer, metastatic to lung (Acute) [facility] [place] on [address] (Acute ~12/2023) 01/12/24 Dr Palacios Thoracic Surg 03/28/24-CT chest w/ contrast-stage IV pancreatic cancer, on chemo, restaging (ordering physician Dr. Stevenson) Left upper lobe pulmonary nodule (Acute) Pancreatic adenocarcinoma (Chronic ~11/2023) fine needle aspiration 12/24/23 [facility] [place] Thoracic Sur[place] 03/28/24-CT chest w contrast: interval decrease in size of an ill-defined mass ar the head of the pancreas. Pancreatic mass (Acute ~12/22/23) 12/22/23 found on endoscopy Elevated LFTs (Acute) Gallbladder dilatation (Acute) Common bile duct (CBD) obstruction (Acute) Stent placed 12/22/23 Elevated transaminase level (Acute) Pancreatitis (Acute) Common bile duct dilatation (Acute) HSV-1 infection (Acute ~2022) DM type 1, goal A1C below 7.5% (Chronic) DM 1.5, but adding TYpe 1 2' MGMT per DM 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 see KG notes.. 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 PRN, 03/2023 Ganglion cyst Muscle spasm Benign paroxysmal positional vertigo Trochanteric bursitis, left hip Other intervertebral disc degeneration, lumbar region Adjustment disorder with anxious mood Synovial cyst of lumbar facet joint Surgical History History of abdominal paracentesis (~09/2024) H/O endoscopy (~12/22/23) Pancreatic mass found 06/10/[id number] of duodenum stented Family History Brother Alcohol use disorder Brother Alcohol use disorder Depression Father Colon cancer Diabetes Mother Asthma Lung cancer ALK positive ( gene mutation) Hypertension Sister [place] disease Paternal Grandmother Heart disease Paternal Grandfather Colon cancer Social History Smoking/Tobacco Use Status: Former Tobacco Use Quit status: considering quitting Smoking risk assessment performed?: Yes Alcohol Intake: former Counseling given: No Drug use: Daily Substance use type: marijuana Household members: spouse Housing: house Number of Children: 3 number of grandchildren: 2 Communication Needs: Corrective Lenses Education Level: college 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 What is your relationship status?: How often do you talk on the phone with friends or family?: three or more times per week How often do you get together with friends or relatives?: three or more times per week Panel score (0-1 are the most socially isolated patients): 2 NHANES result reviewed/action taken: Yes What type of physical activity do you participate in: walking Duration: 45-60 minutes/day Frequency: other Details: exercises as pt feels up to it with current condition Debbi/Mormon: Uatsdin Special debbi needs: Yes Seatbelt use: always Drive intox or ride w/intox 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 Presently she has ascites which needs to be drained often, she is on chemotherapy and considering clinical trials. Unfortunately the nausea continues to be ever present. She is able to sit up in bed. She is weepy at times, but also able to smile. She often will check in with me to make sure I am comfortable. She moved but it was not easy for her. When I offered to help her she explained how important it was for her to move often she does speak in complete sentences. Results Last Vital Signs Temp 99.0 F 10/31/24 07:48 Pulse 77 10/31/24 07:48 Resp 15 10/31/24 07:48 BP 118/81 10/31/24 07:48 Pulse Ox 97 10/31/24 07:48 I did receive the last 2 of Elva's notes as well as the CT [place] [facility] [place] Labs 11/01/24 06:25 11/01/24 06:25 Labs: Laboratory Results - last 24 hr 10/30/24 10/30/24 10/30/24 18:25 19:15 19:19 WBC 10.21 RBC 4.05 Hgb 12.6 Hct 37.2 MCV 92 MCH 31.1 MCHC 33.9 RDW 15.0 H Plt Count 304 MPV 9.1 Immature Gran % 3.4 Neutrophils % 74.2 Lymphocytes % 7.9 Monocytes % 13.2 Eosinophils % 0.7 Basophils % 0.6 Nucleated RBC % 0.7 H Absolute Neutrophils 7.57 H Absolute Lymphocytes 0.81 L Absolute Monocytes 1.35 H Absolute Eosinophils 0.07 Absolute Basophils 0.06 PT INR Sodium 138 Potassium 4.0 Chloride 105 Carbon Dioxide 26.7 Anion Gap 6.3 BUN 9 Creatinine 0.8 Est GFR (CKD-EPI 2020) 83.78 Glucose 92 Calcium 8.6 Magnesium 2.0 Total Bilirubin 0.38 AST 39 H ALT 25 Alkaline Phosphatase 139 H Troponin I 4 4 Total Protein 5.5 L Albumin 1.8 L Lipase 7 COVID-19 Source SARS-CoV-2 (PCR) 10/30/24 10/31/24 10/31/24 21:33 00:11 06:10 WBC 7.34 RBC 3.56 L Hgb 10.9 L Hct 32.9 L MCV 92 MCH 30.6 MCHC 33.1 RDW 15.2 H Plt Count 224 MPV 10.0 Immature Gran % Neutrophils % Lymphocytes % Monocytes % Eosinophils % Basophils % Nucleated RBC % Absolute Neutrophils Absolute Lymphocytes Absolute Monocytes Absolute Eosinophils Absolute Basophils PT 10.7 INR 1.1 Sodium 136 Potassium 4.4 Chloride 104 Carbon Dioxide 28.3 Anion Gap 3.7 BUN 7 Creatinine 0.8 Est GFR (CKD-EPI 2020) 83.78 Glucose 145 H Calcium 8.2 L Magnesium 1.9 Total Bilirubin 0.26 AST 34 ALT 21 Alkaline Phosphatase 116 Troponin I Cancelled Total Protein 4.5 L Albumin 1.5 L Lipase COVID-19 Source Cancelled SARS-CoV-2 (PCR) Cancelled Imaging Abdomen CT scan report/results: report reviewed Imaging Studies: A/P COMPARISON: CT CT ABDOMEN PELVIS W from 09/25/2024 FINDINGS: ABDOMEN: Lung Bases: There is scarring or atelectasis in the left lower lobe. Liver: Normal density. No measurable mass. Portal, Superior Mesenteric, and Splenic Veins: Unremarkable. Gallbladder and Biliary Tract: There is again seen a biliary stent in place. There is pneumobilia. No biliary ductal dilatation is seen. No cholelithiasis. Pancreas: Pancreatic atrophy is present. There is unchanged dilatation of the pancreatic duct. The pancreatic head is unchanged. Spleen: Normal. Adrenals: There is stable bilateral adrenal nodularity likely reflecting adrenal adenomas. Kidneys: Normal size, contour and axis. No radiodense stones or obstructive uropathy. 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 No suspicious renal masses. Abdominal Aorta: Abdominal portion non-dilated. Atherosclerotic calcification is present. Bowel: No evidence of bowel obstruction is present. No new or significant bowel wall thickening is seen to suggest an acute infectious or inflammatory process. The stomach is poorly distended limiting evaluation. There is a stent seen extending from the distal stomach into the proximal duodenum. This is unchanged. There is no evidence of appendicitis. Peritoneal Cavity: There is a large amount of abdominal pelvic ascites again seen. There has been interval placement of a peritoneal drain entering the abdominal cavity in the right lower quadrant. The tip of the catheter is seen lateral to the liver. No free air.There is again seen prominence of the omentum which is unchanged. Lymph Nodes: Within normal limits. Bones: Within normal limits for the patient's age. Stable grade 1 anterolisthesis of L4 on L5. Soft Tissues: Unremarkable. PELVIS: Bladder: Symmetric distention, no gross wall thickening. Reproductive Organs: Unremarkable as visualized. Lymph Nodes: Within normal limits. Bones: Within normal limits for the patient's age. IMPRESSION: 1. No acute abdominal or pelvic process. 2. Persistent large amount of abdominal ascites and prominence of the omentum suggesting metastatic disease. 3. Interval placement of a peritoneal catheter entering the abdominal cavity in the right lower quadrant. The tip is seen lateral to the liver. 4. Otherwise stable appearance of the abdominal and pelvis. Time Spent Time Spent with Patient Time Spent(min): 76
[2024-10-31] MEDS: Dexamethasone 1 MG TAB 2 MG PO (09:03)
[2024-10-31] MEDS: Gabapentin 100 MG CAP PO ×3 (09:03→21:48)
[2024-10-31] MEDS: Omeprazole 20 MG CAPCR PO ×2 (09:03→21:48)
--- NOTE | 2024-10-31 09:47 | INITIAL_ITS ---
Date of service: 10/31/24 Time of Service: 09:47 Care Management Initial Assmt Initial Assessment Reason for Hospitalization: metastatic cancer Functional Status/Living Situation Patient Presentation: Meena was sitting up in bed visiting with her when CM met with her. She was polite but initially reserved in manner. Meena was admitted with intractable nausea, vomiting and hypoglycemia. She has been undergoing chemotherapy for metastatic pancreatic cancer and has also had an increase in pain. She is and lives with her Felicita in [place].Meena has one biological son who lives in [place], [place] and 2 step sonws. One step son lives in [place], [place] and the other, who is estranged, lives in [place]. Meena was NPO but has advanced to a regular diet. While her appetite is poor, she did manage to tolerate eating a bowl of soup. She informed CM that she anticipates being discharged home tomorrow. 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) Instrumental Activities of Daily Living (ADLs): Independent Medications Medication Management: No Issues/Barriers identified Advance Directives Advance Directives: Do you have an Advance Directive: Y 10/31/24 01:24 AD On File at [facility]: Y 10/31/24 01:24 Date Asked AD Date Reviewed 10/31/24 10/31/24 01:24 COLST On File at [facility] COLST Date Scanned Code Status Resuscitation Status DNR/DNI Insurance Coverage/Financial Issues Insurance: /[facility] Care Team Visit Care Team Role Provider Type Thao Rivas NP Primary Care Provider NURSE PRACTITIONER Jan Livingston MD Emergency Provider [facility] STAFF PHYSICIAN Anthony Walden Admit Provider NON-[facility] STAFF PHYSICIAN Attending Provider Discharge Potential Discharge Needs: PCP F/U Appt and Other (Oncology) Anticipated Barriers to Discharge: Medical Status Patient/Family Education Needs: Review discharge instructions, discuss Ask Me Three Transportation: Private vehicle Plan: Anticipate Meena will be discharged home when medically cleared. She will follow up with her PCP and plan of care and transport with family. CM will follow and continue to assess for discharge needs. Social Determinants of Health Screening Social Determinants of Health last assessed: 10/31/24 Will the Patient Participate in the Screening?: Yes Do you worry about having a steady place to live?: no Problems where you live: no known problems In the past 12 months, have you had to go without electric, gas, oil or water in your home?: no Have you or anyone in your house had to go without enough food to eat?: no Has lack of transportation kept you from medical appointments or from doing things needed for daily living?: no Has anyone in your life made you feel unsafe or unsupported?: no How hard is it for you to pay for the very basics like food, housing, medical care, and heating? Would you say it is:: Not hard at all Do you want help finding or keeping work or a job?: I do not need or want help If for any reason you need help with day-to-day activities such as bathing, preparing meals, shopping, managing finances, etc., do you get the help you need?: I don?t need any help How often do you feel lonely or isolated from those around you?: Rarely Do you speak a language other than Tongan at home?: No Does the patient want assistance with any of the above?: No Health Related Social Needs Health related social needs: feeling lonely/isolated (Z60.8) PFS All Active Problems (Updated 10/30/24 @ 23:53 by Anthony Walden) Intractable nausea and vomiting (Acute) Hypoglycemia (Acute) Cancer related pain (Acute) Nausea (Acute) Hypothyroidism (Chronic) Cancer, metastatic to lung (Acute) [facility] [place]/04/[address] nodules on CT (Acute ~12/2023) 01/12/24 Dr Palacios Thoracic Surg 03/28/24-CT chest w/ contrast-stage IV pancreatic cancer, on chemo, restaging (ordering physician Dr. Stevenson) Left upper lobe pulmonary nodule (Acute) Pancreatic adenocarcinoma (Chronic ~11/2023) fine needle aspiration 12/24/23 [facility] [place]/12/24 Thoracic Surgeon 03/28/24-CT chest w contrast: interval decrease in size of an ill-defined mass ar the head of the pancreas. Pancreatic mass (Acute ~12/22/23) 12/22/23 found on endoscopy Elevated LFTs (Acute) Common bile duct (CBD) obstruction (Acute) Stent placed 12/22/23 Gallbladder dilatation (Acute) Elevated transaminase level (Acute) Pancreatitis (Acute) Common bile duct dilatation (Acute) HSV-1 infection (Acute ~2022) DM type 1, goal A1C below 7.5% (Chronic) DM 1.5, but adding TYpe 1 2' MGMT per DM 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 see KG notes.. 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 PRN, 03/2023 Ganglion cyst Muscle spasm Benign paroxysmal positional vertigo Trochanteric bursitis, left hip Other intervertebral disc degeneration, lumbar region Adjustment disorder with anxious mood Synovial cyst of lumbar facet joint Surgical History History of abdominal paracentesis (~09/2024) H/O endoscopy (~12/22/23) Pancreatic mass found 06/10/[id number] of duodenum stented Family History Brother Alcohol use disorder Brother Alcohol use disorder Depression Father Colon cancer Diabetes Mother Asthma Lung cancer ALK positive ( gene mutation) Hypertension Sister [place] disease Paternal Grandmother Heart disease Paternal Grandfather Colon cancer Social History Smoking/Tobacco Use Status: Former Tobacco Use Quit status: considering quitting Smoking risk assessment performed?: Yes Alcohol Intake: former Counseling given: No Drug use: Daily Substance use type: marijuana Household members: spouse Housing: house Number of Children: 3 number of grandchildren: 2 Communication Needs: Corrective Lenses Education Level: college 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 What is your relationship status?: How often do you talk on the phone with friends or family?: three or more times per week How often do you get together with friends or relatives?: three or more times per week Panel score (0-1 are the most socially isolated patients): 2 NHANES result reviewed/action taken: Yes What type of physical activity do you participate in: walking Duration: 45-60 minutes/day Frequency: other Details: exercises as pt feels up to it with current condition Debbi/Synagogue: [employer] Special debbi needs: Yes Seatbelt use: always Drive intox or ride w/intox motorcycle 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
[2024-10-31] MEDS: Polyethylene Glycol 3350 17 GM PACKET PO (11:01)
[2024-10-31] MEDS: Metoclopramide 10 MG/2 ML VIAL 5 MG IVP (12:04)
--- NOTE | 2024-10-31 13:09 | DSE_ITS ---
Date of service: 10/31/24 Time of Service: 13:09 DS: Diagnosis Discharge Diagnosis (1) Intractable nausea and vomiting: Status: Acute (2) Hypoglycemia: Status: Acute (3) DM type 1, goal A1C below 7.5%: Status: Chronic (4) Pancreatic adenocarcinoma: Status: Chronic Discharge Plan Disposition Patient Disposition: Home Condition: Stable Discharge Details Reason For Visit: Intractable nausea vomiting, Hypoglycemia, Pancrea Admit Date/Time: 10/31/24 00:11 Admit Provider: Anthony Walden Attending Provider: Anthony Walden Primary Care Provider: Thao Rivas Home Meds and New Rx's Prescriptions: New dextrose [Glutose-15] 40 % Gel 10 g PO DIRECTED PRNQty: 112.5 0RF GlucaGen HypoKit 1 mg recon soln 1 mg subcut Q20M PRNQty: 3 1RF Rx Instructions: until target blood sugar attained Continued (DME) blood-glucose meter [OneTouch Verio Flex meter] Misc See Rx Instructions .Route Qty: 1 1RF Rx Instructions: For BID testing of diabetes, E11.9, with A1C goal < 8 (DME) lancets [Lancets,Ultra Thin] Misc See Rx Instructions .Route Qty: 100 1RF Rx Instructions: for BID testing with Verio for DM W11.9 with A1C goal < 8 (DME) Blood Glucose Test Strip See Rx Instructions .ROUTE .MEDSUPPLY Qty: 200 3RF Rx Instructions: For Verio OR covered brand, for bID testing for DM E11.9 Humulin N NPH Insulin KwikPen 100 unit/mL (3 mL) insulin pen 7 unit subcut QAM Qty: 15 3RF Rx Instructions: Inject 7 units 15 min prior to prednisone administration. Can increase as directed. (DME) Dexcom G6 Sensor Device See Rx Instructions .Route Rx Instructions: As directed (DME) CGM (Continuous Glucose Monitor) and SENSOR See Rx Instructions .Route .MEDSUPPLY Qty: 1 1RF Rx Instructions: Dexcom 6 Medical necessity for serious health risk due to TYPE 1 MGMT REQUIREMENT tizanidine 2 mg capsule 2 mg PO DAILY PRN (Reason: muscle spasm) Qty: 30 3RF Fiasp FlexTouch U-100 Insulin 100 unit/mL (3 mL) insulin pen 15 unit subcut TID MDD 45 units 30 Days Qty: 15 12RF Rx Instructions: Inject 15 units subcutaneously with meals as directed. ondansetron HCl 8 mg tablet 8 mg PO Q8H omeprazole 20 mg capsule,delayed release(DR/EC) 20 mg PO BID Patient Comments: Reports 40 mg/d with some benefit. levothyroxine 150 mcg capsule 150 mcg PO DAILY Patient Comments: Patient reports high TSH and dose change from [facility]. oxycodone 5 mg tablet 5 mg PO .complex PRN Patient Comments: 1-2 tabs q4 hrs for pain with hydromorphone gemcitabine 2 gram/52.6 mL (38 mg/mL) solution 1 mg IV Q2W Patient Comments: Dose amount unknown. [address] marker until we find out. Rx Instructions: New Chemotherapy dexamethasone 1 mg tablet 1 - 4 mg PO DAILY Qty: 90 4RF gabapentin 100 mg capsule 100 - 200 mg PO TID Qty: 90 0RF clonazepam 0.5 mg tablet 0.5 mg PO QHS Qty: 30 4RF Rx Instructions: Take in the evening for dysgeusia meclizine 25 MG tablet,chewable 25 mg PO DAILY PRN cyclobenzaprine 5 mg tablet 2.5 mg PO DAILY PRN (Reason: SI joint issues) Qty: 10 0RF (DME) pen needle, diabetic [Comfort EZ Pen [place]] 31 gauge x 3/16 needle See Rx Instructions .Route Qty: 400 4RF Rx Instructions: For injected insulin 4x daily, use as directed insulin glargine [Lantus Solostar U-100 Insulin] 100 unit/mL (3 mL) insulin pen 14 unit subcut QPM Qty: 15 5RF (DME) Dexcom G6 Transmitter Device See Rx Instructions .Route Rx Instructions: As directed (DME) Dexcom G6 Transmitter Device See Rx Instructions .Route Qty: 1 0RF Rx Instructions: As directed, keep A1c less than 7.5 insulin aspart U-100 [Novolog FlexPen U-100 Insulin] 100 unit/mL (3 mL) insulin pen 5 unit subcut TID Qty: 15 12RF Rx Instructions: Inject 1-5 units subcutaneously, 1-3 times daily as directed. Creon 36,000-114,000- 180,000 unit capsule,delayed release(DR/EC) 3 - 4 cap PO TID Rx Instructions: administer with meals (DME) lancets [Unistik Comfort Lancets] 28 gauge misc See Rx Instructions .Route Qty: 100 0RF Rx Instructions: check blood sugars manually q3 days when starting insulin pump hydromorphone 2 mg tablet 2 mg PO BID PRN lorazepam 0.5 mg tablet 0.5 mg PO Q6H PRN scopolamine base 1 mg over 3 days patch 3 day 1 patch transdermal Q3D PRN Baqsimi 3 mg/actuation spray,non-aerosol 3 mg intranasal DIRECTED Rx Instructions: as a single dose cyclobenzaprine 10 mg tablet 10 mg PO TID fentanyl 25 mcg/hr patch 72 hour 1 patch transdermal Q72H MDD 1 patch Qty: 10 0RF naloxone [Narcan] 4 mg/actuation spray,non-aerosol 4 mg intranasal Q2M PRN (Reason: opioid overdose) Qty: 2 0RF Rx Instructions: spray 1 dose into ONE nostril; alternate nostrils w each dose until help arrives Creon 24,000-76,000 -120,000 unit capsule,delayed release(DR/EC) See Rx Instructions PO .COMPLEX Patient Comments: TAKE ONE TO TWO CAPSULES BY MOUTH with snacks Rx Instructions: 1-2 caps orally PRN with snacks; Discharge Instructions Instructions: Low blood sugar in people with diabetes, Nausea and vomiting in adults Additional Instructions: take all medications as directed clear liquids, advance as tolerated. Referrals: Thao Rivas NP [Primary Care Provider] - Activity:: Activity as Tolerated Equipment/Supplies:: No Equipment Needed Diet:: Carb Counting DS: Summary Quality:SDOH Health Related Social Needs: Health related social needs feeling lonely/isolated (Z 60.8) DS: Data Vitals/I&O Vitals and I&O: Vital Signs Temperature 37.0 C 10/31/24 11:44 Temperature Source Temporal Artery Scan 10/31/24 11:44 Pulse 88 10/31/24 11:44 Pulse Rhythm Regular 10/31/24 01:45 Pulse Strength Normal 10/30/24 20:35 Respiratory Rate 15 10/31/24 11:44 Respiratory Effort Normal 10/31/24 01:45 Respiratory Depth Shallow 10/31/24 01:45 Respiratory Pattern Normal 10/31/24 01:45 Blood Pressure 121/91 H 10/31/24 11:44 Blood Pressure Mean 87 10/30/24 20:35 Blood Pressure Position Supine 10/30/24 20:35 Pulse Oximetry 96 10/31/24 11:44 Oxygen Delivery Method Room Air 10/31/24 11:44 Oxygen Flow Rate 0 10/31/24 11:44 Pain Level 0 10/31/24 11:44 Intake & Output 10/30/24 10/31/24 10/31/24 23:59 11:59 23:59 Intake Total 1461.667 / 1461.667 Output Total 100 / 100 Balance 1361.667 / 1361.667 Weight 63.503 kg 64.9 kg Intake: IV 1461.667 / 1461.667 Output: Urine 100 / 100 Other: Urine Color Yellow Urine Appearance Clear Data Completed and Pending Labs on day of discharge: Labs from last 24 hours 10/31/24 10/31/24 10/30/24 06:10 00:11 21:33 WBC 7.34 RBC 3.56 L Hgb 10.9 L Hct 32.9 L MCV 92 MCH 30.6 MCHC 33.1 RDW 15.2 H Plt Count 224 MPV 10.0 Immature Gran % Neutrophils % Lymphocytes % Monocytes % Eosinophils % Basophils % Nucleated RBC % Absolute Neutrophils Absolute Lymphocytes Absolute Monocytes Absolute Eosinophils Absolute Basophils PT 10.7 INR 1.1 Sodium 136 Potassium 4.4 Chloride 104 Carbon Dioxide 28.3 Anion Gap 3.7 BUN 7 Creatinine 0.8 Est GFR (CKD-EPI 2020) 83.78 Glucose 145 H Calcium 8.2 L Magnesium 1.9 Total Bilirubin 0.26 AST 34 ALT 21 Alkaline Phosphatase 116 Troponin I Cancelled Total Protein 4.5 L Albumin 1.5 L Lipase COVID-19 Source Cancelled SARS-CoV-2 (PCR) Cancelled 10/30/24 10/30/24 10/30/24 19:19 19:15 18:25 WBC 10.21 RBC 4.05 Hgb 12.6 Hct 37.2 MCV 92 MCH 31.1 MCHC 33.9 RDW 15.0 H Plt Count 304 MPV 9.1 Immature Gran % 3.4 Neutrophils % 74.2 Lymphocytes % 7.9 Monocytes % 13.2 Eosinophils % 0.7 Basophils % 0.6 Nucleated RBC % 0.7 H Absolute Neutrophils 7.57 H Absolute Lymphocytes 0.81 L Absolute Monocytes 1.35 H Absolute Eosinophils 0.07 Absolute Basophils 0.06 PT INR Sodium 138 Potassium 4.0 Chloride 105 Carbon Dioxide 26.7 Anion Gap 6.3 BUN 9 Creatinine 0.8 Est GFR (CKD-EPI 2020) 83.78 Glucose 92 Calcium 8.6 Magnesium 2.0 Total Bilirubin 0.38 AST 39 H ALT 25 Alkaline Phosphatase 139 H Troponin I 4 4 Total Protein 5.5 L Albumin 1.8 L Lipase 7 COVID-19 Source SARS-CoV-2 (PCR) PFSH All Active Problems (Updated 10/30/24 @ 23:53 by Anthony Walden) Intractable nausea and vomiting (Acute) Hypoglycemia (Acute) Cancer related pain (Acute) Nausea (Acute) Hypothyroidism (Chronic) Cancer, metastatic to lung (Acute) [facility] [place] 02/04/[address] nodules on [address] (Acute ~12/2023) 01/12/24 Dr Palacios Thoracic Surg 03/28/24-CT chest w/ contrast-stage IV pancreatic cancer, on chemo, restaging (ordering physician Dr. Stevenson) Left upper lobe pulmonary nodule (Acute) Pancreatic adenocarcinoma (Chronic ~11/2023) fine needle aspiration 12/24/23 [facility] 01/12/24 Thoracic Surgeon 03/28/24-CT chest w contrast: interval decrease in size of an ill-defined mass ar the head of the pancreas. Pancreatic mass (Acute ~12/22/23) 12/22/23 found on endoscopy Elevated LFTs (Acute) Common bile duct (CBD) obstruction (Acute) Stent placed 12/22/23 Gallbladder dilatation (Acute) Elevated transaminase level (Acute) Pancreatitis (Acute) Common bile duct dilatation (Acute) HSV-1 infection (Acute ~2022) DM type 1, goal A1C below 7.5% (Chronic) DM 1.5, but adding TYpe 1 2' MGMT per DM 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 see KG notes.. (Hx POS DM 1?!) Medical History Duodenal obstruction (05/2024) complete obstruction of 1st part of duodenum-stented [facility] Family history of diabetes mellitus in father Otitis externa of left ear HTN (hypertension) Abdominal pain Sacroiliac joint pain Vertigo DDD (degenerative disc disease), lumbar Other insomnia Headache Exostoses, multiple Chronic dysfunction of left eustachian tube Back pain Arthritis Estrogen deficiency Anemia Posterior vitreous detachment Type 2 diabetes mellitus Type 1.5, to be managed as Type 1 PRN, 03/2023 Ganglion cyst Muscle spasm Benign paroxysmal positional vertigo Trochanteric bursitis, left hip Other intervertebral disc degeneration, lumbar region Adjustment disorder with anxious mood Synovial cyst of lumbar facet joint Surgical History History of abdominal paracentesis (~09/2024) H/O endoscopy (~12/22/23) Pancreatic mass found 06/10/[id number] of duodenum stented Family History Brother Alcohol use disorder Brother Alcohol use disorder Depression Father Colon cancer Diabetes Mother Asthma Lung cancer ALK positive ( gene mutation) Hypertension Sister [place] disease Paternal Grandmother Heart disease Paternal Grandfather Colon cancer Social History Smoking/Tobacco Use Status: Former Tobacco Use Quit status: considering quitting Smoking risk assessment performed?: Yes Alcohol Intake: former Counseling given: No Drug use: Daily Substance use type: marijuana Household members: spouse Housing: house Number of Children: 3 number of grandchildren: 2 Communication Needs: Corrective Lenses Education Level: college 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 What is your relationship status?: How often do you talk on the phone with friends or family?: three or more times per week How often do you get together with friends or relatives?: three or more times per week Panel score (0-1 are the most socially isolated patients): 2 NHANES result reviewed/action taken: Yes What type of physical activity do you participate in: walking Duration: 45-60 minutes/day Frequency: other Details: exercises as pt feels up to it with current condition Debbi/Mormon: Episcopal Special debbi needs: Yes Seatbelt use: always Drive intox or ride w/intox truck driver supervisor: No Working smoke detector in home: Yes Carbon monox detector in home: Yes Do you feel safe at home: Yes Do you feel safe in your relationship?: Yes
[2024-10-31] MEDS: Creon, Lipase 24,000 CAPCR 4 CAP PO ×2 (13:55→17:13)
[2024-10-31] MEDS: Insulin Aspart 300 UNITS/3 ML PEN SC ×2 (14:20→17:14)
[2024-10-31] MEDS: LORazepam 0.5 MG TAB PO (15:49)
--- NOTE | 2024-10-31 17:03 | W.PM.PROGNOT ---
Date of Service Date of service: 10/31/24 Time of Service: 17:03 Assessment and Plan Assessment and plan (1) Intractable nausea and vomiting: Status: Acute Assessment and plan: continue IV hydration with continued pain management with fentanyl patch, treat nausea with monitoring of heart QT prolongation and watch for hypoglycemia which has been recurrent at home prior to admission. She will receive D5 as needed. She is a DNR/DNI with recent palliative care note and COLST form to be filled out at next palliative care visit. (2) Hypoglycemia: Status: Acute Assessment and plan: Patient has been having problems with hypoglycemia over the last 24 hours with poor intake and nausea and vomiting as been intractable. Continue Zofran and and/or Reglan with scopolamine patch to be continued. (3) DM type 1, goal A1C below 7.5%: Status: Chronic Assessment and plan: Glucometer management with coverage only if needed with hypoglycemia an active problem, will only give sensitive sliding scale glucometer coverage with short acting insulin with no basal insulin. With patient being type 1 - 1.5, she will need some insulin even though she is not eating and drinking well. (4) Pancreatic adenocarcinoma: Status: Chronic Assessment and plan: Patient has seen palliative care and is a DNR/DNI but is still receiving chemotherapy. She does have stenting because of blockage from her pancreatic head cancer and she does have peritoneal metastases now which may be causing some of her present abdominal pain with nausea and vomiting. Long-term she needs to discuss goals with chemotherapy and possible hospice. discussed with Dr Rae Subjective Subjective Patient reports: voiding w/o difficulty, nausea and afebrile; denies tolerating liquids well, tolerating a regular diet or shortness of breath Exam Const General: frail appearing and ill appearing acutely Nutritional Appearance: average body habitus Orientation: alert, awake and oriented x3 HENNM Head: normal to inspection, normocephalic and atraumatic Mouth: oral mucosa abnormal (slightly dry) Neck Neck: normal visual inspection Chest Chest: normal inspection of the chest Resp Effort & Inspection: normal respiratory effort Cardio Rate: regular rate Skin General skin exam: other (ashen) Neuro General: patient alert, patient awake and patient oriented x3 Extrem General: normal to inspection and full ROM Psych Appearance: grossly normal Mental Status: mental status grossly normal Speech and Movement: speech and movement normal Mood: congruent mood Affect: normal affect Attitude: cooperative Thought Process: normal Thought Content: normal Insight: insight good Judgment: judgment good Objective Last Vital Signs Temp 36.4 C L 10/31/24 15:17 Pulse 87 10/31/24 15:17 Resp 15 10/31/24 15:17 BP 123/90 10/31/24 15:17 Pulse Ox 94 10/31/24 15:17 Laboratory Results - last 24 hr 10/30/24 10/30/24 10/30/24 18:25 19:15 19:19 WBC 10.21 RBC 4.05 Hgb 12.6 Hct 37.2 MCV 92 MCH 31.1 MCHC 33.9 RDW 15.0 H Plt Count 304 MPV 9.1 Immature Gran % 3.4 Neutrophils % 74.2 Lymphocytes % 7.9 Monocytes % 13.2 Eosinophils % 0.7 Basophils % 0.6 Nucleated RBC % 0.7 H Absolute Neutrophils 7.57 H Absolute Lymphocytes 0.81 L Absolute Monocytes 1.35 H Absolute Eosinophils 0.07 Absolute Basophils 0.06 PT INR Sodium 138 Potassium 4.0 Chloride 105 Carbon Dioxide 26.7 Anion Gap 6.3 BUN 9 Creatinine 0.8 Est GFR (CKD-EPI 2020) 83.78 Glucose 92 Calcium 8.6 Magnesium 2.0 Total Bilirubin 0.38 AST 39 H ALT 25 Alkaline Phosphatase 139 H Troponin I 4 4 Total Protein 5.5 L Albumin 1.8 L Lipase 7 COVID-19 Source SARS-CoV-2 (PCR) 10/30/24 10/31/24 10/31/24 21:33 00:11 06:10 WBC 7.34 RBC 3.56 L Hgb 10.9 L Hct 32.9 L MCV 92 MCH 30.6 MCHC 33.1 RDW 15.2 H Plt Count 224 MPV 10.0 Immature Gran % Neutrophils % Lymphocytes % Monocytes % Eosinophils % Basophils % Nucleated RBC % Absolute Neutrophils Absolute Lymphocytes Absolute Monocytes Absolute Eosinophils Absolute Basophils PT 10.7 INR 1.1 Sodium 136 Potassium 4.4 Chloride 104 Carbon Dioxide 28.3 Anion Gap 3.7 BUN 7 Creatinine 0.8 Est GFR (CKD-EPI 2020) 83.78 Glucose 145 H Calcium 8.2 L Magnesium 1.9 Total Bilirubin 0.26 AST 34 ALT 21 Alkaline Phosphatase 116 Troponin I Cancelled Total Protein 4.5 L Albumin 1.5 L Lipase COVID-19 Source Cancelled SARS-CoV-2 (PCR) Cancelled Time Spent with Patient Time Spent with Patient: 35-49 minutes Time was spent: preparing to see the patient(eg.review tests), obtaining and/or reviewing separately otained hiistory, ordering medications,tests, procedures, indepentently interpreting results and counseling the patient
[2024-10-31] MEDS: Cyclobenzaprine 10 MG TAB PO (21:49)
[2024-10-31] MEDS: clonazePAM 0.5 MG TAB PO (21:49)
[2024-11-01 02:46] VITALS: BP 117/84; PULSE 87; RESP 16; TEMP 36.9; O2SAT 93
[2024-11-01] MEDS: Lactated Ringers 1,000 ML 125 ML IV (03:04)
[2024-11-01] MEDS: Levothyroxine 150 MCG TAB PO (05:40)
[2024-11-01 06:42] LABS: HCT 32.3 % (36.0-46.0); HGB 10.6 g/dL (11.2-15.7); MCH 30.4 pg (27.0-33.0); MCHC 32.8 % (32.0-36.0); MCV 93 fL (80-95); Platelet Count 220 10^3/uL (130-400); RBC 3.49 10^6/uL (3.93-5.22); RDW 15.6 % (11.7-14.6); RDW-SD 50.5 fL; WBC 6.95 10^3/uL (4.4-10.8)
[2024-11-01 07:06] LABS: ALT 18 U/L (14-59); AST 29 U/L (15-37); Albumin 1.5 g/dL (3.4-5.0); Alkaline Phosphatase 114 U/L (46-116); Anion Gap 5.7 mmol/L (3-11); BUN 8 mg/dL (7-18); Bilirubin, Total 0.23 mg/dL (0.2-1.0); CO2 26.3 mmol/L (21.0-32.0); CREATININE 0.8 mg/dL (0.55-1.02); Calcium 8.1 mg/dL (8.5-10.1); Chloride 105 mmol/L (98-107); Estimated GFR 83.78 (mL/min/1.73m2); Glucose 193 mg/dL (74-106); Magnesium 1.8 mg/dL (1.8-2.4); Potassium 4.5 mmol/L (3.5-5.1); Sodium 137 mmol/L (136-145); Total Protein 4.4 g/dL (6.4-8.2)
[2024-11-01 08:15] VITALS: BP 118/62; PULSE 76; RESP 16; TEMP 36.9; O2SAT 94
[2024-11-01] MEDS: Metoclopramide 10 MG/2 ML VIAL 5 MG IVP (08:23)
[2024-11-01] MEDS: Creon, Lipase 24,000 CAPCR 4 CAP PO ×2 (08:51→12:30)
[2024-11-01] MEDS: Omeprazole 20 MG CAPCR PO (08:54)
[2024-11-01] MEDS: Gabapentin 100 MG CAP PO ×2 (08:55→13:57)
[2024-11-01] MEDS: Dexamethasone 1 MG TAB 2 MG PO (08:55)
[2024-11-01] MEDS: Insulin Aspart 300 UNITS/3 ML PEN SC ×2 (09:06→12:31)
--- NOTE | 2024-11-01 09:56 | NUR.NOTE ---
Nursing Note: Meena Costello is prescribed dexamethasone 1mg tablet. Dispenced was two 0.5mg tablets. Meena stated she feels jittery and would only like to take 1 tablet of the dexamethasone 0.5mg at this time. Documenting by hearing care practitioner Belgica Flores per instructor Anila Pressley
[2024-11-01 11:34] VITALS: BP 130/72; PULSE 82; RESP 16; TEMP 36.6; O2SAT 97
--- NOTE | 2024-11-01 13:51 | DSE_ITS ---
Date of service: 11/01/24 Time of Service: 13:51 DS: Diagnosis Discharge Diagnosis (1) Intractable nausea and vomiting: Status: Acute (2) Cancer, metastatic to lung: Status: Acute (3) Pancreatic adenocarcinoma: Status: Chronic Discharge Plan Disposition Patient Disposition: Home W/Home Health Services Condition: Stable Discharge Details Reason For Visit: Intractable nausea vomiting, Hypoglycemia, Pancrea Admit Date/Time: 10/31/24 00:11 Admit Provider: Anthony Walden Attending Provider: Anthony Walden Primary Care Provider: Thao Rivas [facility] Course Hospital Course: This is a 59-year-old female patient with past medical History of hypothyroidism, adenocarcinoma of the pancreas diagnosed in November 2023 and and is failing chemotherapy with progression of her cancer now metastasis to the peritoneal cavity with carcinomatosis and increased pain in her lung metastasis presenting to the ED at [facility] on 10/30/2024 for evaluation of vomiting, hypoglycemia, constipation, peritoneal fluid accumulation and pain. Patient reported persistent vomiting prior to admission as well as hypoglycemia in the 60s which was unable to resolve when consuming oral carbohydrate due to intractable vomiting. The patient add stopped her insulin pump because she began to have low glucometer measurements and symptoms of hypoglycemia. In the ED the patient was treated with D10 infusion for hypoglycemia with improvement of her hypoglycemia. She was treated with antiemetics with Zofran and Reglan. The ED workup showed unremarkable CBC and chemistry except for an AST at 39 and an alk phos of 139; an EKG with QT prolongation with normal troponins and magnesium level. An abdominal pelvis CT showed persistent large amount of ascites and prominence of the omentum suggesting disease. The patient was admitted by the hospitalist with the medical floor with telemetry for evaluation and management of intractable nausea and vomiting, pain, hypoglycemia with plans for bowel rest with IV hydration, pain management blood sugar monitoring and adjustment of her diabetes type I blood sugar management treatment. During the stay the patient did not use her insulin pump and blood sugars stabilized. She was managed with sliding scale insulin and only required about 5 units over 24 hours. Hypoglycemia resolved. As of 10/31/2024, QT prolongation resolved as per telemetry readings. Her home dose of Lantus insulin has been adjusted accordingly to half of the total required dose; further management as per primary care practitioner. The patient was also able to tolerate oral intake and will be discharged home today with resumption of home health services, on oral Reglan before meals. The patient independently manage for abdomen pain to reduce the amount of abdominal ascites. Chronic conditions are managed as per home medicine regimen. The patient will resume the use of her insulin pump as per outpatient therapy. The patient will consult with oncology practitioners with decide on resumption of her pre-chemotherapy drug regimen. Patient will need to follow-up with her primary care practitioner within 7 days of discharge. Discussed with Dr. Rae. Home Meds and New Rx's Prescriptions: New dextrose [Glutose-15] 40 % Gel 10 g PO DIRECTED PRNQty: 112.5 0RF GlucaGen HypoKit 1 mg recon soln 1 mg subcut Q20M PRNQty: 3 1RF Rx Instructions: until target blood sugar attained metoclopramide HCl 10 mg tablet 10 mg PO QAC Qty: 30 0RF Rx Instructions: administer 30 minutes before meals Continued (DME) blood-glucose meter [OneTouch Verio Flex meter] Misc See Rx Instructions .Route Qty: 1 1RF Rx Instructions: For BID testing of diabetes, E11.9, with A1C goal < 8 (DME) lancets [Lancets,Ultra Thin] Misc See Rx Instructions .Route Qty: 100 1RF Rx Instructions: for BID testing with Verio for DM W11.9 with A1C goal < 8 (DME) Blood Glucose Test Strip See Rx Instructions .ROUTE .MEDSUPPLY Qty: 200 3RF Rx Instructions: For Verio OR covered brand, for bID testing for DM E11.9 Humulin N NPH Insulin KwikPen 100 unit/mL (3 mL) insulin pen 7 unit subcut QAM Qty: 15 3RF Rx Instructions: Inject 7 units 15 min prior to prednisone administration. Can increase as directed. (DME) Dexcom G6 Sensor Device See Rx Instructions .Route Rx Instructions: As directed (DME) CGM (Continuous Glucose Monitor) and SENSOR See Rx Instructions .Route .MEDSUPPLY Qty: 1 1RF Rx Instructions: Dexcom 6 Medical necessity for serious health risk due to TYPE 1 MGMT REQUIREMENT tizanidine 2 mg capsule 2 mg PO DAILY PRN (Reason: muscle spasm) Qty: 30 3RF Fiasp FlexTouch U-100 Insulin 100 unit/mL (3 mL) insulin pen 15 unit subcut TID MDD 45 units 30 Days Qty: 15 12RF Rx Instructions: Inject 15 units subcutaneously with meals as directed. ondansetron HCl 8 mg tablet 8 mg PO Q8H omeprazole 20 mg capsule,delayed release(DR/EC) 20 mg PO BID Patient Comments: Reports 40 mg/d with some benefit. levothyroxine 150 mcg capsule 150 mcg PO DAILY Patient Comments: Patient reports high TSH and dose change from [facility]. oxycodone 5 mg tablet 5 mg PO .complex PRN Patient Comments: 1-2 tabs q4 hrs for pain with hydromorphone gemcitabine 2 gram/52.6 mL (38 mg/mL) solution 1 mg IV Q2W Patient Comments: Dose amount unknown. [address] marker until we find out. Rx Instructions: New Chemotherapy dexamethasone 1 mg tablet 1 - 4 mg PO DAILY Qty: 90 4RF gabapentin 100 mg capsule 100 - 200 mg PO TID Qty: 90 0RF clonazepam 0.5 mg tablet 0.5 mg PO QHS Qty: 30 4RF Rx Instructions: Take in the evening for dysgeusia meclizine 25 MG tablet,chewable 25 mg PO DAILY PRN cyclobenzaprine 5 mg tablet 2.5 mg PO DAILY PRN (Reason: SI joint issues) Qty: 10 0RF (DME) pen needle, diabetic [Comfort EZ Pen [place]] 31 gauge x 3/16 needle See Rx Instructions .Route Qty: 400 4RF Rx Instructions: For injected insulin 4x daily, use as directed (DME) Dexcom G6 Transmitter Device See Rx Instructions .Route Rx Instructions: As directed (DME) Dexcom G6 Transmitter Device See Rx Instructions .Route Qty: 1 0RF Rx Instructions: As directed, keep A1c less than 7.5 insulin aspart U-100 [Novolog FlexPen U-100 Insulin] 100 unit/mL (3 mL) insulin pen 5 unit subcut TID Qty: 15 12RF Rx Instructions: Inject 1-5 units subcutaneously, 1-3 times daily as directed. Creon 36,000-114,000- 180,000 unit capsule,delayed release(DR/EC) 3 - 4 cap PO TID Rx Instructions: administer with meals (DME) lancets [Unistik Comfort Lancets] 28 gauge misc See Rx Instructions .Route Qty: 100 0RF Rx Instructions: check blood sugars manually q3 days when starting insulin pump hydromorphone 2 mg tablet 2 mg PO BID PRN lorazepam 0.5 mg tablet 0.5 mg PO Q6H PRN scopolamine base 1 mg over 3 days patch 3 day 1 patch transdermal Q3D PRN Baqsimi 3 mg/actuation spray,non-aerosol 3 mg intranasal DIRECTED Rx Instructions: as a single dose cyclobenzaprine 10 mg tablet 10 mg PO TID fentanyl 25 mcg/hr patch 72 hour 1 patch transdermal Q72H MDD 1 patch Qty: 10 0RF naloxone [Narcan] 4 mg/actuation spray,non-aerosol 4 mg intranasal Q2M PRN (Reason: opioid overdose) Qty: 2 0RF Rx Instructions: spray 1 dose into ONE nostril; alternate nostrils w each dose until help arrives Creon 24,000-76,000 -120,000 unit capsule,delayed release(DR/EC) See Rx Instructions PO .COMPLEX Patient Comments: TAKE ONE TO TWO CAPSULES BY MOUTH with snacks Rx Instructions: 1-2 caps orally PRN with snacks; Changed insulin glargine [Lantus Solostar U-100 Insulin] 100 unit/mL (3 mL) insulin pen 3 unit subcut QPM Qty: 15 5RF Discharge Instructions Instructions: Low blood sugar in people with diabetes, Nausea and vomiting in adults Additional Instructions: take all medications as directed clear liquids, advance as tolerated. Stand Alone Forms: Nursing Discharge Form Referrals: Thao Rivas NP [Primary Care Provider] - (Follow-up within 7 days of discharge please) Activity:: Activity as Tolerated Equipment/Supplies:: No Equipment Needed Diet:: Carb Counting Discharge Orders Discharge Orders: Discharge Order (Routine); Ordered 11/01/24 Ordered By: Brit Fu DS: Summary Time Spent with Patient providing and/or coordinating discharge services: Greater than 30 minutes Status at Discharge Functional status at discharge: independent ambulation Overall status at discharge: patient is progressing back to baseline Mental Status: mental status grossly normal Speech and Movement: speech and movement normal Mood: congruent mood Affect: normal affect Quality:SDOH Health Related Social Needs: Health related social needs feeling lonely/isolated (Z 60.8) Exam Narrative Exam Narrative: Constitutional The patient is sitting on bed without acute distress Neuro:alert and oriented X4 Resp:Unlabored breathing, clear lung bilaterally with decreased bases Cardio: regular rhythm, S1, S2 GI: Abdomen is distended, soft and non tender, bowel sounds are present : Negative Costovertebral angle tenderness Integumentary: No skin lesions or rash on exposed skin Extremities: strength 5/5 to bilateral lower and upper extremities Psych: RASS 0, congruent mood and normal affect. Psych Mental Status: mental status grossly normal Speech and Movement: speech and movement normal Mood: congruent mood Affect: normal affect DS: Data Vitals/I&O Vitals and I&O: Vital Signs Temperature 36.6 C 11/01/24 11:34 Temperature Source Tympanic 11/01/24 11:34 Pulse 82 11/01/24 11:34 Pulse Rhythm Regular 10/31/24 01:45 Pulse Strength Normal 10/30/24 20:35 Respiratory Rate 16 11/01/24 11:34 Respiratory Effort Normal 10/31/24 01:45 Respiratory Depth Shallow 10/31/24 01:45 Respiratory Pattern Normal 10/31/24 01:45 Blood Pressure 130/72 11/01/24 11:34 Blood Pressure Mean 87 10/30/24 20:35 Blood Pressure Position Supine 10/30/24 20:35 Pulse Oximetry 97 11/01/24 11:34 Oxygen Delivery Method Room Air 11/01/24 11:34 Oxygen Flow Rate 0 11/01/24 11:34 Pain Level 0 11/01/24 02:46 Comment pt bp map was 104 10/31/24 19:54 Intake & Output 10/31/24 11/01/24 11/01/24 23:59 11:59 23:59 Intake Total 979.167 / 2440.834 1396.667 / 1516.667 120 / 1516.667 Output Total 200 / 300 450 / 1450 1000 / 1450 Balance 779.167 / 2140.834 946.667 / 66.667 -880 / 66.667 Weight 67.4 kg Intake: IV 979.167 / 2440.834 916.667 / 916.667 Oral 480 / 600 120 / 600 Output: Drainage 1000 / 1000 Right Lower Abdomen 1000 / 1000 Urine 200 / 300 450 / 450 Other: Urine Color Yellow Yellow Urine Appearance Sediment Clear Urine Odor None Data Completed and Pending Labs on day of discharge: Labs from last 24 hours 11/01/24 06:25 WBC 6.95 RBC 3.49 L Hgb 10.6 L Hct 32.3 L MCV 93 MCH 30.4 MCHC 32.8 RDW 15.6 H Plt Count 220 MPV 10.0 Sodium 137 Potassium 4.5 Chloride 105 Carbon Dioxide 26.3 Anion Gap 5.7 BUN 8 Creatinine 0.8 Est GFR (CKD-EPI 2020) 83.78 Glucose 193 H Calcium 8.1 L Magnesium 1.8 Total Bilirubin 0.23 AST 29 ALT 18 Alkaline Phosphatase 114 Total Protein 4.4 L Albumin 1.5 L PFSH All Active Problems (Updated 11/01/24 @ 00:08 by ELEAZAR ALARCON) Intractable nausea and vomiting (Acute) Hypoglycemia (Acute) Cancer related pain (Acute) Nausea (Acute) Hypothyroidism (Chronic) Cancer, metastatic to lung (Acute) [facility] Hem/Onc 02/04/[address] nodules on CT (Acute ~12/2023) 01/12/24 Dr Palacios Thoracic Surg 03/28/24-CT chest w/ contrast-stage IV pancreatic cancer, on chemo, restaging (ordering physician Dr. Stevenson) Left upper lobe pulmonary nodule (Acute) Pancreatic adenocarcinoma (Chronic ~11/2023) fine needle aspiration 12/24/23 [facility] 01/12/24 Thoracic Surgeon 03/28/24-CT chest w contrast: interval decrease in size of an ill-defined mass ar the head of the pancreas. Pancreatic mass (Acute ~12/22/23) 12/22/23 found on endoscopy Elevated LFTs (Acute) Common bile duct (CBD) obstruction (Acute) Stent placed 12/22/23 Gallbladder dilatation (Acute) Elevated transaminase level (Acute) Pancreatitis (Acute) Common bile duct dilatation (Acute) HSV-1 infection (Acute ~2022) DM type 1, goal A1C below 7.5% (Chronic) DM 1.5, but adding TYpe 1 2' MGMT per DM 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 see [facility] notes.. 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, 03/2023 Ganglion cyst Muscle spasm Benign paroxysmal positional vertigo Trochanteric bursitis, left hip Other intervertebral disc degeneration, lumbar region Adjustment disorder with anxious mood Synovial cyst of lumbar facet joint Surgical History History of abdominal paracentesis (~09/2024) H/O endoscopy (~12/22/23) Pancreatic mass found 06/10/2426-[id number] of duodenum stented Family History Brother Alcohol use disorder Brother Alcohol use disorder Depression Father Colon cancer Diabetes Mother Asthma Lung cancer ALK positive ( gene mutation) Hypertension Sister [place] disease Paternal Grandmother Heart disease Paternal Grandfather Colon cancer Social History Smoking/Tobacco Use Status: Former Tobacco Use Quit status: considering quitting Smoking risk assessment performed?: Yes Alcohol Intake: former Counseling given: No Drug use: Daily Substance use type: marijuana Household members: spouse Housing: house Number of Children: 3 number of grandchildren: 2 Communication Needs: Corrective Lenses Education Level: college 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 What is your relationship status?: How often do you talk on the phone with friends or family?: three or more times per week How often do you get together with friends or relatives?: three or more times per week Panel score (0-1 are the most socially isolated patients): 2 NHANES result reviewed/action taken: Yes What type of physical activity do you participate in: walking Duration: 45-60 minutes/day Frequency: other Details: exercises as pt feels up to it with current condition Debbi/Pentecostalism: Moravian Special debbi needs: Yes Seatbelt use: always Drive intox or ride w/intox telephone directory distributor driver: No Working smoke detector in home: Yes Carbon monox detector in home: Yes Do you feel safe at home: Yes Do you feel safe in your relationship?: Yes Time Spent with Patient Time Spent with Patient: 70-84 minutes4 Time was spent: preparing to see the patient(eg.review tests), obtaining and/or reviewing separately otained hiistory, ordering medications,tests, procedures, referring, communicating with other health rn primary care, indepentently interpreting results, counseling the patient and care coordination
--- NOTE | 2024-11-01 16:43 | CMDISCH_ITS ---
Date of service: 11/01/24 Time of Service: 16:43 LACE Index Scoring Tool Questions: Length of Stay (in days): 1 Was the patient admitted via the E.D.?: Yes Comorbidities: Diabetes w/o Complication and Metastatic Solid Tumor E.D. Visits: 3 Answers: Total Score: 12 Risk of Readmission: High Risk Care Management Discharge Plan Reason for Hospitalization: pancreatic cancer Discharge Plan: Kalee will be discharged home with a resumption of home health services for nursing. She will follow up with her Oncologist, PCP and other community providers and will transport with her . Patient/Family Education Needs: Review discharge instructions, limitations, expectations, follow up plan and discuss Ask Me Three Services Needed at Discharge: Home Health Care Services SDOH Health Related Social Needs: Health related social needs feeling lonely/isolated (Z 60.8)
== END 2024-11-01 14:39 | disposition home health service (06) ==
LOC: ER 10-31 01:24 → MS 10-31 01:25
PROVIDERS: Emergency Medicine; Admitting Provider Family Medicine; Emergency Provider Emergency Medicine; PCP Nurse Practitioner; Visit Provider Family Medicine
DX: E10.649 Type 1 diabetes mellitus with hypoglycemia without coma (principal); R11.2 Nausea with vomiting, unspecified; C25.7 Malignant neoplasm of other parts of pancreas; C78.6 Secondary malignant neoplasm of retroperitoneum and peritoneum; Z96.41 Presence of insulin pump (external) (internal); Z79.899 Other long term (current) drug therapy; G89.3 Neoplasm related pain (acute) (chronic); R18.0 Malignant ascites; Z66 Do not resuscitate; E03.9 Hypothyroidism, unspecified; I10 Essential (primary) hypertension; M51.369 Other intervertebral disc degeneration, lumbar region without mention of lumbar back pain or lower extremity pain; D64.9 Anemia, unspecified; C78.02 Secondary malignant neoplasm of left lung; C78.01 Secondary malignant neoplasm of right lung; R94.31 Abnormal electrocardiogram [ECG] [EKG]
CPT/HCPCS: 00123; 36415; 36416; 80053; 82962; 83690; 85027; 87635; 93005; 96361; 96372; 96374; 96375; 96376; 99285; J1650; 74177; 83735; 84484; 85025; 85610; 93010; 99223; 99233; 99239; G0378; J1815; J2405; J2765; J3490; J8540

== ENCOUNTER 2024-11-03 04:09 | Outpatient (RCR) | payer BC, SELFPAY ==
[2024-11-03 08:26] LABS: Abs Immature Grans 0.17 10^3/uL (0.0-0.06); Absolute Basophil Count 0.05 10^3/uL (0.0-0.2); Absolute Lymphocyte Count 0.67 10^3/uL (1.2-3.4); Absolute Monocyte Count 1.34 10^3/uL (0.1-0.8); Basophils % 0.5 %; Eosinophils % 1.9 %; HCT 34.9 % (36.0-46.0); HGB 11.5 g/dL (11.2-15.7); Immature Grans % 1.6 %; Lymphocytes % 6.4 %; MCH 30.6 pg (27.0-33.0); MCV 93 fL (80-95); MPV 9.9 fL (8.0-11.0); Monocytes % 12.8 %; Neutrophils % 76.8 %; Nucleated RBC 0.2 % (0.0-0.3); Platelet Count 293 10^3/uL (130-400); RBC 3.76 10^6/uL (3.93-5.22); RDW-SD 52.1 fL; WBC 10.43 10^3/uL (4.4-10.8)
[2024-11-03] MEDS: Normal Saline Flush 10 ML SYR IVP (08:27)
[2024-11-03 08:51] LABS: Iron 30 ug/dL (50-170); Total Iron Binding Capacity 138 ug/dL (250-450); Transferrin Sat 22 % (15-50)
[2024-11-03 08:58] LABS: ALT 25 U/L (14-59); AST 35 U/L (15-37); Albumin 1.7 g/dL (3.4-5.0); Alkaline Phosphatase 128 U/L (46-116); Anion Gap 5.9 mmol/L (3-11); BUN 5 mg/dL (7-18); CO2 29.1 mmol/L (21.0-32.0); CREATININE 0.7 mg/dL (0.55-1.02); Calcium 8.5 mg/dL (8.5-10.1); Chloride 104 mmol/L (98-107); Estimated GFR 98.34 (mL/min/1.73m2); Glucose 213 mg/dL (74-106); Potassium 4.1 mmol/L (3.5-5.1); Sodium 139 mmol/L (136-145); Total Protein 4.9 g/dL (6.4-8.2)
[2024-11-03 09:43] LABS: Ferritin 330 ng/mL (8-252)
[2024-11-04 11:33] LABS: CA 19-9 12417 U/mL (<35)
== END 2024-11-16 23:59 | disposition home or self-care (01) ==
LOC: INF 04:09
PROVIDERS: PCP Nurse Practitioner; Visit Provider Internal Medicine Hematology & Oncology
DX: D64.9 Anemia, unspecified (principal); C25.0 Malignant neoplasm of head of pancreas
CPT/HCPCS: 36591; 80053; 82728; 83540; 83550; 85025; 86301

== ENCOUNTER 2024-11-14 10:21 | Inpatient (IN) | payer OTHER, SELFPAY ==
--- NOTE | 2024-11-14 09:06 | HPE_ITS ---
Date of service: 11/14/24 Time of Service: 09:20 Assessment and Plan Assessment and plan (1) Hospice care patient: Status: Acute Assessment and plan: Meena is a hospice patient admitted to [facility] for symptom management for uncontrolled nausea and vomiting Meena is adamant she would like to be home for end of life. 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 (2) Cancer related pain: Status: Acute Assessment and plan: hydromorphone 0.1mg/hr basal w/0.1mg q15m PRN bolus - previous 24h w/fentanyl 25mcg patch, to be removed when pump started; did have oral Dilaudid, however not frequently using d/t N/V suspect pain increasing N/V symptoms (3) Cancer, metastatic to lung: Status: Acute Assessment and plan: continue PleurX drain, please drain prior to discharge tomorrow 1L drained yesterday, 3L drained 11/12 (4) Pancreatic adenocarcinoma: Status: Chronic Assessment and plan: w/likely tumor progression to occlusion of duodenal stent or SBO present pt adamant that she does not want an NGT, will honor this today (5) Common bile duct (CBD) obstruction: Status: Acute Assessment and plan: she is not jaundice, stent in place (6) DM type 1, goal A1C below 7.5%: Status: Chronic Assessment and plan: reviewed w/ may remove CGM if Meena would like, she has not have any low-lows, mostly has been w/in range (7) Duodenal obstruction: Assessment and plan: surgical consult w/likely tumor advancement; reviewed option for Dobhoff tube in hospital, pt preference for no tube manage symptoms w/medications may represent or opt for Dobhoff w/LIS at any time (8) Nausea & vomiting: Status: Inactive Assessment and plan: scheduled medications ATC -lorazepam 0.5-1mg IVP q2h scheduled - Haldol 1mg IVP q6h scheduled - ondansetron 8mg IVP q8h scheduled - scopolamine 3mg 2 patches TD q72h scheduled, due for change 11/15/24 PRN medications - Compazine 10mg q4h IVP PRN - dexamethasone 4mg IVP q6h PRN will need home refills sent for Zofran, 15# of 8mg remaining History of Present Illness Narrative: Mrs. Robledo is a 59 y/o F hospice patient being admitted to [facility] for hospice symptom management; hospice diagnosis pancreatic cancer. Meena has been struggling with intractable nausea for weeks, recent worsening w/uncontrolled vomiting and retching. She has tried all outpatient management options in home, agreeable to presenting to hospital for symptom management. Nausea/Vomit: worsening, unable to keep down any oral intake for a few days to week. vomit had been clear, yesterday w/bile and last night chunks of dark brown. today's vomit has included clear, bile and brown. she has diffuse pain across abdomen, upper, w/cramping sensation; - BM: she is not passing gas to barely passing; last BM history hard to pin down, per hospice manager report yesterday she moved bowels on 11/12, per /patient last moved definitely on Thursday. stool color barrera w/shredded wheat consistency, small, painful w/cramp - stents in gallbladder and duodemum; last CT scan 10/30/24, no concerns for obstructions - meds: tried all in home meds, unable to keep any PO meds down. 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 trial suppository compazine last night; to date, no medication has helped w/nausea/vomit - per hospice had been receiving IVF MWF Pain: worse across abdomen, cramping, tightness; fentanyl 25mcg patch on, due for change tomorrow; did not start 12mcg patch which had been ordered, agreeable to placing today; last dose of Dilaudid 2mg 11/12, historically this has increased her nausea, she has been avoiding this; she has had nausea w/uncontrolled pain previously Resp/PleurX: SOB, denies wanting O2 today; has PleurX cath, drained daily, 1L yesterday 3L day before; DM: she has has some hypoglycemic episodes w/a reading in the 50's last night; reading glucose monitor she is in range 91% of time w/no lows lower than 50. the beeping of her reader has been causing distress. She has had no oral intake of food in days. Activity: limited, has been mostly bedbound, unable to tolerate much activity; sleeping minimally d/t discomfort, would like to sleep some if possible; does best in certain positions, HOB elevated Urine: making urine, darker now, suspects r/t dehydration Michael, 25 years. son Christiano now in home helping providing care. 2 step sons - she is close to her sister and other close friends; finds spiritual support from them Review of Systems Narrative: as per HPI PFSH All Active Problems (Updated 11/14/24 @ 15:39 by Delilah Vasquez NP) Hospice care patient (Acute) Cancer related pain (Acute) Nausea (Acute) Hypothyroidism (Chronic) Cancer, metastatic to lung (Acute) [facility] [place] Hem/Onc 02/04/[address] nodules on [address] (Acute ~12/2023) 01/12/24 Dr Palacios Thoracic Surg 03/28/24-CT chest w/ contrast-stage IV pancreatic cancer, on chemo, restaging (ordering physician Dr. Stevenson) Left upper lobe pulmonary nodule (Acute) Pancreatic adenocarcinoma (Chronic ~11/2023) fine needle aspiration 12/24/23 [facility] [place] [place] 01/12/24 Thoracic Surgeon 03/28/24-CT chest w contrast: interval decrease in size of an ill-defined mass ar the head of the pancreas. Pancreatic mass (Acute ~12/22/23) 12/22/23 found on endoscopy Elevated LFTs (Acute) Common bile duct (CBD) obstruction (Acute) Stent placed 12/22/23 Gallbladder dilatation (Acute) Elevated transaminase level (Acute) Pancreatitis (Acute) Common bile duct dilatation (Acute) HSV-1 infection (Acute ~2022) DM type 1, goal A1C below 7.5% (Chronic) DM 1.5, but adding TYpe 1 2' MGMT per DM 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 see [facility] notes.. 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, 03/2023 Ganglion cyst Muscle spasm Benign paroxysmal positional vertigo Trochanteric bursitis, left hip Other intervertebral disc degeneration, lumbar region Adjustment disorder with anxious mood Synovial cyst of lumbar facet joint Surgical History History of abdominal paracentesis (~09/2024) H/O endoscopy (~12/22/23) Pancreatic mass found 06/10/2453-[id number] of duodenum stented Family History Brother Alcohol use disorder Brother Alcohol use disorder Depression Father Colon cancer Diabetes Mother Asthma Lung cancer ALK positive ( gene mutation) Hypertension Sister Alton disease Paternal Grandmother Heart disease Paternal Grandfather Colon cancer Social History Smoking/Tobacco Use Status: Former Tobacco Use Quit status: considering quitting Smoking risk assessment performed?: Yes Alcohol Intake: former Counseling given: No Drug use: Daily Substance use type: marijuana Household members: spouse Housing: house Number of Children: 3 number of grandchildren: 2 Communication Needs: Corrective Lenses Education Level: college 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 What is your relationship status?: How often do you talk on the phone with friends or family?: three or more times per week How often do you get together with friends or relatives?: three or more times per week Panel score (0-1 are the most socially isolated patients): 2 NHANES result reviewed/action taken: Yes What type of physical activity do you participate in: walking Duration: 45-60 minutes/day Frequency: other Details: exercises as pt feels up to it with current condition Debbi/Mu-Ism: Sabianism Special debbi needs: Yes Seatbelt use: always Drive intox or ride w/intox courtesy driver: No Working smoke detector in home: Yes Carbon monox detector in home: Yes Do you feel safe at home: Yes Do you feel safe in your relationship?: Yes Meds Allergies and Home Medications Allergies Allergy/AdvReac Type Severity Reaction Status Date / Time hydromorphone AdvReac Dizziness/L Verified 11/14/24 10:41 ighthead oxycodone AdvReac Nausea Verified 11/14/24 10:41 Home Medications ?Medication ?Instructions ?Recorded ?Confirmed ?Type meclizine 25 mg chewable tablet 25 mg PO DAILY PRN 05/18/17 11/14/24 History blood sugar diagnostic (Blood #200 ea 03/16/23 11/14/24 Rx Glucose Test strips) tizanidine 2 mg capsule 2 mg PO DAILY PRN muscle spasm #30 03/08/24 10/30/24 Rx caps insulin aspart U-100 100 unit/mL 5 unit (0.05 mL) subcut TID #15 mL 04/12/24 11/14/24 Rx (3 mL) subcutaneous pen (Novolog FlexPen U-100 Insulin aspart) ondansetron HCl 8 mg tablet 8 mg PO Q8H 06/07/24 11/14/24 History cyclobenzaprine 10 mg tablet 10 mg PO TID 08/02/24 11/14/24 History hydromorphone 2 mg tablet 2 mg PO BID PRN 08/02/24 11/14/24 History lorazepam 0.5 mg tablet 0.5 mg PO Q6H PRN 08/02/24 11/14/24 History scopolamine base 1 mg over 3 days 1 patch transdermal Q3D PRN 08/02/24 11/14/24 History transdermal patch levothyroxine 150 mcg capsule 150 mcg PO DAILY 08/22/24 11/14/24 History oxycodone 5 mg tablet 5 mg PO .complex PRN 08/22/24 11/14/24 History dexamethasone 1 mg tablet 1 - 4 mg (1 - 4 x 1 mg) PO DAILY 10/14/24 11/14/24 Rx #90 tabs gabapentin 100 mg capsule 100 - 200 mg (1 - 2 x 100 mg) PO 10/14/24 11/14/24 Rx TID #90 caps fentanyl 25 mcg/hr transdermal 1 patch transdermal Q72H #10 ea 10/18/24 11/14/24 Rx patch naloxone 4 mg/actuation nasal 4 mg intranasal Q2M PRN opioid 10/18/24 11/14/24 Rx spray (Narcan) overdose #2 ea dextrose 40 % oral gel (Glutose-15) 10 g PO DIRECTED PRN #112.5 10/31/24 11/14/24 Rx grams glucagon 1 mg solution for 1 mg subcut Q20M PRN #3 ea 10/31/24 11/14/24 Rx injection (GlucaGen HypoKit) [id number] See Rx Instructions PO .COMPLEX 10/31/24 11/14/24 History 24,000-76,000-120,000 unit capsule,delayed rel (Creon) insulin glargine 100 unit/mL (3 3 unit (0.03 mL) subcut QPM #15 mL 11/01/24 11/14/24 Rx mL) subcutaneous pen (Lantus Solostar U-100 Insulin) metoclopramide HCl 10 mg tablet 10 mg PO QAC #30 tabs 11/01/24 11/14/24 Rx lorazepam 1 mg tablet 1 mg PO Q4H PRN anxiety #7 tabs 11/04/24 11/14/24 Rx morphine concentrate 100 mg/5 mL See Rx Instructions PO Q1H PRN 11/04/24 11/14/24 Rx (20 mg/mL) oral solution pain or dyspnea #30 mL clonazepam 0.5 mg tablet 0.25 - 0.5 mg (0.5 - 1 x 0.5 mg) 11/09/24 11/14/24 Rx PO TID #30 tabs fentanyl 12 mcg/hr transdermal 1 patch transdermal Q72H #5 ea 11/09/24 11/14/24 Rx patch blood-glucose sensor (Dexcom G7 11/14/24 11/14/24 History Sensor device) Exam Narrative Exam Narrative: General: 59 y/o F, frail/ill appearing, restless in bed on arrival; resting comfortably after medications administered HEENT: hearing grossly WNL; dry MM, normocephalic, atraumatic, alopecia Resp: even and unlabored, shallow; no cough Card: regular rate, regular rhythm GI: retches during visit w/no output; absent BS w/hypoactive sounds in LUQ after 1m; tender to palpation throughout, worse in upper abdomen; no distention Psych: cooperative, scared, mood/affect congruent; insight limited to fair Time Spent Time spent with Patient: 40-54 minutes Time was spent: preparing to see the patient(eg.review tests), obtaining and/or reviewing separately otained hiistory, ordering medications,tests, procedures, referring, communicating with other health rn homecare, indepentently interpreting results, counseling the patient and care coordination
[2024-11-14 10:07] VITALS: BP 141/108; PULSE 104; RESP 18; TEMP 36.5; O2SAT 96
[2024-11-14] MEDS: Ondansetron 4 MG/2 ML VIAL IVP (11:15)
[2024-11-14] MEDS: Normal Saline Flush 10 ML SYR IVP ×6 (11:15→22:32)
[2024-11-14] MEDS: Dexamethasone 4 MG/ML VIAL IVP ×3 (11:16→22:32)
[2024-11-14] MEDS: LORazepam 2 MG/ML VIAL IV/SC ×5 (11:16→22:31)
[2024-11-14] MEDS: Haloperidol 5 MG/ML VIAL IM ×2 (11:16→14:30)
--- NOTE | 2024-11-14 13:16 | W.SURGCON ---
Date of service: 11/14/24 Time of Service: 13:16 Assessment and Plan Assessment and plan (1) Nausea: Status: Acute (2) Common bile duct (CBD) obstruction: Status: Acute (3) Gallbladder dilatation: Status: Acute (4) Elevated LFTs: Status: Acute (5) Cancer, metastatic to lung: Status: Acute (6) Pancreatic adenocarcinoma: Status: Chronic (7) Cancer related pain: Status: Acute (8) Multiple lung nodules on CT: Status: Acute (9) HTN (hypertension): (10) Duodenal obstruction: (11) Anemia: (12) Intractable nausea and vomiting: Status: Resolved Assessment and plan: I do suspect this is from a gastric outlet obstruction and occlusion of the duodenum by the tumor/progression of the tumor. 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 Choices are to try to see if they can do further duodenal stenting. Versus placing a NG tube for gastric drainage which would help with the nausea and vomiting. But she is still would not be able to eat or take in any fluids. Versus just high dose medications. Patient and her are going to discuss their options. I did talk with Delilah Vasquez. She is going to take over the case from this point. We can further help facilitate if she. We can further help facilitate if she wants to go down to [facility] for further stenting. Wants to go down to [facility] for further stenting. 45 mins spent in direct pt care and 15 in non face to face time History of Present Illness Narrative: Meena is a 59-year-old female well-known to me. She was diagnosed with pancreatic cancer in November 2023 . She had a common bile duct stenting in November 2023 she had a PET scan that did show mets to the lung. She subsequently underwent biopsy which did confirm this. For she has undergone aggressive chemotherapy but the tumor continues to grow. In May she had to have a duodenal stent placed at [facility] because the tumor was compressing her duodenum causing a functional gastric outlet obstruction with associated nausea and vomiting and she was not able to eat and was continuously vomiting. She has been aggressive and trying to getting into treatment trials, but there are no open trials that she is eligible for. She presents to the hospital at this time for intractable nausea and vomiting. Her states that this is been going on for the past 5 to 7 days. She cannot eat anything and she is unable to keep water down. She was quite dehydrated when she admitted was admitted to the hospital. I did review her CT that she had in the ER. I did review her oncology notes from [facility]. Dr. Stevenson did not recommend any more chemo and recommended she go into hospice. She presents to [facility] with intrac table nausea and vomiting. I discussed with the patient and her that I do feel that this is from tumor progression. And most likely the tumor is progressing impressing on the duodenum which is again causing a functional outlet obstruction. We could prove this by doing a contrasted CT scan. If she Does have a obstruction then she could consider attempts at restenting down at [facility]. Or we could put in a small Stateless NG tube to try to do decompression. Even if we place the small bore tube for gastric drainage, she is not going to be able to take in any nutrition or water. If she is not taking in anything orally, then she will go into renal failure and her kidneys will shut down in 3 to 5 days, and she will pass. The other option is just to continue with high-dose antiemetics and high-dose narcotics. I did discuss options with the patient and her . They would like some time to think about and discuss their options. Review of Systems All systems reviewed & are unremarkable except as noted in HPI and below PFSH All Active Problems Hospice care patient (Acute) Cancer related pain (Acute) Nausea (Acute) Hypothyroidism (Chronic) Cancer, metastatic to lung (Acute) [facility] [place] Hem/Onc 02/04/[address] nodules on [address] (Acute ~12/2023) 01/12/24 Dr Palacios Thoracic Surg 03/28/24-CT chest w/ contrast-stage IV pancreatic cancer, on chemo, restaging (ordering physician Dr. Stevenson) Left upper lobe pulmonary nodule (Acute) Pancreatic adenocarcinoma (Chronic ~11/2023) fine needle aspiration 12/24/23 [facility] [place] 01/12/24 Thoracic Surgeon 03/28/24-CT chest w contrast: interval decrease in size of an ill-defined mass ar the head of the pancreas. Pancreatic mass (Acute ~12/22/23) 12/22/23 found on endoscopy Elevated LFTs (Acute) Common bile duct (CBD) obstruction (Acute) Stent placed 12/22/23 Gallbladder dilatation (Acute) Elevated transaminase level (Acute) Pancreatitis (Acute) Common bile duct dilatation (Acute) HSV-1 infection (Acute ~2022) DM type 1, goal A1C below 7.5% (Chronic) DM 1.5, but adding TYpe 1 2' MGMT per DM 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 see [facility] notes.. 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, 03/2023 Ganglion cyst Muscle spasm Benign paroxysmal positional vertigo Trochanteric bursitis, left hip Other intervertebral disc degeneration, lumbar region Adjustment disorder with anxious mood Synovial cyst of lumbar facet joint Surgical History History of abdominal paracentesis (~09/2024) H/O endoscopy (~12/22/23) Pancreatic mass found 06/10/2457-[id number] of duodenum stented Family History Brother Alcohol use disorder Brother Alcohol use disorder Depression Father Colon cancer Diabetes Mother Asthma Lung cancer ALK positive ( gene mutation) Hypertension Sister Alton disease Paternal Grandmother Heart disease Paternal Grandfather Colon cancer Social History Smoking/Tobacco Use Status: Former Tobacco Use Quit status: considering quitting Smoking risk assessment performed?: Yes Alcohol Intake: former Counseling given: No Drug use: Daily Substance use type: marijuana Household members: spouse Housing: house Number of Children: 3 number of grandchildren: 2 Communication Needs: Corrective Lenses Education Level: college 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 What is your relationship status?: How often do you talk on the phone with friends or family?: three or more times per week How often do you get together with friends or relatives?: three or more times per week Panel score (0-1 are the most socially isolated patients): 2 NHANES result reviewed/action taken: Yes What type of physical activity do you participate in: walking Duration: 45-60 minutes/day Frequency: other Details: exercises as pt feels up to it with current condition Debbi/Temple: Islam Special debbi needs: Yes Seatbelt use: always Drive intox or ride w/intox long haul truck driver: No Working smoke detector in home: Yes Carbon monox detector in home: Yes Do you feel safe at home: Yes Do you feel safe in your relationship?: Yes Exam Narrative Exam Narrative: PHYSICAL EXAM GENERAL APPEARANCE: , oriented, x 1 ,? in no acute distress. Patient has been medicated and is sleepy at this time. Her nausea is improved. HYDRATION: Well hydrated HEAD, EYES, EARS, NECK, THROAT: Head is normocephalic, pupils equal, round, reactive to light and accommodation, ocular movement intact, sclera clear and no jaundice. ?Dentition intact. Extreme cancer cachexia and dehydration LUNGS: normal respiration/normal chest excursion. ?Clear to auscultation bilaterally. ?No wheeze. ?HEART: Regular rate and rhythm. no murmurs ABDOMEN: soft and non-tender to palpation.? Normal bowel sounds.? No hernias.? She does have a Pleurx catheter in. She does have a Mediport again. Results Last Vital Signs Temp 36.5 C 11/14/24 10:07 Pulse 104 H 11/14/24 10:07 Resp 18 11/14/24 10:07 BP 141/108 H 11/14/24 10:07 Pulse Ox 96 11/14/24 10:07
[2024-11-14] MEDS: Prochlorperazine 10 MG/2 ML VIAL IVP (16:59)
--- NOTE | 2024-11-14 17:09 | NUR.NOTE ---
Nursing Note: Insulin pump removed and returned to patient's .
[2024-11-14] MEDS: Fentanyl Patch Removal 1 EACH TP (17:11)
[2024-11-14] MEDS: Haloperidol 5 MG/ML VIAL 1 MG IVP (20:51)
[2024-11-14] MEDS: Ondansetron 4 MG/2 ML VIAL 8 MG IVP (20:52)
[2024-11-15] MEDS: LORazepam 2 MG/ML VIAL IV/SC ×6 (00:26→10:57)
[2024-11-15] MEDS: Normal Saline Flush 10 ML SYR IVP ×8 (00:27→22:05)
[2024-11-15] MEDS: Haloperidol 5 MG/ML VIAL 1 MG IVP ×5 (02:09→20:01)
[2024-11-15] MEDS: Ondansetron 4 MG/2 ML VIAL 8 MG IVP ×3 (03:41→20:02)
[2024-11-15] MEDS: Dexamethasone 4 MG/ML VIAL IVP ×2 (03:42→10:57)
--- NOTE | 2024-11-15 11:23 | PGE_ITS ---
Date of Service Date of service: 11/15/24 Time of Service: 10:30 Assessment and Plan Assessment and plan (1) Hospice care patient: Status: Acute Assessment and plan: Meena is a hospice patient admitted to [facility] for symptom management for uncontrolled nausea and vomiting as well as pain. She was admitted yesterday and started on hydromorphone pump for pain as well as multiple medications to treat the nausea. This morning, she appeared to be very uncomfortable, restless, agitated, trying to get out of bed. She reported pain at that time as well. Her hydromorphone pump was increased from 0.4 mg/hr to 0.6 mg/hr this morning, then this afternoon it was further titrated to 0.7 mg/hr. The lorazepam dose was increased to 1 mg (from 0.5-1mg) q2h and the haldol frequency was decreased to q4h. The dexamethasone was held due to question of it making her more agitated/restless. She appears far more calm and comfortable this afternoon. Her family feels she is comfortable. She has a pleurx drain in place- please drain prior to discharge and as needed. Her wish was to be home. Her family would like to try to honor this. A hospital bed is being delivered tomorrow morning. She will need to be reassessed tomorrow but the goal will be to discharge her home via ambulance if she appears to be able. (2) Cancer related pain: Status: Acute Assessment and plan: hydromorphone pump currently at 0.7 mg/hr with 0.3 mg bolus q15m PRN. Continue to titrate as needed. (3) Cancer, metastatic to lung: Status: Acute (4) Pancreatic adenocarcinoma: Status: Chronic Assessment and plan: w/likely tumor progression to occlusion of duodenal stent or SBO present pt adamant that she does not want an NGT. (5) Common bile duct (CBD) obstruction: Status: Acute Assessment and plan: she is not jaundice, stent in place (6) DM type 1, goal A1C below 7.5%: Status: Chronic Assessment and plan: reviewed w/ upon admission: may remove CGM if Meena would like, she has not have any low-lows, mostly has been w/in range. (7) Duodenal obstruction: Assessment and plan: surgical consult w/likely tumor advancement; reviewed option for Dobhoff tube in hospital, pt preference for no tube manage symptoms w/medications may represent or opt for Dobhoff w/LIS at any time (8) Nausea & vomiting: Status: Inactive Assessment and plan: as above Subjective Subjective Interval history since last seen: AM VISIT: Meena was seen in her hospital room. She is admitted for hospice symptom management. She came in with uncontrolled N/V as well as pain. She appears restless and agitated. Her reports that she calms down and goes off to sleep after she gets a a bolus, lorazepam or haldol but only for about 15 minutes and then she becomes agitated and restless again. Meena reports that she is experiencing pain at this time. She is trying to get OOB and does not appear safe to do so. I asked Meena if she was agreeable to staying at the hospital longer to get Sx under control and she agrees. PM VISIT: I came back to reassess Meena after making some medication changes. Her family reports that she is far more comfortable but still a bit restless. Her son questions if we need to increase the basal rate on her pump. Meena appears to be resting comfortably in bed. Her family reports that she has had very little sleep over the last several days. She did not awaken during the visit. Her family would still like to get her home. They are trying to honor her wishes. We discussed a plan to discharge her home tomorrow morning via ambulance as long as she appears to be in a position to get home. A hospital bed is being delivered to her home tomorrow. Exam Narrative Exam Narrative: PM visit: General: ill-appearing, middle aged female, laying in bed on her left side. She appears calm and comfortable, in NAD. Her skin is pale, hair appears to be growing back. She was not responsive. HEENT: atraumatic, eyes closed, mm slightly dry neck: supple Respiratory: respirations appear even and unlabored GI: abd softly distended, not palpated Ext: moves all 4 extremities freely, no edema. Objective Last Vital Signs Temp 36.5 C 11/14/24 10:07 Pulse 104 H 11/14/24 10:07 Resp 18 11/14/24 10:07 BP 141/108 H 11/14/24 10:07 Pulse Ox 96 11/14/24 10:07 Time Spent with Patient Time Spent with Patient: >50 minutes Time was spent: preparing to see the patient(eg.review tests), obtaining and/or reviewing separately otained hiistory, ordering medications,tests, procedures, referring, communicating with other health clinical care leader, counseling the patient and care coordination
[2024-11-15] MEDS: LORazepam 2 MG/ML VIAL 1 MG IV/SC ×5 (14:49→22:04)
--- NOTE | 2024-11-15 15:22 | CHAPLAIN ---
This morning Meena, who is a hospice patient, was restless and said she was having pain. Hospice and nursing has worked to today to get her more comfortable. She is sleeping now. Her Alphonse, son Pillo and his girlfriend are here. Others have visited today as well. Alphonse told me that Meena is not a orthodox goer, but a believer, especially after her mom , and she believes in the afterlife. 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 She has a sister in [place] who is unable to travel because of recent knee surgery. Pillo said he grew up in [place], [place], and Alphonse (Pillo's stepdad) owned land in [place] [address] and they would come up here to camp. After Meena and Alphonse retired, they build a house on property where they live know. Meena has said she would like to at home. Rosalia Corado, from Hospice is working to get Meena comfortable enough to go home, possibly today, according to Alphonse.
--- NOTE | 2024-11-15 15:49 | CMPROGNOTE_ITS ---
Date of service: 11/15/24 Time of Service: 15:49 Care Management Progress Note Progress Note Text Progress Note Text: Meena was admitted yesterday by the hospice team for symptom management. She has pancreatic adenocarcinoma that has metastasized to the lung and she has intractable nausea and vomiting. She will be started on a CADD pump at [facility] before transitioning home. Meena was moaning and holding her abdomen when CM visited. Her family was with her and she looked quite uncomfortable. Originally she was to be discharged today as she very much wants to at home, however her symptoms were too severe to accomplish that today. She will likely go home tomorrow for end of life care. Discharge Potential Discharge Needs: Other (hospice) Anticipated Barriers to Discharge: Medical Status (uncontrolled pain and nausea) Patient/Family Education Needs: Review discharge instructions, discuss Ask Me Three Transportation: EMS Plan: Meena will be discharged home with a resumption of hospice services. She will be followed by the hospice team and transport via EMS. Hospice has ordered a hospital bed which is scheduled to be delivered tomorrow. Transportation will be coordinated to occur after equipment arrival. Social Determinants of Health Screening Social Determinants of Health last assessed: 11/15/24 Will the Patient Participate in the Screening?: Yes Do you worry about having a steady place to live?: no Problems where you live: no known problems In the past 12 months, have you had to go without electric, gas, oil or water in your home?: no Have you or anyone in your house had to go without enough food to eat?: no Has lack of transportation kept you from medical appointments or from doing things needed for daily living?: no Has anyone in your life made you feel unsafe or unsupported?: no How hard is it for you to pay for the very basics like food, housing, medical care, and heating? Would you say it is:: Very hard Do you want help finding or keeping work or a job?: I do not need or want help If for any reason you need help with day-to-day activities such as bathing, preparing meals, shopping, managing finances, etc., do you get the help you need?: I don?t need any help How often do you feel lonely or isolated from those around you?: Rarely Do you speak a language other than [place]i at home?: No Does the patient want assistance with any of the above?: No Health Related Social Needs Health related social needs: problems related to housing/economic circumstances (Z59.89) and feeling lonely/isolated (Z60.8)
[2024-11-15] MEDS: Scopolamine 1 MG/3 DAYS PATCH 2 MG TD (18:15)
[2024-11-16] MEDS: Normal Saline Flush 10 ML SYR IVP (00:04)
--- NOTE | 2024-11-16 09:58 | EXPE_ITS ---
Date of service: 11/16/24 Time of Service: 09:58 Discharge Plan Disposition Patient Disposition: Discharge Details Reason For Visit: Hospice, symptom management Admit Date/Time: 11/14/24 10:21 Admit Provider: Emerita Castaneda Attending Provider: Emerita Castaneda Primary Care Provider: Emerita Castaneda Hospital Course Hospital Course: Meena was a 59 year old female with metastatic pancreatic cancer who was admitted to [facility] for hospice symptom management after all attempts to manage Sx at home were exhausted. There was concern for obstructed stent vs bowel obstruction. She had uncontrolled N/V and pain. Once she was admitted to the hospital, she was started on hydromorphone pump for pain and her nausea/vomiting was managed with IV lorazepam, IV dexamethasone, haloperidol and zofran. She was noted to be restless and agitated the day following admission. She was attempting to get OOB despite her weakness. She appeared to be experiencing terminal delerium. Her medications were adjusted and the dexamethasone was placed on hold due to concern that this could be increasing her agitation/restlessness. By yesterday evening, she appeared to be resting comfortably in bed with family by her side. Arrangements were being made to get a hospital bed in the home with plans to get her home this morning, however, she overnight. Her family was not with her when she as they had gone home to rest. Home Meds and New Rx's Prescriptions: No Action (DME) Blood Glucose Test Strip See Rx Instructions .ROUTE .MEDSUPPLY Qty: 200 3RF Rx Instructions: For Verio OR covered brand, for bID testing for DM E11.9 tizanidine 2 mg capsule 2 mg PO DAILY PRN (Reason: muscle spasm) Qty: 30 3RF ondansetron HCl 8 mg tablet 8 mg PO Q8H levothyroxine 150 mcg capsule 150 mcg PO DAILY Patient Comments: Patient reports high TSH and dose change from [facility]. oxycodone 5 mg tablet 5 mg PO .complex PRN Patient Comments: 1-2 tabs q4 hrs for pain with hydromorphone dexamethasone 1 mg tablet 1 - 4 mg PO DAILY Qty: 90 4RF gabapentin 100 mg capsule 100 - 200 mg PO TID Qty: 90 0RF meclizine 25 MG tablet,chewable 25 mg PO DAILY PRN insulin aspart U-100 [Novolog FlexPen U-100 Insulin] 100 unit/mL (3 mL) insulin pen 5 unit subcut TID Qty: 15 12RF Rx Instructions: Inject 1-5 units subcutaneously, 1-3 times daily as directed. hydromorphone 2 mg tablet 2 mg PO BID PRN lorazepam 0.5 mg tablet 0.5 mg PO Q6H PRN scopolamine base 1 mg over 3 days patch 3 day 1 patch transdermal Q3D PRN cyclobenzaprine 10 mg tablet 10 mg PO TID fentanyl 25 mcg/hr patch 72 hour 1 patch transdermal Q72H MDD 1 patch Qty: 10 0RF naloxone [Narcan] 4 mg/actuation spray,non-aerosol 4 mg intranasal Q2M PRN (Reason: opioid overdose) Qty: 2 0RF Rx Instructions: spray 1 dose into ONE nostril; alternate nostrils w each dose until help arrives morphine concentrate 100 mg/5 mL (20 mg/mL) solution See Rx Instructions PO Q1H PRN MDD 500 mg Qty: 30 0RF Rx Instructions: 0.25-1.0 ml orally every 1 hour, as needed; HOSPICE lorazepam 1 mg tablet 1 mg PO Q4H PRN (Reason: anxiety) Qty: 7 5RF Rx Instructions: hospice fentanyl 12 mcg/hr patch 72 hour 1 patch transdermal Q72H MDD 37 mcg/hr Qty: 5 0RF Rx Instructions: Hospice Place with 25 mcg/hr patch for total of 37 mcg/hr clonazepam 0.5 mg tablet 0.25 - 0.5 mg PO TID Qty: 30 4RF Rx Instructions: Take 0.25 mg BID in addition to 0.5 mg HS dose (DME) Dexcom G7 Sensor Device See Rx Instructions .ROUTE Rx Instructions: As directed Creon 24,000-76,000 -120,000 unit capsule,delayed release(DR/EC) See Rx Instructions PO .COMPLEX Patient Comments: TAKE ONE TO TWO CAPSULES BY MOUTH with snacks Rx Instructions: 1-2 caps orally PRN with snacks; dextrose [Glutose-15] 40 % Gel 10 g PO DIRECTED PRNQty: 112.5 0RF GlucaGen HypoKit 1 mg recon soln 1 mg subcut Q20M PRNQty: 3 1RF Rx Instructions: until target blood sugar attained metoclopramide HCl 10 mg tablet 10 mg PO QAC Qty: 30 0RF Rx Instructions: administer 30 minutes before meals insulin glargine [Lantus Solostar U-100 Insulin] 100 unit/mL (3 mL) insulin pen 3 unit subcut QPM Qty: 15 5RF Discharge Data Discharge Date/Time-TO BE ENTERED AT DEPARTURE: 11/16/24 05:54 Discharge Comment: [place] [facility] [place] Discharge Sum: Prov Provider Consults: 11/14/24 08:25 Patient Admitting Representative Consult [CONS] Routine Consultation Status:: Follow-up needed Clarification:: Manage/follow per spec. Reason for consult:: Hospice patient, admitted for sxs management. May need palliative sedation. 11/14/24 10:46 Surgical Consult [CONS] Routine Consulting Provider: Delilah Vasquez Consultation Status:: Contact made by Clarification:: Manage/follow per spec. Reason for consult:: pancreatic cancer w/potential obstruction Discharge Sum: Diag Contributing Factors (1) Hospice care patient: (2) Cancer related pain: (3) Cancer, metastatic to lung: (4) Pancreatic adenocarcinoma: (5) Common bile duct (CBD) obstruction: (6) DM type 1, goal A1C below 7.5%: (7) Duodenal obstruction: (8) Nausea & vomiting: Discharge Sum: Summary Summary Details: Meena was a 59 year old female with metastatic pancreatic cancer who was admitted to [facility] for hospice symptom management after all attempts to manage Sx at home were exhausted. There was concern for obstructed stent vs bowel obstruction. She had uncontrolled N/V and pain. Once she was admitted to the hospital, she was started on hydromorphone pump for pain and her nausea/vomiting was managed with IV lorazepam, IV dexamethasone, haloperidol and zofran. She was noted to be restless and agitated the day following admission. She was attempting to get OOB despite her weakness. She appeared to be experiencing terminal delerium. Her medications were adjusted and the dexamethasone was placed on hold due to concern that this could be increasing her agitation/restlessness. By yesterday evening, she appeared to be resting comfortably in bed with family by her side. Arrangements were being made to get a hospital bed in the home with plans to get her home this morning, however, she overnight. Her family was not with her when she as they had gone home to rest.
== END 2024-11-16 05:54 | disposition expired | DRG 947 ==
PROVIDERS: Admitting Provider Family Medicine; PCP Family Medicine; Visit Provider Family Medicine
DX: G89.3 Neoplasm related pain (acute) (chronic) (principal); K83.1 Obstruction of bile duct; C25.0 Malignant neoplasm of head of pancreas; C78.02 Secondary malignant neoplasm of left lung; Z51.5 Encounter for palliative care; E10.9 Type 1 diabetes mellitus without complications; K31.89 Other diseases of stomach and duodenum; R11.2 Nausea with vomiting, unspecified; K82.8 Other specified diseases of gallbladder; I10 Essential (primary) hypertension; D64.9 Anemia, unspecified; E86.0 Dehydration; E03.9 Hypothyroidism, unspecified; M51.369 Other intervertebral disc degeneration, lumbar region without mention of lumbar back pain or lower extremity pain; Z97.8 Presence of other specified devices
CPT/HCPCS: 00123; J0780; J1100; J1171; J1630; J2060; J2405; J3490